=== PATIENT | male | born 1985 | race Caucasian/White ===

== ENCOUNTER 2024-12-31 07:56 | Inpatient (IN) ==
[2024-12-31] MEDS: HYDROmorphone INJ 0.5 MG/0.5 ML SYR IV STA ×4 (08:24→10:57)
[2024-12-31 08:51] LABS: Base Excess VBG -12.3 mEq/L; HCO3 VBG 17 mmol/L; Oxygen Saturation VBG < 60.0 %; PCO2 VBG 49 mmHg (38-50); PO2 VBG 42 mmHg; pH VBG 7.14 (7.36-7.41)
[2024-12-31 08:51] LABS: Alanine Aminotransferase 49.0 U/L (7-52); Albumin Globulin Ratio 1.0 (0.9-2); Albumin Level 4.6 gm/dl (3.4-5.0); Alkaline Phosphatase 41.0 U/L (34-104); Anion Gap 25.0 (3-11); Bilirubin,Total 1.2 mg/dl (0.2-1.0); Blood Urea Nitrogen 55.0 mg/dl (6-23); Calcium 9.3 mg/dl (8.6-10.3); Carbon Dioxide 18.0 mmol/L (21-32); Chloride 91.0 mmol/L (98-107); Creatinine Clr Calc Pharmacy 24.7 ml/min; Globulin 4.5 gm/dl (2.5-4.0); Glucose 167.0 mg/dl (70-99(Fasting)); Lipase 6.0 U/L (11-82); Potassium 3.6 mmol/L (3.5-5.1); Sodium 134.0 mmol/L (136-145); Total Protein 9.1 gm/dl (6.0-8.3)
--- NOTE | 2024-12-31 08:51 | Emergency Department Note ---
Impression & Plan Acute renal failure, Pneumoperitoneum, Abdominal pain, Acute appendicitis ED Provider Note NAME: RAF MARTINEZ AGE: 39 SEX: M : 1985 ARRIVES VIA: Walk-In INFORMANT: Patient, ED PROVIDER(S): Elsy Barone MD CHIEF COMPLAINT: Abdominal pain HPI: This is a 39-year-old male present for abdominal pain. Patient is Chinese- speaking only, mortgage originator iPad was used today. Patient reports having severe abdominal pain starting Sunday. That worsened on Sunday. He has not had a proper episode of urination since Sunday. He denies any nausea, vomiting. He states the pain is the worst pains ever had. He also complains of chest pain at this time. No fevers, no cough, shortness of breath. ROS: See above HPI for pertinent positives & negatives. A total of 10 systems reviewed and were otherwise negative. PAST MEDICAL HISTORY: See Below PAST SURGICAL HISTORY: See Below FAMILY HISTORY: See Below SOCIAL HISTORY: See Below HOME MEDICATIONS: See Below ALLERGIES: See Below VITALS: See Below PHYSICAL EXAMINATION: General: Tachypneic, in distress due to pain Head: Normocephalic and atraumatic Eyes: Normal inspection, extraocular muscles intact Ear, nose, throat: Normal external exam Neck: Normal range of motion Respiratory: Tachypneic, lungs clear to auscultation bilaterally Cardiovascular: Tachycardic, regular rate/rhythm, no murmur GI: Rigid, peritonitic, diffusely tender Extremities: nontender, moves all extremities Neuro: The patient awake and alert, appropriately conversive, no focal deficits, symmetric faces Skin: Warm, dry, and intact MEDICAL DECISION MAKING: This is a 39 elapsing for abdominal pain. Hydrology Technician iPad was used for Chinese- speaking patient. Patient is hypotensive and tachycardic on arrival thready pulses. 2 points of access obtained and bilateral upper extremities. Fluids started, Dilaudid given. Bedside ultrasound reveals possible free fluid in the right upper quadrant. Despite not having urination for the past 2 days, patient does not have any visible large bladder on ultrasound. -[id number] BMP reveals significant CORINA/renal failure with creatinine over 4 -Called CT imaging emergently for Noncon CT of the chest and abdomen -Patient has significant proved in pain after Dilaudid. Heart rate coming down after fluid resuscitation from 140s down to 110s - CT imaging reveals concerns for peritonitis as well as pneumoperitoneum. Concern for possible appendicitis as the source. -Care discussed with SHRAVAN for surgery, Becca. Patient was seen at bedside for possible OR - Patient will be taken to OR emergently. Patient admitted to Dr. Bullard general surgery service Differential diagnosis: Appendicitis, cholecystitis, abdominal compartment syndrome, mesenteric ischemia, volvulus Diagnostics interpreted by me: ECG: ECG independently interpreted by me with sinus tachycardia at a rate of 144, normal axis, normal [place], normal QRS, normal QTc, no ST segment elevations consistent with STEMI criteria Cardiac Monitoring: An order was placed for continuous cardiac monitoring. The monitor shows a rate of 130 with sinus tachycardia rhythm. Critical Care Note: I have personally spent 65 minutes of critical care time in the direct management of this patient. This includes bedside care, interpretation of diagnostic studies, and testing, discussion with consultants, patient, and family members, and other required patient management activities. This 65 minutes is in excess of all separately billable procedures. Past Med/Surg History Problem List (Updated 12/31/24 @ 16:50 by Elsy Barone MD) Acute appendicitis (Acute) Acute renal failure (Acute) Abdominal pain (Acute) Pneumoperitoneum (Acute) Social History (Updated 12/31/24 @ 09:48 by Jalen Shankar PA-C) Smoking Status: Never smoker Hx Alcohol Use: Yes (occasional, socially) Alcohol type: beer Hx Substance Use: No Communication Tools: IPad Feels Safe at Home: Yes Allergies Allergies Allergy/AdvReac Type Severity Reaction Status Date / Time No Known Allergies Allergy Verified 12/31/24 10:03 Results & Data (ED) Vital Signs Vital Signs - 24 hr 12/31/24 07:57 12/31/24 08:05 12/31/24 08:43 Temperature 36.5 C Temperature Source Temporal Artery Scan Pulse Rate 76 Pulse Rate [Apical] 141 H 130 H Pulse Rate [Left Finger] Pulse Rhythm [Apical] Pulse Rhythm [Left Finger] Pulse Strength [Apical] Pulse Strength [Left Finger] Respiratory Rate 30 H 18 28 H Respiratory Effort / Characteristics Non-Labored Spontaneous Respiratory Depth Shallow Normal Respiratory Pattern Tachypnea Blood Pressure [Left Arm] Blood Pressure [Right Arm] 106/87 97/78 L Blood Pressure Mean [Left Arm] Blood Pressure Mean [Right Arm] 93 84 Blood Pressure Position [Left Arm] Blood Pressure Position [Right Arm] Sitting Pulse Oximetry 98 96 96 Oxygen Delivery Method Room Air Room Air Room Air Oxygen Flow Rate Sepsis Recent Fever Within 48 Hours No Sepsis New/Unexplained Change in Mental Status No Sepsis Action Taken by Nursing No Action Required 12/31/24 08:45 12/31/24 09:00 12/31/24 09:30 Temperature Temperature Source Pulse Rate 137 H Pulse Rate [Apical] 116 H 127 H Pulse Rate [Left Finger] Pulse Rhythm [Apical] Pulse Rhythm [Left Finger] Pulse Strength [Apical] Pulse Strength [Left Finger] Respiratory Rate 28 H 26 H Respiratory Effort / Characteristics Respiratory Depth Respiratory Pattern Blood Pressure [Left Arm] Blood Pressure [Right Arm] 115/91 117/90 Blood Pressure Mean [Left Arm] Blood Pressure Mean [Right Arm] 99 99 Blood Pressure Position [Left Arm] Blood Pressure Position [Right Arm] Lying Lying Pulse Oximetry 95 94 Oxygen Delivery Method Room Air Room Air Oxygen Flow Rate Sepsis Recent Fever Within 48 Hours Sepsis New/Unexplained Change in Mental Status Sepsis Action Taken by Nursing 12/31/24 10:00 12/31/24 10:33 12/31/24 13:54 Temperature 36 C L Temperature Source Oral Temporal Artery Scan Pulse Rate Pulse Rate [Apical] 133 H 118 H Pulse Rate [Left Finger] 137 H Pulse Rhythm [Apical] Regular Pulse Rhythm [Left Finger] Regular Pulse Strength [Apical] Normal Pulse Strength [Left Finger] Normal Respiratory Rate 28 H 20 15 Respiratory Effort / Characteristics Non-Labored Spontaneous Non-Labored Spontaneous Respiratory Depth Normal Normal Respiratory Pattern Regular Regular Blood Pressure [Left Arm] 131/86 Blood Pressure [Right Arm] 111/92 126/98 Blood Pressure Mean [Left Arm] 101 Blood Pressure Mean [Right Arm] 98 107 Blood Pressure Position [Left Arm] Semi-fowlers Blood Pressure Position [Right Arm] Sitting Semi-fowlers Pulse Oximetry 94 91 98 Oxygen Delivery Method Room Air Room Air Oxymask Oxygen Flow Rate 12 Sepsis Recent Fever Within 48 Hours Sepsis New/Unexplained Change in Mental Status Sepsis Action Taken by Nursing 12/31/24 14:00 12/31/24 14:10 12/31/24 14:20 Temperature Temperature Source Pulse Rate Pulse Rate [Apical] 115 H 113 H 120 H Pulse Rate [Left Finger] Pulse Rhythm [Apical] Regular Regular Regular Pulse Rhythm [Left Finger] Pulse Strength [Apical] Normal Normal Normal Pulse Strength [Left Finger] Respiratory Rate 16 20 18 Respiratory Effort / Characteristics Non-Labored Spontaneous Non-Labored Spontaneous Non-Labored Spontaneous Respiratory Depth Normal Normal Normal Respiratory Pattern Regular Regular Regular Blood Pressure [Left Arm] 122/89 118/77 127/93 Blood Pressure [Right Arm] Blood Pressure Mean [Left Arm] 100 90 104 Blood Pressure Mean [Right Arm] Blood Pressure Position [Left Arm] Semi-fowlers Semi-fowlers Semi-fowlers Blood Pressure Position [Right Arm] Pulse Oximetry 97 97 97 Oxygen Delivery Method Oxymask Oxymask Oxymask Oxygen Flow Rate 12 10 6 Sepsis Recent Fever Within 48 Hours Sepsis New/Unexplained Change in Mental Status Sepsis Action Taken by Nursing 12/31/24 14:30 12/31/24 14:40 12/31/24 14:50 Temperature 37.1 C Temperature Source Oral Pulse Rate Pulse Rate [Apical] 126 H 120 H 125 H Pulse Rate [Left Finger] Pulse Rhythm [Apical] Regular Regular Regular Pulse Rhythm [Left Finger] Pulse Strength [Apical] Normal Normal Normal Pulse Strength [Left Finger] Respiratory Rate 18 14 16 Respiratory Effort / Characteristics Non-Labored Spontaneous Non-Labored Spontaneous Non-Labored Spontaneous Respiratory Depth Normal Normal Normal Respiratory Pattern Regular Regular Regular Blood Pressure [Left Arm] 121/91 121/81 109/76 Blood Pressure [Right Arm] Blood Pressure Mean [Left Arm] 101 94 87 Blood Pressure Mean [Right Arm] Blood Pressure Position [Left Arm] Semi-fowlers Semi-fowlers Semi-fowlers Blood Pressure Position [Right Arm] Pulse Oximetry 97 94 98 Oxygen Delivery Method Oxymask Oxymask Oxymask Oxygen Flow Rate 6 3 3 Sepsis Recent Fever Within 48 Hours Sepsis New/Unexplained Change in Mental Status Sepsis Action Taken by Nursing 12/31/24 15:00 12/31/24 15:10 12/31/24 15:20 Temperature Temperature Source Pulse Rate Pulse Rate [Apical] 125 H 126 H 129 H Pulse Rate [Left Finger] Pulse Rhythm [Apical] Regular Regular Regular Pulse Rhythm [Left Finger] Pulse Strength [Apical] Normal Normal Normal Pulse Strength [Left Finger] Respiratory Rate 18 20 16 Respiratory Effort / Characteristics Non-Labored Spontaneous Non-Labored Spontaneous Non-Labored Spontaneous Respiratory Depth Normal Normal Normal Respiratory Pattern Regular Regular Regular Blood Pressure [Left Arm] 112/91 122/90 112/87 Blood Pressure [Right Arm] Blood Pressure Mean [Left Arm] 98 100 95 Blood Pressure Mean [Right Arm] Blood Pressure Position [Left Arm] Semi-fowlers Semi-fowlers Semi-fowlers Blood Pressure Position [Right Arm] Pulse Oximetry 98 98 97 Oxygen Delivery Method Oxymask Oxymask Oxymask Oxygen Flow Rate 2 2 2 Sepsis Recent Fever Within 48 Hours Sepsis New/Unexplained Change in Mental Status Sepsis Action Taken by Nursing 12/31/24 15:35 12/31/24 15:50 12/31/24 16:05 Temperature Temperature Source Pulse Rate Pulse Rate [Apical] 129 H 130 H 127 H Pulse Rate [Left Finger] Pulse Rhythm [Apical] Regular Regular Regular Pulse Rhythm [Left Finger] Pulse Strength [Apical] Normal Normal Normal Pulse Strength [Left Finger] Respiratory Rate 16 16 20 Respiratory Effort / Characteristics Non-Labored Spontaneous Non-Labored Spontaneous Non-Labored Spontaneous Respiratory Depth Normal Normal Normal Respiratory Pattern Regular Regular Regular Blood Pressure [Left Arm] 116/77 116/87 106/86 Blood Pressure [Right Arm] Blood Pressure Mean [Left Arm] 90 96 92 Blood Pressure Mean [Right Arm] Blood Pressure Position [Left Arm] Semi-fowlers Semi-fowlers Semi-fowlers Blood Pressure Position [Right Arm] Pulse Oximetry 95 94 94 Oxygen Delivery Method Oxymask Room Air Room Air Oxygen Flow Rate 2 Sepsis Recent Fever Within 48 Hours Sepsis New/Unexplained Change in Mental Status Sepsis Action Taken by Nursing 12/31/24 16:15 12/31/24 16:30 Temperature Temperature Source Pulse Rate Pulse Rate [Apical] 127 H 130 H Pulse Rate [Left Finger] Pulse Rhythm [Apical] Regular Regular Pulse Rhythm [Left Finger] Pulse Strength [Apical] Normal Normal Pulse Strength [Left Finger] Respiratory Rate 18 14 Respiratory Effort / Characteristics Non-Labored Spontaneous Non-Labored Spontaneous Respiratory Depth Normal Normal Respiratory Pattern Regular Regular Blood Pressure [Left Arm] 116/76 107/76 Blood Pressure [Right Arm] Blood Pressure Mean [Left Arm] 89 86 Blood Pressure Mean [Right Arm] Blood Pressure Position [Left Arm] Semi-fowlers Semi-fowlers Blood Pressure Position [Right Arm] Pulse Oximetry 94 94 Oxygen Delivery Method Room Air Room Air Oxygen Flow Rate Sepsis Recent Fever Within 48 Hours Sepsis New/Unexplained Change in Mental Status Sepsis Action Taken by Nursing Laboratory Data 12/31/24 08:18 12/31/24 08:18 Lab Results 12/31/24 12/31/24 12/31/24 Range/Units 08:14 08:18 08:20 WBC 7.36 (4.8-10.8) K/ul RBC 6.33 H (4.70-6.10) M/uL Hgb 17.6 (14.0-18.0) g/dl POC Hgb 18.7 H (14.0-18.0) g/dl Hct 52.3 H (42.0-52.0) % POC Hct 55 H (42-52) % MCV 82.6 (80.0-100.0) fL MCH 27.8 (25.0-34.0) pg MCHC 33.7 (32.0-36.0) g/dL RDW Std Deviation 40.8 (36.4-46.3) fL RDW Coeff of Annika 14.2 (11.5-14.5) % Plt Count 367 (130-400) K/uL MPV 9.7 (9.4-12.4) fL Immature Gran % (Auto) 1.5 % Neut % (Auto) 77.2 % Lymph % (Auto) 12.6 % Addison % (Auto) 8.4 % Eos % (Auto) 0.0 % Baso % (Auto) 0.3 % Neut # (Auto) 5.68 (1.40-6.50) K/uL Lymph # (Auto) 0.93 L (1.20-3.40) K/uL Addison # (Auto) 0.62 H (0.11-0.59) K/uL Eos # (Auto) 0.00 (0.00-0.50) K/uL Baso # (Auto) 0.02 (0.00-0.20) K/uL Immature Gran # (Auto) 0.11 (0.01-0.20) K/uL VBG pH (7.36-7.41) VBG pCO2 (38-50) mmHg VBG pO2 mmHg VBG HCO3 mmol/L VBG O2 Saturation % VBG Base Excess mEq/L POC Sodium 132 L (135-144) mmol/L Sodium 134 L (136-145) mmol/L POC Potassium 3.5 (3.3-5.0) mmol/L Potassium 3.6 (3.5-5.1) mmol/L POC Chloride 97 L (101-112) mmol/L Chloride 91 L (98-107) mmol/L Carbon Dioxide 18 L (21-32) mmol/L POC Total CO2 19 L (24-31) mmol/L Anion Gap 25 H (3-11) POC Anion Gap 21.0 (16-25) mmol/L POC BUN 55 H (7-18) mg/dl BUN 55 H (6-23) mg/dl Creatinine 3.84 H (0.6-1.4) mg/dl POC Creatinine 4.3 H (0.6-1.3) mg/dl Est Cr Clr Drug Dosing 24.7 ml/min eGFR 19.78 BUN/Creatinine Ratio 14.3 (10-20) Glucose 167 H (70-99(Fasting)) mg/dl POC Glucose (other) 162 H (70-99) mg/dl Lactate (0.4-2.0) mmol/L Calcium 9.3 (8.6-10.3) mg/dl POC Ioniz Calcium Sola 0.92 L (1.12-1.32) mmol/l Total Bilirubin 1.2 H (0.2-1.0) mg/dl AST 36 (13-39) U/L ALT 49 (7-52) U/L Alkaline Phosphatase 41 (34-104) U/L Troponin I High Sens 59.0 H* (0-20) pg/ml B-Natriuretic Peptide 108 H (0-100) pg/ml Total Protein 9.1 H (6.0-8.3) gm/dl Albumin 4.6 (3.4-5.0) gm/dl Globulin 4.5 H (2.5-4.0) gm/dl Albumin/Globulin Ratio 1.0 (0.9-2) Lipase 6 L (11-82) U/L Procalcitonin > 100.00 H (0-0.5) ng/ml Urine Color Urine Appearance (Clear) Urine pH (4.5-7.5) Ur Specific [place] (1.000-1.030) Urine Protein (Negative) Urine Glucose (UA) (Negative) Urine Ketones (Negative) Urine Blood (Negative) Urine Nitrite (Negative) Urine Bilirubin (Negative) Urine Urobilinogen (Negative) Ur Leukocyte Esterase (Negative) Urine WBC (Auto) (0-5) /hpf Urine RBC (Auto) (0-2) /hpf U Hyaline Cast (Auto) (0-2) /lpf U Epithel Cells (Auto) (0-2) /hpf Urine Bacteria (Auto) (None Seen) Hyaline Casts (None Presnt) /lpf Urine Mucus (None Prsent) Urine Comment 12/31/24 12/31/24 12/31/24 Range/Units 08:42 10:06 15:51 WBC (4.8-10.8) K/ul RBC (4.70-6.10) M/uL Hgb (14.0-18.0) g/dl POC Hgb (14.0-18.0) g/dl Hct (42.0-52.0) % POC Hct (42-52) % MCV (80.0-100.0) fL MCH (25.0-34.0) pg MCHC (32.0-36.0) g/dL RDW Std Deviation (36.4-46.3) fL RDW Coeff of Annika (11.5-14.5) % Plt Count (130-400) K/uL MPV (9.4-12.4) fL Immature Gran % (Auto) % Neut % (Auto) % Lymph % (Auto) % Addison % (Auto) % Eos % (Auto) % Baso % (Auto) % Neut # (Auto) (1.40-6.50) K/uL Lymph # (Auto) (1.20-3.40) K/uL Addison # (Auto) (0.11-0.59) K/uL Eos # (Auto) (0.00-0.50) K/uL Baso # (Auto) (0.00-0.20) K/uL Immature Gran # (Auto) (0.01-0.20) K/uL VBG pH 7.14 L (7.36-7.41) VBG pCO2 49 (38-50) mmHg VBG pO2 42 mmHg VBG HCO3 17 mmol/L VBG O2 Saturation < 60.0 % VBG Base Excess -12.3 mEq/L POC Sodium (135-144) mmol/L Sodium (136-145) mmol/L POC Potassium (3.3-5.0) mmol/L Potassium (3.5-5.1) mmol/L POC Chloride (101-112) mmol/L Chloride (98-107) mmol/L Carbon Dioxide (21-32) mmol/L POC Total CO2 (24-31) mmol/L Anion Gap (3-11) POC Anion Gap (16-25) mmol/L POC BUN (7-18) mg/dl BUN (6-23) mg/dl Creatinine (0.6-1.4) mg/dl POC Creatinine (0.6-1.3) mg/dl Est Cr Clr Drug Dosing ml/min eGFR BUN/Creatinine Ratio (10-20) Glucose (70-99(Fasting)) mg/dl POC Glucose (other) (70-99) mg/dl Lactate 8.0 H* (0.4-2.0) mmol/L Calcium (8.6-10.3) mg/dl POC Ioniz Calcium Sola (1.12-1.32) mmol/l Total Bilirubin (0.2-1.0) mg/dl AST (13-39) U/L ALT (7-52) U/L Alkaline Phosphatase (34-104) U/L Troponin I High Sens 59.9 H* (0-20) pg/ml B-Natriuretic Peptide (0-100) pg/ml Total Protein (6.0-8.3) gm/dl Albumin (3.4-5.0) gm/dl Globulin (2.5-4.0) gm/dl Albumin/Globulin Ratio (0.9-2) Lipase (11-82) U/L Procalcitonin (0-0.5) ng/ml Urine Color Dark Yellow Urine Appearance Cloudy A (Clear) Urine pH 5.0 (4.5-7.5) Ur Specific [place] 1.034 H (1.000-1.030) Urine Protein 2+ H (Negative) Urine Glucose (UA) Negative (Negative) Urine Ketones Negative (Negative) Urine Blood 2+ H (Negative) Urine Nitrite Negative (Negative) Urine Bilirubin 1+ H (Negative) Urine Urobilinogen Negative (Negative) Ur Leukocyte Esterase Negative (Negative) Urine WBC (Auto) 0-5 (0-5) /hpf Urine RBC (Auto) 6-10 H (0-2) /hpf U Hyaline Cast (Auto) >20 H (0-2) /lpf U Epithel Cells (Auto) 3-5 H (0-2) /hpf Urine Bacteria (Auto) None Seen (None Seen) Hyaline Casts Present A (None Presnt) /lpf Urine Mucus Present A (None Prsent) Urine Comment Administered Medications Lactated Ringer's (Lr) 1,000 mls @ 125 mls/hr IV .Q8H [facility] Stop: 01/03/25 11:14 Last Infusion: 12/31/24 11:52 Dose: Infused Documented By: Admin: 12/31/24 11:03 Dose: 15 mls/hr Documented By: NAN Ondansetron HCl (Ondansetron Inj 2 Mg/Ml 2 Ml Vial) 4 mg IV ONCE PRN PRN Reason: PACU Use Only-Nausea/Vomiting Stop: 12/31/24 18:53 Last Admin: 12/31/24 15:52 Dose: 4 mg Documented By: Admin: 12/31/24 11:16 Dose: 4 mg Documented By: NAN Discontinued Medications Bupivacaine HCl (Bupivacaine 0.5 % 5 Mg/1 Ml Mpf 30ml Vial) Confirm Administered Dose 30 ml .ROUTE .STK-MED ONE Stop: 12/31/24 11:22 Last Admin: 12/31/24 13:34 Dose: 30 ml Documented By: MARIAN Bupivacaine Liposome (Bupivacaine Liposome 1.3% 266 Mg/20 Ml Vial) Confirm Administered Dose 266 mg .ROUTE .STK-MED ONE Stop: 12/31/24 11:22 Last Admin: 12/31/24 13:36 Dose: Not Given Documented By: ASHISH Chlorhexidine Gluconate (Chlorhexidine Gluconate 0.12% 480 Ml) Confirm Administered Dose 480 ml [facility] ONE Stop: 12/31/24 13:33 Last Admin: 12/31/24 13:36 Dose: 480 ml Documented By: JEMAL Hydromorphone HCl (Hydromorphone Inj 0.5 Mg/0.5 Ml Syr) Confirm Administered Dose 0.5 mg .ROUTE .STK-MED ONE Stop: 12/31/24 08:25 Last Admin: 12/31/24 09:04 Dose: Not Given Documented By: CelsaGV Hydromorphone HCl (Hydromorphone Inj 0.5 Mg/0.5 Ml Syr) 0.5 mg IV NOW STA Stop: 12/31/24 09:01 Last Admin: 12/31/24 08:24 Dose: 0.5 mg Documented By: QGV Hydromorphone HCl (Hydromorphone Inj 0.5 Mg/0.5 Ml Syr) 0.5 mg IV NOW STA Stop: 12/31/24 09:01 Last Admin: 12/31/24 09:04 Dose: 0.5 mg Documented By: QGV Hydromorphone HCl (Hydromorphone Inj 0.5 Mg/0.5 Ml Syr) 0.5 mg IV NOW STA Stop: 12/31/24 10:28 Last Admin: 12/31/24 10:30 Dose: 0.5 mg Documented By: QGV Hydromorphone HCl (Hydromorphone Inj 0.5 Mg/0.5 Ml Syr) 0.5 mg IV NOW STA Stop: 12/31/24 10:53 Last Admin: 12/31/24 10:57 Dose: 0.5 mg Documented By: NAN Sodium Chloride (Nss) 1,000 mls @ 999 mls/hr IV .Q1H1M [facility] Stop: 12/31/24 10:45 Last Infusion: 12/31/24 09:40 Dose: Infused Documented By: Admin: 12/31/24 09:22 Dose: 999 mls/hr Documented By: Infusion: 12/31/24 09:22 Dose: Infused Documented By: Admin: 12/31/24 09:04 Dose: 999 mls/hr Documented By: QGV Piperacillin Sod/Tazobactam Sod (Zosyn) 4.5 gm in 100 mls @ 200 mls/hr IV NOW ONE; Protocol Stop: 12/31/24 09:30 Last Infusion: 12/31/24 09:55 Dose: Infused Documented By: Admin: 12/31/24 09:20 Dose: 200 mls/hr Documented By: QGV Vancomycin HCl 2,000 mg/ (Sodium Chloride) 540 mls @ 200 mls/hr IV NOW ONE Stop: 12/31/24 11:42 Last Admin: 12/31/24 11:00 Dose: 200 mls/hr Documented By: JVU Piperacillin Sod/Tazobactam Sod (Zosyn) 4.5 gm in 100 mls @ 200 mls/hr IV NOW ONE; Protocol Stop: 12/31/24 16:04 Last Admin: 12/31/24 16:32 Dose: 200 mls/hr Documented By: MASOUD Pantoprazole Sodium (Protonix) 40 mg in 10 mls @ 5 mls/min IV NOW ONE Stop: 12/31/24 16:14 Last Admin: 12/31/24 16:32 Dose: 5 mls/min Documented By: MASOUD Ondansetron HCl (Ondansetron Inj 2 Mg/Ml 2 Ml Vial) 4 mg IV NOW STA Stop: 12/31/24 11:16 Last Admin: 12/31/24 11:17 Dose: Not Given Documented By: NAN Imaging Data Radiologist's Impression: Abdomen/Pelvis CT 12/31/24 08:26 CT OF THE ABDOMEN AND PELVIS WITHOUT CONTRAST CLINICAL HISTORY: peritonitic, FF RUQ on US, new renal failure COMPARISON STUDY: No previous studies for comparison. TECHNIQUE: Axial images of the abdomen and pelvis were obtained without IV contrast. Images were reviewed in the axial, sagittal, and coronal planes. Automated exposure control was utilized for the study. A dose lowering technique was utilized adhering to the principles of ALARA. FINDINGS: Please note that the chest CT will be reported separately. Evaluation of the abdomen and pelvis is suboptimal on this unenhanced examination. There is hepatic steatosis. The gallbladder is moderately distended but there is no pericholecystic infiltration. There is no biliary or pancreatic ductal dilatation. Spleen, adrenal glands and kidneys are unremarkable. There is no hydronephrosis. There are no urinary calculi. Of note, there are multiple foci of pneumoperitoneum consistent with a perforated hollow viscus. This includes a 4.2 x 1.7 cm focus within the mesentery on image 184 of 429. There are multiple additional gas and fluid containing collections, the largest of which is within the left mid abdomen on image 222, measuring 5.8 x 2.1 cm. Multiple loops of mildly dilated small bowel are noted without well-defined transition point. There is moderate wall thickening of several small bowel loops with equivocal pneumatosis within several jejunal loops. There is no portal venous gas. Associated mesenteric edema is present. Distal small bowel is relatively decompressed. There is evidence for peritoneal thickening and a small amount of ascites within the abdomen and pelvis. Several appendicoliths within the appendix measure up to 8 mm. The appendix is dilated, measuring 1.4 cm in caliber. There is no lymphadenopathy. The stomach is mildly distended fluid- filled. IMPRESSION: 1. Multiple foci of pneumoperitoneum consistent with perforated hollow viscus. Findings consistent with acute appendicitis. Therefore, perforated appendix could represent the source for pneumoperitoneum. However, given the diffuse abnormal appearance of the abdomen, an alternative source such as the small bowel cannot be excluded. Surgical consultation is recommended. Findings discussed with Dr. Barone at time of dictation. 2. Multiple mildly dilated fluid-filled small bowel loops with moderate small bowel wall thickening and equivocal pneumatosis. The findings could represent an ileus or partial small bowel obstruction. 3. Small amount of ascites and associated mesenteric edema/stranding. Peritoneal thickening which could be correlated with clinical evidence for peritonitis. Multiple gas and fluid containing pockets of fluid suspicious for developing abscesses. 4. Severe hepatic steatosis. 5. Mildly distended, fluid-filled stomach. 6. Distended gallbladder without pericholecystic infiltration. No convincing evidence for acute cholecystitis.. ACT 112: Negative or not required by law. Electronically signed by: Jarret Stephenson M.D. 12/31/2024 9:[address] 12/31/24 08:26 CT SCAN OF THE CHEST WITHOUT IV CONTRAST CLINICAL HISTORY: Chest pain. Tachycardia. COMPARISON STUDY: No priors. TECHNIQUE: CT scan of the thorax was performed from the thoracic inlet to the upper abdomen. Images are reviewed in the axial, sagittal, and coronal planes. IV contrast was not administered for this examination as per the referring clinician. A dose lowering technique was utilized adhering to the principles of ALARA. The examination is degraded by motion artifact. FINDINGS: Thyroid: Imaged portions of the thyroid gland are normal in size and attenuation. Thoracic aorta: The thoracic aorta is normal in caliber and demonstrates standard 3-vessel arch anatomy. Heart: The heart is normal in size noting a small pericardial effusion. Lungs and pleural spaces: Evaluation of the lung parenchyma is degraded by motion artifact. Trace pleural fluid is seen on the left. Bibasilar airspace opacities likely represent atelectasis. The trachea and central airways are clear. Mediastinum: There is no mediastinal lymphadenopathy. Nannette: Not well assessed without IV contrast. Axillae: There is no axillary lymphadenopathy. Upper abdomen: A small hiatal hernia is noted. Stomach is distended and filled with fluid. The mid to distal esophagus is mildly distended and filled with fluid. There is severe hepatic steatosis. Fatty sparing is seen adjacent to the gallbladder fossa. Trace perisplenic ascites is observed. There is a small amount of intraperitoneal free air seen adjacent to the spleen on image #214. Inflammatory change and fluid is seen in the peritoneum anterior to the stomach. Skeletal structures: No lytic or blastic bony lesions are seen. IMPRESSION: 1. There is a small volume of perisplenic ascites, intraperitoneal free air, and peritoneal inflammation/fluid seen in the upper abdomen. These findings are consistent with visceral perforation/peritonitis. See report of today's abdominal CT scan for detailed intra-abdominal findings. 2. Bibasilar airspace opacities likely represent atelectasis. Correlate clinically for evidence of a superimposed pneumonia/aspiration pneumonitis. 3. Trace left pleural effusion. 4. Severe hepatic steatosis. 5. The mid to distal esophagus is mildly distended and filled with fluid. There is also significant distention of the stomach. This may place the patient at risk for aspiration. Again, see report of today's abdominal CT for intra- abdominal findings. 6. Additional findings above. ACT 112: Negative or not required by law. Electronically signed by: Aashish Bradshaw M.D. 12/31/2024 9:00 AM KUB X-Ray 12/31/24 14:29 KUB HISTORY: NG placement COMPARISON STUDY: 12/31/2024 FINDINGS: Nasogastric tube tip is folded in the esophagus. Mild small bowel distention is better seen on CT, grossly stable. Stable pelvic drain. IMPRESSION: Nasogastric tube is folded in the esophagus. ACT 112: Negative or not required by law. The above report was generated using voice recognition software. It may contain grammatical, syntax or spelling errors. Electronically signed by: Brandon Chadwick M.D. 12/31/2024 3:19 PM KUB X-Ray 12/31/24 15:23 KUB HISTORY: eval NGT placement COMPARISON STUDY: Earlier today FINDINGS: Nasogastric tube tip is in the proximal stomach. Stable small bowel distention at the visualized upper abdomen. IMPRESSION: Nasogastric tube tip is in the proximal stomach. ACT 112: Negative or not required by law. The above report was generated using voice recognition software. It may contain grammatical, syntax or spelling errors. Electronically signed by: Brandon Chadwick M.D. 12/31/2024 3:46 PM Discharge Plan Visit Data Chief Complaint: Abdominal Pain Stated Complaint: ABD PAIN ED Provider: Elsy Barone Discharge Problem: Acute renal failure, Pneumoperitoneum, Abdominal pain, Acute appendicitis Patient Disposition: Admitted As Inpatient Condition: Critical Discharge Instructions Interventions: ED Discharge Assessment Last Done: 12/31/24 10:19 Discharge Problem: Acute renal failure Qualifiers: Acute renal failure type: unspecified Qualified Code(s): N17.9 - Acute kidney failure, unspecified Abdominal pain Qualifiers: Abdominal location: generalized Qualified Code(s): R10.84 - Generalized abdominal pain Acute appendicitis Qualifiers: Acute appendicitis type: with generalized peritonitis Appendicitis gangrene presence: with gangrene Appendicitis perforation presence: with perforation A ppendicitis abscess presence: unspecified whether abscess present Qualified Code(s): K35.201 - Acute appendicitis with generalized peritonitis, with perforation, without abscess
[2024-12-31 08:53] LABS: Hematocrit (blood only) 52.3 % (42.0-52.0); Hemoglobin 17.6 g/dl (14.0-18.0); Mean Corpuscular Hemoglobin 27.8 pg (25.0-34.0); Mean Corpuscular Volume 82.6 fL (80.0-100.0); Platelet Count 367 K/uL (130-400); RDW Standard Deviation 40.8 fL (36.4-46.3); Red Blood Count 6.33 M/uL (4.70-6.10); White Blood Count 7.36 K/ul (4.8-10.8)
[2024-12-31 08:57] LABS: Immature Granulocytes # (auto) 0.11 K/uL (0.01-0.20); Immature Granulocytes % (auto) 1.5 %
[2024-12-31] MEDS ORDERED: VANCOMYCIN CONSULT ACTIVE PRN (09:01)
--- NOTE | 2024-12-31 09:02 | CT Scan Report ---
CT SCAN OF THE CHEST WITHOUT IV CONTRAST CLINICAL HISTORY: Chest pain. Tachycardia. COMPARISON STUDY: No priors. TECHNIQUE: CT scan of the thorax was performed from the thoracic inlet to the upper abdomen. Images are reviewed in the axial, sagittal, and coronal planes. IV contrast was not administered for this ex amination as per the referring clinician. A dose lowering technique was utilized adhering to the jalen nciples of TANA. The examination is degraded by motion artifact. FINDINGS: Thyroid: Imaged portions of the thyroid gland are normal in size and attenuation. Thoracic aorta: The thoracic aorta is normal in caliber and demonstrates standard 3-vessel arch anato my. Heart: The heart is normal in size noting a small pericardial effusion. Lungs and pleural spaces: Evaluation of the lung parenchyma is degraded by motion artifact. Trace ple ural fluid is seen on the left. Bibasilar airspace opacities likely represent atelectasis. The trache a and central airways are clear. Mediastinum: There is no mediastinal lymphadenopathy. Nannette: Not well assessed without IV contrast. Axillae: There is no axillary lymphadenopathy. Upper abdomen: A small hiatal hernia is noted. Stomach is distended and filled with fluid. The mid to distal esophagus is mildly distended and filled with fluid. There is severe hepatic steatosis. Fatty sparing is seen adjacent to the gallbladder fossa. Trace perisplenic ascites is observed. There is a small amount of intraperitoneal free air seen adjacent to the spleen on image #214. Inflammatory william nge and fluid is seen in the peritoneum anterior to the stomach. Skeletal structures: No lytic or blastic bony lesions are seen. IMPRESSION: 1. There is a small volume of perisplenic ascites, intraperitoneal free air, and peritoneal inflammat ion/fluid seen in the upper abdomen. These findings are consistent with visceral perforation/peritoni tis. See report of today's abdominal CT scan for detailed intra-abdominal findings. 2. Bibasilar airspace opacities likely represent atelectasis. Correlate clinically for evidence of a superimposed pneumonia/aspiration pneumonitis. 3. Trace left pleural effusion. 4. Severe hepatic steatosis. 5. The mid to distal esophagus is mildly distended and filled with fluid. There is also significant d istention of the stomach. This may place the patient at risk for aspiration. Again, see report of ita meza's abdominal CT for intra-abdominal findings. 6. Additional findings above. ACT 112: Negative or not required by law. Electronically signed by: Aashish Bradshaw M.D. 12/31/2024 9:00 AM
[2024-12-31] MEDS: SODIUM CHLORIDE 0.9% 1,000 ML IV SCH (09:04)
[2024-12-31] MEDS: HYDROmorphone INJ 0.5 MG/0.5 ML SYR ONE (09:04)
--- NOTE | 2024-12-31 09:09 | CT Scan Report ---
CT OF THE ABDOMEN AND PELVIS WITHOUT CONTRAST CLINICAL HISTORY: peritonitic, FF RUQ on US, new renal failure COMPARISON STUDY: No previous studies for comparison. TECHNIQUE: Axial images of the abdomen and pelvis were obtained without IV contrast. Images were revi ewed in the axial, sagittal, and coronal planes. Automated exposure control was utilized for the durga dy. A dose lowering technique was utilized adhering to the principles of ALARA. FINDINGS: Please note that the chest CT will be reported separately. Evaluation of the abdomen and pe lvis is suboptimal on this unenhanced examination. There is hepatic steatosis. The gallbladder is mod erately distended but there is no pericholecystic infiltration. There is no biliary or pancreatic kinsey fredrick dilatation. Spleen, adrenal glands and kidneys are unremarkable. There is no hydronephrosis. Ther e are no urinary calculi. Of note, there are multiple foci of pneumoperitoneum consistent with a perf orated hollow viscus. This includes a 4.2 x 1.7 cm focus within the mesentery on image 184 of 429. Th ere are multiple additional gas and fluid containing collections, the largest of which is within the left mid abdomen on image 222, measuring 5.8 x 2.1 cm. Multiple loops of mildly dilated small bowel a re noted without well-defined transition point. There is moderate wall thickening of several small shravan wel loops with equivocal pneumatosis within several jejunal loops. There is no portal venous gas. Ass ociated mesenteric edema is present. Distal small bowel is relatively decompressed. There is evidence for peritoneal thickening and a small amount of ascites within the abdomen and pelvis. Several appen dicoliths within the appendix measure up to 8 mm. The appendix is dilated, measuring 1.4 cm in calibe r. There is no lymphadenopathy. The stomach is mildly distended fluid-filled. IMPRESSION: 1. Multiple foci of pneumoperitoneum consistent with perforated hollow viscus. Findings consistent wi th acute appendicitis. Therefore, perforated appendix could represent the source for pneumoperitoneum . However, given the diffuse abnormal appearance of the abdomen, an alternative source such as the sm all bowel cannot be excluded. Surgical consultation is recommended. Findings discussed with Dr. Barone at time of dictation. 2. Multiple mildly dilated fluid-filled small bowel loops with moderate small bowel wall thickening a nd equivocal pneumatosis. The findings could represent an ileus or partial small bowel obstruction. 3. Small amount of ascites and associated mesenteric edema/stranding. Peritoneal thickening which cou ld be correlated with clinical evidence for peritonitis. Multiple gas and fluid containing pockets of fluid suspicious for developing abscesses. 4. Severe hepatic steatosis. 5. Mildly distended, fluid-filled stomach. 6. Distended gallbladder without pericholecystic infiltration. No convincing evidence for acute yin cystitis.. ACT 112: Negative or not required by law. Electronically signed by: Jarret Stephenson M.D. 12/31/2024 9:08 AM
[2024-12-31] MEDS: PIPERACILLIN/TAZOBACTAM 4.5 GM/100 ML BAG IV ONE ×2 (09:20→16:32)
--- NOTE | 2024-12-31 09:58 | History & Physical Report ---
Date of Service December 31, 2024 Assessment & Plan (1) Pneumoperitoneum: Plan: Patient is a 39-year-old Tunisian-speaking only, but otherwise healthy male with acute abdominal pain x 2 days with poor urine output over the last [address] findings concerning for perforated viscus, possible perforated appendicitis as well as acute kidney injury. Will plan to admit to the general surgery service, under Dr. Bullard, to the medical/surgical floor with plans to proceed emergently to the operating room for laparoscopy, possible laparotomy, possible appendectomy versus bowel resection. For now, keep n.p.o., IV fluids, IV pain medication, Zosyn for broad-spectrum antibiotic coverage of intra-abdominal infection, Zofran for nausea. Will consult hospitalist for assistance in management of his acute kidney injury (2) Abdominal pain: (3) Acute renal failure: History of Present Illness Chief Complaint: abd pain x 2 days Primary Care Provider: NO PCP Patient is a 39-year-old male who is Tunisian-speaking only and has no reported past medical history who presents to the emergency department complaining of severe abdominal pain x 2 days. Patient was seen and examined with the assistance of the telemetry six pack loader operator. Patient states his abdominal pain began 2 days ago and was described as diffuse but mild at that time. His abdominal pain progressed over the last 2 days and became very severe with associated nausea and vomiting as well as chest pain. He also complained of difficulty urinating and has not voided for 2 days, but denies any constipation or diarrhea, denies fevers or chills. Patient was evaluated in the emergency department and was tachycardic with heart rate in the 120s, sinus tachycardia, but blood pressure was stable. His exam was significant for a distended abdomen that was diffusely tender to palpation and firm with peritoneal signs. His labs were significant for a normal white blood cell count of 7.3, but elevated BUN and creatinine of 55 and 3.84 consistent with acute kidney injury. No previous labs are available. He had a CAT scan of the abdomen pelvis that showed findings of pneumoperitoneum and inflammatory changes around the appendix concerning for perforated appendicitis, so general surgery was consulted. Allergies Allergy/AdvReac Type Severity Reaction Status Date / Time No Known Allergies Allergy Verified 12/31/24 10:03 Past Med/Surg History Problem List Acute renal failure Abdominal pain Pneumoperitoneum Social History (Updated 12/31/24 @ 09:48 by Jalen Shankar PA-C) Smoking Status: Never smoker Hx Alcohol Use: Yes (occasional, socially) Alcohol type: beer Hx Substance Use: No Communication Tools: IPad Feels Safe at Home: Yes Review of Systems Review of Systems: All systems reviewed & are unremarkable except as noted in HPI & below Physical Exam Physical Exam: Gen: Awake and alert, appears uncomfortable, resting in bed in NAD CV: RRR PULM: non-labored breathing Abd: Abdomen moderately distended with subtle diffuse erythema, firm to the touch, diffusely tender to palpation with guarding. ext: no edema to bilateral lower ext, non-tender, feet warm and well perfused Results & Data Results & Data Vital Signs (Past 12 Hours) Vital Signs Temp Pulse Pulse Resp BP Pulse Ox O2 Del Method 12/31/24 09:30 127 H 26 H 117/90 94 Room Air 12/31/24 09:00 116 H 28 H 115/91 95 Room Air 12/31/24 08:45 137 H 12/31/24 08:43 130 H 28 H 97/78 L 96 Room Air 12/31/24 08:05 36.5 C 76 18 96 Room Air 12/31/24 07:57 141 H 30 H 106/87 98 Room Air Diagnostic Findings CT chest: IMPRESSION: 1. There is a small volume of perisplenic ascites, intraperitoneal free air, and peritoneal inflammation/fluid seen in the upper abdomen. These findings are consistent with visceral perforation/peritonitis. See report of today's abdominal CT scan for detailed intra-abdominal findings. 2. Bibasilar airspace opacities likely represent atelectasis. Correlate clinically for evidence of a superimposed pneumonia/aspiration pneumonitis. 3. Trace left pleural effusion. 4. Severe hepatic steatosis. 5. The mid to distal esophagus is mildly distended and filled with fluid. There is also significant distention of the stomach. This may place the patient at risk for aspiration. Again, see report of today's abdominal CT for intra-abdomi nal findings. 6. Additional findings above CT Abd/Pelvis: IMPRESSION: 1. Multiple foci of pneumoperitoneum consistent with perforated hollow viscus. Findings consistent with acute appendicitis. Therefore, perforated appendix could represent the source for pneumoperitoneum. However, given the diffuse abnormal appearance of the abdomen, an alternative source such as the small bowel cannot be excluded. Surgical consultation is recommended. Findings discussed with Dr. Barone at time of dictation. 2. Multiple mildly dilated fluid-filled small bowel loops with moderate small bowel wall thickening and equivocal pneumatosis. The findings could represent an ileus or partial small bowel obstruction. 3. Small amount of ascites and associated mesenteric edema/stranding. Peritoneal thickening which could be correlated with clinical evidence for peritonitis. Multiple gas and fluid containing pockets of fluid suspicious for developing abscesses. 4. Severe hepatic steatosis. 5. Mildly distended, fluid-filled stomach. 6. Distended gallbladder without pericholecystic infiltration. No convincing evidence for acute cholecystitis... Supervising Physician Co-Signing Physician Notes Patient seen and examined, labs and imaging reviewed, human resources generalist used, agree with above. Tunisian-speaking only male presented with abdominal pain starting yesterday. Became severe. No prior abdominal surgeries, otherwise healthy. On exam he is afebrile but tachycardic, normotensive, slightly tachypneic. Abdomen is distended and diffusely tender to palpation, worse in the right lower quadrant, guarding. WBC normal, lactate elevated, creatinine elevated. CT scan personally reviewed and agree with assessment of pneu moperitoneum with dilated and distended bowel, possible pneumatosis, also with appendicolith with suspected appendicitis which may be the source of perforation. Pneumoperitoneum, sepsis Plan for diagnostic laparoscopy, possible laparoscopic appendectomy, possible bowel resection, possible open Risk of the procedure were discussed to include but not limited to bleeding, infection, abscess, damage to surrounding structures, need for future more extensive surgery, abscess, risk of anesthesia Postoperative course will be determined by surgical findings, likely needs a few days in the hospital and antibiotics at least Medicine consult, possible ICU admission postop PG Care Time/CCT Total # of Minutes Spent Total Time Spent with Patient: Total time spent is greater than 50% in coordination of care (as documented) at patient's floor/unit and/or counseling patient: [place] [address] INT INP/OBS CARE 1/40MIN Patient Type New Medical Decision Making Moderate Complexity Diagnoses Pneumoperitoneum K66.8 Abdominal pain R10.9 Acute renal failure N17.9
--- NOTE | 2024-12-31 10:04 | Anesthesiology Consultation ---
Date of Service December 31, 2024 Assessment & Plan Chart Review Chart Review: Acceptable Risk for Surgery and Patient NOT seen in Pre Admission Testing History Surgery Operation Date: 12/31/24 09:05 Proposed Procedures p Diagnostic Laparoscopy, Possible Appendectomy, Possible Bowel Resection, Possible Open - Brandon Bullard, DO, FACS Height/Weight Height: 5 ft 2.99 in Weight: 80.7 kg Allergies Allergy/AdvReac Type Severity Reaction Status Date / Time No Known Allergies Allergy Verified 12/31/24 10:03 Medications Active Medications Generic Name Dose Route Start Last Admin Trade Name Freq PRN Reason Stop Dose Admin Sodium Chloride 1,000 mls @ 999 mls/hr 12/31/24 08:45 12/31/24 09:40 Nss IV 12/31/24 10:45 Infused .Q1H1M BRIDGETT Infusion Social History Smoking Status: Never smoker Hx Alcohol Use: Yes (occasional, socially) Alcohol type: beer Hx Substance Use: No Physical Exam Vital Signs Last Vital Signs Temp 36.5 C 12/31/24 08:05 Pulse 127 H 12/31/24 09:30 Resp 26 H 12/31/24 09:30 BP 117/90 12/31/24 09:30 Pulse Ox 94 12/31/24 09:30 O2 Del Method Room Air 12/31/24 09:30 Testing Laboratory Results 12/31/24 08:18 12/31/24 08:18 12/31/24 08:20 POC Glucose (other) 162 H
[2024-12-31] MEDS ORDERED: ATROPINE SULFATE 0.1 MG/ML 10ML SYR IV PRN (10:52)
[2024-12-31] MEDS ORDERED: PROMETHAZINE HCL 6.25 MG in SODIUM CHLORIDE 0.9% 50 ML IV PRN (10:52)
[2024-12-31] MEDS ORDERED: HYDROmorphone INJ 2 MG/ML SYR/VIAL IV PRN (10:52)
[2024-12-31] MEDS ORDERED: PROPOFOL IV EMULSION 10 MG/ML 20 ML VIAL IV ONE (10:55)
[2024-12-31] MEDS ORDERED: LIDOCAINE 2% 2 ML VIAL/AMP(20MG/ML) INFIL ONE (10:55)
[2024-12-31] MEDS ORDERED: ROCURONIUM BROMIDE 10 MG/ML 5 ML VIAL IV ONE (10:56)
[2024-12-31] MEDS ORDERED: MIDAZOLAM HCL 1 MG/ML 2ML VIAL ONE (10:56)
[2024-12-31] MEDS ORDERED: PHENYLEPHRINE HCL 10 MG/ML VIAL ONE (10:56)
[2024-12-31] MEDS ORDERED: DEXAMETHASONE SOD INJ 4 MG/ML VIAL ONE (10:56)
[2024-12-31] MEDS ORDERED: ONDANSETRON INJ 2 MG/ML 2 ML VIAL ONE (10:56)
[2024-12-31] MEDS: VANCOMYCIN HCL 2,000 MG in SODIUM CHLORIDE 0.9% 500 ML IV ONE (11:00)
[2024-12-31] MEDS: LACTATED RINGER'S 1,000 ML IV SCH ×2 (11:03→19:42)
[2024-12-31] MEDS: ONDANSETRON INJ 2 MG/ML 2 ML VIAL IV PRN (11:16)
[2024-12-31] MEDS: ONDANSETRON INJ 2 MG/ML 2 ML VIAL IV STA (11:17)
[2024-12-31] MEDS ORDERED: SUGAMMADEX SODIUM 200 MG/2 ML VIAL IV ONE (12:51)
[2024-12-31] MEDS: BUPIVACAINE 0.5 % 5 MG/1 ML MPF 30ML VIAL ONE (13:34)
[2024-12-31] MEDS: CHLORHEXIDINE GLUCONATE 0.12% 480 ML MT ONE (13:36)
[2024-12-31] MEDS: BUPIVACAINE LIPOSOME 1.3% 266 MG/20 ML VIAL ONE (13:36)
--- NOTE | 2024-12-31 13:40 | Operative Report ---
PG Post Operative Report Pre & Post Diagnosis Operation Date: 12/31/24 09:05 Pre-Op Diagnosis: Pneumoperitoneum Post-Op Diagnosis: Pneumoperitoneum, perforated appendicitis, peritonitis I identified the patient and participated in the time-out.: Yes Procedure Operation Date: 12/31/24 09:05 Actual Procedures p Diagnostic Laparoscopy, abdominal washout, laparoscopic appendectomy(Not Applicable) - Brandon Bullard DO, RISHI Surgeon Brandon Bullard DO, RISHI B2B Sales Representative Albert Shankar Estimated Blood Loss 15 Findings Consistent with Post-Op Diagnosis Diffuse peritonitis and purulent fluid within the abdomen. Dilated small bowel, but no evidence of small bowel pneumatosis or ischemia. Gangrenous perforated appendicitis, laparoscopic appendectomy performed. Washed out with 2 L saline. Remainder of bowel examined and normal. Good hemostasis. 10 mm flat AISHWARYA drains were left in the pelvis. Specimens Perforated appendix Drains NG tube Wayne catheter 10 mm flat AISHWARYA in pelvis and right lower quadrant Anesthesia Type General Complications none Disposition Accompanied Patient To Recovery: No Disposition: Recovery Room Indications 39-year-old Irish-speaking male presented with 24 to 48 hours of abdominal pain. He was tachycardic and tachypneic, with peritoneal signs on exam. CT scan showed pneumoperitoneum with appendicitis as suspected source, however also had pneumatosis and dilated small bowel. Plan for diagnostic laparoscopy, possible laparoscopic appendectomy, possible bowel resection, possible open. Th e risks of the procedure were discussed, all questions were answered, and the patient agreed to proceed with surgery as planned. Description of Procedure The patient was properly identified, consented, and taken to the operating room where he was placed in the supine position. General endotracheal anesthesia was induced. SCDs and a safety belt were placed. Preoperative antibiotics were administered. A Wayne catheter and NG tube were placed. The patient's abdomen was prepped and draped in the standard sterile fashion. Surgical timeout was p erformed and all parties were in agreement that this was the correct patient and procedure to be performed and we continued as planned. An incision was made to the left and superior to the umbilicus. The abdomen was then entered utilizing the Optiview technique with a 5 mm 30 degree scope and a 5 mm port. The introducer was removed and the abdomen insufflated which the patient tolerated without incident. The laparoscope was inserted and no damage from initial trocar placement was noted. There was diffuse peritonitis and purulent/feculent fluid throughout the abdomen. The small bowel was dilated but there was no evidence of ischemia. The small bowel and omentum were stuck to the anterior abdominal wall with thin filmy adhesions. There was a window in the left upper quadrant. A 5 mm port was then placed in the left upper quadrant and direct visualization. The purulent fluid was suctioned and irrigated. The filmy adhesions were gently dissected down to expose the entire to the abdomen. A 12 mm port was placed in the left lower quadrant with care not to damage the epigastric vessels. A 5 mm port was placed in the suprapubic midline with care not to damage the bladder. The patient was placed in Trendelenburg position and rotated towards the left. The small bowel was swept away from the right lower quadrant, and held out of place by the promotional advertising assistant. The appendix was identified and had a healthy base but appeared necrotic about 1 cm distal to its origin. There was purulent/feculent fluid coming from the appendix. The cecum was grasped with an atraumatic grasper exposing the base appendix. A window was created between the base of the appendix and the mesoappendix. A freeman loaded endoscopic stapler was then used to divide the appendix at its base. The Sonicision was then used to divide the mesoappendix and to mobilize a small portion of the appendix and right colon off the lateral abdominal wall. Hemostasis was good. The right lower quadrant and pelvis were irrigated and the purulent and feculent fluid had ceased building up. The appendix was sent to the side and the abdomen was copiously irrigated with 2 L of saline, being sure to include all 4 quadrants. There was significant fibrinous exudate in the pelvis and left lower quadrant. The bowel and colon were gently inspected and all appeared healthy other than the reaction to the inflammatory process in the abdomen. The appendix was placed in an Endo Catch bag and removed through the left lower quadrant port site. A 10 mm flat AISHWARYA drain was then placed in the right lower quadrant and pelvis and exited through the left upper quadrant port site. This was secured into place with a 2-0 nylon suture. The fascia of the 12 mm left lower quadrant port site was closed with a [id number] 0 Vicryl suture utilizing a Jero-Judith vice. The skin of all ports was closed with 4-0 Monocryl subcuticular sutures. Dermabond was placed over the wounds and a drain dressing was applied at the AISHWARYA site. The patient was extubated in the operating room and taken to the PACU where he recovered without apparent incident. The NG tube and Wayne catheter were left in place. All sponge, instrument and needle counts were correct at the conclusion of the procedure. The patient tolerated the procedure well. The physicians promotional advertising assistant was present and scrubbed for the entirety of the case. He was critical in positioning the patient, prepping and draping, retraction and exposure, driving the laparoscope, removal of the appendix, placement of drain, closure of the incisions, and placement of the dressings. I attest to the content of the Intraoperative Record and any orders documented therein. Any exceptions are noted below.
[2024-12-31] MEDS ORDERED: HYDROmorphone INJ 2 MG/ML SYR/VIAL ONE (13:41)
--- NOTE | 2024-12-31 14:37 | Anesthesiology Progress Note ---
Date of Service December 31, 2024 Anesthesia Post Procedure Vital Signs Vital Signs: Temp Pulse Pulse Pulse Resp BP BP 12/31/24 14:30 126 H 18 121/91 12/31/24 14:20 120 H 18 127/93 12/31/24 14:10 113 H 20 118/77 12/31/24 14:00 115 H 16 122/89 12/31/24 13:54 36 C L 118 H 15 131/86 12/31/24 10:33 137 H 20 126/98 12/31/24 10:00 133 H 28 H 111/92 12/31/24 09:30 127 H 26 H 117/90 12/31/24 09:00 116 H 28 H 115/91 12/31/24 08:45 137 H 12/31/24 08:43 130 H 28 H 97/78 L 12/31/24 08:05 36.5 C 76 18 12/31/24 07:57 141 H 30 H 106/87 Pulse Ox O2 Del Method O2 Flow Rate 12/31/24 14:30 97 Oxymask 6 12/31/24 14:20 97 Oxymask 6 12/31/24 14:10 97 Oxymask 10 12/31/24 14:00 97 Oxymask 12 12/31/24 13:54 98 Oxymask 12 12/31/24 10:33 91 Room Air 12/31/24 10:00 94 Room Air 12/31/24 09:30 94 Room Air 12/31/24 09:00 95 Room Air 12/31/24 08:45 12/31/24 08:43 96 Room Air 12/31/24 08:05 96 Room Air 12/31/24 07:57 98 Room Air Pain Intensity Abdomen: Pain Intensity: 10 Transfer of Care Handoff Completed per policy Notes Mental Status: alert / awake / arousable Patient Amnestic to Procedure: Yes Nausea / Vomiting: adequately controlled Pain: adequately controlled Airway Patency, RR, SpO2: stable & adequate BP & HR: stable & adequate Hydration State: stable & adequate Anesthetic Complications: no major complications apparent and Pt Satisfied with anesthetic care
--- NOTE | 2024-12-31 15:20 | XRay Report ---
KUB HISTORY: NG placement COMPARISON STUDY: 12/31/2024 FINDINGS: Nasogastric tube tip is folded in the esophagus. Mild small bowel distention is better seen on CT, grossly stable. Stable pelvic drain. IMPRESSION: Nasogastric tube is folded in the esophagus. ACT 112: Negative or not required by law. The above report was generated using voice recognition software. It may contain grammatical, syntax o r spelling errors. Electronically signed by: Brandon Chadwick M.D. 12/31/2024 3:19 PM
--- NOTE | 2024-12-31 15:47 | XRay Report ---
KUB HISTORY: eval NGT placement COMPARISON STUDY: Earlier today FINDINGS: Nasogastric tube tip is in the proximal stomach. Stable small bowel distention at the visua lized upper abdomen. IMPRESSION: Nasogastric tube tip is in the proximal stomach. ACT 112: Negative or not required by law. The above report was generated using voice recognition software. It may contain grammatical, syntax o r spelling errors. Electronically signed by: Brandon Chadwick M.D. 12/31/2024 3:46 PM
--- NOTE | 2024-12-31 16:10 | Hospitalist Consultation ---
Date of Consultation December 31, 2024 Assessment & Plan (1) Acute appendicitis: (2) Acute renal failure: (3) Sepsis: Plan 39 y/o Kazakh speaking male with no past medical history that presented here due to low urinary output, low appetite and abdominal pain for 2 days found with possible perforated appendicitis. Patient was taken to the OR today for a laparoscopy appendectomy. On arrival patient found tachypneic and tachycardic. Lab remarkable creatinine of 3.38, anion gap of 25, BUN 55, Bicarb 18. VBG with PH of 7.14, normal PCO2, normal HCO3. Additionally lactate elevated at 8, as well as a procalcitonin of >100. Chest CT: bibasilar airspace opacities likely atelectasis vs pneumonia/pneumonitis, trace pleural effusions. Abdomen CT: Severe hepatic steatosis, perforated appendicitis. Small amount of ascites, peritoneal thickening concern with peritonitis. Multiple ass and fluid containing pockets suspicious of developing abscess. Patient evaluated in the PACU post surgical intervention. Found alert and oriented x3, states feeling well. Complaining of minimal pain and some nausea. Patient states generalized abdominal pain started last night, with low urinary output. states having dysuria and frequency as well. Denied any fever buts states having chills. Patient denied any past medical conditions. Denied any daily medications, only medication in the last two days was Pepcid for abdominal discomfort. Denied any daily alcohol use, only twice a day. Denied any history of smoking or any substance abuse. Patient had not had any medical care since he was seen as a kid #Sepsis 2/2 perforated appendicitis/ SBO - S/p Lap appendectomy and abdominal washout - Vital signs on evaluation remarkable for sinus tachycardia, normotensive. Elevated lactate: 1 and procalcitonin > 100.00, CORINA and Lactic acidosis - Blood culture ordered - patient received Vanco and Zosyn this morning in the ED before surgery - Repeat lactate, BMP, CBC, VBG now - Urinalysis pending - MRSA nares ordered, Biofire ordered - Patient received 4L of NSS. Continue LR 125 ml /hr - VBG now, consider Biocarb if pH worsen - Lactate CBC, and BMP in AM #CORINA/ Increased AG metabolic acidosis - Elevated lactic acid, poor po intake, septic shock - VBG: PH 7.14, normal bicarb normal CO2 - Repeat lactate acid now, trend if elevated - Urine toxicology pending. CK ordered - Received 4L of NSS, continue LR 125 ml /hr #Elevated troponin - EKG: - 59.9 on arrival - Will repeat now - Denied any chest pain, SOB or palpitation - Suspected secondary to demand ischemia - Continue to monitor #Perforated appendicis / SBO - S/p Lap appendectomy and abdominal washout 12/31 - Managed by primary team - Continue NGT, NPO - LR 125 ml/hr #Severe hepatic steatosis/ Elevated liver enzymes: - A1C and lipid panel ordered for am - hepatitis panel ordered - hepatic enzymes in am Dispo: PCU DVT prophylaxis: SCDs Supervising Physician Co-Signing Physician Notes I personally examined the patient and verified all pang points of history and exam, discussed case, and agree with decision making with Dr. Sukhdev Ellis with the following additions/exceptions: S-Pt here with abd pain x 1-2 days, decreased UOP, found to have ruptured gangrenous appendicitis, sepsis, lactic acidosis and CORINA. Taken urgently to OR and had appendectomy and washout. Pt seen after return to floor. Having some abd pain, requesting ice chips. History nd ROS otherwise reviewed as above O- Vitals Reviewed Gen: [AAOx3, NAD] HEENT: [anicteric sclerae, EOMI] CV: [RRR no mgr nl S1S2] Pulm: [CTAB no wcr] Abd: [+BS soft +TTP diffusely without guarding, ND no masses or hernias, incisions with dermabond, AISHWARYA drain in place, Wayne in place] CBC, BMP, LFTs, lactate, VBG, troponin, BNP reviewed A/P: 39 yo male here with ruptured appendicitis, CORINA, elevated troponin, sepsis -continue IVFs, IV Zosyn, NGT to LIS, surgical post-op management as per Surgery -follow CBC, CMP,lactate, VBG in AM-AG met acidosis improving -check blood cxs -follow BMP for CORINA, follow urine output -certified alcohol drug counselor on EtOH cessation for sever fatty liver-likely cause of elevated LFTs -check ECHO for elevated trop, BNP History of Present Illness History of Present Illness 39 y/o Kazakh speaking male with no past medical history that presented here due to low urinary output, low appetite and abdominal pain for 2 days found with possible perforated appendicitis. Patient was taken to the OR today for a laparoscopy appendectomy. On arrival patient found tachypneic and tachycardic. Lab remarkable creatinine of 3.38, anion gap of 25, BUN 55, Bicarb 18. VBG with PH of 7.14, normal PCO2, normal HCO3. Additionally lactate elevated at 8, as well as a procalcitonin of >100. Chest CT: bibasilar airspace opacities likely atelectasis vs pneumonia/pneumonitis, trace pleural effusions. Abdomen CT: Severe hepatic steatosis, perforated appendicitis. Small amount of ascites, peritoneal thickening concern with peritonitis. Multiple ass and fluid containing pockets suspicious of developing abscess. Patient evaluated in the PACU post surgical intervention. Found alert and oriented x3, states feeling well. Complaining of minimal pain and some nausea. Patient states generalized abdominal pain started last night, with low urinary output. states having dysuria and frequency as well. Denied any fever buts states having chills. Patient denied any past medical conditions. Denied any daily medications, only medication in the last two days was Pepcid for abdominal discomfort. Denied any daily alcohol use, only twice a day. Denied any history of smoking or any substance abuse. Patient had not had any medical care since he was seen as a kid Allergies Allergy/AdvReac Type Severity Reaction Status Date / Time No Known Allergies Allergy Verified 12/31/24 10:03 Patient History Medical History (Updated 12/31/24 @ 22:46 by Maya Boone MD) No pertinent past medical history Family History (Updated 12/31/24 @ 22:46 by Maya Boone MD) Other Family history non-contributory Social History (Updated 12/31/24 @ 09:48 by Jalen Shankar PA-C) Smoking Status: Never smoker Second Hand Exposure: No; Do You Dip or Chew Tobacco: No; Hx Alcohol Use: Yes Alcohol type: beer Hx Substance Use: No Preferred Language: Kazakh Communication Tools: IPad Repairer Sash And Door Required: Yes Beliefs That Will Affect Care: None Current Living Situation: Alone Feels Safe at Home: Yes Safety Concerns: Feels Safe At This Time Assistive Devices: None Review of Systems Review of Systems: as per hpi Physical Exam Constitutional: well developed, well nourished and + ill appearing; no acute distress Respiratory: normal respiratory effort, lungs clear to auscultation Cardiovascular: RRR, no murmur, no edema Gastrointestinal (Abdomen): Inspection/Auscultation: abdomen normal to inspection and normal bowel sounds; abdomen not distended Percussion/Palpation: + abdomen tender (Lower abdominal) and abdomen soft; no guarding and abdomen not rigid Musculoskeletal: no cyanosis or clubbing, extremities motor strength 5/5 Psychiatric: A+Ox3, euthymic affect Results & Data Results & Data Vital Signs (Past 12 Hours) Vital Signs Temp Pulse Pulse Pulse Resp BP BP 12/31/24 15:20 129 H 16 112/87 12/31/24 15:10 126 H 20 122/90 12/31/24 15:00 125 H 18 112/91 12/31/24 14:50 125 H 16 109/76 12/31/24 14:40 37.1 C 120 H 14 121/81 12/31/24 14:30 126 H 18 121/91 12/31/24 14:20 120 H 18 127/93 12/31/24 14:10 113 H 20 118/77 12/31/24 14:00 115 H 16 122/89 12/31/24 13:54 36 C L 118 H 15 131/86 12/31/24 10:33 137 H 20 126/98 12/31/24 10:00 133 H 28 H 111/92 12/31/24 09:30 127 H 26 H 117/90 12/31/24 09:00 116 H 28 H 115/91 12/31/24 08:45 137 H 12/31/24 08:43 130 H 28 H 97/78 L 12/31/24 08:05 36.5 C 76 18 12/31/24 07:57 141 H 30 H 106/87 Pulse Ox O2 Del Method O2 Flow Rate 12/31/24 15:20 97 Oxymask 2 12/31/24 15:10 98 Oxymask 2 12/31/24 15:00 98 Oxymask 2 12/31/24 14:50 98 Oxymask 3 12/31/24 14:40 94 Oxymask 3 12/31/24 14:30 97 Oxymask 6 12/31/24 14:20 97 Oxymask 6 12/31/24 14:10 97 Oxymask 10 12/31/24 14:00 97 Oxymask 12 12/31/24 13:54 98 Oxymask 12 12/31/24 10:33 91 Room Air 12/31/24 10:00 94 Room Air 12/31/24 09:30 94 Room Air 12/31/24 09:00 95 Room Air 12/31/24 08:45 12/31/24 08:43 96 Room Air 12/31/24 08:05 96 Room Air 12/31/24 07:57 98 Room Air Resident Activity Tracking Resident Involvement: Resident Care Provided Care Provided: Adult Hospital Medicine (1) Acute appendicitis Acute appendicitis type: with generalized peritonitis Appendicitis abscess presence: unspecified whether abscess present Appendicitis gangrene presence: with gangrene Appendicitis perforation presence: with perforation Qualified Code(s): K35.201 - Acute appendicitis with generalized peritonitis, with perforation, without abscess (2) Acute renal failure Acute renal failure type: unspecified Qualified Code(s): N17.9 - Acute kidney failure, unspecified
[2024-12-31] MEDS: PANTOprazole 40 MG/10 ML SYR IV ONE (16:32)
[2024-12-31 16:33] LABS: Appearance Urine Cloudy (Clear); Bacteria Urine Automated None Seen (None Seen); Cast Urine Automated >20 /lpf (0-2); Glucose Urine UA Negative (Negative); WBC Urine Automated 0-5 /hpf (0-5)
[2024-12-31 16:51] LABS: Hematocrit (blood only) 46.2 % (42.0-52.0); Hemoglobin 15.7 g/dl (14.0-18.0)
[2024-12-31 16:59] LABS: Alanine Aminotransferase 40.0 U/L (7-52); Albumin Globulin Ratio 0.9 (0.9-2); Albumin Level 3.2 gm/dl (3.4-5.0); Alkaline Phosphatase 33.0 U/L (34-104); Anion Gap 13.0 (3-11); Bilirubin,Total 1.4 mg/dl (0.2-1.0); Blood Urea Nitrogen 50.0 mg/dl (6-23); Calcium 7.5 mg/dl (8.6-10.3); Carbon Dioxide 17.0 mmol/L (21-32); Chloride 103.0 mmol/L (98-107); Creatine Kinase 462.0 U/L (30-223); Creatinine Clr Calc Pharmacy 53.4 ml/min; Globulin 3.4 gm/dl (2.5-4.0); Glucose 110.0 mg/dl (70-99(Fasting)); Magnesium 1.7 mg/dl (1.7-2.4); Potassium 4.2 mmol/L (3.5-5.1); Sodium 133.0 mmol/L (136-145); Total Protein 6.6 gm/dl (6.0-8.3)
[2024-12-31 17:05] LABS: Amphetamines+Metham, Urine Neg (Neg); MDMA (Ecstacy), Urine Neg (Neg); Marijuana, Urine Neg (Neg)
[2024-12-31 17:06] LABS: Mean Corpuscular Hemoglobin 27.3 pg (25.0-34.0); Mean Corpuscular Volume 80.3 fL (80.0-100.0); Platelet Count 258 K/uL (130-400); RDW Standard Deviation 39.3 fL (36.4-46.3); Red Blood Count 5.75 M/uL (4.70-6.10); White Blood Count 3.73 K/ul (4.8-10.8)
[2024-12-31 17:13] LABS: Dohle Bodies 1+; Immature Granulocytes # (auto) 0.02 K/uL (0.01-0.20); Immature Granulocytes % (auto) 0.5 %; Toxic Granulation 2+; Toxic Vacuolation 2+
[2024-12-31 17:56] LABS: INR 1.3 (0.9-1.1); Prothrombin Time 13.8 Seconds (9.0-12.0)
[2024-12-31 18:26] LABS: Chlamydia pneumoniae PCR Not Detected (NotDetected); Coronavirus 229E PCR Not Detected (NotDetected); Coronavirus CoV-2 (COVID19)PCR Not Detected (NotDetected); Coronavirus HKU1 PCR Not Detected (NotDetected); Coronavirus NL63 PCR Not Detected (NotDetected); Coronavirus OC43PCR Not Detected (NotDetected); Human Metapneumovirus PCR Not Detected (NotDetected); Parainfluenza Virus 1 PCR Not Detected (NotDetected); Parainfluenza Virus 2 PCR Not Detected (NotDetected); Parainfluenza Virus 3 PCR Not Detected (NotDetected); Parainfluenza Virus 4 PCR Not Detected (NotDetected); Respiratory Syncytial VirusPCR Not Detected (NotDetected); Rhinovirus/Enterovirus PCR Not Detected (NotDetected)
[2024-12-31 19:38] LABS: Base Excess VBG -6.8 mEq/L; HCO3 VBG 18 mmol/L; Oxygen Saturation VBG 85.1 %; PCO2 VBG 32 mmHg (38-50); PO2 VBG 53 mmHg; pH VBG 7.35 (7.36-7.41)
[2024-12-31] MEDS: ACETAMINOPHEN 1,000 MG/100 ML VIAL IV SCH (19:41)
[2024-12-31] MEDS: PIPERACILLIN/TAZOBACTAM 4.5 GM/100 ML BAG IV SCH (21:45)
[2024-12-31] MEDS: LACTATED RINGER'S 1,000 ML IV ONE (22:44)
--- NOTE | 2024-12-31 22:54 | Billing Data ---
Date of Service December 31, 2024 Coding Level of Care Code 43696 IN/OBS CONSULT LVL 4,60M
[2024-12-31] MEDS: MAGNESIUM SULFATE / D5W 1 GM/100 ML BAG IV SCH (23:52)
[2025-01-01 06:31] LABS: Base Excess VBG -2.5 mEq/L; HCO3 VBG 22 mmol/L; Oxygen Saturation VBG 83.9 %; PCO2 VBG 35 mmHg (38-50); PO2 VBG 51 mmHg; pH VBG 7.40 (7.36-7.41)
[2025-01-01 07:08] LABS: Alanine Aminotransferase 35.0 U/L (7-52); Albumin Level 2.9 gm/dl (3.4-5.0); Alkaline Phosphatase 26.0 U/L (34-104); Anion Gap 9.0 (3-11); Bilirubin,Total 1.5 mg/dl (0.2-1.0); Blood Urea Nitrogen 35.0 mg/dl (6-23); Calcium 8.1 mg/dl (8.6-10.3); Carbon Dioxide 22.0 mmol/L (21-32); Chloride 103.0 mmol/L (98-107); Cholesterol 75.0 mg/dl (0-200); Creatine Kinase 320.0 U/L (30-223); Creatinine Clr Calc Pharmacy 78.5 ml/min; Glucose 126.0 mg/dl (70-99(Fasting)); HDL Cholesterol 9.0 mg/dl; Potassium 4.0 mmol/L (3.5-5.1); Sodium 134.0 mmol/L (136-145); Total Protein 6.1 gm/dl (6.0-8.3); Triglycerides 185.0 mg/dl (0-150)
[2025-01-01 07:19] LABS: Hematocrit (blood only) 38.6 % (42.0-52.0); Hemoglobin 13.6 g/dl (14.0-18.0); Mean Corpuscular Hemoglobin 27.9 pg (25.0-34.0); Mean Corpuscular Volume 79.3 fL (80.0-100.0); Platelet Count 236 K/uL (130-400); RDW Standard Deviation 37.4 fL (36.4-46.3); Red Blood Count 4.87 M/uL (4.70-6.10); White Blood Count 5.35 K/ul (4.8-10.8)
[2025-01-01 07:21] LABS: Acanthocytes 1+; Dohle Bodies 1+; Immature Granulocytes # (auto) 0.03 K/uL (0.01-0.20); Immature Granulocytes % (auto) 0.6 %; Toxic Vacuolation 1+
[2025-01-01] MEDS: PERFLUTREN LIPID MICROSPHERE (DEFINITY) IV ONE (07:26)
--- NOTE | 2025-01-01 08:19 | Surgery Progress Note ---
Date of Service January 01, 2025 Assessment & Plan (1) Pneumoperitoneum: (2) Abdominal pain: (3) Acute renal failure: Plan Patient is postop day #1 from a diagnostic laparoscopy, abdominal washout, and appendectomy due to CT findings of pneumoperitoneum concerning for perforated viscus. Patient continues to experience a moderate amount of pain, but has not requested Dilaudid. Education was provided to the patient and he expressed understanding. Continue with Tylenol [id number] and Dilaudid IV for moderate to severe pain. Avoid NSAIDs due to his acute kidney injury on presentation, but this has markedly improved with hydration. Keep n.p.o., NG tube to low intermittent suction, awaiting return of bowel function. We will DC the Wayne today and try a trial of voiding Admission and Anticipated Discharge Date Admission Date: December 31, 2024 Supervising Physician Co-Signing Physician Notes Patient seen and examined, labs reviewed, interpreting service used. Agree with above. POD #1 laparoscopic appendectomy and washout for perforated appendicitis. He feels much better than prior to surgery. Increased urine output overnight. On exam he is afebrile with mild sinus tachycardia, heart rate in 90s to 100s, down from 130s to 150s preop. Abdomen is soft, appropriately tender to palpation, incisions without infection. AISHWARYA serosanguineous. NG tube with not much output. Wayne catheter with good amount of urine, slightly dark. WBC normal, H&H slightly down though likely hemoconcentrated preoperatively, creatinine normalized. Continue NG tube, await return of bowel function, high risk for ileus given perforation and sepsis. Continue IV antibiotics. Can DC Wayne if okay with medicine. Continue AISHWARYA drain. Subjective Patient was seen and examined with the aid of the tele alignment specialist, currently admits to moderate generalized and diffuse abdominal pain, similar to upon presentation, no significant difference after surgery yesterday. He states that he has not received any as needed pain medications and has only been getting Tylenol [id number]. Patient denies any flatus or bowel movement yet, denies any nausea or vomiting, NG tube in place with moderate amount of bilious output. AISHWARYA drain with approximately 160 mL of output since surgery, serosanguineous, no wicho pus. Patient has been maintaining adequate urine output via Wayne, renal function has markedly improved with aggressive fluid resuscitation and has near normalized. White blood cell count still normal, afebrile, but still moderately tachycardic, could be related to pain, continues on Zosyn. Discussed intraoperative findings and the patient expressed understa nding. Physical Exam Physical Exam: Gen: Awake and alert, resting comfortably in bed in NAD CV: RRR PULM: non-labored breathing Abd: Abdomen moderately distended, firm but not rigid, moderate diffuse tenderness to palpation, but no overt peritoneal signs. AISHWARYA drain with serosanguineous drainage noted. Laparoscopic incisions are well-approximated with skin glue in place, no surrounding erythema, warmth, swelling, or increased tenderness to palpation. ext: no edema to bilateral lower ext, SCDs in place, non-tender, feet warm and well perfusted Results & Data Vital Signs (Past 12 Hours) Vital Signs Temp Pulse Pulse Resp BP Pulse Ox O2 Del Method 01/01/25 07:48 36.8 C 94 H 18 107/70 92 Room Air 01/01/25 03:49 36.5 C 110 H 18 105/73 96 Room Air 12/31/24 23:49 118 H 12/31/24 22:26 36.5 C 130 H 18 104/69 93 Room Air 12/31/24 21:54 130 H Results BMP Results: Sodium 134 mmol/L (136-145) L 01/01/25 Potassium 4.0 mmol/L (3.5-5.1) 01/01/25 Chloride 103 mmol/L (98-107) 01/01/25 Carbon Dioxide 22 mmol/L (21-32) 01/01/25 Anion Gap 9 (3-11) 01/01/25 BUN 35 mg/dl (6-23) H 01/01/25 Creatinine 1.28 mg/dl (0.6-1.4) 01/01/25 Glucose 126 mg/dl (70-99(Fasting)) H 01/01/25 Results Complete Blood Count Results: RBC 4.87 M/uL (4.70-6.10) 01/01/25 WBC 5.35 K/ul (4.8-10.8) 01/01/25 Hgb 13.6 g/dl (14.0-18.0) L 01/01/25 Hct 38.6 % (42.0-52.0) L 11/06/25 Plt Count 236 K/uL (130-400) 01/01/25 PG Care Time/CCT Total # of Minutes Spent Total Time Spent with Patient: Total time spent is greater than 50% in coordination of care (as documented) at patient's floor/unit and/or counseling patient: C[place] [address] Post Operative Follow-Up Patient Type Established Medical Decision Making Low Complexity Diagnoses Pneumoperitoneum K66.8 Abdominal pain R10.84 Abdominal location: generalized Acute renal failure N17.9 Acute renal failure type: unspecified (2) Abdominal pain Abdominal location: generalized Qualified Code(s): R10.84 - Generalized abdominal pain (3) Acute renal failure Acute renal failure type: unspecified Qualified Code(s): N17.9 - Acute kidney failure, unspecified
[2025-01-01] MEDS: HYDROmorphone INJ 0.5 MG/0.5 ML SYR IV PRN (08:45)
[2025-01-01] MEDS: PANTOprazole 40 MG/10 ML SYR IV SCH (08:51)
--- NOTE | 2025-01-01 09:28 | XCELERA ---
[id number] \\[email or web address]\[id number]
--- NOTE | 2025-01-01 09:43 | Hospitalist Progress Note ---
Date of Service January 01, 2025 Assessment & Plan (1) Acute appendicitis: (2) Acute renal failure: (3) Sepsis: Plan This patient is a 39 y/o Bulgarian speaking male with no past medical history that presented here due to low urinary output, low appetite and abdominal pain for 2 days found with possible perforated appendicitis. Patient was taken to the OR 12/31 for a laparoscopy appendectomy. On arrival patient found tachypneic and tachycardic. Lab remarkable creatinine of 3.38, anion gap of 25, BUN 55, Bicarb 18. VBG with PH of 7.14, normal PCO2, normal HCO3. Additionally lactate elevated at 8, as well as a procalcitonin of >100. Chest CT: bibasilar airspace opacities likely atelectasis vs pneumonia/pneumonitis, trace pleural effusions. Abdomen CT: Severe hepatic steatosis, perforated appendicitis. Small amount of ascites, peritoneal thickening concern with peritonitis. Multiple gas and fluid containing pockets suspicious of developing abscess. #Sepsis 2/2 perforated appendicitis/ SBO - S/p Lap appendectomy and abdominal washout 12/31 - Vital signs on evaluation remarkable for sinus tachycardia, normotensive. Elevated lactate: 1 and procalcitonin > 100.00, CORINA and Lactic acidosis - Repeat lactate 2.4 downtrending. May take time to normalized due to current liver disease - Mrsa nares negative, Biofire negative - Blood culture pending - Continue Zosyn - Tylenol IV as needed for fever - Continue Hydration LR 125 ml/hr - Labs in morning #Perforated appendicis / SBO - S/p Lap appendectomy and abdominal washout 12/31 - Managed by primary team. Continue bowel rest - Continue NGT, NPO - LR 125 ml/hr - Will Dc Wayne today and do a void trial #CORINA/ Increased AG metabolic acidosis - resolved - Elevated lactic acid, poor po intake, septic shock on day 1 - VBG: PH 7.40 today - continue LR 125 ml /hr due to npo status - BMP in AM #Severe hepatic steatosis/ Elevated liver enzymes: - A1C and lipid panel ordered for am - hepatitis panel ordered - hepatic enzymes in am - Alcohol cessation Anemia: - Microcytic - Iron panel ordered: TIBC, iron, transferrin, vitamin b12 - replaced iron if need it #Elevated troponin - 59.9 on arrival trend down to 24 today - Denied any chest pain, SOB or palpitation - Echocardiogram: Left ventricular systolic function normal, no regional wall motion abnormalities, EF 55-60% . Mild tricuspid regurgitation - Suspected secondary to demand ischemia - Monitor for symptoms Dispo: PCU DVT prophylaxis: SCDs Admission and Anticipated Discharge Date Admission Date: December 31, 2024 Supervising Physician Co-Signing Physician Notes I personally examined the patient and verified all pang points of history and exam, discussed case, and agree with decision making with Dr. Sukhdev Ellis with the following additions/exceptions: S-used assembler show motor on iPad. Patient reports his pain in the abdomen is better. The Wayne catheter is bothering him. He denies any nausea. He has not passed any flatus or moved his bowels since admission. He denies any problems with vomiting or stomach issues prior to his appendicitis. O- Vitals Reviewed Gen: AAOx3, NAD HEENT: Anicteric sclerae, EOMI CV: RRR no mgr nl S1S2 Pulm: CTAB no wcr Abd: Hypoactive bowel sounds, incisions clean dry and intact, AISHWARYA drain with serosanguineous fluid, positive diffuse tenderness to palpation with mild guarding, no rebound Ext: No edema Skin: No rashes, warm/dry Neuro: Full strength throughout CBC, BMP, lactate, troponin, echo reviewed A/P: 39-year-old male with history of fatty liver, here with acute ruptured appendicitis with peritonitis, ileus, acute kidney injury, and sepsis. Overall much improved now status post appendectomy, AISHWARYA drain remains in place, NG tube in place. Wayne catheter in place but being removed. UA negative for infection. Acute kidney injury is now almost completely resolved and he is making urine. Lactate much improved With myocardial demand ischemia causing elevated troponin due to sepsis - Continue IV Zosyn, fluids - Continue NG tube, n.p.o. status - Pain meds as needed - Follow BMP, LFTs, CBC, procalcitonin in the a.m. -Iron deficiency anemia-start iron replacement once he is able to tolerate p.o. - Needs close follow-up with PCP as an outpatient for anemia and severely fatty liver-will spiritual counselor on alcohol cessation Subjective Seen this AM. Nisa was resting comfortable. States pain is controlled now after receiving medications. He had poor sleep during the night due to the pain. Advise to ask for pain medications as they are prn. Denied any nausea. Review of Systems Review of Systems: as per hpi Physical Exam Constitutional: well developed, well nourished and + ill appearing; no acute distress Respiratory: normal respiratory effort, lungs clear to auscultation Cardiovascular: RRR, no murmur, no edema Gastrointestinal (Abdomen): Inspection/Auscultation: + abdomen distended (mildly) and normal bowel sounds Percussion/Palpation: + abdomen tender (Lower abdominal) and abdomen soft; no guarding and abdomen not rigid Musculoskeletal: no cyanosis or clubbing, extremities motor strength 5/5 Psychiatric: A+Ox3, euthymic affect Results & Data Results & Data Vital Signs (Past 12 Hours) Vital Signs Temp Pulse Pulse Resp BP Pulse Ox O2 Del Method 01/01/25 07:48 36.8 C 94 H 18 107/70 92 Room Air 01/01/25 03:49 36.5 C 110 H 18 105/73 96 Room Air 12/31/24 23:49 118 H 12/31/24 22:26 36.5 C 130 H 18 104/69 93 Room Air 12/31/24 21:54 130 H Laboratory Results CBC, BMP, iron studies, B12, UA, blood cultures reviewed Resident Activity Tracking Resident Involvement: Resident Care Provided Care Provided: Adult Hospital Medicine (1) Acute appendicitis Acute appendicitis type: with generalized peritonitis Appendicitis abscess presence: unspecified whether abscess present Appendicitis gangrene presence: with gangrene Appendicitis perforation presence: with perforation Qualified Code(s): K35.201 - Acute appendicitis with generalized peritonitis, with perforation, without abscess (2) Acute renal failure Acute renal failure type: unspecified Qualified Code(s): N17.9 - Acute kidney failure, unspecified
[2025-01-01 09:55] LABS: Hep B Surface Ag with confirm Negative (Negative)
[2025-01-01 10:00] LABS: Hep C Ab Rflx HepCQuant RNA Negative (Negative)
[2025-01-01 12:06] LABS: Iron < 10 mcg/dl (35-175); Transferrin 137 mg/dl (200-360)
[2025-01-01 12:24] LABS: Ferritin 245.7 ng/ml (8-388)
[2025-01-01 12:26] LABS: Hemoglobin A1C 6.0 % (4.5-5.6)
[2025-01-01 12:36] LABS: Appearance Urine Cloudy (Clear); Cast Urine Automated 0-2 /lpf (0-2); Epithelial Cell Urine Auto 0-2 /hpf (0-2); Glucose Urine UA Negative (Negative); WBC Urine Automated 0-5 /hpf (0-5)
[2025-01-01 12:45] LABS: Bacteria Urine Automated 1+ (None Seen)
--- NOTE | 2025-01-01 17:51 | Billing Data ---
Date of Service January 01, 2025 Coding Level of Care Code 56691 SUB INP/OBS CARE
[2025-01-02 07:07] LABS: Hematocrit (blood only) 34.8 % (42.0-52.0); Hemoglobin 12.1 g/dl (14.0-18.0); Mean Corpuscular Hemoglobin 27.6 pg (25.0-34.0); Mean Corpuscular Volume 79.3 fL (80.0-100.0); Platelet Count 200 K/uL (130-400); RDW Standard Deviation 38.1 fL (36.4-46.3); Red Blood Count 4.39 M/uL (4.70-6.10)
[2025-01-02 07:14] LABS: Alanine Aminotransferase 32.0 U/L (7-52); Albumin Globulin Ratio 0.8 (0.9-2); Albumin Level 2.9 gm/dl (3.4-5.0); Alkaline Phosphatase 34.0 U/L (34-104); Anion Gap 9.0 (3-11); Bilirubin,Total 1.2 mg/dl (0.2-1.0); Blood Urea Nitrogen 30.0 mg/dl (6-23); Calcium 8.4 mg/dl (8.6-10.3); Carbon Dioxide 24.0 mmol/L (21-32); Chloride 102.0 mmol/L (98-107); Creatinine Clr Calc Pharmacy 113.0 ml/min; Globulin 3.5 gm/dl (2.5-4.0); Glucose 100.0 mg/dl (70-99(Fasting)); Potassium 4.0 mmol/L (3.5-5.1); Sodium 135.0 mmol/L (136-145); Total Protein 6.4 gm/dl (6.0-8.3)
[2025-01-02 07:21] LABS: Toxic Vacuolation 2+
[2025-01-02 07:44] LABS: White Blood Count 5.80 K/ul (4.8-10.8)
[2025-01-02 07:45] LABS: Dohle Bodies 1+; Immature Granulocytes # (auto) 0.08 K/uL (0.01-0.20); Immature Granulocytes % (auto) 1.4 %; Toxic Vacuolation 1+
[2025-01-02 09:14] LABS: Magnesium 2.9 mg/dl (1.7-2.4)
--- NOTE | 2025-01-02 09:40 | Surgery Progress Note ---
Date of Service January 02, 2025 Assessment & Plan (1) Pneumoperitoneum: (2) Abdominal pain: (3) Acute renal failure: Plan Patient is postop day #2 from a diagnostic laparoscopy, abdominal washout, and appendectomy due to CT findings of pneumoperitoneum concerning for perforated viscus. Seems to be doing well, pain better controlled on tylenol around the clock and IV dilaudid PRN. Will try an NG tube clamping trial today and potentially remove the NG tube if residuals are less than 150. Continue to monitor for return of bowel function. Continue zosyn and will plan to transition to oral abx once able to tolerate a diet. Admission and Anticipated Discharge Date Admission Date: December 31, 2024 Supervising Physician Co-Signing Physician Notes Patient seen and examined, labs reviewed, agree with above. POD #2 laparoscopic appendectomy and washout for perforated appendicitis with sepsis. He is doing remarkably well. Very little pain in the right lower quadrant, just had a bowel movement this passed flatus. He has been ambulating and urinating. On exam he is afebrile with stable vitals, slight sinus tachycardia but significantly improved from admission. Abdomen soft, appropriately tender to palpation, incisions without infection. AISHWARYA serosanguineous. WBC normal, creatinine normalized. DC NG tube, start clear liquids, may advance diet as tolerated. Will need to discharge on 10 days total course of antibiotics. Follow-up with me in 2 weeks if discharged over the weekend. He can have the AISHWARYA drain removed prior to discharge. Dr. Bowman covering over the weekend. Subjective Patient seen and examined with the aid of rehabilitation aide/scheduler, patient states that he is feeling better today, does admit to moderate abdominal pain, localized to the right lower quadrant, worse with movement, better at rest, well-tolerated with current pain medication regimen. Patient has remained n.p.o., has had a moderate amount of NG tube output totaling 1450 mL in the last 24 hours, but patient admits to passing flatus, no bowel movement yet. Wayne was removed yesterday and he states he has been able to void, renal function continues to improve. He denies any nausea or vomiting. Patient denies any fevers or chills, white blood cell count has remained normal, on Zosyn for broad spectrum coverage of his perforated appendicitis s/p lap appendectomy on 12/31 Physical Exam Physical Exam: Gen: Awake and alert, resting comfortably in bed in NAD CV: RRR PULM: non-labored breathing Abd: Abdomen moderately distended, soft with some voluntary guarding, moderate diffuse tenderness to palpation, but somewhat improved compared to yesterday, no overt peritoneal signs. AISHWARYA drain with serous drainage noted. Laparoscopic incisions are well-approximated with skin glue in place, no surrounding erythema, warmth, swelling, or increased tenderness to palpation. ext: no edema to bilateral lower ext, SCDs in place, non-tender, feet warm and well perfused Results & Data Vital Signs (Past 12 Hours) Vital Signs Temp Pulse Pulse Resp BP Pulse Ox O2 Del Method 01/02/25 08:08 36.6 C 97 H 17 107/72 90 Room Air 01/02/25 03:14 36.5 C 84 18 117/76 94 Room Air 01/01/25 22:47 36.8 C 95 H 19 107/68 93 Room Air 01/01/25 22:03 98 H PG Care Time/CCT Total # of Minutes Spent Total Time Spent with Patient: Total time spent is greater than 50% in coordination of care (as documented) at patient's floor/unit and/or counseling patient: Coding Level of Care Code 78489 Post Operative Follow-Up Diagnoses Pneumoperitoneum K66.8 Abdominal pain R10.84 Abdominal location: generalized Acute renal failure N17.9 Acute renal failure type: unspecified (2) Abdominal pain Abdominal location: generalized Qualified Code(s): R10.84 - Generalized abdominal pain (3) Acute renal failure Acute renal failure type: unspecified Qualified Code(s): N17.9 - Acute kidney failure, unspecified
--- NOTE | 2025-01-02 12:23 | Electrocardiogram Report ---
Test Reason : Blood Pressure : */* mmHG Vent. Rate : 144 BPM Atrial Rate : 144 BPM P-R Int : 140 ms QRS Dur : 78 ms QT Int : 262 ms P-R-T Axes : 58 76 62 degrees QTcB Int : 405 ms Sinus tachycardia Otherwise normal ECG No previous ECGs available Confirmed by Kishan Pugh ([id number]) on 01/02/2025 12:23:30 PM Referred By: REFERRED SELF Confirmed By: Kishan Pugh
[2025-01-02 16:03] LABS: Hepatitis A Antibody IgM NON-REACTIVE (NON-REACTIVE); Hepatitis B Core Antibody IgM NON-REACTIVE (NON-REACTIVE)
--- NOTE | 2025-01-02 17:40 | Hospitalist Progress Note ---
Date of Service January 02, 2025 Assessment & Plan (1) Acute appendicitis: (2) Acute renal failure: (3) Sepsis: Plan This patient is a 39 y/o Kiswahili speaking male with no past medical history that presented here due to low urinary output, low appetite and abdominal pain for 2 days found to have perforated appendicitis, sepsis present on admission, possible partial small bowel obstruction, and peritonitis. Patient was taken to the OR 12/31 for a laparoscopic appendectomy. #Sepsis POA 2/2 perforated gangrenous appendicitis/peritonitis/partial SBO-with tachypnea, tachycardia, procalcitonin greater than 100, lactate elevated at 8, acute kidney injury, and metabolic acidosis on admission. Now significantly improved after IV fluids, IV Zosyn, surgical washout and appendectomy. Tachycardia is now mostly resolved, CORINA resolved, lactic acidosis resolved, procalcitonin trending downward, moving bowels, NG tube removed, Wayne catheter removed, AISHWARYA drain remains in place. Pathology with gangrenous appendicitis. -Postoperative management as per surgery-plan to remove AISHWARYA drain prior to discharge - Continue Zosyn and will need 10 days of antibiotics total with oral antibiotics after discharge -Continue IV Dilaudid or oxycodone or Tylenol as needed for pain-change IV Tylenol to p.o. now that he is tolerating p.o. - Advance diet as tolerated-defer to surgery-on clear liquids for now - Continue LR at 80 mL/h - Continue IV Protonix for GI prophylaxis - Needs follow-up with surgery 2 weeks postop - Follow CBC, CMP, magnesium in the a.m. -Follow blood cultures-remain no growth to date #CORINA/high AG metabolic acidosis/lactic acidosis- resolved. Creatinine 3.4 on arrival and now normal. CORINA secondary to ATN from sepsis. With lactic acidosis with lactate 8 and now normalized. pH 7.1 on arrival with metabolic acidosis now resolved. Received IV fluids, treatment of sepsis. - Follow BMP #Severe hepatic steatosis/ Elevated liver enzymes/prediabetes-seen on CT. Total bilirubin remains mildly elevated 1.2. Patient reports he only drinks alcohol 2-3 times per month-unclear if this is accurate. Lipids are normal, HgbA1c in prediabetes range at 6.0% -Should be counseled on alcohol cessation - Recommend follow-up with PCP and/or GI as an outpatient for fatty liver and prediabetes -Recommend low carbohydrate diet after discharge - Follow CMP #Anemia-microcytic, iron panel consistent with chronic disease and iron deficiency mixed. B12 is normal - Should start iron replacement orally once he is improved significantly from a GI/ileus standpoint - Check TSH and folate in the a.m. to complete the anemia workup - Follow-up with GI as an outpatient for EGD and colonoscopy however he does not have insurance which may prohibit this #Elevated troponin- 59.9 on arrival and then trended down to 24. ECG on arrival with sinus tachycardia with rates in the 140s, no ischemic changes. Echo with preserved EF, no wall motion abnormalities. Suspect myocardial demand ischemia from sepsis DVT prophylaxis: SCDs, consider adding on Lovenox if okay with surgery Dispo: Continued stay PCU, improving, hospital service will continue to follow along Admission and Anticipated Discharge Date Admission Date: December 31, 2024 Subjective Pt feeling better, much less pain in the abdomen. He is voiding and moved his bowels, passing flatus. NG tube removed and he is tolerating liquids diet Telemetry with sinus tachycardia with rates in the 90s to 110s Physical Exam Constitutional: WD/WN, vitals as above Respiratory: normal respiratory effort, lungs clear to auscultation Cardiovascular: Rate/Rhythm: regular rhythm and + tachycardic Heart Sounds: no murmur Extremities: no edema Gastrointestinal (Abdomen): Inspection/Auscultation: normal bowel sounds; + abdomen abnormal to inspection (AISHWARYA drain with serous drainage, laparoscopic incisions clean dry and intact) and abdomen not distended Percussion/Palpation: + abdomen tender (Mostly in RLQ without guarding or rebound) and abdomen soft Psychiatric: A+Ox3, euthymic affect Results & Data Results & Data Vital Signs (Past 12 Hours) Vital Signs Temp Pulse Pulse Resp BP Pulse Ox O2 Del Method 01/02/25 15:58 36.9 C 93 H 18 114/78 91 Room Air 01/02/25 13:03 120 H 01/02/25 12:00 36.7 C 112 H 18 117/81 90 Room Air 01/02/25 08:45 Room Air 01/02/25 08:08 36.6 C 97 H 17 107/72 90 Room Air 01/02/25 05:44 102 H Laboratory Results CBC, BMP, magnesium, lactate, procalcitonin reviewed PG Care Time/CCT Total # of Minutes Spent Total Time Spent with Patient: Total time spent is greater than 50% in coordination of care (as documented) at patient's floor/unit and/or counseling patient: Coding Level of Care Code 49740 SUB INP/OBS CARE 50MIN Diagnoses Acute appendicitis K35.201 Acute appendicitis type: with generalized peritonitis Appendicitis abscess presence: unspecified whether abscess present Appendicitis gangrene presence: with gangrene Appendicitis perforation presence: with perforation Acute renal failure N17.9 Acute renal failure type: unspecified Sepsis A41.9 (1) Acute appendicitis Acute appendicitis type: with generalized peritonitis Appendicitis abscess presence: unspecified whether abscess present Appendicitis gangrene presence: with gangrene Appendicitis perforation presence: with perforation Qualified Code(s): K35.201 - Acute appendicitis with generalized peritonitis, with perforation, without abscess (2) Acute renal failure Acute renal failure type: unspecified Qualified Code(s): N17.9 - Acute kidney failure, unspecified
[2025-01-03] MEDS: ACETAMINOPHEN 325 MG TAB PO PRN (02:42)
[2025-01-03 06:34] LABS: Hematocrit (blood only) 34.6 % (42.0-52.0); Hemoglobin 11.6 g/dl (14.0-18.0); Mean Corpuscular Hemoglobin 26.9 pg (25.0-34.0); Mean Corpuscular Volume 80.3 fL (80.0-100.0); Platelet Count 183 K/uL (130-400); RDW Standard Deviation 40.7 fL (36.4-46.3); Red Blood Count 4.31 M/uL (4.70-6.10); White Blood Count 8.32 K/ul (4.8-10.8)
[2025-01-03 06:55] LABS: Immature Granulocytes # (auto) 0.43 K/uL (0.01-0.20); Immature Granulocytes % (auto) 5.2 %
[2025-01-03 07:06] LABS: Anion Gap 8.0 (3-11); Calcium 8.1 mg/dl (8.6-10.3); Carbon Dioxide 25.0 mmol/L (21-32); Chloride 101.0 mmol/L (98-107); Potassium 3.6 mmol/L (3.5-5.1); Sodium 134.0 mmol/L (136-145)
[2025-01-03 07:12] LABS: Blood Urea Nitrogen 24.0 mg/dl (6-23); Creatinine Clr Calc Pharmacy 121.1 ml/min; Glucose 89.0 mg/dl (70-99(Fasting))
[2025-01-03 07:21] LABS: Thyroid Stimulating Hormone 2.813 uIu/ml (0.300-4.500)
--- NOTE | 2025-01-03 09:54 | XRay Report ---
KUB CLINICAL HISTORY: s/p Lap Appy, ? ileus COMPARISON STUDY: CT of the abdomen and pelvis and KUB December 31, 2024. FINDINGS: Right lower quadrant surgical drain is in place. Several loops of moderately dilated small bowel measure up to 5 cm in caliber. Possibility of colonic gas is noted. Probable small right and tr claude left pleural effusions with subpleural opacities, partially imaged on this exam. IMPRESSION: Several loops of mildly dilated small bowel within the central abdomen. The findings cou ld represent an ileus or partial small bowel obstruction. ACT 112: Negative or not required by law. Electronically signed by: Jarret Stephenson M.D. 01/03/2025 9:53 AM
--- NOTE | 2025-01-03 11:32 | Surgery Progress Note ---
<Statement entered by Jose Alberto Bowman MD - 01/03/25 13:56> I saw and examined the patient and I agree with the assessment and plan of care Date of Service January 03, 2025 Assessment & Plan (1) S/P laparoscopic appendectomy: Plan: Patient is now POD #[address] Bullard. H and H stable. WBC 8.32. Temp 37.6 around 2 AM. He is doing a little better each day. NG tube was removed yesterday and he was started on clear liquids. He is passing flatus and does report that he had a bowel movement. Abdomen still feels sore, especially if he coughs. Incisions are healing well with no concern for infection. KUB ordered and it shows SBO vs ileus- most likely post-op ileus. Will keep patient on clear liquids for today. Continue AISHWARYA drain. Encourage incentive spirometry and ambulation in hallway. Patient seen and examined with Dr. Bowman. Admission and Anticipated Discharge Date Admission Date: December 31, 2024 Subjective Estefanía is doing a bit better this morning. Reports that he is passing gas and did have a bowel movement. Does not feel very hungry yet. NG tube was removed yesterday, he is tolerating clear liquids. Physical Exam Constitutional: WD/WN, vitals as above Respiratory: normal respiratory effort, lungs clear to auscultation Cardiovascular: Rate/Rhythm: regular rhythm and + tachycardic Heart Sounds: no murmur Extremities: no edema Gastrointestinal (Abdomen): Inspection/Auscultation: normal bowel sounds; + abdomen abnormal to inspection (AISHWARYA drain with serous drainage, laparoscopic incisions clean dry and intact) and abdomen not distended Percussion/Palpation: + abdomen tender (Mostly in RLQ without guarding or rebound) and abdomen soft Psychiatric: A+Ox3, euthymic affect Results & Data Vital Signs (Past 12 Hours) Vital Signs Temp Pulse Resp BP Pulse Ox O2 Del Method O2 Flow Rate 01/03/25 08:01 36.3 C L 97 H 18 123/83 97 Room Air 01/03/25 02:37 37.6 C H 100 H 19 133/81 92 Nasal Cannula 2 PG Care Time/CCT Total # of Minutes Spent Total Time Spent with Patient: Total time spent is greater than 50% in coordination of care (as documented) at patient's floor/unit and/or counseling patient: Coding Level of Care Code 54417 Post Operative Follow-Up Diagnoses S/P laparoscopic appendectomy Z90.49
[2025-01-03] MEDS: HYDROmorphone INJ 0.5 MG/0.5 ML SYR IV PRN (14:05)
--- NOTE | 2025-01-03 14:54 | Hospitalist Progress Note ---
Date of Service January 03, 2025 Assessment & Plan (1) Acute appendicitis: (2) Sepsis: (3) Ileus: (4) Acute renal failure: Plan This patient is a 39 y/o Upper Sorbian speaking male with no past medical history that presented with low urinary output, low appetite and abdominal pain for 2 days, found to have perforated appendicitis, peritonitis, sepsis POA, possible partial SBO. Patient was taken to the OR urgently 12/31 for a laparoscopic appendectomy and abdominal washout. #Sepsis POA 2/2 perforated gangrenous appendicitis/peritonitis/partial SBO-with tachypnea, tachycardia, procalcitonin greater than 100, lactate elevated at 8, acute kidney injury, and metabolic acidosis on admission. Was significantly improved after IV fluids, IV Zosyn, surgical washout and appendectomy. Tachycardia improved, CORINA resolved, lactic acidosis resolved, procalcitonin trending downward.on 01/02, he was moving bowels, NG tube removed, started on clear liquids, Wayne catheter removed. Pathology with gangrenous appendicitis. On 01/03 in the afternoon, he developed worsening severe pain and abdominal distention, nausea/vomiting-repeat CT A/P with peritonitis, fluid collections, mesenteric edema, and possible bowel obstruction versus ileus. NG tube replaced on 01/03 - Postoperative management as per surgery-continue AISWHARYA drain - Replace NG tube to low intermittent suction, keep n.p.o. - Continue Zosyn - Continue IV Dilaudid and IV Tylenol as needed - Continue LR at 80 mL/h - Continue IV Protonix for GI prophylaxis - Needs follow-up with surgery 2 weeks postop - Follow CBC, CMP, magnesium, phosphorus, CRP, procalcitonin in the a.m. - Follow blood cultures-remain no growth to date - Start PPN as per surgery-ordered for 01/04-ordered triglycerides, phosphorus, LFTs. Give thiamine 200 mg IV x 1 now, then 100 mg IV daily #Pleural effusions/atelectasis/respiratory distress-CT angiogram the chest performed on 01/03 due to shortness of breath shows pleural effusions and atelectasis of the lower lobes. This is likely secondary to peritonitis and acute illness, being mostly bedbound - Okay to continue maintenance fluids for now - Encouraged incentive spirometry with patient and with nursing - Give supplemental O2 as needed to keep pulse ox greater than 90% #CORINA/high AG metabolic acidosis/lactic acidosis- resolved. Creatinine 3.4 on arrival and now normal. CORINA secondary to ATN from sepsis. With lactic acidosis with lactate 8 and now normalized. pH 7.1 on arrival with metabolic acidosis now resolved. Received IV fluids, treatment of sepsis. - Follow BMP #Severe hepatic steatosis/ Elevated liver enzymes/prediabetes-seen on CT. Total bilirubin remains mildly elevated 1.2. Patient reports he only drinks alcohol 2-3 times per month-unclear if this is accurate. Lipids are normal, HgbA1c in prediabetes range at 6.0% -Should be counseled on alcohol cessation - Recommend follow-up with PCP and/or GI as an outpatient for fatty liver and prediabetes -Recommend low carbohydrate diet after discharge - Follow CMP - Give thiamine 200 mg IV x 1 now and 100 mg IV daily in case of occult alcohol use disorder #Anemia-microcytic, iron panel consistent with chronic disease and iron deficiency mixed. B12, folate, and TSH are normal - Should start iron replacement orally once he is improved significantly from a GI/ileus standpoint - Follow-up with GI as an outpatient for EGD and colonoscopy however, he does not have insurance which may prohibit this #Elevated troponin- 59.9 on arrival and then trended down to 24. ECG on arrival with sinus tachycardia with rates in the 140s, no ischemic changes. Echo with preserved EF, no wall motion abnormalities. Suspect myocardial demand ischemia from sepsis DVT prophylaxis: SCDs, add Lovenox on 01/03-discussed with surgery Dispo: Continued stay PCU, hospital service will continue to follow along Admission and Anticipated Discharge Date Admission Date: December 31, 2024 Subjective Patient had worsening abdominal distention throughout the day and was having severe pain more in the left lower quadrant and had nausea with vomiting in the afternoon. He remained afebrile but was diaphoretic. He had passed a a bowel movement in the morning of 01/03. He also reported difficulty breathing. He is making urine. I discussed his care with the surgery team and with nursing care with as well as the patient with billet checker. An NG tube was placed and he was sent for stat CT of the abdomen/pelvis as well as chest. I came back to see the patient a second time to discuss the results of his CTs of the abdomen and pelvis and chest. Telemetry with normal sinus rhythm and sinus tachycardia with rates in the 90s to 100s Physical Exam Constitutional: WD/WN, vitals as above + diaphoretic Eyes: + anicteric sclerae Respiratory: + labored breathing (Mild tachypnea) Auscultation: + diminished lung sounds (At bases bilaterally) Cardiovascular: Rate/Rhythm: regular rhythm and + tachycardic Heart Sounds: no murmur Extremities: no edema Gastrointestinal (Abdomen): Inspection/Auscultation: + abdomen distended (Severely) and + hypoactive bowel sounds; + abdomen abnormal to inspection (AISHWARYA drain with serous drainage, laparoscopic incisions clean dry and intact) Percussion/Palpation: + abdomen tender (Diffusely tender, worse in LLQ); no guarding Psychiatric: Orientation: alert, oriented x 3 and cooperative Results & Data Results & Data Vital Signs (Past 12 Hours) Vital Signs Temp Pulse Resp BP Pulse Ox O2 Del Method 01/03/25 11:49 37.1 C 96 H 18 122/76 93 Room Air 01/03/25 08:01 36.3 C L 97 H 18 123/83 97 Room Air 01/03/25 08:00 Room Air Laboratory Results CBC, BMP, folate, TSH reviewed Diagnostic Findings CT abdomen/pelvis, chest CTA reviewed PG Care Time/CCT Total # of Minutes Spent Total Time Spent with Patient: Total time spent is greater than 50% in coordination of care (as documented) at patient's floor/unit and/or counseling patient: Coding Level of Care Code 08122 SUB INP/OBS CARE 3/50MIN Diagnoses Acute appendicitis K35.201 Acute appendicitis type: with generalized peritonitis Appendicitis abscess presence: unspecified whether abscess present Appendicitis gangrene presence: with gangrene Appendicitis perforation presence: with perforation Sepsis A41.9 Ileus K56.7 Acute renal failure N17.9 Acute renal failure type: unspecified (1) Acute appendicitis Acute appendicitis type: with generalized peritonitis Appendicitis abscess presence: unspecified whether abscess present Appendicitis gangrene presence: with gangrene Appendicitis perforation presence: with perforation Qualified Code(s): K35.201 - Acute appendicitis with generalized peritonitis, with perforation, without abscess (4) Acute renal failure Acute renal failure type: unspecified Qualified Code(s): N17.9 - Acute kidney failure, unspecified
[2025-01-03] MEDS ORDERED: HYDROmorphone INJ 0.5 MG/0.5 ML SYR IV STA (14:55)
[2025-01-03] MEDS: OPTIRAY 320 125ml IV ONE (15:18)
--- NOTE | 2025-01-03 16:11 | Communication Note ---
Date of Service: January 03, 2025 Received a message from patient's nurse stating that patient's developed new abdominal pain in his left lower quadrant (7/10 pain). Patient also became very nauseous. STAT CT scan of the abdomen and pelvis was ordered. NG tube was ordered as well. Received message from Hospitalist, Dr. Boone, reporting that patient had vomited approximately 150 cc of brownish/yellowish fluid prior to NG tube placement. I did go up to see and examine patient. NG tube is in place, abdominal distention is slightly improved. CT scan results are still pending. Dr. Bowman is aware and will continue to watch for patient's CT scan results.
--- NOTE | 2025-01-03 16:14 | CT Scan Report ---
EXAM: CT Angiography Chest With Intravenous Contrast INDICATION: Shortness of breath TECHNIQUE: Axial computed tomographic angiography images of the chest with intravenous contrast. Sagittal and coronal reformatted images were created and reviewed. This CT exam was performed using one or more of the following dose reduction techniques: automated exposure control, adjustment of the mA and/or kV according to patient size, and/or use of iterative reconstruction technique. MIP reconstructed images were created and reviewed. CONTRAST: 115 ml of Optiray 320 was administered intravenously. COMPARISON: 12/31/2024 FINDINGS: Pulmonary arteries: No abnormality noted. No pulmonary embolism. Aorta: No acute change noted. No thoracic aortic aneurysm or dissection. Lungs and pleural spaces: Increased small bilateral pleural effusions with left greater than right. No pneumothorax. New moderate subsegmental collapse of the lower lobes with air bronchograms. No mass. Heart: No abnormality noted. No cardiomegaly. No significant pericardial effusion. No evidence of RV dysfunction. Bones/joints: No acute or atypical chronic changes. Soft tissues: No abnormality noted. Lymph nodes: No abnormality noted. No enlarged lymph nodes. Liver: Visualized portions of the liver are markedly fatty. Tubes, lines and devices: Nasogastric tube tip followed to the GE junction. Distal extent not visible. IMPRESSION: 1. Increase small pleural effusions and development of significant subsegmental bilateral lower lobe collapse. 2. No pulmonary embolus noted. 3. Lines and tubes as above. ACT 112: N/A Electronically signed by Cailin Howe 01-03-2025 4:14 PM
--- NOTE | 2025-01-03 16:20 | CT Scan Report ---
EXAM: CT Abdomen and Pelvis With Intravenous Contrast INDICATION: Recent ruptured appendix. TECHNIQUE: Axial computed tomography images of the abdomen and pelvis with intravenous contrast. Sagittal and coronal reformatted images were created and reviewed. This CT exam was performed using one or more of the following dose reduction techniques: automated exposure control, adjustment of the mA and/or kV according to patient size, and/or use of iterative reconstruction technique. CONTRAST: 115 ml of Optiray 320 was administered intravenously. COMPARISON: 12/31/2024 FINDINGS: Limitations: None. Lung bases: No abnormality noted. Pleural space: Increased small pleural effusions and new basilar airspace disease. Heart: No abnormality noted. Mediastinum: No abnormality noted. ABDOMEN: Liver: Normal size and contour. Hypodense typical of steatosis. No mass or ductal dilation. Gallbladder and bile ducts: No calcified stones or surrounding fluid. No ductal dilation. Pancreas: Homogeneous enhancement. No mass, inflammation or ductal dilation. Spleen: No acute abnormality noted. Adrenals: No acute abnormality noted. Kidneys and ureters: Normal enhancement. No mass, hydronephrosis or visualized stone. Stomach and bowel: No distension or mucosal thickening. No inflammation noted. PELVIS: Appendix: Removed. Small amount of adjacent fluid. Inflammatory changes are most severe distant from the appendectomy bed. Bladder: No filling defects to suggest mass or large stone. No inflammation. Reproductive: No abnormalities noted. ABDOMEN and PELVIS: Intraperitoneal space: Interval advancement of diffuse small bowel thickening. Multiple distended loops slightly more prominent. Extensive edema in the mesentery is increased. Scattered small fluid collections noted throughout the mesentery. The largest collection which could be organized tissues in the right sided mesentery with overlying bowel loops and measures 3.0 x 2.0 cm. There is air and stool in the colon which is relatively collapsed. No defined transition point identified. There is free fluid in the left paracolic gutter. Generalized peritoneal thickening is increased. No free air. At the end Bones/joints: No acute changes. Soft tissues: No acute abnormality noted. Vasculature: No abdominal aortic aneurysm. Lymph nodes: No pathologically enlarged lymph nodes. Tubes, lines and devices: Nasogastric tube terminates in the gastric body. There is a drain in the right paracolic gutter extending into the right pelvis terminating in the midline just cranial to the left seminal vesicle. IMPRESSION: Worsening generalized peritonitis with increased small bowel thickening likely reflecting exudative enteritis and obstruction. ACT 112: N/A Electronically signed by Cailin Howe 01-03-2025 4:20 PM
[2025-01-03 19:20] LABS: Hematocrit (blood only) 37.3 % (42.0-52.0); Hemoglobin 12.6 g/dl (14.0-18.0); Mean Corpuscular Hemoglobin 27.0 pg (25.0-34.0); Mean Corpuscular Volume 80.0 fL (80.0-100.0); Platelet Count 198 K/uL (130-400); RDW Standard Deviation 40.8 fL (36.4-46.3); Red Blood Count 4.66 M/uL (4.70-6.10); White Blood Count 10.87 K/ul (4.8-10.8)
[2025-01-03 19:35] LABS: Alanine Aminotransferase 33.0 U/L (7-52); Alkaline Phosphatase 58.0 U/L (34-104); Bilirubin,Total 1.1 mg/dl (0.2-1.0); Magnesium 2.0 mg/dl (1.7-2.4); Triglycerides 445.0 mg/dl (0-150)
[2025-01-03] MEDS: THIAMINE HCL 200 MG in SODIUM CHLORIDE 0.9% 50 ML IV STA (20:19)
[2025-01-03] MEDS: ENOXAPARIN INJ 40 MG/0.4 ML SYR SQ SCH (20:19)
[2025-01-03] MEDS: ACETAMINOPHEN 1,000 MG/100 ML VIAL IV PRN (23:44)
[2025-01-04 07:01] LABS: Hematocrit (blood only) 37.3 % (42.0-52.0); Hemoglobin 12.6 g/dl (14.0-18.0); Mean Corpuscular Hemoglobin 27.2 pg (25.0-34.0); Mean Corpuscular Volume 80.6 fL (80.0-100.0); Platelet Count 232 K/uL (130-400); RDW Standard Deviation 40.0 fL (36.4-46.3); Red Blood Count 4.63 M/uL (4.70-6.10); White Blood Count 12.76 K/ul (4.8-10.8)
[2025-01-04 07:27] LABS: Alanine Aminotransferase 34.0 U/L (7-52); Albumin Globulin Ratio 0.8 (0.9-2); Albumin Level 2.8 gm/dl (3.4-5.0); Alkaline Phosphatase 76.0 U/L (34-104); Anion Gap 8.0 (3-11); Bilirubin,Total 1.2 mg/dl (0.2-1.0); Blood Urea Nitrogen 20.0 mg/dl (6-23); Calcium 8.5 mg/dl (8.6-10.3); Carbon Dioxide 27.0 mmol/L (21-32); Chloride 100.0 mmol/L (98-107); Creatinine Clr Calc Pharmacy 160.6 ml/min; Globulin 3.6 gm/dl (2.5-4.0); Glucose 88.0 mg/dl (70-99(Fasting)); Magnesium 2.0 mg/dl (1.7-2.4); Potassium 3.3 mmol/L (3.5-5.1); Sodium 135.0 mmol/L (136-145); Total Protein 6.4 gm/dl (6.0-8.3)
[2025-01-04 07:43] LABS: Dohle Bodies 1+; Polychromasia 1+; Toxic Granulation 1+
[2025-01-04] MEDS ORDERED: TPN/PPN CONSULT PHARMACY PRN (08:07)
[2025-01-04] MEDS: THIAMINE HCL 100 MG in SYRINGE 9 ML IV SCH (09:42)
--- NOTE | 2025-01-04 10:25 | Hospitalist Progress Note ---
Date of Service January 04, 2025 Assessment & Plan (1) Acute appendicitis: (2) Sepsis: (3) Ileus: (4) Acute renal failure: Plan This patient is a 39 y/o Hungarian speaking male with no past medical history that presented with low urinary output, low appetite and abdominal pain for 2 days, found to have perforated appendicitis, peritonitis, sepsis POA, possible partial SBO. Patient was taken to the OR urgently 12/31 for a laparoscopic appendectomy and abdominal washout. #Sepsis POA 2/2 perforated gangrenous appendicitis/peritonitis/partial SBO-with tachypnea, tachycardia, procalcitonin greater than 100, lactate elevated at 8, acute kidney injury, and metabolic acidosis on admission. Was significantly improved after IV fluids, IV Zosyn, surgical washout and appendectomy. Tachycardia improved, CORINA resolved, lactic acidosis resolved, procalcitonin trending downward. On 01/02, he was moving bowels, NG tube removed, started on clear liquids, Wayne catheter removed. Pathology with gangrenous appendicitis. On 01/03 in the afternoon, he developed worsening severe pain and abdominal distention, nausea/vomiting-repeat CT A/P with peritonitis, fluid collections, mesenteric edema, and possible bowel obstruction versus ileus. NG tube replaced on 01/03. - Postoperative management as per surgery-continue AISHWARYA drain - Replaced NG tube to low intermittent suction, keep n.p.o. - With bilious output on morning of 01/04 - Continue Zosyn - Continue IV Dilaudid and IV Tylenol as needed - Continue LR at 80 mL/h - Continue IV Protonix for GI prophylaxis - Needs follow-up with surgery 2 weeks postop - Follow CBC, CMP, magnesium, phosphorus, CRP, procalcitonin in the a.m. - Follow blood cultures from 12/31 - remain no growth to date on 01/04 - Start PPN as per surgery-ordered for 01/04 - Continue thiamine 100 mg IV daily - Discussed with surgery on 01/04 -> Defer NG tube management to them. #Pleural effusions/atelectasis/respiratory distress - CTA chest performed on 01/03 due to shortness of breath shows pleural effusions and atelectasis of the lower lobes. This is likely secondary to peritonitis and acute illness, being mostly bedbound. - Okay to continue maintenance fluids for now - Encouraged incentive spirometry with patient and with nursing - Give supplemental O2 as needed to keep pulse ox greater than 90% #CORINA/high AG metabolic acidosis/lactic acidosis- resolved. Creatinine 3.4 on arrival and now normal. CORINA secondary to ATN from sepsis. With lactic acidosis with lactate 8 and now normalized. pH 7.1 on arrival with metabolic acidosis now resolved. Received IV fluids, treatment of sepsis. - Follow BMP #Severe hepatic steatosis/ Elevated liver enzymes/prediabetes - Seen on CT. Total bilirubin remains mildly elevated 1.2. Patient reports he only drinks alcohol 2-3 times per month-unclear if this is accurate. Lipids are normal, HgbA1c in prediabetes range at 6.0%. - Should be counseled on alcohol cessation - Recommend follow-up with PCP and/or GI as an outpatient for fatty liver and prediabetes - Recommend low carbohydrate diet after discharge - Follow CMP - Continue thiamine 100 mg IV daily in case of occult alcohol use disorder #Anemia - Microcytic, iron panel consistent with chronic disease and iron deficiency mixed. B12, folate, and TSH are normal. - Should start iron replacement orally once he is improved significantly from a GI/ileus standpoint - Follow-up with GI as an outpatient for EGD and colonoscopy; however, he does not have insurance which may prohibit this. #Elevated troponin - 59.9 on arrival and then trended down to 24. ECG on arrival with sinus tachycardia with rates in the 140s, no ischemic changes. Echo with preserved EF, no wall motion abnormalities. Suspect myocardial demand ischemia from sepsis. DVT prophylaxis: SCDs, added Lovenox on 01/03 w/ surgery approval. Dispo: Continued stay PCU, hospital service will continue to follow along Admission and Anticipated Discharge Date Admission Date: December 31, 2024 Subjective Patient seen and examined with order runner online. Seems to be doing well overall. Reports his mouth is dry, but otherwise fairly benign ROS. Reports minimal abdominal pain, reports had a BM overnight (though diarrhea). Some sore throat from his NG tube. No fevers/chills overnight. Review of Systems Review of Systems: All systems reviewed & are unremarkable except as noted in Subjective Physical Exam Constitutional: WD/WN, vitals as above not diaphoretic Eyes: + anicteric sclerae Respiratory: normal respiratory effort, lungs clear to auscultation Cardiovascular: Rate/Rhythm: regular rate and regular rhythm Heart Sounds: no murmur Extremities: no edema Gastrointestinal (Abdomen): Inspection/Auscultation: + abdomen distended (Severely), + abdominal surgical incision (Laparoscopic incisions clean dry and intact) and + hypoactive bowel sounds; + abdomen abnormal to inspection Percussion/Palpation: + abdomen tender (Diffusely tender, worse in LLQ. No rebound tenderness.) and abdomen soft; no guarding and abdomen not rigid Musculoskeletal: Extremities: extremities normal to inspection Skin: no rashes Neurologic: awake Psychiatric: A+Ox3, euthymic affect Results & Data Results & Data Vital Signs (Past 12 Hours) Vital Signs Temp Pulse Pulse Resp BP Pulse Ox O2 Del Method 01/04/25 08:25 36.7 C 87 18 114/78 96 Room Air 01/04/25 07:20 88 01/04/25 03:49 36.5 C 81 17 111/72 94 Room Air 01/03/25 23:34 36.4 C L 101 H 19 115/74 94 Room Air PG Care Time/CCT Total # of Minutes Spent Total Time Spent with Patient: Total time spent is greater than 50% in coordination of care (as documented) at patient's floor/unit and/or counseling patient: Coding Level of Care Code 20388 SUB INP/OBS CARE 2/35MIN Diagnoses Acute appendicitis K35.201 Acute appendicitis type: with generalized peritonitis Appendicitis abscess presence: unspecified whether abscess present Appendicitis gangrene presence: with gangrene Appendicitis perforation presence: with perforation Sepsis with acute renal failure and tubular necrosis without septic shock, due to unspecified organism A41.9; R65.20; N17.0 Sepsis type: sepsis due to unspecified organism Sepsis acute organ dysfunction status: with acute organ dysfunction Severe sepsis acute organ dysfunction type: acute renal failure Acute renal failure type: with acute tubular necrosis Severe sepsis shock status: without septic shock Ileus K56.7 Acute renal failure with tubular necrosis N17.0 Acute renal failure type: with acute tubular necrosis (1) Acute appendicitis Acute appendicitis type: with generalized peritonitis Appendicitis abscess presence: unspecified whether abscess present Appendicitis gangrene presence: with gangrene Appendicitis perforation presence: with perforation Qualified Code(s): K35.201 - Acute appendicitis with generalized peritonitis, with perforation, without abscess (2) Sepsis Sepsis type: sepsis due to unspecified organism Sepsis acute organ dysfunction status: with acute organ dysfunction Severe sepsis acute organ dysfunction type: acute renal failure Acute renal failure type: with acute t ubular necrosis Severe sepsis shock status: without septic shock Qualified Code(s): A41.9 - Sepsis, unspecified organism; R65.20 - Severe sepsis without septic shock; N17.0 - Acute kidney failure with tubular necrosis (4) Acute renal failure Acute renal failure type: with acute tubular necrosis Qualified Code(s): N17.0 - Acute kidney failure with tubular necrosis
[2025-01-04 10:27] LABS: ALC (manual) 0.51 K/uL (1.2-3.4); ANC (manual) 10.72 K/uL (1.4-6.5)
--- NOTE | 2025-01-04 11:24 | Surgery Progress Note ---
<Statement entered by Jose Alberto Bowman MD - 01/04/25 15:46> I independently saw the patient, and I agree with the assessment and plan of care. Date of Service January 04, 2025 Assessment & Plan (1) S/P laparoscopic appendectomy: Plan: POD#[address] Bullard -Events of yesterday evening reviewed. Repeat CT scan showed generalized peritonitis with increased small bowel thickening likely reflecting exudative enteritis and obstruction -NGT was subsequently placed, 600cc out since. Had BM, however would keep NGT in for at least today yet given CT scan findings -Pt has some erythema of lower abdomen, probed low midline lap site with a q- tip, some foul smelling dark brown/dao fluid expressed, will pack with gauze or 1/4" nu-gauze dressing daily. will keep an eye on area, cont IV abx -AISHWARYA drain is serosang., keep in place -PPN has been started while patient remains NPO -Encourage OOB/pulmonary toilet. DVT prophylaxis is ordered (2) Ileus: Admission and Anticipated Discharge Date Admission Date: December 31, 2024 Subjective Patient doing okay. Offers no major complaints. Feels a bit better. Had recent BM. Physical Exam Physical Exam: awake/alert, no distress Gastrointestinal (Abdomen): Inspection/Auscultation: + abdomen distended, + abdominal surgical incision (c/d/i with dermabond) and + abdominal surgical drain present (serosang) Percussion/Palpation: + abdomen tender and abdomen soft some erythema of lower abdomen NGT 600cc noted Results & Data Vital Signs (Past 12 Hours) Vital Signs Temp Pulse Pulse Resp BP Pulse Ox O2 Del Method 01/04/25 08:25 98.1 F 87 18 114/78 96 Room Air 01/04/25 07:20 88 01/04/25 03:49 97.7 F 81 17 111/72 94 Room Air 01/03/25 23:34 97.5 F L 101 H 19 115/74 94 Room Air PG Care Time/CCT Total # of Minutes Spent Total Time Spent with Patient: Total time spent is greater than 50% in coordination of care (as documented) at patient's floor/unit and/or counseling patient: Coding Level of Care Code 90253 Post Operative Follow-Up Diagnoses S/P laparoscopic appendectomy Z90.49 Ileus K56.7
[2025-01-04] MEDS: POTASSIUM CHLORIDE / WTR 10 MEQ/100 ML PLCT IV SCH (12:35)
--- NOTE | 2025-01-04 14:57 | Pharmacy Report ---
Pharmacy Initial PN Consult Nt - Date of Service January 04, 2025 - Scope Pharmacy has been consulted on 01-04 to manage parenteral nutrition orders and order appropriate labs. As part of the Nutrition Support Team Guidelines, pharmacy will work in conjunction with dietary when determining the patients caloric needs. - Subjective * The patient is a 39 year old Male admitted on 12/31/24 for ABDOMINAL PAIN. * Patient is to receive parenteral nutrition for prolonged NPO status, perforated gangrenous appendicitis/partial SBO - Objective Vascular Access: * Patient currently has a peripheral line. * Peripheral line was confirmed by IV Team to be acceptable for PPN use on 01/04 Height & Weight (Last Documented) Height 5 ft 2.99 in Weight 91.5 kg Diet Order(s) 01/03/25 14:52 NPO Intake & Ouput (24hrs) 01/03/25 01/04/25 01/05/25 06:59 06:59 06:59 Intake Total 4221.25 / 4221.25 2272 / 2272 1100 / 1100 Output Total 1592 / 1592 2137 / 2137 100 / 100 Balance 2629.25 / 2629.25 135 / 135 1000 / 1000 Selected Laboratory Results 01/03/25 01/04/25 19:03 06:06 Sodium 135 L Potassium 3.3 L Chloride 100 Carbon Dioxide 27 Anion Gap 8 BUN 20 Creatinine 0.63 BUN/Creatinine Ratio 31.7 H Glucose 88 Calcium 8.5 L Phosphorus 3.3 3.3 Magnesium 2.0 2.0 Total Bilirubin 1.1 H 1.2 H AST 42 H 42 H ALT 33 34 Alkaline Phosphatase [address] - Initial Nutrition Assessment Start: 01/03/25 18:56 Freq: Status: Active Protocol: Document 01/03/25 18:56 CRISTI (Rec: 01/03/25 19:18 CRISTI [id number]) - Assessment & Plan Assessment: * Appreciate dietitians recommendations for macronutrients. Discussed with provider, okay to d/c IVF prior to PPN start. K low - will replete with IV KCL replacement prior to PPN starting. TG elevated - will hold lipids. Dietary recommends rechecking TG level on 01/06 to determine if lipids can be added into PPN. Plan: * For Day #1 of PPN administration, the following will be ordered: * Macronutrients: * Amino Acids: 85 grams/day * Dextrose: 100 grams/day * Lipids: -- grams/day * Micronutrients: * Sodium phosphate: 21 mMol/day * Sodium chloride: 80 mEq/day * Sodium acetate: 80 mEq/day * Potassium chloride: 40 mEq/day * Magnesium sulfate: 4.06 mEq/day * Multivitamins: 10 mL/day * Trace elements: 1 mL/day * Folic Acid: 1 mg/day * Total volume of 2111 mL will be infused over 24 hours and will provide 680 kcal/day * Patient is on PPN which has a maximum mOsm/L of 900. Final osmolarity of current solution is 854.05 mOsm/L. * Labs will be ordered per PN protocol. * Pharmacy will follow and adjust PN orders on a daily basis. Thank you!
[2025-01-04] MEDS: [UNRECOGNIZED DRUG - OTHER] IV SCH (15:17)
[2025-01-04] MEDS: PERIPHERAL TPN IV SCH (15:17)
[2025-01-04] MEDS: TPN/PPN CONSULT PHARMACY STA (15:18)
[2025-01-04] MEDS ORDERED: DEXTROSE 10% 1,000 ML IV PRN (16:00)
[2025-01-05 06:23] LABS: Hematocrit (blood only) 34.2 % (42.0-52.0); Hemoglobin 11.8 g/dl (14.0-18.0); Mean Corpuscular Hemoglobin 27.5 pg (25.0-34.0); Mean Corpuscular Volume 79.7 fL (80.0-100.0); Platelet Count 325 K/uL (130-400); RDW Standard Deviation 38.8 fL (36.4-46.3); Red Blood Count 4.29 M/uL (4.70-6.10); White Blood Count 16.74 K/ul (4.8-10.8)
[2025-01-05 06:43] LABS: Alanine Aminotransferase 30.0 U/L (7-52); Albumin Globulin Ratio 0.8 (0.9-2); Albumin Level 2.6 gm/dl (3.4-5.0); Alkaline Phosphatase 71.0 U/L (34-104); Anion Gap 8.0 (3-11); Bilirubin,Total 1.3 mg/dl (0.2-1.0); Blood Urea Nitrogen 19.0 mg/dl (6-23); Calcium 8.0 mg/dl (8.6-10.3); Carbon Dioxide 25.0 mmol/L (21-32); Chloride 103.0 mmol/L (98-107); Creatinine Clr Calc Pharmacy 205.0 ml/min; Globulin 3.1 gm/dl (2.5-4.0); Glucose 118.0 mg/dl (70-99(Fasting)); Magnesium 1.8 mg/dl (1.7-2.4); Potassium 3.2 mmol/L (3.5-5.1); Sodium 136.0 mmol/L (136-145); Total Protein 5.7 gm/dl (6.0-8.3)
[2025-01-05 06:47] LABS: ALC (manual) 0.33 K/uL (1.2-3.4); ANC (manual) 13.06 K/uL (1.4-6.5)
[2025-01-05] MEDS: POTASSIUM CHLORIDE / WTR 10 MEQ/100 ML PLCT IV SCH (08:31)
--- NOTE | 2025-01-05 10:38 | Surgery Progress Note ---
Date of Service January 05, 2025 Assessment & Plan (1) Ileus: (2) S/P laparoscopic appendectomy: (3) Sepsis: (4) Acute appendicitis: Plan POD#[address] Bullard, Hospital course complicated by postop ileus requiring NG tube placement and bowel rest. Today, feels much better, passing flatus and has had multiple bowel movements, no nausea or vomiting. We feel it would be worthwhile to try an NG tube clamp trial and if minimal output, less than 150 in 4 hours, we will plan to remove his NG tube today, but to continue n.p.o. for today, continue PPN. Will likely try clears tomorrow and advance as tolerated. Keep AISHWARYA drain for now and continue to monitor output. Continue to trend white blood cell count which is climbing, if it continues to climb tomorrow, we will consider repeating a CAT scan of the abdomen pelvis. Continue Zosyn for broad-spectrum antibiotics. Lovenox for DVT prophylaxis, activity as tolerated. Admission and Anticipated Discharge Date Admission Date: December 31, 2024 Supervising Physician Co-Signing Physician Notes Patient seen and examined, labs reviewed, agree with above. Status post laparoscopic appendectomy for perforated appendicitis with sepsis. Over the weekend developed sudden abdominal pain and nausea, CT scan showed increased inflammation of the bowel and likely ileus. NG tube was placed. He has been having bowel movements. NG tube is currently clamped which she is tolerating well. Currently afebrile with stable vitals, abdomen is soft, AISHWARYA drain serosanguineous. Lower incision with some superficial separation and drainage, no obvious cellulitis. Remainder of incisions without infection. WBC 16, trending upwards. If tolerates NG tube clamp trial can remove. Will continue to monitor, continue antibiotic. If further increase in leukocytosis may require further imaging, would want oral and IV contrast. sand technician device used. Subjective Patient was seen, interviewed, and examined with the aid of a sand technician. Patient states that he feels much better today, does admit to some left-sided abdominal pain, worse with movement, better at rest, well-tolerated with current pain medication regimen, but mentions that his abdominal pain is much improved today compared to yesterday. He denies any nausea or vomiting, NG tube with approximately 1250 mL of bilious output noted, he admits to passing flatus and has had multiple loose bowel movements. Afebrile. White blood cell count today is elevated to 16.7, up from yesterday at 12.9, on Zosyn for broad- spectrum coverage of his perforated appendicitis. Physical Exam Physical Exam: Gen: Awake and alert, resting comfortably in bed in NAD CV: RRR PULM: non-labored breathing Abd: Abdomen moderately distended, soft with some voluntary guarding, moderate diffuse tenderness to palpation, but somewhat improved compared to yesterday, no overt peritoneal signs. AISHWARYA drain with serous drainage noted. The lower l aparoscopic incision is erythematous, but no appreciable warmth, there is some dark purulent drainage noted on dressing, but unable to express any drainage from the wound. Otherwise other laparoscopic incisions are well-approximated with skin glue in place, no surrounding erythema, warmth, swelling, or increased tenderness to palpation. ext: no edema to bilateral lower ext, SCDs in place, non-tender, feet warm and well perfused Results & Data Vital Signs (Past 12 Hours) Vital Signs Temp Pulse Pulse Resp BP Pulse Ox O2 Del Method 01/05/25 08:00 86 01/05/25 07:30 36.9 C 90 19 114/76 96 Room Air 01/05/25 02:55 36.3 C L 85 24 109/74 94 Room Air 01/04/25 23:31 36.5 C 87 19 109/75 96 Room Air PG Care Time/CCT Total # of Minutes Spent Total Time Spent with Patient: Total time spent is greater than 50% in coordination of care (as documented) at patient's floor/unit and/or counseling patient: Coding [place] [address] Post Operative Follow-Up Patient Type Established Diagnoses Ileus K56.7 S/P laparoscopic appendectomy Z90.49 Sepsis with acute renal failure and tubular necrosis without septic shock, due to unspecified organism A41.9; R65.20; N17.0 Acute renal failure type: with acute tubular necrosis Sepsis acute organ dysfunction status: with acute organ dysfunction Sepsis type: sepsis due to unspecified organism Severe sepsis acute organ dysfunction type: acute renal failure Severe sepsis shock status: without septic shock Acute appendicitis K35.201 Acute appendicitis type: with generalized peritonitis Appendicitis abscess presence: unspecified whether abscess present Appendicitis gangrene presence: with gangrene Appendicitis perforation presence: with perforation (3) Sepsis Acute renal failure type: with acute tubular necrosis Sepsis acute organ dysfunction status: with acute organ dysfunction Sepsis type: sepsis due to unspecified organism Severe sepsis acute organ dysfunction type: acute renal failure Severe sepsis shock status: without septic shock Qualified Code(s): A41.9 - Sepsis, unspecified organism; R65.20 - Severe sepsis without septic shock; N17.0 - Acute kidney failure with tubular necrosis (4) Acute appendicitis Acute appendicitis type: with generalized peritonitis Appendicitis abscess presence: unspecified whether abscess present Appendicitis gangrene presence: with gangrene Appendicitis perforation presence: with perforation Qualified Code(s): K35.201 - Acute appendicitis with generalized peritonitis, with perforation, without abscess
--- NOTE | 2025-01-05 18:30 | Hospitalist Progress Note ---
Date of Service January 05, 2025 Assessment & Plan (1) Acute appendicitis: (2) Sepsis: (3) Ileus: (4) Acute renal failure: Plan This patient is a 39 y/o Guamanian speaking male with no past medical history that presented with low urinary output, low appetite and abdominal pain for 2 days, found to have perforated appendicitis, peritonitis, sepsis POA, possible partial SBO. Patient was taken to the OR urgently 12/31 for a laparoscopic appendectomy and abdominal washout. #Sepsis POA 2/2 perforated gangrenous appendicitis/peritonitis/partial SBO-with tachypnea, tachycardia, procalcitonin greater than 100, lactate elevated at 8, acute kidney injury, and metabolic acidosis on admission. Was significantly improved after IV fluids, IV Zosyn, surgical washout and appendectomy. Tachycardia improved, CORINA resolved, lactic acidosis resolved, procalcitonin trending downward. On 01/02, he was moving bowels, NG tube removed, started on clear liquids, Wayne catheter removed. Pathology with gangrenous appendicitis. On 01/03 in the afternoon, he developed worsening severe pain and abdominal distention, nausea/vomiting-repeat CT A/P with peritonitis, fluid collections, mesenteric edema, and possible bowel obstruction versus ileus. NG tube replaced on 01/03. - Postoperative management as per surgery-continue AISHWARYA drain - Continue Zosyn - Continue IV Dilaudid and IV Tylenol as needed - Continue LR at 80 mL/h - Continue IV Protonix for GI prophylaxis - Needs follow-up with surgery 2 weeks postop - Follow CBC, CMP, magnesium, phosphorus, CRP, procalcitonin in the a.m. - Follow blood cultures from 12/31 - remain no growth to date on 01/05 - continue PPN, AM labs - Continue thiamine 100 mg IV daily - NG clamped, likely DC today #Hypokalemia/Hypocalcemia -continue PPN -recheck in AM -supplement #Pleural effusions/atelectasis/respiratory distress - CTA chest performed on 01/03 due to shortness of breath shows pleural effusions and atelectasis of the lower lobes. This is likely secondary to peritonitis and acute illness, being mostly bedbound. - Okay to continue maintenance fluids for now - Encouraged incentive spirometry with patient and with nursing - Give supplemental O2 as needed to keep pulse ox greater than 90% -improving, monitor with increase in activity #CORINA/high AG metabolic acidosis/lactic acidosis- resolved. Creatinine 3.4 on arrival and now normal. CORINA secondary to ATN from sepsis. With lactic acidosis with lactate 8 and now normalized. pH 7.1 on arrival with metabolic acidosis now resolved. Received IV fluids, treatment of sepsis. - Follow BMP, clincilaly improving #Severe hepatic steatosis/ Elevated liver enzymes/prediabetes - Seen on CT. Total bilirubin remains mildly elevated 1.2. Patient reports he only drinks alcohol 2-3 times per month-unclear if this is accurate. Lipids are normal, HgbA1c in prediabetes range at 6.0%. - Should be counseled on alcohol cessation - Recommend follow-up with PCP and/or GI as an outpatient for fatty liver and prediabetes - Recommend low carbohydrate diet after discharge - Follow CMP - Continue thiamine 100 mg IV daily in case of occult alcohol use disorder #Anemia - Microcytic, iron panel consistent with chronic disease and iron deficiency mixed. B12, folate, and TSH are normal. - Should start iron replacement orally once he is improved significantly from a GI/ileus standpoint - Follow-up with GI as an outpatient for EGD and colonoscopy; however, he does not have insurance which may prohibit this. - Stable h/h, AM labs #Elevated troponin - - peak at 61 on 11.6, no recheck, demand in the setting of GI sepsis DVT prophylaxis: SCDs, added Lovenox on 01/03 w/ surgery approval. Dispo: Continued stay PCU, hospital service will continue to follow along Admission and Anticipated Discharge Date Admission Date: December 31, 2024 Subjective Doing okay this morning. Minimal abdominal pain but much improved compared to yesterday. Starting to have a bit of an appetite. Still has the NG as of this morning. Plan is to probably clamp through the day today. Discontinue as soon as possible. No fevers chills or other generalized signs of illness. He is using incentive spirometer. No shortness of breath or other new or different concerns per patient or nursing staff. Note the programmer business is used through the online video feed throughout the visit. Physical Exam Physical Exam: General: A&Ox3. NAD. Cooperative. HEENT: Atraumatic, normocephalic. Vision and hearing grossly intact. Pupils equal and reactive to light, sclera clear and anicteric Pulm: CTAB A&P. -wheezes, -rales, -rhonchi. No increased work of breathing. No respiratory distress. Cardiac: tachycardic. -mrg. Radial pulses intact and symmetrical. Abdominal: normal bowel sounds, nondistended, diffuse mild tenderness, no signs of peritonitis, no rigidity Ext: No Edema, Moves all extremities equally NEURO: A&O as above, no focal deficits Skin: warm, moist. Results & Data Results & Data Vital Signs (Past 12 Hours) Vital Signs Temp Pulse Pulse Resp BP Pulse Ox O2 Del Method 01/05/25 17:42 94 H 01/05/25 16:00 36.7 C 104 H 19 115/80 94 Room Air 01/05/25 11:50 37.3 C 97 H 18 115/76 96 Room Air 01/05/25 08:00 86 01/05/25 07:30 36.9 C 90 19 114/76 96 Room Air Laboratory Results 01/05/25 01/05/25 01/05/25 11:53 05:53 05:49 WBC 16.74 H RBC 4.29 L Hgb 11.8 L Hct 34.2 L MCV 79.7 L MCH 27.5 MCHC 34.5 RDW Std Deviation 38.8 RDW Coeff of Annika 13.5 Plt Count 325 MPV 10.4 Absolute Nucleated RBC 0.02 Nucleated RBC % (auto) 0.1 Neutrophils % (Manual) 78 Lymphocytes % (Manual) 2 Monocytes % (Manual) 7 Eosinophils % (Manual) 1 Metamyelocytes % (Man) 3 Myelocytes % (Man) 9 Neutrophils # (Manual) 13.06 H Total Absolute Neuts 13.06 H Lymphocytes # (Manual) 0.33 L Total Abs Lymphocytes 0.33 L Monocytes # (Manual) 1.17 H Eosinophils # (Manual) 0.17 Metamyelocytes # (Man) 0.50 H Myelocytes # (Manual) 1.51 H Sodium 136 Potassium 3.2 L Chloride 103 Carbon Dioxide 25 Anion Gap 8 BUN 19 Creatinine 0.49 L Est Cr Clr Drug Dosing 205.0 eGFR 135.55 BUN/Creatinine Ratio 38.8 H Glucose 118 H POC Glucose 113 H 117 H Calcium 8.0 L Phosphorus 3.4 Magnesium 1.8 Total Bilirubin 1.3 H AST 35 ALT 30 Alkaline Phosphatase 71 Total Protein 5.7 L Albumin 2.6 L Globulin 3.1 Albumin/Globulin Ratio 0.8 L 01/04/25 23:34 WBC RBC Hgb Hct MCV MCH MCHC RDW Std Deviation RDW Coeff of Annika Plt Count MPV Absolute Nucleated RBC Nucleated RBC % (auto) Neutrophils % (Manual) Lymphocytes % (Manual) Monocytes % (Manual) Eosinophils % (Manual) Metamyelocytes % (Man) Myelocytes % (Man) Neutrophils # (Manual) Total Absolute Neuts Lymphocytes # (Manual) Total Abs Lymphocytes Monocytes # (Manual) Eosinophils # (Manual) Metamyelocytes # (Man) Myelocytes # (Manual) Sodium Potassium Chloride Carbon Dioxide Anion Gap BUN Creatinine Est Cr Clr Drug Dosing eGFR BUN/Creatinine Ratio Glucose POC Glucose 107 H Calcium Phosphorus Magnesium Total Bilirubin AST ALT Alkaline Phosphatase Total Protein Albumin Globulin Albumin/Globulin Ratio PG Care Time/CCT Total # of Minutes Spent Total Time Spent with Patient: Total time spent is greater than 50% in coordination of care (as documented) at patient's floor/unit and/or counseling patient: Coding Level of Care Code 13467 SUB INP/OBS CARE 2/35MIN Diagnoses Acute appendicitis K35.201 Acute appendicitis type: with generalized peritonitis Appendicitis abscess presence: unspecified whether abscess present Appendicitis gangrene presence: with gangrene Appendicitis perforation presence: with perforation Sepsis with acute renal failure and tubular necrosis without septic shock, due to unspecified organism A41.9; R65.20; N17.0 Sepsis type: sepsis due to unspecified organism Sepsis acute organ dysfunction status: with acute organ dysfunction Severe sepsis acute organ dysfunction type: acute renal failure Acute renal failure type: with acute tubular necrosis Severe sepsis shock status: without septic shock Ileus K56.7 Acute renal failure with tubular necrosis N17.0 Acute renal failure type: with acute tubular necrosis (1) Acute appendicitis Acute appendicitis type: with generalized peritonitis Appendicitis abscess presence: unspecified whether abscess present Appendicitis gangrene presence: with gangrene Appendicitis perforation presence: with perforation Qualified Code(s): K35.201 - Acute appendicitis with generalized peritonitis, with perforation, without abscess (2) Sepsis Sepsis type: sepsis due to unspecified organism Sepsis acute organ dysfunction status: with acute organ dysfunction Severe sepsis acute organ dysfunction type: acute renal failure Acute renal failure type: with acute tubular necrosis Severe sepsis shock status: without septic shock Qualified Code(s): A41.9 - Sepsis, unspecified organism; R65.20 - Severe sepsis without septic shock; N17.0 - Acute kidney failure with tubular necrosis (4) Acute renal failure Acute renal failure type: with acute tubular necrosis Qualified Code(s): N17.0 - Acute kidney failure with tubular necrosis
[2025-01-06 07:56] LABS: Hematocrit (blood only) 33.4 % (42.0-52.0); Hemoglobin 11.5 g/dl (14.0-18.0); Mean Corpuscular Hemoglobin 27.8 pg (25.0-34.0); Mean Corpuscular Volume 80.7 fL (80.0-100.0); Platelet Count 496 K/uL (130-400); RDW Standard Deviation 40.1 fL (36.4-46.3); Red Blood Count 4.14 M/uL (4.70-6.10); White Blood Count 19.20 K/ul (4.8-10.8)
[2025-01-06 08:12] LABS: Alanine Aminotransferase 48.0 U/L (7-52); Albumin Globulin Ratio 0.8 (0.9-2); Albumin Level 2.7 gm/dl (3.4-5.0); Alkaline Phosphatase 97.0 U/L (34-104); Anion Gap 8.0 (3-11); Bilirubin,Total 1.2 mg/dl (0.2-1.0); Blood Urea Nitrogen 18.0 mg/dl (6-23); Calcium 8.1 mg/dl (8.6-10.3); Carbon Dioxide 23.0 mmol/L (21-32); Chloride 103.0 mmol/L (98-107); Creatinine Clr Calc Pharmacy 213.2 ml/min; Globulin 3.3 gm/dl (2.5-4.0); Glucose 108.0 mg/dl (70-99(Fasting)); Magnesium 1.8 mg/dl (1.7-2.4); Potassium 3.4 mmol/L (3.5-5.1); Sodium 134.0 mmol/L (136-145); Total Protein 6.0 gm/dl (6.0-8.3)
[2025-01-06 08:21] LABS: ALC (manual) 0.58 K/uL (1.2-3.4); ANC (manual) 16.51 K/uL (1.4-6.5); Polychromasia 1+
--- NOTE | 2025-01-06 09:31 | Surgery Progress Note ---
Date of Service January 06, 2025 Assessment & Plan (1) History of laparoscopic appendectomy: Plan: Status post laparoscopic appendectomy for perforated appendicitis, has return of bowel function but some tenderness and increasing leukocytosis CT scan with oral and IV contrast Continue clear liquids for now Continue IV antibiotics Admission and Anticipated Discharge Date Admission Date: December 31, 2024 Subjective Chinese interpreting service used. NG tube removed yesterday, no nausea or vomiting, tolerating clears. Small amount of pain, more in the left lower side. Still having bowel movements and passing gas. Physical Exam Constitutional: WD/WN, vitals as above Respiratory: normal respiratory effort, lungs clear to auscultation Cardiovascular: RRR, no murmur, no edema Gastrointestinal (Abdomen): Inspection/Auscultation: + abdomen distended (Moderate distention) and + abdominal surgical incision (Lower incision superfi cial separation, packed.) Percussion/Palpation: + abdomen tender (Mild tenderness palpation of the left lower quadrant) and abdomen soft; no guarding and abdomen not rigid AISHWARYA serosanguineous Results & Data Vital Signs (Past 12 Hours) Vital Signs Temp Pulse Pulse Resp BP BP Pulse Ox 01/06/25 08:55 95 H 01/06/25 07:28 36.8 C 89 14 126/94 96 01/06/25 03:13 36.6 C 86 18 118/79 96 01/05/25 23:43 01/05/25 23:14 36.8 C 92 H 18 126/80 96 01/05/25 21:45 89 O2 Del Method 01/06/25 08:55 01/06/25 07:28 Room Air 01/06/25 03:13 Room Air 01/05/25 23:43 Room Air 01/05/25 23:14 Room Air 01/05/25 21:45 Laboratory Results Laboratory Results - last 24 hr 01/05/25 01/06/25 01/06/25 11:53 06:27 07:19 WBC 19.20 H RBC 4.14 L Hgb 11.5 L Hct 33.4 L MCV 80.7 MCH 27.8 MCHC 34.4 RDW Std Deviation 40.1 RDW Coeff of Annika 13.7 Plt Count 496 H D MPV 9.7 Absolute Nucleated RBC 0.05 Nucleated RBC % (auto) 0.3 Neutrophils % (Manual) 86 Lymphocytes % (Manual) 3 Monocytes % (Manual) 1 Basophils % (Manual) 1 Metamyelocytes % (Man) 5 Myelocytes % (Man) 4 Neutrophils # (Manual) 16.51 H Total Absolute Neuts 16.51 H Lymphocytes # (Manual) 0.58 L Total Abs Lymphocytes 0.58 L Monocytes # (Manual) 0.19 Basophils # (Manual) 0.19 Metamyelocytes # (Man) 0.96 H Myelocytes # (Manual) 0.77 H Polychromasia 1+ Sodium 134 L Potassium 3.4 L Chloride 103 Carbon Dioxide 23 Anion Gap 8 BUN 18 Creatinine 0.45 L Est Cr Clr Drug Dosing 213.2 eGFR 139.08 BUN/Creatinine Ratio 40.0 H Glucose 108 H POC Glucose 113 H 108 H Calcium 8.1 L Phosphorus 3.4 Magnesium 1.8 Total Bilirubin 1.2 H AST 55 H ALT 48 Alkaline Phosphatase 97 Total Protein 6.0 Albumin 2.7 L Globulin 3.3 Albumin/Globulin Ratio 0.8 L PG Care Time/CCT Total # of Minutes Spent Total Time Spent with Patient: Total time spent is greater than 50% in coordination of care (as documented) at patient's floor/unit and/or counseling patient: Coding Level of Care Code 81803 Post Operative Follow-Up Diagnoses History of laparoscopic appendectomy Z90.49
[2025-01-06] MEDS: OPTIRAY 320 100ml IV ONE (12:09)
--- NOTE | 2025-01-06 12:44 | CT Scan Report ---
CT SCAN OF THE ABDOMEN AND PELVIS WITH IV CONTRAST CLINICAL HISTORY: Increasing leukocytosis. Status post appendectomy for perforated appendicitis. COMPARISON STUDY: CT of the abdomen and pelvis January 03, 2025. TECHNIQUE: Following the IV administration of 93 cc of Optiray 320, CT scan of the abdomen and pelvi s is performed from the lung bases to the proximal femora. Images are reviewed in the axial, sagittal , and coronal planes. IV contrast was administered without complication. A dose lowering technique wa s utilized adhering to the principles of ALARA. Oral contrast was administered. CT DOSE: 1278.81 mGy.cm FINDINGS: A small left pleural effusion is similar to CT of January 03, 2025. Extensive left lower lo be airspace opacity with volume loss is also similar to prior exam and favors atelectasis. There is a lso segmental right lower lobe atelectasis. No pneumatosis or portal venous gas is present. There is no free air. Liver, spleen, adrenal glands, kidneys and pancreas are unremarkable. There is no biliar y or pancreatic ductal dilatation. Moderate gallbladder distention is unchanged. There is no perichol ecystic stranding. Postoperative findings consistent with appendectomy are noted. A surgical drain re becca in place. Diffuse mesenteric stranding and peritoneal thickening is again noted. Wall thickenin g of numerous small bowel loops and portions of the colon is similar to prior CT. Multiple loops of m ildly dilated small bowel are again noted. Small bowel dilatation has decreased since CT of January 03, 2025. Numerous rim-enhancing fluid collections within the abdomen and pelvis have increased in size and are more well-defined than on prior exam. These include a left subdiaphragmatic/perisplenic collection t hat measures 14.5 x 8.1 cm. An adjacent perigastric fluid collection on image 145 measures 9.1 x 5.4 cm. A smaller perigastric fluid collection on image 165 measures 2.8 x 2.7 cm. A collection within th e left paracolic gutter measures 6.4 x 3.4 cm and approximately 17 cm craniocaudally. A smaller right paracolic gutter rim-enhancing fluid collection measures 6 x 1.8 x 5 cm. Numerous mesenteric fluid c ollections are present, including a fluid and gas containing collection on image 243 measures 2.4 x 2 .4 cm. A right mesenteric collection on image 272 measures 3.5 x 2.5 cm and a left mesenteric collect ion on image 232 measures 5.8 x 3 cm. Major vasculature is patent. IMPRESSION: 1. Status post appendectomy with surgical drain in place. Numerous rim-enhancing abdominal fluid candice ections which have increased in size and are more well-defined than on CT of January 03, 2025 consist ent with multifocal abscesses, as detailed above. 2. Persistent diffuse mesenteric stranding and peritoneal thickening suggestive of peritonitis. Small amount of associated ascites. 3. Persistent small and large bowel wall thickening, similar to prior CT. This may be secondary to pe ritonitis. Increase in small bowel dilatation which favors an ileus. A partial small bowel obstructio n is considered less likely. Oral contrast reaches the colon. 4. No change in a small left pleural effusion. Extensive left lower lobe airspace opacity with slight loss suggestive of atelectasis. Segmental right lower lobe atelectasis. 5. No change in gallbladder distention. No pericholecystic infiltration to suggest acute cholecystiti s. ACT 112: Negative or not required by law. Electronically signed by: Jarret Stephenson M.D. 01/06/2025 12:43 PM
--- NOTE | 2025-01-06 13:59 | Communication Note ---
Date of Service: January 06, [address] scans resulted showing numerous rim-enhancing abdominal fluid collections which have increased in size and are more well-defined than on CT of January 03, 2025 consistent with multifocal abscesses. It has suggestions of peritonitis and small + large bowel thickening with possible ileus, although contrast does reach the colon. Discussed case with IR who is willing to place drain in at least the largest collection tomorrow 01/07/25. Continue NPO/sips, IV abx, and lovenox placed on hold for upcoming procedure. Discussed with patient via metalworker and he expressed understanding.
[2025-01-06] MEDS: PERIPHERAL TPN IV SCH (16:04)
[2025-01-06] MEDS: [UNRECOGNIZED DRUG - OTHER] IV SCH (16:04)
--- NOTE | 2025-01-06 17:59 | Hospitalist Progress Note ---
Date of Service January 06, 2025 Assessment & Plan (1) Acute appendicitis: (2) Sepsis: (3) Ileus: (4) Acute renal failure: Plan This patient is a 39 y/o [place]i speaking male with no past medical history that presented with low urinary output, low appetite and abdominal pain for 2 days, found to have perforated appendicitis, peritonitis, sepsis POA, possible partial SBO. Patient was taken to the OR urgently 12/31 for a laparoscopic appendectomy and abdominal washout. #Sepsis POA 2/2 perforated gangrenous appendicitis/peritonitis/partial SBO-with tachypnea, tachycardia, procalcitonin greater than 100, lactate elevated at 8, acute kidney injury, and metabolic acidosis on admission. Was significantly improved after IV fluids, IV Zosyn, surgical washout and appendectomy. Tachycardia improved, CORINA resolved, lactic acidosis resolved, procalcitonin trending downward. On 01/02, he was moving bowels, NG tube removed, started on clear liquids, Wayne catheter removed. Pathology with gangrenous appendicitis. On 01/03 in the afternoon, he developed worsening severe pain and abdominal distention, nausea/vomiting-repeat CT A/P with peritonitis, fluid collections, mesenteric edema, and possible bowel obstruction versus ileus. NG tube replaced on 01/03. - Postoperative management as per surgery-continue AISHWARYA drain - Continue Zosyn - Continue IV Dilaudid and IV Tylenol as needed - Continue LR at 80 mL/h - Continue IV Protonix for GI prophylaxis - Needs follow-up with surgery 2 weeks postop - Follow CBC, CMP, magnesium, phosphorus, CRP, procalcitonin in the a.m. - Follow blood cultures from 12/31 - remain no growth to date on 01/06 - continue PPN, AM labs - Continue thiamine 100 mg IV daily - NG discontinued on 01/05, tolerating oral intake okay, continue morning labs, monitor intake DC PPN as oral intake improves #Hypokalemia/Hypocalcemia -continue PPN -recheck in AM - As needed supplement #Pleural effusions/atelectasis/respiratory distress - CTA chest performed on 01/03 due to shortness of breath shows pleural effusions and atelectasis of the lower lobes. This is likely secondary to peritonitis and acute illness, being mostly bedbound. - Okay to continue maintenance fluids for now - Encouraged incentive spirometry with patient and with nursing - Give supplemental O2 as needed to keep pulse ox greater than 90% -improving, monitor with increase in activity #CORINA/high AG metabolic acidosis/lactic acidosis- resolved. Creatinine 3.4 on arrival and now normal. CORINA secondary to ATN from sepsis. With lactic acidosis with lactate 8 and now normalized. pH 7.1 on arrival with metabolic acidosis now resolved. Received IV fluids, treatment of sepsis. - Follow BMP, clinically improving #Severe hepatic steatosis/ Elevated liver enzymes/prediabetes - Seen on CT. Total bilirubin remains mildly elevated 1.2. Patient reports he only drinks alcohol 2-3 times per month-unclear if this is accurate. Lipids are normal, HgbA1c in prediabetes range at 6.0%. - Should be counseled on alcohol cessation - Recommend follow-up with PCP and/or GI as an outpatient for fatty liver and prediabetes - Recommend low carbohydrate diet after discharge - Follow CMP - Continue thiamine 100 mg IV daily in case of occult alcohol use disorder #Anemia - Microcytic, iron panel consistent with chronic disease and iron deficiency mixed. B12, folate, and TSH are normal. - Should start iron replacement orally once he is improved significantly from a GI/ileus standpoint - Follow-up with GI as an outpatient for EGD and colonoscopy; however, he does not have insurance which may prohibit this. - Stable h/h, AM labs #Elevated troponin - - peak at 61 on 11.6, no recheck required, demand in the setting of GI sepsis DVT prophylaxis: SCDs, added Lovenox on 01/03 w/ surgery approval. 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 States he is doing okay today. He was monitored immediately after CT scan imaging. Starting to have more of an appetite. He was able to swallow the oral contrast without difficulty. No fevers or chills. Limited gas and bowel output thus far. No other new events or concerns per patient. He was very interested in what timeframe he might be discharged from hospital. All questions answered. Reviewed the rationale for imaging and likely timeframe involving several days depending on the AISHWARYA drain and clinical response to antibiotics. No other new events or concerns per nursing staff or patient Physical Exam Physical Exam: General: A&Ox3. NAD. Cooperative. HEENT: Atraumatic, normocephalic. Vision and hearing grossly intact. Pupils equal and reactive to light, sclera clear and anicteric Pulm: CTAB A&P. -wheezes, -rales, -rhonchi. No increased work of breathing. No respiratory distress. Cardiac: tachycardic. -mrg. Radial pulses intact and symmetrical. Abdominal: Interval decrease in bowel sounds, nondistended, no tenderness, no signs of peritonitis, no rigidity Ext: No Edema, Moves all extremities equally NEURO: A&O as above, no focal deficits Skin: warm, moist. Results & Data Results & Data Vital Signs (Past 12 Hours) Vital Signs Temp Pulse Pulse Resp BP BP Pulse Ox 01/06/25 16:00 93 H 01/06/25 15:08 37 C 96 H 17 123/76 94 01/06/25 12:00 36.8 C 102 H 18 117/77 96 01/06/25 08:55 95 H 01/06/25 07:28 36.8 C 89 14 126/94 96 O2 Del Method 01/06/25 16:00 01/06/25 15:08 Room Air 01/06/25 12:00 Room Air 01/06/25 08:55 01/06/25 07:28 Room Air Laboratory Results 12/31/24 Unknown Aerobic Blood Culture - Final Blood No growth in Aerobic bottle after 5 days. Anaerobic Blood Culture - Final No growth in Anaerobic bottle after 5 days. 12/31/24 Unknown Aerobic Blood Culture - Final Blood No growth in Aerobic bottle after 5 days. Anaerobic Blood Culture - Final No growth in Anaerobic bottle after 5 days. 01/06/25 01/06/25 01/06/25 11:45 07:19 06:27 WBC 19.20 H RBC 4.14 L Hgb 11.5 L Hct 33.4 L MCV 80.7 MCH 27.8 MCHC 34.4 RDW Std Deviation 40.1 RDW Coeff of Annika 13.7 Plt Count 496 H D MPV 9.7 Absolute Nucleated RBC 0.05 Nucleated RBC % (auto) 0.3 Neutrophils % (Manual) 86 Lymphocytes % (Manual) 3 Monocytes % (Manual) 1 Basophils % (Manual) 1 Metamyelocytes % (Man) 5 Myelocytes % (Man) 4 Neutrophils # (Manual) 16.51 H Total Absolute Neuts 16.51 H Lymphocytes # (Manual) 0.58 L Total Abs Lymphocytes 0.58 L Monocytes # (Manual) 0.19 Basophils # (Manual) 0.19 Metamyelocytes # (Man) 0.96 H Myelocytes # (Manual) 0.77 H Polychromasia 1+ Sodium 134 L Potassium 3.4 L Chloride 103 Carbon Dioxide 23 Anion Gap 8 BUN 18 Creatinine 0.45 L Est Cr Clr Drug Dosing 213.2 eGFR 139.08 BUN/Creatinine Ratio 40.0 H Glucose 108 H POC Glucose 107 H 108 H Calcium 8.1 L Phosphorus 3.4 Magnesium 1.8 Total Bilirubin 1.2 H AST 55 H ALT 48 Alkaline Phosphatase 97 Total Protein 6.0 Albumin 2.7 L Globulin 3.3 Albumin/Globulin Ratio 0.8 L Diagnostic Findings Abdomen/Pelvis CT 01/06/25 07:57 CT SCAN OF THE ABDOMEN AND PELVIS WITH IV CONTRAST CLINICAL HISTORY: Increasing leukocytosis. Status post appendectomy for perforated appendicitis. COMPARISON STUDY: CT of the abdomen and pelvis January 03, 2025. TECHNIQUE: Following the IV administration of 93 cc of Optiray 320, CT scan of the abdomen and pelvis is performed from the lung bases to the proximal femora. Images are reviewed in the axial, sagittal, and coronal planes. IV contrast was administered without complication. A dose lowering technique was utilized adhering to the principles of ALARA. Oral contrast was administered. CT DOSE: 1278.81 mGy.cm FINDINGS: A small left pleural effusion is similar to CT of January 03, 2025. Extensive left lower lobe airspace opacity with volume loss is also similar to prior exam and favors atelectasis. There is also segmental right lower lobe atelectasis. No pneumatosis or portal venous gas is present. There is no free air. Liver, spleen, adrenal glands, kidneys and pancreas are unremarkable. There is no biliary or pancreatic ductal dilatation. Moderate gallbladder distention is unchanged. There is no pericholecystic stranding. Postoperative findings consistent with appendectomy are noted. A surgical drain remains in place. Diffuse mesenteric stranding and peritoneal thickening is again noted. Wall thickening of numerous small bowel loops and portions of the colon is similar to prior CT. Multiple loops of mildly dilated small bowel are again noted. Small bowel dilatation has decreased since CT of January 03, 2025. Numerous rim-enhancing fluid collections within the abdomen and pelvis have increased in size and are more well-defined than on prior exam. These include a left subdiaphragmatic/perisplenic collection that measures 14.5 x 8.1 cm. An adjacent perigastric fluid collection on image 145 measures 9.1 x 5.4 cm. A smaller perigastric fluid collection on image 165 measures 2.8 x 2.7 cm. A collection within the left paracolic gutter measures 6.4 x 3.4 cm and approximately 17 cm craniocaudally. A smaller right paracolic gutter rim- enhancing fluid collection measures 6 x 1.8 x 5 cm. Numerous mesenteric fluid collections are present, including a fluid and gas containing collection on image 243 measures 2.4 x 2.4 cm. A right mesenteric collection on image 272 measures 3.5 x 2.5 cm and a left mesenteric collection on image 232 measures 5.8 x 3 cm. Major vasculature is patent. IMPRESSION: 1. Status post appendectomy with surgical drain in place. Numerous rim-enhancing abdominal fluid collections which have increased in size and are more well- defined than on CT of January 03, 2025 consistent with multifocal abscesses, as detailed above. 2. Persistent diffuse mesenteric stranding and peritoneal thickening suggestive of peritonitis. Small amount of associated ascites. 3. Persistent small and large bowel wall thickening, similar to prior CT. This may be secondary to peritonitis. Increase in small bowel dilatation which favors an ileus. A partial small bowel obstruction is considered less likely. Oral contrast reaches the colon. 4. No change in a small left pleural effusion. Extensive left lower lobe airspace opacity with slight loss suggestive of atelectasis. Segmental right lower lobe atelectasis. 5. No change in gallbladder distention. No pericholecystic infiltration to suggest acute cholecystitis. ACT 112: Negative or not required by law. Electronically signed by: Jarret Stephenson M.D. 01/06/2025 12:43 PM PG Care Time/CCT Total # of Minutes Spent Total Time Spent with Patient: Total time spent is greater than 50% in coordination of care (as documented) at patient's floor/unit and/or counseling patient: Coding Level of Care Code 76320 SUB INP/OBS CARE 2/35MIN Diagnoses Acute appendicitis K35.201 Acute appendicitis type: with generalized peritonitis Appendicitis abscess presence: unspecified whether abscess present Appendicitis gangrene presence: with gangrene Appendicitis perforation presence: with perforation Sepsis with acute renal failure and tubular necrosis without septic shock, due to unspecified organism A41.9; R65.20; N17.0 Sepsis type: sepsis due to unspecified organism Sepsis acute organ dysfunction status: with acute organ dysfunction Severe sepsis acute organ dysfunction type: acute renal failure Acute renal failure type: with acute tubular necrosis Severe sepsis shock status: without septic shock Ileus K56.7 Acute renal failure with tubular necrosis N17.0 Acute renal failure type: with acute tubular necrosis (1) Acute appendicitis Acute appendicitis type: with generalized peritonitis Appendicitis abscess presence: unspecified whether abscess present Appendicitis gangrene presence: with gangrene Appendicitis perforation presence: with perforation Qualified Code(s): K35.201 - Acute appendicitis with generalized peritonitis, with perforation, without abscess (2) Sepsis Sepsis type: sepsis due to unspecified organism Sepsis acute organ dysfunction status: with acute organ dysfunction Severe sepsis acute organ dysfunction type: acute renal failure Acute renal failure type: with acute tubular necrosis Severe sepsis shock status: without septic shock Qualified Code(s): A41.9 - Sepsis, unspecified organism; R65.20 - Severe sepsis without septic shock; N17.0 - Acute kidney failure with tubular necrosis (4) Acute renal failure Acute renal failure type: with acute tubular necrosis Qualified Code(s): N17.0 - Acute kidney failure with tubular necrosis
[2025-01-07 06:57] LABS: Anion Gap 7.0 (3-11); Blood Urea Nitrogen 18.0 mg/dl (6-23); Calcium 8.2 mg/dl (8.6-10.3); Carbon Dioxide 22.0 mmol/L (21-32); Chloride 103.0 mmol/L (98-107); Creatinine Clr Calc Pharmacy 201.0 ml/min; Glucose 112.0 mg/dl (70-99(Fasting)); Magnesium 1.8 mg/dl (1.7-2.4); Potassium 3.7 mmol/L (3.5-5.1); Sodium 132.0 mmol/L (136-145); Triglycerides 217.0 mg/dl (0-150)
--- NOTE | 2025-01-07 10:42 | Surgery Progress Note ---
Date of Service January 07, 2025 Assessment & Plan (1) History of laparoscopic appendectomy: Plan: Status post laparoscopic appendectomy and washout for perforated appendicitis with sepsis, now with postoperative abscesses. IR will attempt to drain the left paracolic gutter and left subdiaphragmatic collections today. Remainder we will treat with antibiotics. 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 Status post laparoscopic appendectomy and washout for perforated appendicitis with sepsis. Complaining of continued intermittent left lower quadrant pain. CT scan yesterday showed multiple fluid collections including larger collections in the left paracolic gutter and left subdiaphragmatic areas. No fevers. Still passing gas and having bowel movements. Physical Exam Constitutional: WD/WN, vitals as above Respiratory: normal respiratory effort, lungs clear to auscultation Cardiovascular: RRR, no murmur, no edema Gastrointestinal (Abdomen): Percussion/Palpation: + abdomen tender (Tender palpation left lower quad) and abdomen soft; no guarding and abdomen not rigid Results & Data Vital Signs (Past 12 Hours) Vital Signs Temp Pulse Pulse Resp BP Pulse Ox O2 Del Method 01/07/25 07:44 91 H 01/07/25 07:16 36.8 C 94 H 18 119/77 95 Room Air 01/07/25 02:36 37.0 C 95 H 18 119/77 95 Room Air 01/06/25 22:51 36.9 C 93 H 18 112/76 95 Room Air Laboratory Results Laboratory Results - last 24 hr 01/06/25 01/06/25 01/06/25 11:45 18:35 20:35 Sodium Potassium Chloride Carbon Dioxide Anion Gap BUN Creatinine Est Cr Clr Drug Dosing eGFR BUN/Creatinine Ratio Glucose POC Glucose 107 H 89 122 H Calcium Phosphorus Magnesium Triglycerides 01/07/25 01/07/25 01:35 05:52 Sodium 132 L Potassium 3.7 Chloride 103 Carbon Dioxide 22 Anion Gap 7 BUN 18 Creatinine 0.48 L Est Cr Clr Drug Dosing 201.0 eGFR 136.39 BUN/Creatinine Ratio 37.5 H Glucose 112 H POC Glucose 134 H Calcium 8.2 L Phosphorus 3.5 Magnesium 1.8 Triglycerides [address] scan from yesterday personally viewed and interpreted and agree with the assessment of multiple fluid collections concerning for abscess, largest in the left paracolic gutter and under the left diaphragm. Abdomen/Pelvis CT 01/06/25 07:57 CT SCAN OF THE ABDOMEN AND PELVIS WITH IV CONTRAST CLINICAL HISTORY: Increasing leukocytosis. Status post appendectomy for perforated appendicitis. COMPARISON STUDY: CT of the abdomen and pelvis January 03, 2025. TECHNIQUE: Following the IV administration of 93 cc of Optiray 320, CT scan of the abdomen and pelvis is performed from the lung bases to the proximal femora. Images are reviewed in the axial, sagittal, and coronal planes. IV contrast was administered without complication. A dose lowering technique was utilized adhering to the principles of ALARA. Oral contrast was administered. CT DOSE: 1278.81 mGy.cm FINDINGS: A small left pleural effusion is similar to CT of January 03, 2025. Extensive left lower lobe airspace opacity with volume loss is also similar to prior exam and favors atelectasis. There is also segmental right lower lobe atelectasis. No pneumatosis or portal venous gas is present. There is no free air. Liver, spleen, adrenal glands, kidneys and pancreas are unremarkable. There is no biliary or pancreatic ductal dilatation. Moderate gallbladder distention is unchanged. There is no pericholecystic stranding. Postoperative findings consistent with appendectomy are noted. A surgical drain remains in place. Diffuse mesenteric stranding and peritoneal thickening is again noted. Wall thickening of numerous small bowel loops and portions of the colon is similar to prior CT. Multiple loops of mildly dilated small bowel are again noted. Small bowel dilatation has decreased since CT of January 03, 2025. Numerous rim-enhancing fluid collections within the abdomen and pelvis have increased in size and are more well-defined than on prior exam. These include a left subdiaphragmatic/perisplenic collection that measures 14.5 x 8.1 cm. An adjacent perigastric fluid collection on image 145 measures 9.1 x 5.4 cm. A smaller perigastric fluid collection on image 165 measures 2.8 x 2.7 cm. A collection within the left paracolic gutter measures 6.4 x 3.4 cm and appro ximately 17 cm craniocaudally. A smaller right paracolic gutter rim-enhancing fluid collection measures 6 x 1.8 x 5 cm. Numerous mesenteric fluid collections are present, including a fluid and gas containing collection on image 243 measures 2.4 x 2.4 cm. A right mesenteric collection on image 272 measures 3.5 x 2.5 cm and a left mesenteric collection on image 232 measures 5.8 x 3 cm. Major vasculature is patent. IMPRESSION: 1. Status post appendectomy with surgical drain in place. Numerous rim-enhancing abdominal fluid collections which have increased in size and are more well- defined than on CT of January 03, 2025 consistent with multifocal abscesses, as detailed above. 2. Persistent diffuse mesenteric stranding and peritoneal thickening suggestive of peritonitis. Small amount of associated ascites. 3. Persistent small and large bowel wall thickening, similar to prior CT. This may be secondary to peritonitis. Increase in small bowel dilatation which favors an ileus. A partial small bowel obstruction is considered less likely. Oral contrast reaches the colon. 4. No change in a small left pleural effusion. Extensive left lower lobe airspace opacity with slight loss suggestive of atelectasis. Segmental right lower lobe atelectasis. 5. No change in gallbladder distention. No pericholecystic infiltration to suggest acute cholecystitis. ACT 112: Negative or not required by law. Electronically signed by: Jarret Stephenson M.D. 01/06/2025 12:43 PM PG Care Time/CCT Total # of Minutes Spent Total Time Spent with Patient: Total time spent is greater than 50% in coordination of care (as documented) at patient's floor/unit and/or counseling patient: Coding Level of Care Code 79303 Post Operative Follow-Up Diagnoses History of laparoscopic appendectomy Z90.49 Postoperative intra-abdominal abscess T81.43XA; K65.1 Sepsis with acute renal failure and tubular necrosis without septic shock, due to unspecified organism A41.9; R65.20; N17.0 Sepsis type: sepsis due to unspecified organism Sepsis acute organ dysfunction status: with acute organ dysfunction Severe sepsis acute organ dysfunction type: acute renal failure Acute renal failure type: with acute tubular necrosis Severe sepsis shock status: without septic shock Acute renal failure with tubular necrosis N17.0 Acute renal failure type: with acute tubular necrosis (3) Sepsis Sepsis type: sepsis due to unspecified organism Sepsis acute organ dysfunction status: with acute organ dysfunction Severe sepsis acute organ dysfunction type: acute renal failure Acute renal failure type: with acute tubular necrosis Severe sepsis shock status: without septic shock Qualified Code(s): A41.9 - Sepsis, unspecified organism; R65.20 - Severe sepsis without septic shock; N17.0 - Acute kidney failure with tubular necrosis (4) Acute renal failure Acute renal failure type: with acute tubular necrosis Qualified Code(s): N17.0 - Acute kidney failure with tubular necrosis
[2025-01-07] MEDS: CLINOLIPID 20% IV FAT EMULSION 250 ML IV SCH (16:17)
[2025-01-07] MEDS: PERIPHERAL TPN IV SCH (16:17)
[2025-01-07] MEDS: [UNRECOGNIZED DRUG - OTHER] IV SCH (16:17)
--- NOTE | 2025-01-07 16:23 | CT Scan Report ---
IR AD CT periton/retro w/gdnce CLINICAL HISTORY: IR drainage of intra-abdominal fluid collections MEDICATIONS: 50 mcg fentanyl IV was administered IV by a sedation trained nurse with continuous monit oring for the 30 minute duration of the procedure. Technique: After the procedure was discussed and questions answered with the aid of an instructor of education, consent was obtained. Patient was positioned supine on the CT gantry and timeout was performed. Prepr ocedure ultrasound again demonstrated large left-sided abdominal fluid collection extending from the subdiaphragmatic region to the left paracolic gutter. The subdiaphragmatic fluid and the left paracol ic gutter fluid appear to communicate. There was not a safe percutaneous catheter to the subdiaphragm atic collection, so the left paracolic gutter was selected for drainage. Left abdomen was prepped and draped in standard sterile fashion. 1% lidocaine was used for local anes thesia. Under intermittent CT guidance, a 5 Italian needle and catheter set was advanced from a left l ateral abdominal approach into the left paracolic gutter fluid collection. Needle was removed. Wire w as advanced through the initial catheter into the fluid collection. Initial catheter was removed. 8 F rench all purpose drain was advanced over the wire into the fluid collection. Wire was removed. [place] was formed. Catheter was secured with suture and sterile dressing was applied. Catheter was placed to bag drainage and was draining at procedure completion. Total DLP was 2347 mgy cm. IMPRESSION: Left abdominal drain placement as described. ACT 112: Negative or not required by law. Electronically signed by: Brandon Chadwick M.D. 01/07/2025 4:22 PM
--- NOTE | 2025-01-07 18:17 | Hospitalist Progress Note ---
Date of Service January 07, 2025 Assessment & Plan (1) Acute appendicitis: (2) Sepsis: (3) Ileus: (4) Acute renal failure: Plan This patient is a 39 y/o [place] speaking male with no past medical history that presented with low urinary output, low appetite and abdominal pain for 2 days, found to have perforated appendicitis, peritonitis, sepsis POA, possible partial SBO. Patient was taken to the OR urgently 12/31 for a laparoscopic appendectomy and abdominal washout. #Sepsis POA 2/2 perforated gangrenous appendicitis/peritonitis/partial SBO-with tachypnea, tachycardia, procalcitonin greater than 100, lactate elevated at 8, acute kidney injury, and metabolic acidosis on admission. Was significantly improved after IV fluids, IV Zosyn, surgical washout and appendectomy. Tachycardia improved, CORINA resolved, lactic acidosis resolved, procalcitonin trending downward. On 01/02, he was moving bowels, NG tube removed, started on clear liquids, Wayne catheter removed. Pathology with gangrenous appendicitis. On 01/03 in the afternoon, he developed worsening severe pain and abdominal distention, nausea/vomiting-repeat CT A/P with peritonitis, fluid collections, mesenteric edema, and possible bowel obstruction versus ileus. NG tube replaced on 01/03. - Postoperative management as per surgery-continue AISHWARYA drain - Continue Zosyn - Continue IV Dilaudid and IV Tylenol as needed - Continue LR at 80 mL/h - Continue IV Protonix for GI prophylaxis - Needs follow-up with surgery 2 weeks postop - Follow CBC, CMP, magnesium, phosphorus, CRP, procalcitonin in the a.m. - Follow blood cultures from 12/31 - remain no growth to date on 01/06 - continue PPN, AM labs - Continue thiamine 100 mg IV daily - NG discontinued on 01/05, tolerating oral intake okay, continue morning labs, monitor intake DC PPN as oral intake improves - See surgery notes, supportive cares #Hypokalemia/Hypocalcemia -continue PPN -recheck in AM - As needed supplement - Daily Labs #Pleural effusions/atelectasis/respiratory distress - CTA chest performed on 01/03 due to shortness of breath shows pleural effusions and atelectasis of the lower lobes. This is likely secondary to peritonitis and acute illness, being mostly bedbound. - Okay to continue maintenance fluids for now - Encouraged incentive spirometry with patient and with nursing - Give supplemental O2 as needed to keep pulse ox greater than 90% -Stable/improving, monitor with increase in activity #CORINA/high AG metabolic acidosis/lactic acidosis- resolved. Creatinine 3.4 on arrival and now normal. CORINA secondary to ATN from sepsis. With lactic acidosis with lactate 8 and now normalized. pH 7.1 on arrival with metabolic acidosis now resolved. Received IV fluids, treatment of sepsis. - Follow BMP, clinically improving #Severe hepatic steatosis/ Elevated liver enzymes/prediabetes - Seen on CT. Total bilirubin remains mildly elevated 1.2. Patient reports he only drinks alcohol 2-3 times per month-unclear if this is accurate. Lipids are normal, HgbA1c in prediabetes range at 6.0%. - Should be counseled on alcohol cessation - Recommend follow-up with PCP and/or GI as an outpatient for fatty liver and prediabetes - Recommend low carbohydrate diet after discharge - Follow CMP - Continue thiamine 100 mg IV daily in case of occult alcohol use disorder #Anemia - Microcytic, iron panel consistent with chronic disease and iron deficiency mixed. B12, folate, and TSH are normal. - Should start iron replacement orally once he is improved significantly from a GI/ileus standpoint - Follow-up with GI as an outpatient for EGD and colonoscopy; however, he does not have insurance which may prohibit this. - Stable h/h, AM labs #Elevated troponin - - peak at 61 on 11.6, no recheck required, demand in the setting of GI sepsis DVT prophylaxis: SCDs, added Lovenox on 01/03 w/ surgery approval. Dispo: Continued stay, transfer to [facility] next 24 to 48 hours Admission and Anticipated Discharge Date Admission Date: December 31, 2024 Subjective Resting comfortably this AM, pain improving, no changes in character or distribution. Minimal bowel output/flatus, no new or different symptoms. Physical Exam Physical Exam: General: A&Ox3. NAD. Cooperative. HEENT: Atraumatic, normocephalic. Vision and hearing grossly intact. Pupils equal and reactive to light, sclera clear and anicteric Pulm: CTAB A&P. -wheezes, -rales, -rhonchi. No increased work of breathing. No respiratory distress. Cardiac: tachycardic. -mrg. Radial pulses intact and symmetrical. Abdominal: Interval decrease in bowel sounds, nondistended, no tenderness, no signs of peritonitis, no rigidity Ext: No Edema, Moves all extremities equally NEURO: A&O as above, no focal deficits Skin: warm, moist. Results & Data Results & Data Vital Signs (Past 12 Hours) Vital Signs Temp Pulse Pulse Resp BP Pulse Ox O2 Del Method 01/07/25 15:31 92 H 01/07/25 15:28 36.8 C 87 19 117/74 95 Room Air 01/07/25 11:30 37.1 C 90 18 123/81 95 Room Air 01/07/25 07:44 91 H 01/07/25 07:16 36.8 C 94 H 18 119/77 95 Room Air Laboratory Results 01/07/25 Unknown Gram Stain - Pending Abdomen Aerobic and Anaerobic Culture - Pending 01/07/25 01/07/25 01/07/25 16:34 11:56 05:52 Sodium 132 L Potassium 3.7 Chloride 103 Carbon Dioxide 22 Anion Gap 7 BUN 18 Creatinine 0.48 L Est Cr Clr Drug Dosing 201.0 eGFR 136.39 BUN/Creatinine Ratio 37.5 H Glucose 112 H POC Glucose 94 108 H Calcium 8.2 L Phosphorus 3.5 Magnesium 1.8 Triglycerides 217 H 01/07/25 01/06/25 01/06/25 01:35 20:35 18:35 Sodium Potassium Chloride Carbon Dioxide Anion Gap BUN Creatinine Est Cr Clr Drug Dosing eGFR BUN/Creatinine Ratio Glucose POC Glucose 134 H 122 H 89 Calcium Phosphorus Magnesium Triglycerides PG Care Time/CCT Total # of Minutes Spent Total Time Spent with Patient: Total time spent is greater than 50% in coordination of care (as documented) at patient's floor/unit and/or counseling patient: Coding Level of Care Code 12140 SUB INP/OBS CARE 2/35MIN Diagnoses Acute appendicitis K35.201 Acute appendicitis type: with generalized peritonitis Appendicitis abscess presence: unspecified whether abscess present Appendicitis gangrene presence: with gangrene Appendicitis perforation presence: with perforation Sepsis with acute renal failure and tubular necrosis without septic shock, due to unspecified organism A41.9; R65.20; N17.0 Sepsis type: sepsis due to unspecified organism Sepsis acute organ dysfunction status: with acute organ dysfunction Severe sepsis acute organ dysfunction type: acute renal failure Acute renal failure type: with acute tubular necrosis Severe sepsis shock status: without septic shock Ileus K56.7 Acute renal failure with tubular necrosis N17.0 Acute renal failure type: with acute tubular necrosis (1) Acute appendicitis Acute appendicitis type: with generalized peritonitis Appendicitis abscess presence: unspecified whether abscess present Appendicitis gangrene presence: with gangrene Appendicitis perforation presence: with perforation Qualified Code(s): K35.201 - Acute appendicitis with generalized peritonitis, with perforation, without abscess (2) Sepsis Sepsis type: sepsis due to unspecified organism Sepsis acute organ dysfunction status: with acute organ dysfunction Severe sepsis acute organ dysfunction type: acute renal failure Acute renal failure type: with acute tubular necrosis Severe sepsis shock status: without septic shock Qualified Code(s): A41.9 - Sepsis, unspecified organism; R65.20 - Severe sepsis without septic shock; N17.0 - Acute kidney failure with tubular necrosis (4) Acute renal failure Acute renal failure type: with acute tubular necrosis Qualified Code(s): N17.0 - Acute kidney failure with tubular necrosis
[2025-01-08] MEDS: ACETAMINOPHEN 1,000 MG/100 ML VIAL IV PRN (04:31)
[2025-01-08 08:10] LABS: Hematocrit (blood only) 30.9 % (42.0-52.0); Hemoglobin 10.6 g/dL (14.0-18.0); Mean Corpuscular Hemoglobin 27.7 pg (25.0-34.0); Mean Corpuscular Volume 80.7 fL (80.0-100.0); Platelet Count 732 K/uL (130-400); RDW Standard Deviation 39.6 fL (36.4-46.3); Red Blood Count 3.83 M/uL (4.70-6.10); White Blood Count 19.46 K/ul (4.8-10.8)
[2025-01-08 08:23] LABS: Albumin Level 2.8 gm/dl (3.4-5.0); Anion Gap 6.0 (3-11); Bilirubin,Total 1.1 mg/dl (0.2-1.0); Calcium 8.3 mg/dl (8.6-10.3); Carbon Dioxide 23.0 mmol/L (21-32); Chloride 103.0 mmol/L (98-107); Magnesium 1.8 mg/dl (1.7-2.4); Potassium 4.0 mmol/L (3.5-5.1); Sodium 132.0 mmol/L (136-145)
[2025-01-08 08:29] LABS: Alanine Aminotransferase 70.0 U/L (7-52); Albumin Globulin Ratio 0.8 (0.9-2); Alkaline Phosphatase 114.0 U/L (34-104); Blood Urea Nitrogen 15.0 mg/dl (6-23); Creatinine Clr Calc Pharmacy 179.2 ml/min; Globulin 3.7 gm/dl (2.5-4.0); Glucose 99.0 mg/dl (70-99(Fasting)); Total Protein 6.5 gm/dl (6.0-8.3)
--- NOTE | 2025-01-08 08:32 | Surgery Progress Note ---
Date of Service January 08, 2025 Assessment & Plan (1) Postoperative intra-abdominal abscess: (2) Ileus: (3) S/P laparoscopic appendectomy: (4) Acute appendicitis: Plan Status post laparoscopic appendectomy and washout for perforated appendicitis with sepsis on 12/31/2024, hospital course complicated by post-op ileus and now with postoperative abscesses, s/p CT guided drainage on 01/07/2025. Patient had low-grade temps, mildly tachycardic, and white blood cell count still markedly elevated after CT-guided drainage yesterday, will continue with IV antibiotics, and continue to trend white blood cell count and temps. Will advance to clear liquid diet today and make n.p.o. after midnight in order to reassess tomorrow for possible return to the OR for exploratory laparotomy with abdominal washout. Will obtain a chest x-ray today due to his subjective complaints of shortness of breath, however he is maintaining adequate O2 sats on room air and has no labored breathing. Continue with multimodal pain management, activity as tolerated, will order PT/OT eval since he does not appear to be getting out of bed often. Continue to monitor IR drain and we will consider possible removal of AISHWARYA drain since there is minimal output and it is serous. Admission and Anticipated Discharge Date Admission Date: December 31, 2024 Supervising Physician Co-Signing Physician Notes Patient discussed with MARIANN, labs reviewed, agree with above. Status post laparoscopic appendectomy and washout for perforated appendicitis with sepsis. Postprocedure day #1 IR drainage of left paracolic abscess. Fever overnight, otherwise afebrile with stable vitals. Continues to plaint of pain. WBC remains elevated at 19. Will allow clear liquids today, suspect subjective shortness of breath is related to the subdiaphragmatic abscess, hopefully this resolved with drainage. We will see how he does over the next day or 2, if f ailure to improve or worsening symptoms may need exploration and washout in the operating room. Subjective Patient was seen and examined with the aid of a wire basket maker and currently states that he has moderate left-sided abdominal pain, at the site of the IR drain, much worse last night, somewhat better this morning, fairly well- tolerated with current pain medication regimen although he is not asking for narcotics often. Patient denies any nausea or vomiting, does state that he is passing gas, last bowel movement was yesterday. Patient states that he feels mildly short of breath related to his abdominal pain, difficult to take a deep breath in. Has been maintaining adequate O2 sats on room air, low-grade temp with a Tmax of 37.9, mildly tachycardic, blood pressure stable. White blood cell count still markedly elevated, similar to yesterday's at 19, still on Zosyn for his perforated appendicitis. We had a detailed discussion with the patient and the aid of the linux system administrator discussed the patient's medical condition and prolonged hospital stay. In spite of detailed description of the patient's hospital course, patient does not clearly understand why he is here, but understands that we are trying to help him and help with his pain. Physical Exam Physical Exam: Gen: Awake and alert, resting comfortably in bed in NAD CV: RRR PULM: non-labored breathing Abd: Abdomen mildly distended, soft with some voluntary guarding, moderate generalized tenderness to palpation, worse on the left side around IR drain, but no overt peritoneal signs. AISHWARYA drain with serous drainage noted. IR drain with copious tanish purulent drainage noted. The lower laparoscopic incision is open with packing and scant purulent material, but no appreciable tracking and no erythema, swelling, warmth or increased tenderness to palation, unable to ex press any drainage from the wound. Otherwise other laparoscopic incisions are well-approximated with skin glue in place, no surrounding erythema, warmth, swelling, or increased tenderness to palpation. ext: no edema to bilateral lower ext, SCDs in place, non-tender, feet warm and well perfused Results & Data Vital Signs (Past 12 Hours) Vital Signs Temp Pulse Pulse Resp BP BP Pulse Ox 01/08/25 07:13 36.7 C 89 18 121/82 91 01/08/25 03:28 37.0 C 90 20 113/76 92 01/07/25 22:48 37.6 C H 103 H 18 130/76 93 01/07/25 21:48 99 H O2 Del Method 01/08/25 07:13 Room Air 01/08/25 03:28 Room Air 01/07/25 22:48 Room Air 01/07/25 21:48 Results Complete Blood Count Results: RBC 3.83 M/uL (4.70-6.10) L 01/08/25 WBC 19.46 K/ul (4.8-10.8) H 01/08/25 Hgb 10.6 g/dL (14.0-18.0) L 01/08/25 Hct 30.9 % (42.0-52.0) L 01/08/25 Plt Count 732 K/uL (130-400) H 01/08/25 Results BMP Results: Sodium 132 mmol/L (136-145) L 01/08/25 Potassium 4.0 mmol/L (3.5-5.1) 01/08/25 Chloride 103 mmol/L (98-107) 01/08/25 Carbon Dioxide 23 mmol/L (21-32) 01/08/25 Anion Gap 6 (3-11) 01/08/25 BUN 15 mg/dl (6-23) 01/08/25 Creatinine 0.53 mg/dl (0.6-1.4) L 01/08/25 Glucose 99 mg/dl (70-99(Fasting)) 01/08/25 PG Care Time/CCT Total # of Minutes Spent Total Time Spent with Patient: Total time spent is greater than 50% in coordination of care (as documented) at patient's floor/unit and/or counseling patient: Coding [place] [address] Post Operative Follow-Up Patient Type Established Diagnoses Postoperative intra-abdominal abscess T81.43XA; K65.1 Ileus K56.7 S/P laparoscopic appendectomy Z90.49 Acute appendicitis K35.201 Acute appendicitis type: with generalized peritonitis Appendicitis abscess presence: unspecified whether abscess present Appendicitis gangrene presence: with gangrene Appendicitis perforation presence: with perforation (4) Acute appendicitis Acute appendicitis type: with generalized peritonitis Appendicitis abscess presence: unspecified whether abscess present Appendicitis gangrene presence: with gangrene Appendicitis perforation presence: with perforation Qualified Code(s): K35.201 - Acute appendicitis with generalized peritonitis, with perforation, without abscess
[2025-01-08 08:48] LABS: Immature Granulocytes # (auto) 1.18 K/uL (0.01-0.20); Immature Granulocytes % (auto) 6.1 %; Polychromasia 1+; Target Cells 1+
--- NOTE | 2025-01-08 09:02 | XRay Report ---
XR chest 1V portable CLINICAL HISTORY: Shortness of breath. COMPARISON STUDY: Chest CT January 03, 2025. FINDINGS: There is no pneumothorax. Lung volumes are mildly diminished. Asymmetric left lung opacific ation is noted. There is also medial right basilar opacity. Cardiac size is at the upper limits of no rmal. There is no evidence for pulmonary edema. IMPRESSION: 1. Asymmetric left lung opacification which likely represents a [id number] layering pleural ef fusion and associated airspace opacity which could represent atelectasis or pneumonia. 2. Medial right basilar opacity which favors atelectasis. 3. Low lung volumes. ACT 112: Negative or not required by law. Electronically signed by: Jarret Stephenson M.D. 01/08/2025 9:01 AM
[2025-01-08] MEDS: PERIPHERAL TPN IV SCH (15:28)
[2025-01-08] MEDS: [UNRECOGNIZED DRUG - OTHER] IV SCH (15:28)
--- NOTE | 2025-01-08 16:00 | Hospitalist Progress Note ---
Date of Service January 08, 2025 Assessment & Plan (1) Acute appendicitis: (2) Sepsis: (3) Ileus: (4) Acute renal failure: Plan This patient is a 39 y/o [place] speaking male with no past medical history that presented with low urinary output, low appetite and abdominal pain for 2 days, found to have perforated appendicitis, peritonitis, sepsis POA, possible partial SBO. Patient was taken to the OR urgently 12/31 for a laparoscopic appendectomy and abdominal washout. #Sepsis POA 2/2 perforated gangrenous appendicitis/peritonitis/partial SBO-with tachypnea, tachycardia, procalcitonin greater than 100, lactate elevated at 8, acute kidney injury, and metabolic acidosis on admission. Was significantly improved after IV fluids, IV Zosyn, surgical washout and appendectomy. Tachycardia improved, CORINA resolved, lactic acidosis resolved, procalcitonin trending downward. On 01/02, he was moving bowels, NG tube removed, started on clear liquids, Wayne catheter removed. Pathology with gangrenous appendicitis. On 01/03 in the afternoon, he developed worsening severe pain and abdominal distention, nausea/vomiting-repeat CT A/P with peritonitis, fluid collections, mesenteric edema, and possible bowel obstruction versus ileus. NG tube replaced on 01/03. - Postoperative management as per surgery-continue AISHWARYA drain - Continue Zosyn - Continue IV Dilaudid and IV Tylenol as needed - Continue LR at 80 mL/h - Continue IV Protonix for GI prophylaxis - Needs follow-up with surgery 2 weeks postop - Follow CBC, CMP, magnesium, phosphorus, CRP, procalcitonin in the a.m. - Follow blood cultures from 12/31 - remain no growth to date on 01/06 - continue PPN, AM labs - Continue thiamine 100 mg IV daily - NG discontinued on 01/05, tolerating oral intake okay, continue morning labs, monitor intake DC PPN as oral intake improves - See surgery notes, supportive cares Interval increase in temperature and mild increase in heart rate, fairly benign abdominal exam as of this morning. Defer to surgery at this time. Secondary drain placement yesterday. Inflammatory markers CRP and procalcitonin as of this morning tend to be on the low and controlled side. #Hypokalemia/Hypocalcemia #Nutritional supportive cares -continue PPN he is approaching the maximum, timeframe of 7 days with peripheral PPN, see surgery notes we will discuss tomorrow possible advancing up oral intake -Otherwise will need to have a PICC placed so we can do TPN over the longer-term -recheck labs in AM - As needed supplement - Daily Labs #Pleural effusions/atelectasis/respiratory distress - CTA chest performed on 01/03 due to shortness of breath shows pleural effusions and atelectasis of the lower lobes. This is likely secondary to peritonitis and acute illness, being mostly bedbound. - Okay to continue maintenance fluids for now - Encouraged incentive spirometry with patient and with nursing - Give supplemental O2 as needed to keep pulse ox greater than 90% -Stable/improving, monitor with increase in activity, Brief episode of shortness of breath self-limited. No indication for repeat imaging or further evaluation at this time #CORINA/high AG metabolic acidosis/lactic acidosis- resolved. Creatinine 3.4 on arrival and now normal. CORINA secondary to ATN from sepsis. With lactic acidosis with lactate 8 and now normalized. pH 7.1 on arrival with metabolic acidosis now resolved. Received IV fluids, treatment of sepsis. - Follow BMP, clinically improving #Severe hepatic steatosis/ Elevated liver enzymes/prediabetes - Seen on CT. Total bilirubin remains mildly elevated 1.2. Patient reports he only drinks alcohol 2-3 times per month-unclear if this is accurate. Lipids are normal, HgbA1c in prediabetes range at 6.0%. - Should be counseled on alcohol cessation - Recommend follow-up with PCP and/or GI as an outpatient for fatty liver and prediabetes - Recommend low carbohydrate diet after discharge - Follow CMP - Continue thiamine 100 mg IV daily in case of occult alcohol use disorder #Anemia - Microcytic, iron panel consistent with chronic disease and iron deficiency mixed. B12, folate, and TSH are normal. - Should start iron replacement orally once he is improved significantly from a GI/ileus standpoint - Follow-up with GI as an outpatient for EGD and colonoscopy; however, he does not have insurance which may prohibit this. - Stable h/h, AM labs #Elevated troponin - - peak at 61 on 11.6, no recheck required, demand in the setting of GI sepsis DVT prophylaxis: SCDs, added Lovenox on 01/03 w/ surgery approval. Dispo: Continued stay, transfer to [facility] next 24 to 48 hours Admission and Anticipated Discharge Date Admission Date: December 31, 2024 Subjective Still having episodes of sharp abdominal pain that started in the upper part of his chest and radiate down towards the recent J-tube placement site. Denies fevers or chills. Breathing he states was challenged at times but is back to baseline. He denies any cough or other pulmonary type symptoms. We discussed the possibility that he may need another procedure based on the amount of residual inflammation in his abdomen. He would prefer to avoid that if possible but was understanding that may be necessary. His current biggest predominant concern with the cost of the procedures and how he would pay for them. Discussed having case management review this stuff with him and that that is something they will work to assist him with in any way possible. Nursing staff will review all increasing tachycardia low-grade temperature. Will review with surgery. Currently continuing with PPN Physical Exam Physical Exam: General: A&Ox3. NAD. Cooperative. HEENT: Atraumatic, normocephalic. Vision and hearing grossly intact. Pupils equal and reactive to light, sclera clear and anicteric Pulm: CTAB A&P. -wheezes, -rales, -rhonchi. No increased work of breathing. No respiratory distress. Cardiac: tachycardic. -mrg. Radial pulses intact and symmetrical. Abdominal: Very quiet bowel sounds persist, mild distention, no localized tenderness, no signs of peritonitis, no rigidity Ext: No Edema, Moves all extremities equally NEURO: A&O as above, no focal deficits Skin: warm, moist. Results & Data Results & Data Vital Signs (Past 12 Hours) Vital Signs Temp Pulse Pulse Resp BP BP Pulse Ox 01/08/25 15:39 37.7 C H 115 H 20 120/83 94 01/08/25 11:34 37.2 C 103 H 18 113/75 94 01/08/25 08:00 92 H 01/08/25 07:13 36.7 C 89 18 121/82 91 O2 Del Method 01/08/25 15:39 Room Air 01/08/25 11:34 Room Air 01/08/25 08:00 01/08/25 07:13 Room Air Laboratory Results 01/07/25 Unknown Gram Stain - Final Abdomen Aerobic and Anaerobic Culture - Preliminary Escherichia coli 01/08/25 01/08/25 01/08/25 11:38 06:48 06:34 WBC 19.46 H RBC 3.83 L Hgb 10.6 L Hct 30.9 L MCV 80.7 MCH 27.7 MCHC 34.3 RDW Std Deviation 39.6 RDW Coeff of Annika 13.6 Plt Count 732 H MPV 9.3 L Immature Gran % (Auto) 6.1 Neut % (Auto) 83.7 Lymph % (Auto) 5.4 [place] % (Auto) 3.6 Eos % (Auto) 0.8 Baso % (Auto) 0.4 Neut # (Auto) 16.30 H Lymph # (Auto) 1.05 L [place] # (Auto) 0.70 H Eos # (Auto) 0.16 Baso # (Auto) 0.07 Immature Gran # (Auto) 1.18 H Polychromasia 1+ Target Cells 1+ Sodium 132 L Potassium 4.0 Chloride 103 Carbon Dioxide 23 Anion Gap 6 BUN 15 Creatinine 0.53 L Est Cr Clr Drug Dosing 179.2 eGFR 132.37 BUN/Creatinine Ratio 28.3 H Glucose 99 POC Glucose 123 H 103 H Calcium 8.3 L Phosphorus 3.5 Magnesium 1.8 Total Bilirubin 1.1 H AST 72 H ALT 70 H Alkaline Phosphatase 114 H C-Reactive Protein 20.27 H Total Protein 6.5 Albumin 2.8 L Globulin 3.7 Albumin/Globulin Ratio 0.8 L Procalcitonin 2.23 H 01/08/25 01/07/25 00:22 16:34 WBC RBC Hgb Hct MCV MCH MCHC RDW Std Deviation RDW Coeff of Annika Plt Count MPV Immature Gran % (Auto) Neut % (Auto) Lymph % (Auto) [place] % (Auto) Eos % (Auto) Baso % (Auto) Neut # (Auto) Lymph # (Auto) [place] # (Auto) Eos # (Auto) Baso # (Auto) Immature Gran # (Auto) Polychromasia Target Cells Sodium Potassium Chloride Carbon Dioxide Anion Gap BUN Creatinine Est Cr Clr Drug Dosing eGFR BUN/Creatinine Ratio Glucose POC Glucose 94 94 Calcium Phosphorus Magnesium Total Bilirubin AST ALT Alkaline Phosphatase C-Reactive Protein Total Protein Albumin Globulin Albumin/Globulin Ratio Procalcitonin Diagnostic Findings 01/07/25 Unknown Gram Stain - Final Abdomen Aerobic and Anaerobic Culture - Preliminary Escherichia coli 01/08/25 01/08/25 01/08/25 11:38 06:48 06:34 WBC 19.46 H RBC 3.83 L Hgb 10.6 L Hct 30.9 L MCV 80.7 MCH 27.7 MCHC 34.3 RDW Std Deviation 39.6 RDW Coeff of Annika 13.6 Plt Count 732 H MPV 9.3 L Immature Gran % (Auto) 6.1 Neut % (Auto) 83.7 Lymph % (Auto) 5.4 [place] % (Auto) 3.6 Eos % (Auto) 0.8 Baso % (Auto) 0.4 Neut # (Auto) 16.30 H Lymph # (Auto) 1.05 L [place] # (Auto) 0.70 H Eos # (Auto) 0.16 Baso # (Auto) 0.07 Immature Gran # (Auto) 1.18 H Polychromasia 1+ Target Cells 1+ Sodium 132 L Potassium 4.0 Chloride 103 Carbon Dioxide 23 Anion Gap 6 BUN 15 Creatinine 0.53 L Est Cr Clr Drug Dosing 179.2 eGFR 132.37 BUN/Creatinine Ratio 28.3 H Glucose 99 POC Glucose 123 H 103 H Calcium 8.3 L Phosphorus 3.5 Magnesium 1.8 Total Bilirubin 1.1 H AST 72 H ALT 70 H Alkaline Phosphatase 114 H C-Reactive Protein 20.27 H Total Protein 6.5 Albumin 2.8 L Globulin 3.7 Albumin/Globulin Ratio 0.8 L Procalcitonin 2.23 H 01/08/25 01/07/25 00:22 16:34 WBC RBC Hgb Hct MCV MCH MCHC RDW Std Deviation RDW Coeff of Annika Plt Count MPV Immature Gran % (Auto) Neut % (Auto) Lymph % (Auto) [place] % (Auto) Eos % (Auto) Baso % (Auto) Neut # (Auto) Lymph # (Auto) [place] # (Auto) Eos # (Auto) Baso # (Auto) Immature Gran # (Auto) Polychromasia Target Cells Sodium Potassium Chloride Carbon Dioxide Anion Gap BUN Creatinine Est Cr Clr Drug Dosing eGFR BUN/Creatinine Ratio Glucose POC Glucose 94 94 Calcium Phosphorus Magnesium Total Bilirubin AST ALT Alkaline Phosphatase C-Reactive Protein Total Protein Albumin Globulin Albumin/Globulin Ratio Procalcitonin PG Care Time/CCT Total # of Minutes Spent Total Time Spent with Patient: Total time spent is greater than 50% in coordination of care (as documented) at patient's floor/unit and/or counseling patient: Coding Level of Care Code 05191 SUB INP/OBS CARE 2/35MIN Diagnoses Acute appendicitis K35.201 Acute appendicitis type: with generalized peritonitis Appendicitis abscess presence: unspecified whether abscess present Appendicitis gangrene presence: with gangrene Appendicitis perforation presence: with perforation Sepsis with acute renal failure and tubular necrosis without septic shock, due to unspecified organism A41.9; R65.20; N17.0 Sepsis type: sepsis due to unspecified organism Sepsis acute organ dysfunction status: with acute organ dysfunction Severe sepsis acute organ dysfunction type: acute renal failure Acute renal failure type: with acute tubular necrosis Severe sepsis shock status: without septic shock Ileus K56.7 Acute renal failure with tubular necrosis N17.0 Acute renal failure type: with acute tubular necrosis (1) Acute appendicitis Acute appendicitis type: with generalized peritonitis Appendicitis abscess presence: unspecified whether abscess present Appendicitis gangrene presence: with gangrene Appendicitis perforation presence: with perforation Qualified Code(s): K35.201 - Acute appendicitis with generalized peritonitis, with perforation, without abscess (2) Sepsis Sepsis type: sepsis due to unspecified organism Sepsis acute organ dysfunction status: with acute organ dysfunction Severe sepsis acute organ dysfunction type: acute renal failure Acute renal failure type: with acute tubular necrosis Severe sepsis shock status: without septic shock Qualified Code(s): A41.9 - Sepsis, unspecified organism; R65.20 - Severe sepsis without septic shock; N17.0 - Acute kidney failure with tubular necrosis (4) Acute renal failure Acute renal failure type: with acute tubular necrosis Qualified Code(s): N17.0 - Acute kidney failure with tubular necrosis
[2025-01-08] MEDS: SODIUM CHLORIDE 0.9% 500 ML IV SCH (16:30)
--- NOTE | 2025-01-09 08:40 | Surgery Progress Note ---
Date of Service January 09, 2025 Assessment & Plan (1) S/P laparoscopic appendectomy: Plan: S/p laparoscopic appendectomy and washout for perforated appendicitis with sepsis on 12/31/2024, hospital course complicated by post-op ileus and now with postoperative abscesses, s/p CT guided drainage on 01/07/2025 - Blood work is pending this AM. Vitals show low grade temp to 100F overnight, no fever this AM and otherwise vitals are stable - Pt subjectively feels better than yesterday regarding abdominal discomfort. Does complain of headache. abdomen remains a bit distended but less tender to palpation - AISHWARYA drain is serosanguineous. IR drain with moderate amount of orange/purulent tinged fluid, cultures so far growing e.coli (narvaez sensitive, on zosyn) - Will await blood work and check on patient again this AM to make decision on if can resume a diet or make a call on return to the OR for abdominal washout - I have obtained a PICC line consent with assistance with the aerial photograph interpreter in the event we decide on TPN today as he is coming up on his 7 days max of PPN - Patient social situation adds a little complication to things as does not have insurance and will make discharge planning more difficult if requires picc/penitentiary abx, drain care. etc. PT saw him yesterday and suggesting rehab. we appreciate social organization professor support in this case - Encourage OOB/PT, pulmonary toilet, dvt prophylaxis (2) Postoperative intra-abdominal abscess: Admission and Anticipated Discharge Date Admission Date: December 31, 2024 Supervising Physician Co-Signing Physician Notes Patient seen and examined, labs reviewed, agree with above. Admitted with perforated appendicitis with sepsis status post laparoscopic appendectomy. Had IR drain placed 2 days ago. Feeling better. Complaining of a headache as well as some occasional difficulty taking deep breaths and some shoulder pain. He feels like he has a slight fever. His abdominal pain is improved. He continues to pass gas and have bowel movements. On exam he is afebrile with stable vitals. His abdomen is soft, mildly tender to palpation, improved from 2 days ago. AISHWARYA drain serosanguineous. The IR drain was recently changed but drained 550. Lower incision with superficial separation. WBC 17, down from 19. Will allow for clear liquids today, we can DC the AISHWARYA drain. Leave IR drain in place. Will see how he does over the weekend, if no improvement or worsens then may need repeat imaging versus exploration and washout. Subjective Patient reports feeling better than yesterday overall. + headache this AM. Denies shortness of breath. Denies nausea/vomiting. Is having + bowel function Physical Exam Physical Exam: awake/alert, no distress Respiratory: normal respiratory effort Gastrointestinal (Abdomen): Inspection/Auscultation: + abdomen distended and + abdominal surgical incision Percussion/Palpation: abdomen nontender (denies much abdominal ttp ) c/d/i with dermabond. low midline incision open at lap site draining some fluid currently packed with nu gauze/gauze/tape dressing. AISHWARYA drain serosang. IR drain with orange/purulent mixed drainage Results & Data Vital Signs (Past 12 Hours) Vital Signs Temp Pulse Resp BP Pulse Ox O2 Del Method 01/09/25 07:09 98.1 F 99 H 19 116/76 94 Room Air 01/09/25 02:53 98.4 F 89 18 117/75 94 Room Air 01/08/25 22:34 100.0 F H 100 H 18 118/76 92 Room Air PG Care Time/CCT Total # of Minutes Spent Total Time Spent with Patient: Total time spent is greater than 50% in coordination of care (as documented) at patient's floor/unit and/or counseling patient: Coding Level of Care Code 86796 Post Operative Follow-Up Diagnoses S/P laparoscopic appendectomy Z90.49 Postoperative intra-abdominal abscess T81.43XA; K65.1
[2025-01-09 08:51] LABS: Hematocrit (blood only) 31.5 % (42.0-52.0); Hemoglobin 10.6 g/dL (14.0-18.0); Immature Granulocytes # (auto) 0.79 K/uL (0.01-0.20); Immature Granulocytes % (auto) 4.5 %; Mean Corpuscular Hemoglobin 27.0 pg (25.0-34.0); Mean Corpuscular Volume 80.4 fL (80.0-100.0); Platelet Count 831 K/uL (130-400); RDW Standard Deviation 39.7 fL (36.4-46.3); Red Blood Count 3.92 M/uL (4.70-6.10); White Blood Count 17.63 K/ul (4.8-10.8)
[2025-01-09 09:09] LABS: Anion Gap 7.0 (3-11); Blood Urea Nitrogen 13.0 mg/dl (6-23); Calcium 8.3 mg/dl (8.6-10.3); Carbon Dioxide 23.0 mmol/L (21-32); Chloride 101.0 mmol/L (98-107); Creatinine Clr Calc Pharmacy 221.3 ml/min; Glucose 106.0 mg/dl (70-99(Fasting)); Magnesium 1.8 mg/dl (1.7-2.4); Potassium 3.9 mmol/L (3.5-5.1); Sodium 131.0 mmol/L (136-145)
--- NOTE | 2025-01-09 15:03 | Pharmacy Report ---
Pharmacy PN Follow-up Note - Date of Service January 09, 2025 - Subjective Patient is currently on day #6 of PPN for prolonged NPO secondary to postoperative ileus s/p lap appendectomy w/ perforated appendicitis. - Objective Height & Weight (Last Documented) Height 5 ft 2.99 in Weight 81 kg Diet Order(s) 01/09/25 Lunch Diet Intake & Ouput (24hrs) 01/08/25 01/09/25 01/10/25 06:59 06:59 06:59 Intake Total 2798 / 2798 3739 / 3739 200 / 200 Output Total 2090 / 2090 3120 / 3120 195 / 1954 Balance 708 / 708 619 / 619 -1755 / -1755 Selected Laboratory Results 01/09/25 08:00 Sodium 131 L Potassium 3.9 Chloride 101 Carbon Dioxide 23 Anion Gap 7 BUN 13 Creatinine 0.43 L BUN/Creatinine Ratio 30.2 H Glucose 106 H Calcium 8.3 L Phosphorus 3.1 Magnesium 1.8 - Assessment & Plan Assessment: * Patient was ordered for PICC line placement today, will continue w/ PPN today as line has not yet been placed. Can advance to central formulation tomorrow if continued. * Nutrition provided macronutrient recs, which are appreciated * Labs stable - no change to macronutrients today * Serosanguineous drainage from AISHWARYA. IR drawin w/ moderate amount of orange/purulent fluid. Plan: * For Day #6 of PPN administration, the following will be ordered: * Macronutrients: * Amino Acids: 85 grams/day * Dextrose: 100 grams/day * Lipids 50 g on Sunday and Sunday * Micronutrients: * Sodium chloride: 100 mEq/day * Sodium acetate: 100 mEq/day * Potassium phosphate: 15 mMol/day * Potassium chloride: 60 mEq/day * Magnesium sulfate: 12.18 mEq/day * Calcium gluconate: 4.65 mEq/day * Multivitamins: 10 mL/day * hold trace elements * Folic Acid: 1 mg/day * Total volume of 2148 mL will be infused over 24 hours and will provide 680 kcal/day * Patient is on PPN which has a maximum mOsm/L of 900. Final osmolarity of current solution is 896 mOsm/L. * Labs will be ordered per PN protocol. * Pharmacy will follow and adjust PN orders on a daily basis. Thank you!
[2025-01-09] MEDS: [UNRECOGNIZED DRUG - OTHER] IV SCH (16:05)
[2025-01-09] MEDS: PERIPHERAL TPN IV SCH (16:05)
--- NOTE | 2025-01-09 18:33 | Hospitalist Progress Note ---
Date of Service January 09, 2025 Assessment & Plan (1) Acute appendicitis: (2) Sepsis: (3) Ileus: (4) Acute renal failure: Plan This patient is a 39 y/o [place]ralt[place] speaking male with no past medical history that presented with low urinary output, low appetite and abdominal pain for 2 days, found to have perforated appendicitis, peritonitis, sepsis POA, possible partial SBO. Patient was taken to the OR urgently 12/31 for a laparoscopic appendectomy and abdominal washout. #Sepsis POA 2/2 perforated gangrenous appendicitis/peritonitis/partial SBO-with tachypnea, tachycardia, procalcitonin greater than 100, lactate elevated at 8, acute kidney injury, and metabolic acidosis on admission. Was significantly improved after IV fluids, IV Zosyn, surgical washout and appendectomy. Tachycardia improved, CORINA resolved, lactic acidosis resolved, procalcitonin trending downward. On 01/02, he was moving bowels, NG tube removed, started on clear liquids, Wayne catheter removed. Pathology with gangrenous appendicitis. On 01/03 in the afternoon, he developed worsening severe pain and abdominal distention, nausea/vomiting-repeat CT A/P with peritonitis, fluid collections, mesenteric edema, and possible bowel obstruction versus ileus. NG tube replaced on 01/03. - Postoperative management as per surgery-continue AISHWARYA drain - Continue Zosyn - Continue IV Dilaudid and IV Tylenol as needed - Continue LR at 80 mL/h - Continue IV Protonix for GI prophylaxis - Needs follow-up with surgery 2 weeks postop - Follow CBC, CMP, magnesium, phosphorus, CRP, procalcitonin in the a.m. - Follow blood cultures from 12/31 - remain no growth to date on 01/06 - continue PPN, AM labs - Continue thiamine 100 mg IV daily - NG discontinued on 01/05, tolerating oral intake okay, continue morning labs, monitor intake DC PPN as oral intake improves - See surgery notes, supportive cares -Interval increase in temperature and mild increase in heart rate, fairly benign abdominal exam as of this morning. Defer to surgery at this time. Secondary drain placement yesterday. Inflammatory markers CRP and procalcitonin as of this morning tend to be on the low and controlled side. #Hypokalemia/Hypocalcemia #Nutritional supportive cares -continue PPN he is approaching the maximum, timeframe of 7 days with peripheral PPN, see surgery notes we will discuss tomorrow possible advancing up oral intake -Otherwise will need to have a PICC placed so we can do TPN over the longer-term -recheck labs in AM - Possible PO trial tomorrow, otherwise PICC for ongoing TPN #Pleural effusions/atelectasis/respiratory distress - CTA chest performed on 01/03 due to shortness of breath shows pleural effusions and atelectasis of the lower lobes. This is likely secondary to peritonitis and acute illness, being mostly bedbound. - Okay to continue maintenance fluids for now - Encouraged incentive spirometry with patient and with nursing - Give supplemental O2 as needed to keep pulse ox greater than 90% -Stable/improving, monitor with increase in activity, -Brief episode of shortness of breath self-limited. No indication for repeat imaging or further evaluation at this time #HERMAN - Fluid bolus, oxycodone with dilaudid for breakthrough, consider benadryl IV if this persists #CORINA/high AG metabolic acidosis/lactic acidosis- resolved. Creatinine 3.4 on arrival and now normal. CORINA secondary to ATN from sepsis. With lactic acidosis with lactate 8 and now normalized. pH 7.1 on arrival with metabolic acidos acidosis. Is now resolved. Received IV fluids, treatment of sepsis. - Follow BMP, clinically improving back to baseline #Severe hepatic steatosis/ Elevated liver enzymes/prediabetes - Seen on CT. Total bilirubin remains mildly elevated 1.2. Patient reports he only drinks alcohol 2-3 times per month-unclear if this is accurate. Lipids are normal, HgbA1c in prediabetes range at 6.0%. - Should be counseled on alcohol cessation - Recommend follow-up with PCP and/or GI as an outpatient for fatty liver and prediabetes - Recommend low carbohydrate diet after discharge - Follow CMP - Continue thiamine 100 mg IV daily in case of occult alcohol use disorder #Anemia - Microcytic, iron panel consistent with chronic disease and iron defici ency mixed. B12, folate, and TSH are normal. - Should start iron replacement orally once he is improved significantly from a GI/ileus standpoint - Follow-up with GI as an outpatient for EGD and colonoscopy; however, he does not have insurance which may prohibit this. - Stable h/h, AM labs #Elevated troponin - - peak at 61 on 11.6, no recheck required, demand in the setting of GI sepsis DVT prophylaxis: SCDs, added Lovenox on 01/03 w/ surgery approval. Dispo: Continued stay, transfer to [facility] next 24 to 48 hours Admission and Anticipated Discharge Date Admission Date: December 31, 2024 Subjective Doing okay this morning. States he feels a bit better than he did yesterday. Still has episodes of the pain to start in the left side but does seem to be improved and less severe. He does have a headache and would like some better medication to treat that. Otherwise has had no significant flatus. Patient reports he is feeling much better, hungry side. Has had a few episodes of shor tness of breath but they have been more self-limited and less frequent than yesterday. Physical Exam Physical Exam: General: A&Ox3. NAD. Cooperative. HEENT: Atraumatic, normocephalic. Vision and hearing grossly intact. Pupils equal and reactive to light, sclera clear and anicteric Pulm: CTAB A&P. -wheezes, -rales, -rhonchi. No increased work of breathing. No respiratory distress. Cardiac: tachycardic. -mrg. Radial pulses intact and symmetrical. Abdominal: Very quiet bowel sounds persist, mild distention, no localized tenderness, no signs of peritonitis, no rigidity Ext: No Edema, Moves all extremities equally NEURO: A&O as above, no focal deficits Skin: warm, moist. Results & Data Results & Data Vital Signs (Past 12 Hours) Vital Signs Temp Pulse Pulse Resp BP Pulse Ox O2 Del Method 01/09/25 14:54 115 H 01/09/25 10:54 37.8 C H 100 H 19 122/73 93 Room Air 01/09/25 10:07 82 01/09/25 07:09 36.7 C 99 H 19 116/76 94 Room Air Laboratory Results 01/07/25 Unknown Gram Stain - Final Abdomen Aerobic and Anaerobic Culture - Preliminary Escherichia coli 01/09/25 01/09/25 01/09/25 16:03 11:28 08:00 WBC 17.63 H RBC 3.92 L Hgb 10.6 L Hct 31.5 L MCV 80.4 MCH 27.0 MCHC 33.7 RDW Std Deviation 39.7 RDW Coeff of Annika 13.7 Plt Count 831 H MPV 9.0 L Immature Gran % (Auto) 4.5 Neut % (Auto) 84.8 Lymph % (Auto) 4.7 Garza % (Auto) 4.9 Eos % (Auto) 0.8 Baso % (Auto) 0.3 Neut # (Auto) 14.96 H Lymph # (Auto) 0.82 L [place] # (Auto) 0.86 H Eos # (Auto) 0.14 Baso # (Auto) 0.06 Immature Gran # (Auto) 0.79 H Sodium 131 L Potassium 3.9 Chloride 101 Carbon Dioxide 23 Anion Gap 7 BUN 13 Creatinine 0.43 L Est Cr Clr Drug Dosing 221.3 eGFR 141.00 BUN/Creatinine Ratio 30.2 H Glucose 106 H POC Glucose 101 H 94 Calcium 8.3 L Phosphorus 3.1 Magnesium 1.8 C-Reactive Protein 26.35 H Procalcitonin 1.40 H 01/09/25 01/09/25 06:03 04:18 WBC RBC Hgb Hct MCV MCH MCHC RDW Std Deviation RDW Coeff of Annika Plt Count MPV Immature Gran % (Auto) Neut % (Auto) Lymph % (Auto) [place] % (Auto) Eos % (Auto) Baso % (Auto) Neut # (Auto) Lymph # (Auto) [place] # (Auto) Eos # (Auto) Baso # (Auto) Immature Gran # (Auto) Sodium Potassium Chloride Carbon Dioxide Anion Gap BUN Creatinine Est Cr Clr Drug Dosing eGFR BUN/Creatinine Ratio Glucose POC Glucose 94 109 H Calcium Phosphorus Magnesium C-Reactive Protein Procalcitonin PG Care Time/CCT Total # of Minutes Spent Total Time Spent with Patient: Total time spent is greater than 50% in coordination of care (as documented) at patient's floor/unit and/or counseling patient: Coding Level of Care Code 73360 SUB INP/OBS CARE 2MIN Diagnoses Acute appendicitis K35.201 Acute appendicitis type: with generalized peritonitis Appendicitis abscess presence: unspecified whether abscess present Appendicitis gangrene presence: with gangrene Appendicitis perforation presence: with perforation Sepsis with acute renal failure and tubular necrosis without septic shock, due to unspecified organism A41.9; R65.20; N17.0 Sepsis type: sepsis due to unspecified organism Sepsis acute organ dysfunction status: with acute organ dysfunction Severe sepsis acute organ dysfunction type: acute renal failure Acute renal failure type: with acute tubular necrosis Severe sepsis shock status: without septic shock Ileus K56.7 Acute renal failure with tubular necrosis N17.0 Acute renal failure type: with acute tubular necrosis (1) Acute appendicitis Acute appendicitis type: with generalized peritonitis Appendicitis abscess presence: unspecified whether abscess present Appendicitis gangrene presence: with gangrene Appendicitis perforation presence: with perforation Qualified Code(s): K35.201 - Acute appendicitis with generalized peritonitis, with perfor ation, without abscess (2) Sepsis Sepsis type: sepsis due to unspecified organism Sepsis acute organ dysfunction status: with acute organ dysfunction Severe sepsis acute organ dysfunction type: acute renal failure Acute renal failure type: with acute tubular necrosis Severe sepsis shock status: without septic shock Qualified Code(s): A41.9 - Sepsis, unspecified organism; R65.20 - Severe sepsis without septic shock; N17.0 - Acute kidney failure with tubular necrosis (4) Acute renal failure Acute renal failure type: with acute tubular necrosis Qualified Code(s): N17.0 - Acute kidney failure with tubular necrosis
[2025-01-10 06:36] LABS: Hematocrit (blood only) 30.8 % (42.0-52.0); Hemoglobin 10.4 g/dL (14.0-18.0); Immature Granulocytes # (auto) 0.61 K/uL (0.01-0.20); Immature Granulocytes % (auto) 4.2 %; Mean Corpuscular Hemoglobin 27.0 pg (25.0-34.0); Mean Corpuscular Volume 80.0 fL (80.0-100.0); Platelet Count 885 K/uL (130-400); RDW Standard Deviation 38.2 fL (36.4-46.3); Red Blood Count 3.85 M/uL (4.70-6.10); White Blood Count 14.38 K/ul (4.8-10.8)
[2025-01-10 07:19] LABS: Anion Gap 8.0 (3-11); Blood Urea Nitrogen 15.0 mg/dl (6-23); Calcium 8.6 mg/dl (8.6-10.3); Carbon Dioxide 23.0 mmol/L (21-32); Chloride 99.0 mmol/L (98-107); Creatinine Clr Calc Pharmacy 211.5 ml/min; Glucose 99.0 mg/dl (70-99(Fasting)); Magnesium 1.9 mg/dl (1.7-2.4); Potassium 4.0 mmol/L (3.5-5.1); Sodium 130.0 mmol/L (136-145)
--- NOTE | 2025-01-10 11:57 | Surgery Progress Note ---
Date of Service January 10, 2025 Assessment & Plan (1) S/P laparoscopic appendectomy: Plan: [employer] health information managers services used for exam: S/P laparoscopic appendectomy and washout for perforated appendicitis with sepsis on 12/31/2024, hospital course complicated by post-op ileus and now with postoperative abscesses, s/p CT guided drainage on 01/07/2025 Temp 37.8 earlier this morning, most recent VSS. Reports that he is feeling well this morning, abdominal pain has resolved. + passing flatus, +BM Is tolerating clear liquid diet +TPN, will advance to full liquids and see how he tolerates, will continue TPN. WBC trending down today at 14.38 AISHWARYA drain is serosanguineous. IR drain with moderate amount of orange/purulent tinged fluid, cultures so far growing e.coli (narvaez sensitive, on zosyn- continue) Encouraged ambulation, incentive spirometry, PT/OT Continued support with case management regarding discharge to possible rehab facility. Patient seen and examined with Dr. Bullard. (2) Postoperative intra-abdominal abscess: Admission and Anticipated Discharge Date Admission Date: December 31, 2024 Supervising Physician Co-Signing Physician Notes Patient seen and examined, labs reviewed, agree with above. Admitted with perforated appendicitis with sepsis status post laparoscopic appendectomy. Status post IR drain in left pericolic fluid collection. Feeling better. Had an episode of worsened headache and left lower quadrant abdominal pain along with some fevers overnight. Feels much better this morning. His abdominal pain is improved. He continues to pass gas and have bowel movements. On exam he is afebrile with stable vitals. His abdomen is soft, mildly tender to palpation. The IR drain with slightly turbid fluid, decreasing output and improved character. Lower incision with superficial separation. WBC 14, down from 17. Liquids, leave IR drain in place. Will see how he does over the weekend, if no improvement or worsens then may need repeat imaging versus exploration and washout. Subjective Patient resting in bed this morning, per nursing he is denying abdominal pain. [employer] health information managers services used for exam: Estefanía reports that he is feeling much better this morning, comments that last night he developed some left sided pain that started in his head and moved down the left side of his body. He reports that this pain has resolved. He denies any nausea this morning. He is passing gas, moving his bowels. Review of Systems Review of Systems: All systems reviewed & are unremarkable except as noted in Subjective Constitutional: as per Subjective / HPI; no fever and no chills Gastrointestinal: + abdominal pain (tender at incision sit es); no nausea and no vomiting Physical Exam Physical Exam: awake/alert, no distress Respiratory: normal respiratory effort Gastrointestinal (Abdomen): Inspection/Auscultation: + abdomen distended and + abdominal surgical incision Percussion/Palpation: abdomen nontender (denies much abdominal ttp ) c/d/i with dermabond. low midline incision open at lap site draining some fluid currently packed with nu gauze/gauze/tape dressing. AISHWARYA drain serosang. IR drain with orange/purulent mixed drainage Results & Data Vital Signs (Past 12 Hours) Vital Signs Temp Pulse Pulse Resp BP Pulse Ox O2 Del Method 01/10/25 07:47 83 01/10/25 07:43 36.8 C 95 H 18 118/79 96 Room Air 01/10/25 03:45 37.8 C H 99 H 24 134/80 94 Room Air PG Care Time/CCT Total # of Minutes Spent Total Time Spent with Patient: Total time spent is greater than 50% in coordination of care (as documented) at patient's floor/unit and/or counseling patient: Coding Level of Care Code 36113 Post Operative Follow-Up Diagnoses S/P laparoscopic appendectomy Z90.49 Postoperative intra-abdominal abscess T81.43XA; K65.1
--- NOTE | 2025-01-10 14:53 | Hospitalist Progress Note ---
Date of Service January 10, 2025 Assessment & Plan (1) Acute appendicitis: (2) Sepsis: (3) Ileus: (4) Acute renal failure: Plan This patient is a 39 y/o [place]ian speaking male with no past medical history that presented with low urinary output, low appetite and abdominal pain for 2 days, found to have perforated appendicitis, peritonitis, sepsis POA, possible partial SBO. Patient was taken to the OR urgently 12/31 for a laparoscopic appendectomy and abdominal washout. #Sepsis POA 2/2 perforated gangrenous appendicitis/peritonitis/partial SBO-with tachypnea, tachycardia, procalcitonin greater than 100, lactate elevated at 8, acute kidney injury, and metabolic acidosis on admission. Was significantly improved after IV fluids, IV Zosyn, surgical washout and appendectomy. Tachycardia improved, CORINA resolved, lactic acidosis resolved, procalcitonin trending downward. On 01/02, he was moving bowels, NG tube removed, started on clear liquids, Wayne catheter removed. Pathology with gangrenous appendicitis. On 01/03 in the afternoon, he developed worsening severe pain and abdominal distention, nausea/vomiting-repeat CT A/P with peritonitis, fluid collections, mesenteric edema, and possible bowel obstruction versus ileus. NG tube replaced on 01/03. - Postoperative management as per surgery-continue AISHWARYA drain - Continue Zosyn - Continue IV Dilaudid and IV Tylenol as needed - Continue LR at 80 mL/h - Continue IV Protonix for GI prophylaxis - Needs follow-up with surgery 2 weeks postop - Follow CBC, CMP, magnesium, phosphorus, CRP, procalcitonin in the a.m. - Follow blood cultures from 12/31 - remain no growth to date on 01/06 - continue PPN, AM labs - Continue thiamine 100 mg IV daily - NG discontinued on 01/05, tolerating oral intake okay, continue morning labs, monitor intake DC PPN as oral intake improves - See surgery notes, supportive cares - Clinically stable to improved. See surgery notes overall. Transfer IV thiamine pushed to TPN. #Hypokalemia/Hypocalcemia #Nutritional supportive cares -continue PPN he is approaching the maximum, timeframe of 7 days with peripheral PPN, see surgery notes we will discuss tomorrow possible advancing up oral intake -Otherwise will need to have a PICC placed so we can do TPN over the longer-term -recheck labs in AM - Sodium 130, stable, diet advancing per surgery #Pleural effusions/atelectasis/respiratory distress - CTA chest performed on 01/03 due to shortness of breath shows pleural effusions and atelectasis of the lower lobes. This is likely secondary to peritonitis and acute illness, being mostly bedbound. - Okay to continue maintenance fluids for now - Encouraged incentive spirometry with patient and with nursing - Give supplemental O2 as needed to keep pulse ox greater than 90% -Stable/improving, monitor with increase in activity, -Brief episode of shortness of breath self-limited. No indication for repeat imaging or further evaluation at this time #HERMAN - Fluid bolus, oxycodone with dilaudid for breakthrough effective thus far, consider benadryl IV if this persists #CORINA/high AG metabolic acidosis/lactic acidosis- resolved. Creatinine 3.4 on arrival and now normal. CORINA secondary to ATN from sepsis. With lactic acidosis with lactate 8 and now normalized. pH 7.1 on arrival with metabolic acidos acidosis. Is now resolved. Received IV fluids, treatment of sepsis. - Follow BMP, clinically improving back to baseline #Severe hepatic steatosis/ Elevated liver enzymes/prediabetes - Seen on CT. Total bilirubin remains mildly elevated 1.2. Patient reports he only drinks alcohol 2-3 times per month-unclear if this is accurate. Lipids are normal, HgbA1c in prediabetes range at 6.0%. - Should be counseled on alcohol cessation - Recommend follow-up with PCP and/or GI as an outpatient for fatty liver and prediabetes - Recommend low carbohydrate diet after discharge - Follow CMP - Continue thiamine 100 mg IV daily in case of occult alcohol use disorder #Anemia - Microcytic, iron panel consistent with chronic disease and iron deficiency mixed. B12, folate, and TSH are normal. - Should start iron replacement orally once he is improved significantly from a GI/ileus standpoint - Follow-up with GI as an outpatient for EGD and colonoscopy; however, he does not have insurance which may prohibit this. - Stable h/h, AM labs #Elevated troponin - - peak at 61 on 11.6, no recheck required, demand in the setting of GI sepsis DVT prophylaxis: SCDs, added Lovenox on 01/03 w/ surgery approval. Dispo: Continued stay, transfer to [facility] next 24 to 48 hours Admission and Anticipated Discharge Date Admission Date: December 31, 2024 Subjective Senior Network Security Engineer services used during visit through telemetry hyperion administrator. Doing a bit better this morning. Abdominal pain is significantly improved still having mild episodes. Mild persistent headache but that is improved as well. Small bowel movement. Passing flatus. Appetite so far persists. No other new complaints or concerns per patient. Slept well. Physical Exam Physical Exam: General: A&Ox3. NAD. Cooperative. HEENT: Atraumatic, normocephalic. Vision and hearing grossly intact. Pupils equal and reactive to light, sclera clear and anicteric Pulm: CTAB A&P. -wheezes, -rales, -rhonchi. No increased work of breathing. No respiratory distress. Cardiac: tachycardic. -mrg. Radial pulses intact and symmetrical. Abdominal: Slightly reduced bowel sounds, no distention, no localized tenderness, no signs of peritonitis, no rigidity Ext: No Edema, Moves all extremities equally NEURO: A&O as above, no focal deficits Skin: warm, moist. Results & Data Results & Data Vital Signs (Past 12 Hours) Vital Signs Temp Pulse Pulse Resp BP Pulse Ox O2 Del Method 01/10/25 14:17 117 H 01/10/25 12:29 37.7 C H 113 H 32 H 120/81 93 Room Air 01/10/25 07:47 83 01/10/25 07:43 36.8 C 95 H 18 118/79 96 Room Air 01/10/25 03:45 37.8 C H 99 H 24 134/80 94 Room Air Laboratory Results 01/07/25 Unknown Gram Stain - Final Abdomen Aerobic and Anaerobic Culture - Preliminary Escherichia coli 01/10/25 01/10/25 01/10/25 11:10 06:33 06:06 WBC 14.38 H RBC 3.85 L Hgb 10.4 L Hct 30.8 L MCV 80.0 MCH 27.0 MCHC 33.8 RDW Std Deviation 38.2 RDW Coeff of Annika 13.3 Plt Count 885 H MPV 9.0 L Immature Gran % (Auto) 4.2 Neut % (Auto) 80.0 Lymph % (Auto) 7.3 [place] % (Auto) 6.9 Eos % (Auto) 1.3 Baso % (Auto) 0.3 Neut # (Auto) 11.49 H Lymph # (Auto) 1.05 L [place] # (Auto) 0.99 H Eos # (Auto) 0.19 Baso # (Auto) 0.05 Immature Gran # (Auto) 0.61 H Sodium 130 L Potassium 4.0 Chloride 99 Carbon Dioxide 23 Anion Gap 8 BUN 15 Creatinine 0.45 L Est Cr Clr Drug Dosing 211.5 eGFR 139.08 BUN/Creatinine Ratio 33.3 H Glucose 99 POC Glucose 109 H 103 H Calcium 8.6 Phosphorus 3.6 Magnesium 1.9 C-Reactive Protein 24.50 H 01/10/25 01/09/25 00:06 16:03 WBC RBC Hgb Hct MCV MCH MCHC RDW Std Deviation RDW Coeff of Annika Plt Count MPV Immature Gran % (Auto) Neut % (Auto) Lymph % (Auto) [place] % (Auto) Eos % (Auto) Baso % (Auto) Neut # (Auto) Lymph # (Auto) [place] # (Auto) Eos # (Auto) Baso # (Auto) Immature Gran # (Auto) Sodium Potassium Chloride Carbon Dioxide Anion Gap BUN Creatinine Est Cr Clr Drug Dosing eGFR BUN/Creatinine Ratio Glucose POC Glucose 105 H 101 H Calcium Phosphorus Magnesium C-Reactive Protein PG Care Time/CCT Total # of Minutes Spent Total Time Spent with Patient: Total time spent is greater than 50% in coordination of care (as documented) at patient's floor/unit and/or counseling patient: Coding Level of Care Code 67810 SUB INP/OBS CARE 235MIN Diagnoses Acute appendicitis K35.201 Acute appendicitis type: with generalized peritonitis Appendicitis abscess presence: unspecified whether abscess present Appendicitis gangrene presence: with gangrene Appendicitis perforation presence: with perforation Sepsis with acute renal failure and tubular necrosis without septic shock, due to unspecified organism A41.9; R65.20; N17.0 Sepsis type: sepsis due to unspecified organism Sepsis acute organ dysfunction status: with acute organ dysfunction Severe sepsis acute organ dysfunction type: acute renal failure Acute renal failure type: with acute tubular necrosis Severe sepsis shock status: without septic shock Ileus K56.7 Acute renal failure with tubular necrosis N17.0 Acute renal failure type: with acute tubular necrosis (1) Acute appendicitis Acute appendicitis type: with generalized peritonitis Appendicitis abscess presence: unspecified whether abscess present Appendicitis gangrene presence: with gangrene Appendicitis perforation presence: with perforation Qualified Code(s): K35.201 - Acute appendicitis with generalized peritonitis, with perforation, without abscess (2) Sepsis Sepsis type: sepsis due to unspecified organism Sepsis acute organ dysfunction status: with acute organ dysfunction Severe sepsis acute organ dysfunction type: acute renal failure Acute renal failure type: with acute tubular necrosis Severe sepsis shock status: without septic shock Qualified Code(s): A41.9 - Sepsis, unspecified organism; R65.20 - Severe sepsis without septic shock; N17.0 - Acute kidney failure with tubular necrosis (4) Acute renal failure Acute renal failure type: with acute tubular necrosis Qualified Code(s): N17.0 - Acute kidney failure with tubular necrosis
[2025-01-10] MEDS: CLINOLIPID 20% IV FAT EMULSION 250 ML IV SCH (16:29)
[2025-01-10] MEDS: ACETAMINOPHEN 1,000 MG/100 ML VIAL IV PRN (18:08)
[2025-01-11 07:24] LABS: Hematocrit (blood only) 31.0 % (42.0-52.0); Hemoglobin 10.4 g/dL (14.0-18.0); Immature Granulocytes # (auto) 0.36 K/uL (0.01-0.20); Immature Granulocytes % (auto) 2.9 %; Mean Corpuscular Hemoglobin 26.9 pg (25.0-34.0); Mean Corpuscular Volume 80.1 fL (80.0-100.0); Platelet Count 981 K/uL (130-400); RDW Standard Deviation 38.5 fL (36.4-46.3); Red Blood Count 3.87 M/uL (4.70-6.10); White Blood Count 12.58 K/ul (4.8-10.8)
[2025-01-11 07:41] LABS: Anion Gap 9.0 (3-11); Blood Urea Nitrogen 17.0 mg/dl (6-23); Calcium 8.6 mg/dl (8.6-10.3); Carbon Dioxide 24.0 mmol/L (21-32); Chloride 98.0 mmol/L (98-107); Creatinine Clr Calc Pharmacy 199.9 ml/min; Glucose 102.0 mg/dl (70-99(Fasting)); Magnesium 1.9 mg/dl (1.7-2.4); Potassium 3.9 mmol/L (3.5-5.1); Sodium 131.0 mmol/L (136-145)
[2025-01-11 09:07] LABS: 7-Aminoclonaz, Confirm NEGATIVE ng/mL (<25); Hydro-Alp Ur, GC/MS NEGATIVE ng/mL (<25); Hydrocodone Urine NEGATIVE ng/mL (<50); Hydromor Urine 1650 ng/mL (<50); Hydroxyethylflurazepam, Conf NEGATIVE ng/mL (<50); Hydroxymidazolam Ur, GC/MS 1342 ng/mL (<50); Lorazepam, Ur GC/MS NEGATIVE ng/mL (<50); Nordiazepam, Confirm NEGATIVE ng/mL (<50); Norfentanyl, Urine 15.3 ng/mL (<0.5); Noroxycodone Urine NEGATIVE ng/mL (<50); Oxazepam Ur, GC/MS NEGATIVE ng/mL (<50); Oxymorph Urine NEGATIVE ng/mL (<50); Temazepam, Confirm NEGATIVE ng/mL (<50); medMATCH Fentanyl, Urine DNR; medMATCH Norfentanyl, Urine DNR
--- NOTE | 2025-01-11 11:52 | Surgery Progress Note ---
Date of Service January 11, 2025 Assessment & Plan (1) S/P laparoscopic appendectomy: Plan: Status post laparoscopic appendectomy for perforated appendicitis with sepsis, postop abscess status post IR drainage, other small abscesses being treated with antibiotics. 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 Continues to feel better each and every day. Tolerated liquids. Still having bowel function. Did not feel febrile overnight. Pain is improved. No headaches. Physical Exam Constitutional: WD/WN, vitals as above Respiratory: normal respiratory effort, lungs clear to auscultation Cardiovascular: RRR, no murmur, no edema Gastrointestinal (Abdomen): Inspection/Auscultation: + abdominal surgical incision (Lower incision with wick, others without infection) Percussion/Palpation: + abdomen tender (Mildly tender to palpation, improved) and abdomen soft; no guarding and abdomen not rigid IR drain with turbid brown fluid Results & Data Vital Signs (Past 12 Hours) Vital Signs Temp Pulse Pulse Resp BP Pulse Ox O2 Del Method 01/11/25 07:44 37.2 C 111 H 22 126/70 94 Room Air 01/11/25 07:42 100 H 01/11/25 02:54 36.8 C 104 H 16 113/75 93 Room Air Laboratory Results Laboratory Results - last 24 hr 12/31/24 01/10/25 01/10/25 15:51 18:37 23:34 WBC RBC Hgb Hct MCV MCH MCHC RDW Std Deviation RDW Coeff of Annika Plt Count MPV Immature Gran % (Auto) Neut % (Auto) Lymph % (Auto) Hartley % (Auto) Eos % (Auto) Baso % (Auto) Neut # (Auto) Lymph # (Auto) Hartley # (Auto) Eos # (Auto) Baso # (Auto) Immature Gran # (Auto) Sodium Potassium Chloride Carbon Dioxide Anion Gap BUN Creatinine Est Cr Clr Drug Dosing eGFR BUN/Creatinine Ratio Glucose POC Glucose 124 H 121 H Calcium Phosphorus Magnesium U Codeine Confrm GC/MS NEGATIVE Ur Morphine (GC/MS) NEGATIVE Ur Hydrocodone (GC/MS) NEGATIVE Ur Norhydrocodone NEGATIVE Ur Noroxycodone NEGATIVE Urine Oxycodone (GC/MS) NEGATIVE U Oxymorphone GC/MS NEGATIVE Ur Hydromorphone (GC/MS) 1650 H Fentanyl Comments SEE NOTE Drug Monitor Fentanyl DNR Fentanyl Confirmation 37.6 H Drug Monitor Norfentanyl DNR Ur Norfentanyl Confirm 15.3 H U OH-Alprazolam Confrm NEGATIVE 7-Amino Clonazepam NEGATIVE Ur Nordiazepam Confirm NEGATIVE U OH-ethylflurazepam NEGATIVE U Lorazepam Cnf GC/MS NEGATIVE U Oxazepam Confm GC/MS NEGATIVE Ur Temazepam Confirm NEGATIVE U OH-Triazolam Confirm NEGATIVE U OH-Midazolam Confirm 1342 H Drug Screen Comment SEE NOTE Toxicology Comment SEE NOTE Drug Monitor Historic Res DNR 01/11/25 01/11/25 01/11/25 05:45 06:23 11:49 WBC 12.58 H RBC 3.87 L Hgb 10.4 L Hct 31.0 L MCV 80.1 MCH 26.9 MCHC 33.5 RDW Std Deviation 38.5 RDW Coeff of Annika 13.4 Plt Count 981 H MPV 8.8 L Immature Gran % (Auto) 2.9 Neut % (Auto) 77.1 Lymph % (Auto) 8.6 Hartley % (Auto) 9.3 Eos % (Auto) 1.5 Baso % (Auto) 0.6 Neut # (Auto) 9.71 H Lymph # (Auto) 1.08 L Hartley # (Auto) 1.17 H Eos # (Auto) 0.19 Baso # (Auto) 0.07 Immature Gran # (Auto) 0.36 H Sodium 131 L Potassium 3.9 Chloride 98 Carbon Dioxide 24 Anion Gap 9 BUN 17 Creatinine 0.47 L Est Cr Clr Drug Dosing 199.9 eGFR 137.26 BUN/Creatinine Ratio 36.2 H Glucose 102 H POC Glucose 121 H 109 H Calcium 8.6 Phosphorus 3.1 Magnesium 1.9 U Codeine Confrm GC/MS Ur Morphine (GC/MS) Ur Hydrocodone (GC/MS) Ur Norhydrocodone Ur Noroxycodone Urine Oxycodone (GC/MS) U Oxymorphone GC/MS Ur Hydromorphone (GC/MS) Fentanyl Comments Drug Monitor Fentanyl Fentanyl Confirmation Drug Monitor Norfentanyl Ur Norfentanyl Confirm U OH-Alprazolam Confrm 7-Amino Clonazepam Ur Nordiazepam Confirm U OH-ethylflurazepam U Lorazepam Cnf GC/MS U Oxazepam Confm GC/MS Ur Temazepam Confirm U OH-Triazolam Confirm U OH-Midazolam Confirm Drug Screen Comment Toxicology Comment Drug Monitor Historic Res PG Care Time/CCT Total # of Minutes Spent Total Time Spent with Patient: Total time spent is greater than 50% in coordination of care (as documented) at patient's floor/unit and/or counseling patient: Coding Level of Care Code 33616 Post Operative Follow-Up Diagnoses S/P laparoscopic appendectomy Z90.49 Postoperative intra-abdominal abscess T81.43XA; K65.1
--- NOTE | 2025-01-11 13:00 | Hospitalist Progress Note ---
Date of Service January 11, 2025 Assessment & Plan (1) Acute appendicitis: (2) Sepsis: (3) Ileus: (4) Acute renal failure: Plan This patient is a 39 y/o Cook Islander speaking male with no past medical history that presented with low urinary output, low appetite and abdominal pain for 2 days, found to have perforated appendicitis, peritonitis, sepsis POA, possible partial SBO. Patient was taken to the OR urgently 12/31 for a laparoscopic appendectomy and abdominal washout. #Sepsis POA 2/2 perforated gangrenous appendicitis/peritonitis/partial SBO-with tachypnea, tachycardia, procalcitonin greater than 100, lactate elevated at 8, acute kidney injury, and metabolic acidosis on admission. Was significantly improved after IV fluids, IV Zosyn, surgical washout and appendectomy. Tachycardia improved, CORINA resolved, lactic acidosis resolved, procalcitonin trending downward. On 01/02, he was moving bowels, NG tube removed, started on clear liquids, Wayne catheter removed. Pathology with gangrenous appendicitis. On 01/03 in the afternoon, he developed worsening severe pain and abdominal distention, nausea/vomiting-repeat CT A/P with peritonitis, fluid collections, mesenteric edema, and possible bowel obstruction versus ileus. NG tube replaced on 01/03. - Postoperative management as per surgery-continue AISHWARYA drain - Continue Zosyn - Continue IV Dilaudid and IV Tylenol as needed - Continue LR at 80 mL/h - Continue IV Protonix for GI prophylaxis - Needs follow-up with surgery 2 weeks postop - Follow CBC, CMP, magnesium, phosphorus, CRP, procalcitonin in the a.m. - Follow blood cultures from 12/31 - remain no growth to date on 01/06 - continue PPN, AM labs - Continue thiamine 100 mg IV daily - NG discontinued on 01/05, tolerating oral intake okay, continue morning labs, monitor intake DC PPN as oral intake improves - See surgery notes, supportive cares - Clinically stable to improved. See surgery notes overall. Transfer IV thiamine pushed to TPN. #Hypokalemia/Hypocalcemia #Nutritional supportive cares -continue PPN he is approaching the maximum, timeframe of 7 days with peripheral PPN, see surgery notes we will discuss tomorrow possible advancing up oral intake -Otherwise will need to have a PICC placed so we can do TPN over the longer-term -recheck labs in AM - Sodium 130, stable, diet advancing per surgery - TPN per PICC #Pleural effusions/atelectasis/respiratory distress - CTA chest performed on 01/03 due to shortness of breath shows pleural effusions and atelectasis of the lower lobes. This is likely secondary to peritonitis and acute illness, being mostly bedbound. - Okay to continue maintenance fluids for now - Encouraged incentive spirometry with patient and with nursing - Give supplemental O2 as needed to keep pulse ox greater than 90% -Stable/improving, monitor with increase in activity, -Brief episode of shortness of breath self-limited. No indication for repeat imaging or further evaluation at this time - stable at this time, meeting fluid goals as above. Will continue to follow along once he is more ambulatory will have a better assessment. He may well benefit from thoracentesis, no urgent indication at this time #HERMAN - Fluid bolus, oxycodone with dilaudid for breakthrough effective thus far, consider benadryl IV if this persists #CORINA/high AG metabolic acidosis/lactic acidosis- resolved. Creatinine 3.4 on arrival and now normal. CORINA secondary to ATN from sepsis. With lactic acidosis with lactate 8 and now normalized. pH 7.1 on arrival with metabolic acidos acidosis. Is now resolved. Received IV fluids, treatment of sepsis. - Follow BMP, clinically improving back to baseline #Severe hepatic steatosis/ Elevated liver enzymes/prediabetes - Seen on CT. Total bilirubin remains mildly elevated 1.2. Patient reports he only drinks alcohol 2-3 times per month-unclear if this is accurate. Lipids are normal, HgbA1c in prediabetes range at 6.0%. - Should be counseled on alcohol cessation - Recommend follow-up with PCP and/or GI as an outpatient for fatty liver and prediabetes - Recommend low carbohydrate diet after discharge - Follow CMP - Continue thiamine 100 mg IV daily in case of occult alcohol use disorder #Anemia - Microcytic, iron panel consistent with chronic disease and iron deficiency mixed. B12, folate, and TSH are normal. - Should start iron replacement orally once he is improved significantly from a GI/ileus standpoint - Follow-up with GI as an outpatient for EGD and colonoscopy; however, he does not have insurance which may prohibit this. - Stable h/h, AM labs #Elevated troponin - - peak at 61 on 11.6, no recheck required, demand in the setting of GI sepsis DVT prophylaxis: SCDs, added Lovenox on 01/03 w/ surgery approval. 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 Patient is doing well this morning. Tolerating a diet. Having small bowel movements. Pain in the abdomen is much improved. Occasional very self-limited and brief headaches although not requiring medication anymore at this point. Has not been up walking much and about. States his breathing is still somewhat worse than baseline but not complicated and certainly not worse than it has been. Denies any generalized signs of illness so they did have a subjective fever through the night at 1 point. Physical Exam Physical Exam: General: A&Ox3. NAD. Cooperative. HEENT: Atraumatic, normocephalic. Vision and hearing grossly intact. Pupils equal and reactive to light, sclera clear and anicteric Pulm: diminished at the left base otherwise clear bilaterally A&P. -wheezes, - rales, -rhonchi. No increased work of breathing. No respiratory distress. Cardiac: RRR. -mrg. Radial pulses intact and symmetrical. Abdominal: Slightly reduced bowel sounds, no distention, no localized tenderness, no signs of peritonitis, no rigidity Ext: No Edema, Moves all extremities equally NEURO: A&O as above, no focal deficits Skin: warm, moist. Results & Data Results & Data Vital Signs (Past 12 Hours) Vital Signs Temp Pulse Pulse Resp BP Pulse Ox O2 Del Method 01/11/25 11:50 36.9 C 112 H 24 116/79 94 Room Air 01/11/25 07:44 37.2 C 111 H 22 126/70 94 Room Air 01/11/25 07:42 100 H 01/11/25 02:54 36.8 C 104 H 16 113/75 93 Room Air Laboratory Results 01/07/25 Unknown Gram Stain - Final Abdomen Aerobic and Anaerobic Culture - Preliminary Escherichia coli 01/11/25 01/11/25 01/11/25 11:49 06:23 05:45 WBC 12.58 H RBC 3.87 L Hgb 10.4 L Hct 31.0 L MCV 80.1 MCH 26.9 MCHC 33.5 RDW Std Deviation 38.5 RDW Coeff of Annika 13.4 Plt Count 981 H MPV 8.8 L Immature Gran % (Auto) 2.9 Neut % (Auto) 77.1 Lymph % (Auto) 8.6 [place] % (Auto) 9.3 Eos % (Auto) 1.5 Baso % (Auto) 0.6 Neut # (Auto) 9.71 H Lymph # (Auto) 1.08 L [place] # (Auto) 1.17 H Eos # (Auto) 0.19 Baso # (Auto) 0.07 Immature Gran # (Auto) 0.36 H Sodium 131 L Potassium 3.9 Chloride 98 Carbon Dioxide 24 Anion Gap 9 BUN 17 Creatinine 0.47 L Est Cr Clr Drug Dosing 199.9 eGFR 137.26 BUN/Creatinine Ratio 36.2 H Glucose 102 H POC Glucose 109 H 121 H Calcium 8.6 Phosphorus 3.1 Magnesium 1.9 U Codeine Confrm GC/MS Ur Morphine (GC/MS) Ur Hydrocodone (GC/MS) Ur Norhydrocodone Ur Noroxycodone Urine Oxycodone (GC/MS) U Oxymorphone GC/MS Ur Hydromorphone (GC/MS) Fentanyl Comments Drug Monitor Fentanyl Fentanyl Confirmation Drug Monitor Norfentanyl Ur Norfentanyl Confirm U OH-Alprazolam Confrm 7-Amino Clonazepam Ur Nordiazepam Confirm U OH-ethylflurazepam U Lorazepam Cnf GC/MS U Oxazepam Confm GC/MS Ur Temazepam Confirm U OH-Triazolam Confirm U OH-Midazolam Confirm Drug Screen Comment Toxicology Comment Drug Monitor Historic Res 01/10/25 01/10/25 12/31/24 23:34 18:37 15:51 WBC RBC Hgb Hct MCV MCH MCHC RDW Std Deviation RDW Coeff of Annika Plt Count MPV Immature Gran % (Auto) Neut % (Auto) Lymph % (Auto) [place] % (Auto) Eos % (Auto) Baso % (Auto) Neut # (Auto) Lymph # (Auto) [place] # (Auto) Eos # (Auto) Baso # (Auto) Immature Gran # (Auto) Sodium Potassium Chloride Carbon Dioxide Anion Gap BUN Creatinine Est Cr Clr Drug Dosing eGFR BUN/Creatinine Ratio Glucose POC Glucose 121 H 124 H Calcium Phosphorus Magnesium U Codeine Confrm GC/MS NEGATIVE Ur Morphine (GC/MS) NEGATIVE Ur Hydrocodone (GC/MS) NEGATIVE Ur Norhydrocodone NEGATIVE Ur Noroxycodone NEGATIVE Urine Oxycodone (GC/MS) NEGATIVE U Oxymorphone GC/MS NEGATIVE Ur Hydromorphone (GC/MS) 1650 H Fentanyl Comments SEE NOTE Drug Monitor Fentanyl DNR Fentanyl Confirmation 37.6 H Drug Monitor Norfentanyl DNR Ur Norfentanyl Confirm 15.3 H U OH-Alprazolam Confrm NEGATIVE 7-Amino Clonazepam NEGATIVE Ur Nordiazepam Confirm NEGATIVE U OH-ethylflurazepam NEGATIVE U Lorazepam Cnf GC/MS NEGATIVE U Oxazepam Confm GC/MS NEGATIVE Ur Temazepam Confirm NEGATIVE U OH-Triazolam Confirm NEGATIVE U OH-Midazolam Confirm 1342 H Drug Screen Comment SEE NOTE Toxicology Comment SEE NOTE Drug Monitor Historic Res DNR PG Care Time/CCT Total # of Minutes Spent Total Time Spent with Patient: Total time spent is greater than 50% in coordination of care (as documented) at patient's floor/unit and/or counseling patient: Coding Level of Care Code 12176 SUB INP/OBS CARE 2/35MIN Diagnoses Acute appendicitis K35.201 Acute appendicitis type: with generalized peritonitis Appendicitis abscess presence: unspecified whether abscess present Appendicitis gangrene presence: with gangrene Appendicitis perforation presence: with perforation Sepsis with acute renal failure and tubular necrosis without septic shock, due to unspecified organism A41.9; R65.20; N17.0 Sepsis type: sepsis due to unspecified organism Sepsis acute organ dysfunction status: with acute organ dysfunction Severe sepsis acute organ dysfunction type: acute renal failure Acute renal failure type: with acute tubular necrosis Severe sepsis shock status: without septic shock Ileus K56.7 Acute renal failure with tubular necrosis N17.0 Acute renal failure type: with acute tubular necrosis (1) Acute appendicitis Acute appendicitis type: with generalized peritonitis Appendicitis abscess presence: unspecified whether abscess present Appendicitis gangrene presence: with gangrene Appendicitis perforation presence: with perforation Qualified Code(s): K35.201 - Acute appendicitis with generalized peritonitis, with perforation, without abscess (2) Sepsis Sepsis type: sepsis due to unspecified organism Sepsis acute organ dysfunction status: with acute organ dysfunction Severe sepsis acute organ dysfunction type: acute renal failure Acute renal failure type: with acute tubular necrosis Severe sepsis shock status: without septic shock Qualified Code(s): A41.9 - Sepsis, unspecified organism; R65.20 - Severe sepsis without septic shock; N17.0 - Acute kidney failure with tubular necrosis (4) Acute renal failure Acute renal failure type: with acute tubular necrosis Qualified Code(s): N17.0 - Acute kidney failure with tubular necrosis
[2025-01-12 09:05] LABS: Hematocrit (blood only) 30.4 % (42.0-52.0); Hemoglobin 10.4 g/dL (14.0-18.0); Mean Corpuscular Hemoglobin 27.2 pg (25.0-34.0); Mean Corpuscular Volume 79.6 fL (80.0-100.0); Platelet Count 995 K/uL (130-400); RDW Standard Deviation 38.7 fL (36.4-46.3); Red Blood Count 3.82 M/uL (4.70-6.10); White Blood Count 10.40 K/ul (4.8-10.8)
[2025-01-12 09:25] LABS: Alanine Aminotransferase 68 U/L (7-52); Alkaline Phosphatase 121 U/L (34-104); Anion Gap 9 (3-11); Bilirubin,Total 0.7 mg/dl (0.2-1.0); Blood Urea Nitrogen 21 mg/dl (6-23); Calcium 8.8 mg/dl (8.6-10.3); Carbon Dioxide 23 mmol/L (21-32); Chloride 99 mmol/L (98-107); Creatinine Clr Calc Pharmacy 183.0 ml/min; Glucose 132 mg/dl (70-99(Fasting)); Magnesium 2.0 mg/dl (1.7-2.4); Potassium 3.8 mmol/L (3.5-5.1); Sodium 131 mmol/L (136-145); Triglycerides 164 mg/dl (0-150)
--- NOTE | 2025-01-12 11:16 | Surgery Progress Note ---
Date of Service January 12, 2025 Assessment & Plan (1) S/P laparoscopic appendectomy: Plan: Status post laparoscopic appendectomy and washout for perforated appendicitis, now status post IR drainage. His leukocytosis is resolved, he has not had any fevers in 36 hours, his bowels are working, and his drain output has decreased. He may have low fiber diet today Continue IV antibiotics Cultures growing E. 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 Notes he has a headache this morning and some left-sided abdominal pain. Dwale some fevers overnight, however no fevers documented over past 36 hours. Passing gas and having bowel movements. Tolerating diet Physical Exam Constitutional: WD/WN, vitals as above Respiratory: normal respiratory effort, lungs clear to auscultation Cardiovascular: RRR, no murmur, no edema Gastrointestinal (Abdomen): Inspection/Auscultation: + abdominal surgical incision (Wick at inferior incision, others without infection); abdomen not distended Percussion/Palpation: + abdomen tender (Mild tenderness to palpation left side); no guarding and abdomen not rigid IR drain with no current output, bag changed early this morning Results & Data Vital Signs (Past 12 Hours) Vital Signs Temp Pulse Resp BP Pulse Ox O2 Del Method 01/12/25 10:39 37.1 C 104 H 18 117/76 94 Room Air 01/12/25 07:06 36.7 C 91 H 18 122/78 95 Room Air 01/12/25 03:27 37.1 C 104 H 18 107/73 93 Room Air 01/11/25 23:23 37.2 C 99 H 20 118/82 92 Room Air Laboratory Results Laboratory Results - last 24 hr 01/11/25 01/11/25 01/12/25 11:49 18:30 00:10 WBC RBC Hgb Hct MCV MCH MCHC RDW Std Deviation RDW Coeff of Annika Plt Count MPV Sodium Potassium Chloride Carbon Dioxide Anion Gap BUN Creatinine Est Cr Clr Drug Dosing eGFR BUN/Creatinine Ratio Glucose POC Glucose 109 H 109 H 115 H Calcium Phosphorus Magnesium Total Bilirubin AST ALT Alkaline Phosphatase Triglycerides 01/12/25 01/12/25 05:55 08:11 WBC 10.40 RBC 3.82 L Hgb 10.4 L Hct 30.4 L MCV 79.6 L MCH 27.2 MCHC 34.2 RDW Std Deviation 38.7 RDW Coeff of Annika 13.4 Plt Count 995 H MPV 8.6 L Sodium 131 L Potassium 3.8 Chloride 99 Carbon Dioxide 23 Anion Gap 9 BUN 21 Creatinine 0.51 L Est Cr Clr Drug Dosing 183.0 eGFR 133.92 BUN/Creatinine Ratio 41.2 H Glucose 132 H POC Glucose 111 H Calcium 8.8 Phosphorus 3.8 Magnesium 2.0 Total Bilirubin 0.7 AST 66 H ALT 68 H Alkaline Phosphatase 121 H Triglycerides 164 H PG Care Time/CCT Total # of Minutes Spent Total Time Spent with Patient: Total time spent is greater than 50% in coordination of care (as documented) at patient's floor/unit and/or counseling patient: Coding Level of Care Code 89291 Post Operative Follow-Up Diagnoses S/P laparoscopic appendectomy Z90.49 Acute appendicitis K35.201 Acute appendicitis type: with generalized peritonitis Appendicitis abscess presence: unspecified whether abscess present Appendicitis gangrene presence: with gangrene Appendicitis perforation presence: with perforation Sepsis with acute renal failure and tubular necrosis without septic shock, due to unspecified organism A41.9; R65.20; N17.0 Sepsis type: sepsis due to unspecified organism Sepsis acute organ dysfunction status: with acute organ dysfunction Severe sepsis acute organ dysfunction type: acute renal failure Acute renal failure type: with acute tubular necrosis Severe sepsis shock status: without septic shock Postoperative intra-abdominal abscess T81.43XA; K65.1 (2) Acute appendicitis Acute appendicitis type: with generalized peritonitis Appendicitis abscess presence: unspecified whether abscess present Appendicitis gangrene presence: with gangrene Appendicitis perforation presence: with perforation Qualified Code(s): K35.201 - Acute appendicitis with generalized peritonitis, with perforation, without abscess (3) Sepsis Sepsis type: sepsis due to unspecified organism Sepsis acute organ dysfunction status: with acute organ dysfunction Severe sepsis acute organ dysfunction type: acute renal failure Acute renal failure type: with acute tubular necrosis Severe sepsis shock status: without septic shock Qualified Code(s): A41.9 - Sepsis, unspecified organism; R65.20 - Severe sepsis without septic shock; N17.0 - Acute kidney failure with tubular necrosis
[2025-01-12] MEDS: ACETAMINOPHEN 500 MG TAB PO SCH (11:55)
--- NOTE | 2025-01-12 12:47 | Hospitalist Progress Note ---
Date of Service January 12, 2025 Assessment & Plan (1) Acute appendicitis: (2) Sepsis: (3) Pleural effusion: (4) Ileus: Plan This patient is a 39 y/o Armenian speaking male with no past medical history that presented with low urinary output, low appetite and abdominal pain for 2 days, found to have perforated appendicitis, peritonitis, sepsis POA, possible partial SBO. Patient was taken to the OR urgently 12/31 for a laparoscopic appendectomy and abdominal washout. He also was with an CORINA, lactic acidosis. #Sepsis POA 2/2 perforated gangrenous appendicitis/peritonitis/partial SBO-with tachypnea, tachycardia, procalcitonin greater than 100, lactate elevated at 8, acute kidney injury, and metabolic acidosis on admission. Was significantly improved after IV fluids, IV Zosyn, surgical washout and appendectomy. Tachycardia improved, CORINA resolved, lactic acidosis resolved, procalcitonin trending downward. On 01/02, he was moving bowels, NG tube removed, started on clear liquids, Wayne catheter removed. Pathology with gangrenous appendicitis. On 01/03 in the afternoon, he developed worsening severe pain and abdominal distention, nausea/vomiting-repeat CT A/P with peritonitis, fluid collections, mesenteric edema, and possible bowel obstruction versus ileus. NG tube replaced on 01/03 and then subsequently removed a few days later. Had IR drain placed in left paracolic abscess on 01/07. Intra-abd cx with E. coli, pansensitive. Blood cultures negative. Now overall much improved, now Surgery has advanced to low fiber diet - Postoperative management as per surgery-plan for CT A/P with IV and p.o. contrast on 01/13 to reassess abscesses - Continue IV Zosyn - Continue IV Dilaudid as needed for severe pain, and change IV Tylenol to po, continue po oxycodone as needed - dc TPN - can dc IV Protonix for GI prophylaxis as no further NGT and advanced to low fiber diet - Needs follow-up with surgery 2 weeks postop - Follow CBC, CMP in the a.m. #Anemia/Thrombocytosis -Hgb mildly low but stable at 10.4, microcytic, iron panel consistent with chronic disease and iron deficiency mixed early in course of admission. B12, folate, and TSH are normal. Now with worsening thrombocytosis with platelets up to 995-likely reactive to infection and possibly secondary to iron deficiency - Repeat iron studies-if lower, will give IV iron - Discussed with hematology-if reactive thrombocytosis, no need to start aspirin as there is no clear benefit-appreciate any further input from consultation - Follow-up with GI as an outpatient for EGD and colonoscopy; however, he does not have insurance which may prohibit this. - Follow CBC #Hyponatremia-likely worsening again due to hypervolemia given large pleural effusion. Sodium now 131. - DC TPN - Giving IV Lasix - Follow BMP #Pleural effusions/atelectasis/respiratory distress - CTA chest performed on 01/03 due to shortness of breath shows pleural effusions and atelectasis of the lower lobes. He also had a subdiaphragmatic intra-abdominal abscess contributing to splinting. Significantly decreased breath sounds noted on exam in 01/12-CXR shows significantly enlarged left-sided pleural effusion greater than right. Pulse ox normal at 95% on room air - DC all IV fluids and TPN - Give Lasix 20 mg IV twice daily - Encouraged incentive spirometry with patient and with nursing - Give supplemental O2 as needed to keep pulse ox greater than 90% -Follow chest CT on 01/[address] of A/P #HERMAN-unclear cause but could be due to ongoing infection or side effect of antibiotics? Perhaps from hyponatremia? Seems to resolve with Tylenol - Continue acetaminophen as needed #CORINA/high AG metabolic acidosis/lactic acidosis- resolved. Creatinine 3.4 on arrival and now normal. CORINA secondary to ATN from sepsis. With lactic acidosis with lactate 8 and now normalized. pH 7.1 on arrival with metabolic acidosis. Is now resolved. Received IV fluids, treatment of sepsis. - Follow BMP #Severe hepatic steatosis/ Elevated liver enzymes/prediabetes - Seen on CT. Total bilirubin now normalized. AST and ALT mildly elevated but continue to improve. Patient reports he only drinks alcohol 2-3 times per month-unclear if this is accurate. Lipids are normal, HgbA1c in prediabetes range at 6.0%. - Should be counseled on alcohol cessation - Recommend follow-up with PCP and/or GI as an outpatient for fatty liver and prediabetes - Recommend low carbohydrate diet after discharge - Follow CMP - change IV thiamine in TPN to po thiamine and p.o. folic acid daily in case of occult alcohol use disorder #Elevated troponin - peaked at 61 on 01.01, myocardial demand in the setting of GI sepsis DVT prophylaxis: SCDs, Lovenox Dispo: Continued stay on PCU. Hospitalist service will continue to follow along Admission and Anticipated Discharge Date Admission Date: December 31, 2024 Subjective Patient reports pain in his abdomen is improving. He is moving his bowels and urinating. He had low fiber diet for lunch for the first time and denies nausea afterwards. He is still having some headaches but they go away with Tylenol. No fevers. He does feel short of breath at times. I discussed his care with the surgery MARIANN. I also discussed his care with hematology. Telemetry with normal sinus rhythm and sinus tachycardia with rates in the 90s to 1 teens. Physical Exam Constitutional: WD/WN, vitals as above Eyes: + anicteric sclerae Respiratory: + tachypneic (Mild at rest and with mini mal exertion) Auscultation: + diminished lung sounds (Left lower and middle lung leslie); no crackles, no rhonchi and no wheezes Cardiovascular: Rate/Rhythm: regular rhythm and + tachycardic Heart Sounds: no murmur Extremities: no edema Gastrointestinal (Abdomen): Inspection/Auscultation: normal bowel sounds; + abdomen abnormal to inspection (LLQ drain in place) Percussion/Palpation: abdomen soft; abdomen nontender and no guarding Psychiatric: A+Ox3, euthymic affect Orientation: cooperative Results & Data Results & Data Vital Signs (Past 12 Hours) Vital Signs Temp Pulse Resp BP Pulse Ox O2 Del Method 01/12/25 10:39 37.1 C 104 H 18 117/76 94 Room Air 01/12/25 07:06 36.7 C 91 H 18 122/78 95 Room Air 01/12/25 03:27 37.1 C 104 H 18 107/73 93 Room Air Laboratory Results CBC, CMP, magnesium, phosphorus, abdominal fluid cultures, blood cultures reviewed Diagnostic Findings Chest x-ray image personally reviewed by me and agree with the following report: Chest X-Ray 01/12/25 13:12 XR chest 1V portable CLINICAL HISTORY: f/u pleural effusion COMPARISON STUDY: Chest CT January 03, 2025. Chest radiograph January 08, 2025. FINDINGS: Right PICC is in place. There is no pneumothorax. Asymmetric left hemithorax opacification has increased. This suggests a moderate left pleural effusion with associated atelectasis or consolidation. Right lung is clear. Pulmonary vascularity is normal. Cardiomediastinal silhouette is normal. IMPRESSION: Increasing opacification of left hemithorax. This suggests an enlarging moderate left pleural effusion with associated atelectasis or consolidation. ACT 112: Negative or not required by law. Electronically signed by: Jarret Stephenson M.D. 01/12/2025 1:42 PM PG Care Time/CCT Total # of Minutes Spent Total Time Spent with Patient: Total time spent is greater than 50% in coordination of care (as documented) at patient's floor/unit and/or counseling patient: Coding Level of Care Code 73942 SUB INP/OBS CARE 3/50MIN Diagnoses Acute appendicitis K35.201 Acute appendicitis type: with generalized peritonitis Appendicitis abscess presence: unspecified whether abscess present Appendicitis gangrene presence: with gangrene Appendicitis perforation presence: with perforation Sepsis with acute renal failure and tubular necrosis without septic shock, due to unspecified organism A41.9; R65.20; N17.0 Acute renal failure type: with acute tubular necrosis Sepsis acute organ dysfunction status: with acute organ dysfunction Sepsis type: sepsis due to unspecified organism Severe sepsis acute organ dysfunction type: acute renal failure Severe sepsis shock status: without septic shock Pleural effusion J90 Ileus K56.7 (1) Acute appendicitis Acute appendicitis type: with generalized peritonitis Appendicitis abscess presence: unspecified whether abscess present Appendicitis gangrene presence: with gangrene Appendicitis perforation presence: with perforation Qualified Code(s): K35.201 - Acute appendicitis with generalized peritonitis, with perforation, without abscess (2) Sepsis Acute renal failure type: with acute tubular necrosis Sepsis acute organ dysfunction status: with acute organ dysfunction Sepsis type: sepsis due to unspecified organism Severe sepsis acute organ dysfunction type: acute renal failure Severe sepsis shock status: without septic shock Qualified Code(s): A41.9 - Sepsis, unspecified organism; R65.20 - Severe sepsis without septic shock; N17.0 - Acute kidney failure with tubular necrosis
[2025-01-12 13:27] LABS: Iron < 10 mcg/dl (35-175); Total Iron Binding Cap Calc 281 mcg/dl (250-450); Transferrin 201 mg/dl (200-360)
--- NOTE | 2025-01-12 13:44 | XRay Report ---
XR chest 1V portable CLINICAL HISTORY: f/u pleural effusion COMPARISON STUDY: Chest CT January 03, 2025. Chest radiograph January 08, 2025. FINDINGS: Right PICC is in place. There is no pneumothorax. Asymmetric left hemithorax opacification has increased. This suggests a moderate left pleural effusion with associated atelectasis or consolid ation. Right lung is clear. Pulmonary vascularity is normal. Cardiomediastinal silhouette is normal. IMPRESSION: Increasing opacification of left hemithorax. This suggests an enlarging moderate left ple ural effusion with associated atelectasis or consolidation. ACT 112: Negative or not required by law. Electronically signed by: Jarret Stephenson M.D. 01/12/2025 1:42 PM
[2025-01-12] MEDS: FUROSEMIDE INJ 20 MG/2 ML VIAL IV ONE (13:45)
[2025-01-12] MEDS: KETOROLAC TROMETHAMINE 15 MG/ML VIAL IV SCH (16:41)
[2025-01-12] MEDS: FUROSEMIDE INJ 20 MG/2 ML VIAL IV SCH (18:39)
[2025-01-13 06:39] LABS: Hematocrit (blood only) 30.1 % (42.0-52.0); Hemoglobin 10.3 g/dL (14.0-18.0); Mean Corpuscular Hemoglobin 27.1 pg (25.0-34.0); Mean Corpuscular Volume 79.2 fL (80.0-100.0); Platelet Count 1066 K/uL (130-400); RDW Standard Deviation 38.5 fL (36.4-46.3); Red Blood Count 3.80 M/uL (4.70-6.10); White Blood Count 10.97 K/ul (4.8-10.8)
[2025-01-13 06:45] LABS: Alanine Aminotransferase 83.0 U/L (7-52); Albumin Level 3.1 gm/dl (3.4-5.0); Alkaline Phosphatase 135.0 U/L (34-104); Anion Gap 9.0 (3-11); Bilirubin,Total 0.6 mg/dl (0.2-1.0); Blood Urea Nitrogen 26.0 mg/dl (6-23); Calcium 9.0 mg/dl (8.6-10.3); Carbon Dioxide 25.0 mmol/L (21-32); Chloride 98.0 mmol/L (98-107); Creatinine Clr Calc Pharmacy 143.4 ml/min; Glucose 103.0 mg/dl (70-99(Fasting)); Potassium 3.5 mmol/L (3.5-5.1); Sodium 132.0 mmol/L (136-145); Total Protein 7.6 gm/dl (6.0-8.3)
[2025-01-13 07:42] LABS: Immature Granulocytes # (auto) 0.26 K/uL (0.01-0.20); Immature Granulocytes % (auto) 2.4 %; Polychromasia 1+
[2025-01-13] MEDS: FOLIC ACID 1 MG TAB PO SCH (08:09)
[2025-01-13] MEDS: MULTIVITAMIN TAB PO SCH (08:09)
[2025-01-13] MEDS: THIAMINE HCL 100 MG TAB PO SCH (08:09)
[2025-01-13] MEDS: FUROSEMIDE INJ 20 MG/2 ML VIAL IV ONE (08:15)
--- NOTE | 2025-01-13 10:02 | Surgery Progress Note ---
Date of Service January 13, 2025 Assessment & Plan (1) S/P laparoscopic appendectomy: Plan: Status post laparoscopic appendectomy and washout for perforated appendicitis, now status post IR drainage. WBC stable just above normal, afebrile, his bowels are working, and his drain output has decreased. Await results of repeat CT scan with oral and IV contrast tomorrow, further clinical management based on study Continue low fiber diet today, TPN DC'd yesterday Continue IV antibiotics Cultures growing E. 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 Feeling much better today, no headache, only mild left lower quadrant pain intermittently. Continues to tolerate a diet and bowels are working. Does not feel febrile. Drinking oral contrast for a CT later today. Physical Exam Constitutional: WD/WN, vitals as above Respiratory: normal respiratory effort, lungs clear to auscultation Cardiovascular: RRR, no murmur, no edema Gastrointestinal (Abdomen): Inspection/Auscultation: + abdominal surgical incision (Wick at inferior incision, others without infection); abdomen not distended Percussion/Palpation: + abdomen tender (Mild tenderness to palpation left side); no guarding and abdomen not rigid IR drain with minimal serosanguineous output Results & Data Vital Signs (Past 12 Hours) Vital Signs Temp Pulse Pulse Resp BP BP Pulse Ox 01/13/25 07:42 98 H 01/13/25 07:00 36.8 C 88 18 105/68 94 01/13/25 03:26 36.5 C 89 14 103/70 96 01/12/25 23:09 37.0 C 102 H 18 104/70 95 O2 Del Method 01/13/25 07:42 01/13/25 07:00 Room Air 01/13/25 03:26 Room Air 01/12/25 23:09 Room Air Laboratory Results Laboratory Results - last 24 hr 01/12/25 01/13/25 08:11 05:57 WBC 10.97 H RBC 3.80 L Hgb 10.3 L Hct 30.1 L MCV 79.2 L MCH 27.1 MCHC 34.2 RDW Std Deviation 38.5 RDW Coeff of Annika 13.3 Plt Count 1066 H* MPV 8.5 L Immature Gran % (Auto) 2.4 Neut % (Auto) 75.7 Lymph % (Auto) 8.7 [place] % (Auto) 10.6 Eos % (Auto) 1.7 Baso % (Auto) 0.9 Neut # (Auto) 8.31 H Lymph # (Auto) 0.95 L [place] # (Auto) 1.16 H Eos # (Auto) 0.19 Baso # (Auto) 0.10 Immature Gran # (Auto) 0.26 H Polychromasia 1+ Sodium 132 L Potassium 3.5 Chloride 98 Carbon Dioxide 25 Anion Gap 9 BUN 26 H Creatinine 0.65 Est Cr Clr Drug Dosing 143.4 eGFR 124.46 BUN/Creatinine Ratio 40.0 H Glucose 103 H Calcium 9.0 Iron < 10 L TIBC 281 Transferrin 201 Transferrin % Sat TNP Total Bilirubin 0.6 Direct Bilirubin 0.3 H AST 73 H ALT 83 H Alkaline Phosphatase 135 H C-Reactive Protein 21.83 H Total Protein 7.6 Albumin 3.1 L PG Care Time/CCT Total # of Minutes Spent Total Time Spent with Patient: Total time spent is greater than 50% in coordination of care (as documented) at patient's floor/unit and/or counseling patient: Coding Level of Care Code 03617 Post Operative Follow-Up Diagnoses S/P laparoscopic appendectomy Z90.49 Acute appendicitis K35.201 Acute appendicitis type: with generalized peritonitis Appendicitis abscess presence: unspecified whether abscess present Appendicitis gangrene presence: with gangrene Appendicitis perforation presence: with perforation Sepsis with acute renal failure and tubular necrosis without septic shock, due to unspecified organism A41.9; R65.20; N17.0 Sepsis type: sepsis due to unspecified organism Sepsis acute organ dysfunction status: with acute organ dysfunction Severe sepsis acute organ dysfunction type: acute renal failure Acute renal failure type: with acute tubular necrosis Severe sepsis shock status: without septic shock Postoperative intra-abdominal abscess T81.43XA; K65.1 (2) Acute appendicitis Acute appendicitis type: with generalized peritonitis Appendicitis abscess presence: unspecified whether abscess present Appendicitis gangrene presence: with gangrene Appendicitis perforation presence: with perforation Qualified Code(s): K35.201 - Acute appendicitis with generalized peritonitis, with per foration, without abscess (3) Sepsis Sepsis type: sepsis due to unspecified organism Sepsis acute organ dysfunction status: with acute organ dysfunction Severe sepsis acute organ dysfunction type: acute renal failure Acute renal failure type: with acute tubular necrosis Severe sepsis shock status: without septic shock Qualified Code(s): A41.9 - Sepsis, unspecified organism; R65.20 - Severe sepsis without septic shock; N17.0 - Acute kidney failure with tubular necrosis
[2025-01-13] MEDS: OPTIRAY 320 100ml IV ONE (11:35)
--- NOTE | 2025-01-13 11:56 | CT Scan Report ---
CT chest diagnostic wo con CT DOSE: 1317.78 mGy.cm CLINICAL HISTORY: 39 years-old Male with CXR with left hemithorax opacification. Acute shortness of breath with opacification of the left hemithorax TECHNIQUE: Multiaxial CT images of the chest were performed without contrast. A dose lowering techni que was utilized adhering to the principles of ALARA. COMPARISON: Chest radiograph of same day, CTA chest 01/03/2025, CT-guided catheter placement FINDINGS: No dominant thyroid nodule or lymphadenopathy identified. Subcentimeter subcarinal lymph no filemon are unchanged. Heart is normal in size. A right-sided PICC is noted with distal tip terminating w ithin the right atrium. No thoracic aortic aneurysm. Mild linear dependent atelectasis of the right l ower lobe with improved aeration compared to the prior study. No pneumothorax. There is a loculated l eft pleural effusion accounting for the opacity on comparison chest radiographs which is moderate in size and most pronounced posteriorly, increased from prior. There is consolidation/complete collapse of the left lower lobe without obstructing lesion identified. Left lower lobe air bronchograms are no angela. No overt pulmonary edema. Left upper quadrant/perisplenic ascites. Hepatomegaly with hepatic steatosis. Unremarkable soft tissu es. No acute fracture. IMPRESSION: 1. Moderate-sized loculated left pleural effusion has increased in size from the 01/03/2025 study and there is interval development of left lower lobe collapse. 2. Right-sided PICC in place. 3. Hepatomegaly with hepatic steatosis. 4. Upper abdominal ascites redemonstrated. ACT 112: Negative or not required by law. Electronically signed by: Brian Land M.D. 01/13/2025 11:55 AM
--- NOTE | 2025-01-13 12:24 | CT Scan Report ---
CT SCAN OF THE ABDOMEN AND PELVIS WITH IV CONTRAST CLINICAL HISTORY: Perforated appendicitis with abscess. COMPARISON STUDY: Prior abdominal CT scans, most recently dated 01/06/2025. TECHNIQUE: Following the IV administration of 94 cc of Optiray 320, CT scan of the abdomen and pelvi s is performed from the lung bases to the proximal femora. Images are reviewed in the axial, sagittal , and coronal planes. IV contrast was administered without complication. Oral contrast was utilized. A dose lowering technique was utilized adhering to the principles of ALARA. FINDINGS: Lung bases: The tip of a central venous catheter terminates in the right atrium. The heart is normal in size and without pericardial effusion. There is a moderate left pleural effusion with consolidatio n of the left lower lung. The right lung base is clear noting dependent atelectasis. Liver: The contrast-enhanced liver is normal in size, contour, and attenuation. There is no intrahepa tic biliary ductal dilatation. The hepatic veins and portal veins are patent. Gallbladder: Unremarkable. Spleen: Normal in size and attenuation. Pancreas: Unremarkable. Adrenal glands: Unremarkable. Kidneys: The contrast enhanced kidneys are normal in size and without hydronephrosis. The kidneys enh ance symmetrically. Abdominal vasculature: The abdominal aorta is normal in course and caliber. Bowel: There is no bowel obstruction. Enteric contrast reaches the rectosigmoid. The appendix is georges gically absent. Small bowel wall thickening has significantly improved from previously. No extralumin al contrast is seen. Peritoneum: A surgical drain has been removed. No intraperitoneal free air is identified. Numerous pe ripherally enhancing fluid collections are again seen throughout the abdomen and pelvis. Interval dec rease in size as compared to 01/06/2025. The largest is in the left upper quadrant around the spleen, measuring 7.5 x 11.5 x 7.5 cm seen on image #78 (previously measuring 14.5 x 8.1 cm in axial dimensi on). A collection along the greater curvature of the stomach on image #113 measures proximally 6 x 2. 5 cm (previously measured 9 x 5.4 cm). There are at least 8 additional smaller collections are seen i n the left upper quadrant image #150, the right lower quadrant on image #191, the left central abdome n on image #202, in the left lower quadrant on images #231 and #238. Lymphadenopathy: None. Pelvic viscera: The bladder is decompressed and not well evaluated. The prostate and seminal vesicles are normal as visualized. Skeletal structures: No lytic or blastic lesions are seen. IMPRESSION: 1. Status post appendectomy. 2. There are numerous peripherally enhancing intra-abdominal pelvic fluid collections as above that a re typical for abscesses. These have uniformly decreased in size as compared to the 01/06/2025 examin ation. The largest collection is located around the spleen and measures up to 11.5 cm 3. Small bowel wall thickening has improved from previous, likely representing improving peritonitis. 4. Moderate left pleural effusion with consolidation of left lower lung. This has increased in size f rom previous. 5. Additional findings as above. ACT 112: Negative or not required by law. Electronically signed by: Aashish Bradshaw M.D. 01/13/2025 12:22 PM
--- NOTE | 2025-01-13 15:57 | Oncology Consultation ---
Date of Consultation January 13, 2025 History of Present Illness Attending Physician: Maya Boone MD Allergies Allergy/AdvReac Type Severity Reaction Status Date / Time No Known Allergies Allergy Verified 12/31/24 10:03 Patient History Medical History (Updated 01/12/25 @ 16:15 by Maya Boone MD) No pertinent past medical history Surgical History (Updated 01/03/25 @ 11:38 by MOSHE KelleyC) History of laparoscopic appendectomy (12/31/24) Diagnostic Laparoscopy, abdominal washout, laparoscopic appendectomy(Not Applicable) - Brandon Bullard DO, FACS Family History (Updated 12/31/24 @ 22:46 by Maya Boone MD) Other Family history non-contributory Social History (Updated 12/31/24 @ 09:48 by Jalen Shankar PA-C) Smoking Status: Never smoker Second Hand Exposure: No; Do You Dip or Chew Tobacco: No; Hx Alcohol Use: Yes Alcohol type: beer Hx Substance Use: No Preferred Language: Kyrgyz Communication Ability: Effective Communication Tools: 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
--- NOTE | 2025-01-13 15:58 | Oncology Consultation ---
Date of Consultation January 13, 2025 Assessment & Plan (1) Thrombocythemia: the patient has severely elevated platelets, which increased during his stay in the hospital. At baseline his platelet count was 325,000/mcL. It is clear that the platelet count has increased as he has been dealing with sepsis. This is most likely a case of reactive thrombocytosis. At this point I do not recommend any other active interventions including bone marrow biopsy. I recommend supportive care, antibiotics which are broad-spectrum to deal with the intra- abdominal infections. His platelet count should improve as his sepsis improves. Plan Thank you for this interesting hematological consult. Hematology will continue to follow the patient make appropriate recommendations. History of Present Illness Reason for Consultation: thrombocytosis normocytic normochromic anemia leukocytosis Attending Physician: Maya Boone MD History of Present Illness the patient is a very pleasant 39-year-old male who initially presented to the emergency department complaining of abdominal pain. At that point he had a CT scan of the abdomen pelvis which showed pneumoperitoneum and inflammatory changes around the appendix concerning for perforated appendicitis. Subsequently he was evaluated by our surgery colleagues. During his time his platelet count has progressively increased from a baseline of 325,000/mcL to 1,000,75005/mcL. he is on broad-spectrum antibiotics. Most recent abdominal CT performed on 12/31/2024 reveals postsurgical changes of appendectomy, numerous peripherally enhancing intra-abdominal pelvic fluid collections which are typical for abscesses, the largest 1 is around the spleen measuring 11.5 cm. There is small bowel thickening. Hematology has been consulted to assist in management of this patient with intra-abdominal sepsis and thrombocytosis. Allergies Allergy/AdvReac Type Severity Reaction Status Date / Time No Known Allergies Allergy Verified 12/31/24 10:03 Patient History Medical History (Updated 01/13/25 @ 16:42 by Joni Cody MD) No pertinent past medical history Surgical History (Updated 01/03/25 @ 11:38 by Fallon Hardin PA-C) History of laparoscopic appendectomy (12/31/24) Diagnostic Laparoscopy, abdominal washout, laparoscopic appendectomy(Not A pplicable) - Brandon Bullard DO, FACS Family History (Updated 12/31/24 @ 22:46 by Maya Boone MD) Other Family history non-contributory Social History (Updated 12/31/24 @ 09:48 by Jalen Shankar PA-C) Smoking Status: Never smoker Second Hand Exposure: No; Do You Dip or Chew Tobacco: No; Hx Alcohol Use: Yes Alcohol type: beer Hx Substance Use: No Preferred Language: Sinhala Communication Ability: Effective Communication Tools: IPad Filament Welder Required: Yes Beliefs That Will Affect Care: None Current Living Situation: Alone Feels Safe at Home: Yes Assistive Devices: None Review of Systems Review of Systems: Abdominal pain, fatigue, decreased appetite Constitutional: as per Subjective / HPI Eyes: as per Subjective / HPI Ear, Nose, Mouth, Throat: as per Subjective / HPI Respiratory: as per Subjective / HPI Cardiovascular: as per Subjective / HPI Gastrointestinal: as per Subjective / HPI Genitourinary: + as per Subjective / HPI Musculoskeletal: as per Subjective / HPI Integumentary: as per Subjective / HPI Neurologic: as per Subjective / HPI Psychiatric: as per Subjective / HPI Endocrine: as per Subjective / HPI Hematologic / Lymphatic: as per Subjective / HPI Allergy / Immunological: as per Subjective / HPI Physical Exam Constitutional: WD/WN, vitals as above Eyes: PERRL, conjunctivae normal, anicteric sclerae ENMT: external ear and nose normal, oropharynx normal Neck: trachea midline, no thyromegaly Respiratory: normal respiratory effort, lungs clear to auscultation Cardiovascular: RRR, no murmur, no edema Gastrointestinal (Abdomen): normal bowel sounds, soft, nontender, no hepatosplenomegaly Musculoskeletal: no cyanosis or clubbing, extremities motor strength 5/5 Skin: no rashes, warm and dry Psychiatric: A+Ox3, euthymic affect Genitourinary: no testicular masses, no penis abnormality Results & Data Vital Signs (Past 12 Hours) Vital Signs Temp Pulse Pulse Resp BP Pulse Ox O2 Del Method 01/13/25 15:54 101 H 01/13/25 15:20 36.9 C 104 H 18 105/70 92 Room Air 01/13/25 10:46 36.7 C 110 H 18 113/79 96 Room Air 01/13/25 07:42 98 H 01/13/25 07:00 36.8 C 88 18 105/68 94 Room Air
[2025-01-13] MEDS: FUROSEMIDE INJ 20 MG/2 ML VIAL IV SCH (17:03)
--- NOTE | 2025-01-13 20:40 | Hospitalist Progress Note ---
Date of Service January 13, 2025 Assessment & Plan (1) Acute appendicitis: (2) Sepsis: (3) Pleural effusion: (4) Ileus: Plan This patient is a 39 y/o Frisian speaking male with no past medical history that presented with low urinary output, low appetite and abdominal pain for 2 days, found to have perforated appendicitis, peritonitis, sepsis POA, possible partial SBO. Patient was taken to the OR urgently 12/31 for a laparoscopic appendectomy and abdominal washout. He also was with an CORINA, lactic acidosis. #Sepsis POA 2/2 perforated gangrenous appendicitis/peritonitis/partial SBO-with tachypnea, tachycardia, procalcitonin greater than 100, lactate elevated at 8, acute kidney injury, and metabolic acidosis on admission. Was significantly improved after IV fluids, IV Zosyn, surgical washout and appendectomy. Tachycardia improved, CORINA resolved, lactic acidosis resolved, procalcitonin trending downward. On 01/02, he was moving bowels, NG tube removed, started on clear liquids, Wayne catheter removed. Pathology with gangrenous appendicitis. On 01/03 in the afternoon, he developed worsening severe pain and abdominal distention, nausea/vomiting-repeat CT A/P with peritonitis, fluid collections, mesenteric edema, and possible bowel obstruction versus ileus. NG tube replaced on 01/03 and then subsequently removed a few days later. Had IR drain placed in left paracolic abscess on 01/07. Intra-abd cx with E. coli, pansensitive. Blood cultures negative. Now overall much improved, now Surgery has advanced to low fiber diet. Repeat CT A/P 01/13 w/ multiple intra-abd abscesses although all seem to be improving in size - Postoperative management as per surgery - Continue IV Zosyn - Continue IV Dilaudid as needed for severe pain, and Tylenol po, continue po oxycodone as needed - dc TPN - can dc IV Protonix for GI prophylaxis as no further NGT and advanced to low fiber diet - Needs follow-up with surgery 2 weeks postop - Follow CBC, CMP in the a.m. #Anemia/Thrombocytosis -Hgb mildly low but stable at 10.4, microcytic, iron panel consistent with chronic disease and iron deficiency mixed early in course of admission. B12, folate, and TSH are normal. Now with worsening thrombocytosis with platelets up to 1066-likely reactive to infection and possibly secondary to iron deficiency. Appreciate Heme consult - consider giving IV iron - Discussed with hematology-as is reactive thrombocytosis, no need to start aspirin as there is no clear benefit-appreciate any further input from consultation - Follow-up with GI as an outpatient for EGD and colonoscopy; however, he does not have insurance which may prohibit this. - Follow CBC #Hyponatremia-likely worsening again due to hypervolemia given large pleural effusion. Sodium now up to 132 from 131 after diuresis. - DC TPN - Giving IV Lasix - Follow BMP #Pleural effusions/atelectasis/respiratory distress - CTA chest performed on 01/03 due to shortness of breath shows pleural effusions and atelectasis of the lower lobes. He also had a subdiaphragmatic intra-abdominal abscess contributing to splinting. Significantly decreased breath sounds noted on exam in 01/12-CXR shows significantly enlarged left-sided pleural effusion greater than right. Pulse ox normal at 95% on room air. Diuresing but I/Os not accurately recorded. CT CHest with large left pleural effusion and LLL collapse - DCd all IV fluids and TPN - continue to give Lasix 20 mg IV twice daily today - Encouraged incentive spirometry with patient and with nursing - Give supplemental O2 as needed to keep pulse ox greater than 90% -plan for thoracentesis 01/14-labs ordered #HERMAN-unclear cause but could be due to ongoing infection or side effect of antibi otics? Perhaps from hyponatremia? Seems to resolve with Tylenol - Continue acetaminophen as needed #CORINA/high AG metabolic acidosis/lactic acidosis- resolved. Creatinine 3.4 on arrival and now normal. CORINA secondary to ATN from sepsis. With lactic acidosis with lactate 8 and now normalized. pH 7.1 on arrival with metabolic acidosis. Is now resolved. Received IV fluids, treatment of sepsis. - Follow BMP #Severe hepatic steatosis/ Elevated liver enzymes/prediabetes - Seen on CT. Total bilirubin now normalized. AST and ALT mildly elevated. Patient reports he only drinks alcohol 2-3 times per month-unclear if this is accurate. Lipids are normal, HgbA1c in prediabetes range at 6.0%. - Should be counseled on alcohol cessation - Recommend follow-up with PCP and/or GI as an outpatient for fatty liver and prediabetes - Recommend low carbohydrate diet after discharge - Follow CMP - change IV thiamine in TPN to po thiamine and p.o. folic acid daily in case of occult alcohol use disorder #Elevated troponin - peaked at 61 on 11.6, myocardial demand in the setting of GI sepsis DVT prophylaxis: SCDs, Lovenox Dispo: Continued stay on PCU. Hospitalist service will continue to follow along Admission and Anticipated Discharge Date Admission Date: December 31, 2024 Subjective Pt has only mild pain in LLQ of abdomen. Headache resolved. I discussed his care with Surgery PA and with Hematology Tele with NSR, ST 90-130s Physical Exam Constitutional: WD/WN, vitals as above Eyes: + anicteric sclerae Respiratory: Auscultation: + diminished lung sounds (Left lower and middle lung leslie); no crackles, no rhonchi and no wheezes Cardiovascular: Rate/Rhythm: regular rhythm and + tachycardic Heart Sounds: no murmur Extremities: no edema Gastrointestinal (Abdomen): Inspection/Auscultation: normal bowel sounds; + abdomen abnormal to inspection (LLQ drain in place) Percussion/Palpation: abdomen soft; abdomen nontender and no guarding Psychiatric: Orientation: alert and cooperative Results & Data Results & Data Vital Signs (Past 12 Hours) Vital Signs Temp Pulse Pulse Resp BP Pulse Ox O2 Del Method 01/13/25 19:07 37.7 C H 116 H 16 99/66 L 92 Room Air 01/13/25 15:54 101 H 01/13/25 15:20 36.9 C 104 H 18 105/70 92 Room Air 01/13/25 10:46 36.7 C 110 H 18 113/79 96 Room Air Laboratory Results CBC, CMP, iron studies, CRP reviewed Diagnostic Findings CT CHest/Abd/Pel reviewed PG Care Time/CCT Total # of Minutes Spent Total Time Spent with Patient: Total time spent is greater than 50% in coordination of care (as documented) at patient's floor/unit and/or counseling patient: Coding Level of Care Code 21131 SUB INP/OBS CARE 2/35MIN Diagnoses Acute appendicitis K35.201 Acute appendicitis type: with generalized peritonitis Appendicitis abscess presence: unspecified whether abscess present Appendicitis gangrene presence: with gangrene Appendicitis perforation presence: with perforation Sepsis with acute renal failure and tubular necrosis without septic shock, due to unspecified organism A41.9; R65.20; N17.0 Acute renal failure type: with acute tubular necrosis Sepsis acute organ dysfunction status: with acute organ dysfunction Sepsis type: sepsis due to unspecified organism Severe sepsis acute organ dysfunction type: acute renal failure Severe sepsis shock status: without septic shock Pleural effusion J90 Ileus K56.7 (1) Acute appendicitis Acute appendicitis type: with generalized peritonitis Appendicitis abscess presence: unspecified whether abscess present Appendicitis gangrene presence: with gangrene Appendicitis perforation presence: with perforation Qualified Code(s): K35.201 - Acute appendicitis with generalized peritonitis, with perforation, without abscess (2) Sepsis Acute renal failure type: with acute tubular necrosis Sepsis acute organ dysfunction status: with acute organ dysfunction Sepsis type: sepsis due to u nspecified organism Severe sepsis acute organ dysfunction type: acute renal failure Severe sepsis shock status: without septic shock Qualified Code(s): A41.9 - Sepsis, unspecified organism; R65.20 - Severe sepsis without septic shock; N17.0 - Acute kidney failure with tubular necrosis
[2025-01-14 07:09] LABS: Hematocrit (blood only) 30.0 % (42.0-52.0); Hemoglobin 10.2 g/dL (14.0-18.0); Mean Corpuscular Hemoglobin 26.8 pg (25.0-34.0); Mean Corpuscular Volume 78.9 fL (80.0-100.0); Platelet Count 1140 K/uL (130-400); RDW Standard Deviation 38.2 fL (36.4-46.3); Red Blood Count 3.80 M/uL (4.70-6.10); White Blood Count 10.73 K/ul (4.8-10.8)
[2025-01-14 07:18] LABS: Albumin Level 3.1 gm/dl (3.4-5.0); Anion Gap 11.0 (3-11); Bilirubin,Total 0.5 mg/dl (0.2-1.0); Blood Urea Nitrogen 27.0 mg/dl (6-23); Calcium 9.2 mg/dl (8.6-10.3); Carbon Dioxide 27.0 mmol/L (21-32); Chloride 97.0 mmol/L (98-107); Creatinine Clr Calc Pharmacy 126.8 ml/min; Glucose 103.0 mg/dl (70-99(Fasting)); Potassium 3.2 mmol/L (3.5-5.1); Sodium 135.0 mmol/L (136-145); Total Protein 7.9 gm/dl (6.0-8.3)
[2025-01-14 07:28] LABS: Immature Granulocytes # (auto) 0.19 K/uL (0.01-0.20); Immature Granulocytes % (auto) 1.8 %
[2025-01-14 09:15] LABS: Alanine Aminotransferase 88.0 U/L (7-52); Alkaline Phosphatase 145.0 U/L (34-104); Magnesium 2.2 mg/dl (1.7-2.4)
[2025-01-14] MEDS: POTASSIUM CHLORIDE CRTAB 20 MEQ TABCR PO STA (09:22)
--- NOTE | 2025-01-14 10:11 | Surgery Progress Note ---
Date of Service January 14, 2025 Assessment & Plan (1) S/P laparoscopic appendectomy: Plan: Status post laparoscopic appendectomy and washout for perforated appendicitis, now status post IR drainage of left pericolic gutter abscess. WBC stable, normal, afebrile, his bowels are working, and his drain output has decreased. CT scan with decreasing size of the abscesses. We will talk to radiology about removing the IR drain as he has had minimal output and appears to be resolved on imaging. The subdiaphragmatic abscess is smaller in size but is not accessible through IR. For now we will continue to treat with nonoperative measures, if worsens then may need laparoscopic drainage. He does have a large left pleural effusion, scheduled for IR thoracentesis today. To IR for thoracentesis today Possible removal of the previously placed IR drain in his left lower quadrant Cultures growing E. coli, continue Zosyn. He will need to continue this for at least another week or 2 at which point we will repeat imaging. He likely will have to stay in house given his current living situation and need for IV antibiotics Low fiber diet Thrombocytosis likely secondary to inflammatory state, consider aspirin as platelet count over 1 million Ambulation, I-S, out of bed to chair (2) Acute appendicitis: (3) Sepsis: (4) Postoperative intra-abdominal abscess: (5) Pleural effusion: (6) Thrombocythemia: Admission and Anticipated Discharge Date Admission Date: December 31, 2024 Subjective masseur/masseuse utilized. Feeling better this morning, felt a little febrile with some difficulty breathing and pain overnight, but this is improved. Continues to tolerate a diet and bowels are working. Does not feel febrile. Physical Exam Constitutional: WD/WN, vitals as above Respiratory: normal respiratory effort, lungs clear to auscultation Cardiovascular: RRR, no murmur, no edema Gastrointestinal (Abdomen): Inspection/Auscultation: + abdominal surgical incision (Wick at inferior incision, others without infection); abdomen not distended Percussion/Palpation: + abdomen tender (Mild tenderness to p alpation left side) and abdomen soft; no guarding and abdomen not rigid IR drain with virtually no output over past 2 to 3 days. Results & Data Vital Signs (Past 12 Hours) Vital Signs Temp Pulse Pulse Resp BP Pulse Ox O2 Del Method 01/14/25 07:40 36.6 C 84 16 97/64 L 93 Room Air 01/14/25 07:39 95 H 01/14/25 02:32 36.6 C 102 H 20 101/70 92 Room Air 01/13/25 23:24 36.7 C 106 H 16 96/67 L 93 Room Air Laboratory Results Laboratory Results - last 24 hr 01/14/25 06:10 WBC 10.73 RBC 3.80 L Hgb 10.2 L Hct 30.0 L MCV 78.9 L MCH 26.8 MCHC 34.0 RDW Std Deviation 38.2 RDW Coeff of Annika 13.3 Plt Count 1140 H* MPV 8.7 L Immature Gran % (Auto) 1.8 Neut % (Auto) 77.1 Lymph % (Auto) 8.5 Ray % (Auto) 10.3 Eos % (Auto) 1.6 Baso % (Auto) 0.7 Neut # (Auto) 8.28 H Lymph # (Auto) 0.91 L Ray # (Auto) 1.10 H Eos # (Auto) 0.17 Baso # (Auto) 0.08 Immature Gran # (Auto) 0.19 Sodium 135 L Potassium 3.2 L Chloride 97 L Carbon Dioxide 27 Anion Gap 11 BUN 27 H Creatinine 0.73 Est Cr Clr Drug Dosing 126.8 eGFR 120.17 BUN/Creatinine Ratio 37.0 H Glucose 103 H Calcium 9.2 Magnesium 2.2 Total Bilirubin 0.5 Direct Bilirubin 0.1 AST 66 H ALT 88 H Alkaline Phosphatase 145 H Lactate Dehydrogenase 229 Total Protein 7.9 Albumin 3.[address] chest, abdomen and pelvis, personally viewed and interpreted and agree with the assessment. The previous left pericolic gutter collection that was drained by radiology is completely resolved. The subdiaphragmatic collection on the left is much smaller. The other smaller remaining abscesses are either completely resolved or decreasing in size. The peritonitis is improved. He does have a large left pleural effusion. Abdomen/Pelvis CT 01/13/25 07:00 CT SCAN OF THE ABDOMEN AND PELVIS WITH IV CONTRAST CLINICAL HISTORY: Perforated appendicitis with abscess. COMPARISON STUDY: Prior abdominal CT scans, most recently dated 01/06/2025. TECHNIQUE: Following the IV administration of 94 cc of Optiray 320, CT scan of the abdomen and pelvis is performed from the lung bases to the proximal femora. Images are reviewed in the axial, sagittal, and coronal planes. IV contrast was administered without complication. Oral contrast was utilized. A dose lowering technique was utilized adhering to the principles of ALARA. FINDINGS: Lung bases: The tip of a central venous catheter terminates in the right atrium. The heart is normal in size and without pericardial effusion. There is a moderate left pleural effusion with consolidation of the left lower lung. The right lung base is clear noting dependent atelectasis. Liver: The contrast-enhanced liver is normal in size, contour, and attenuation. There is no intrahepatic biliary ductal dilatation. The hepatic veins and portal veins are patent. Gallbladder: Unremarkable. Spleen: Normal in size and attenuation. Pancreas: Unremarkable. Adrenal glands: Unremarkable. Kidneys: The contrast enhanced kidneys are normal in size and without hy dronephrosis. The kidneys enhance symmetrically. Abdominal vasculature: The abdominal aorta is normal in course and caliber. Bowel: There is no bowel obstruction. Enteric contrast reaches the rectosigmoid. The appendix is surgically absent. Small bowel wall thickening has significantly improved from previously. No extraluminal contrast is seen. Peritoneum: A surgical drain has been removed. No intraperitoneal free air is identified. Numerous peripherally enhancing fluid collections are again seen throughout the abdomen and pelvis. Interval decrease in size as compared to 01/06/2025. The largest is in the left upper quadrant around the spleen, measuring 7.5 x 11.5 x 7.5 cm seen on image #78 (previously measuring 14.5 x 8.1 cm in axial dimension). A collection along the greater curvature of the stomach on image #113 measures proximally 6 x 2.5 cm (previously measured 9 x 5.4 cm). There are at least 8 additional smaller collections are seen in the left upper quadrant image #150, the right lower quadrant on image #191, the left central abdomen on image #202, in the left lower quadrant on images #231 and #238. Lymphadenopathy: None. Pelvic viscera: The bladder is decompressed and not well evaluated. The prostate and seminal vesicles are normal as visualized. Skeletal structures: No lytic or blastic lesions are seen. IMPRESSION: 1. Status post appendectomy. 2. There are numerous peripherally enhancing intra-abdominal pelvic fluid collections as above that are typical for abscesses. These have uniformly decreased in size as compared to the 01/06/2025 examination. The largest collection is located around the spleen and measures up to 11.5 cm 3. Small bowel wall thickening has improved from previous, likely representing improving peritonitis. 4. Moderate left pleural effusion with consolidation of left lower lung. This has increased in size from previous. 5. Additional findings as above. ACT 112: Negative or not required by law. Electronically signed by: Aashish Bradshaw M.D. 01/13/2025 12:[address] 01/13/25 07:00 CT chest diagnostic wo con CT DOSE: 1317.78 mGy.cm CLINICAL HISTORY: 39 years-old Male with CXR with left hemithorax opacification. Acute shortness of breath with opacification of the left hemithorax TECHNIQUE: Multiaxial CT images of the chest were performed without contrast. A dose lowering technique was utilized adhering to the principles of ALARA. COMPARISON: Chest radiograph of same day, CTA chest 01/03/2025, CT-guided catheter placement 01/07/2025 FINDINGS: No dominant thyroid nodule or lymphadenopathy identified. Subcentimeter subcarinal lymph nodes are unchanged. Heart is normal in size. A right-sided PICC is noted with distal tip terminating within the right atrium. No thoracic aortic aneurysm. Mild linear dependent atelectasis of the right lower lobe with improved aeration compared to the prior study. No pneumothorax. There is a loculated left pleural effusion accounting for the opacity on comparison chest radiographs which is moderate in size and most pronounced posteriorly, increased from prior. There is consolidation/complete collapse of the left lower lobe without obstructing lesion identified. Left lower lobe air bronchograms are noted. No overt pulmonary edema. Left upper quadrant/perisplenic ascites. Hepatomegaly with hepatic steatosis. Unremarkable soft tissues. No acute fracture. IMPRESSION: 1. Moderate-sized loculated left pleural effusion has increased in size from the 01/03/2025 study and there is interval development of left lower lobe collapse. 2. Right-sided PICC in place. 3. Hepatomegaly with hepatic steatosis. 4. Upper abdominal ascites redemonstrated. ACT 112: Negative or not required by law. Electronically signed by: Brian Land M.D. 01/13/2025 11:55 AM PG Care Time/CCT Total # of Minutes Spent Total Time Spent with Patient: Total time spent is greater than 50% in coordination of care (as documented) at patient's floor/unit and/or counseling patient: Coding Level of Care Code 88364 Post Operative Follow-Up Diagnoses S/P laparoscopic appendectomy Z90.49 Acute appendicitis K35.201 Acute appendicitis type: with generalized peritonitis Appendicitis abscess presence: unspecified whether abscess present Appendicitis gangrene presence: with gangrene Appendicitis perforation presence: with perforation Sepsis with acute renal failure and tubular necrosis without septic shock, due to unspecified organism A41.9; R65.20; N17.0 Sepsis type: sepsis due to unspecified organism Sepsis acute organ dysfunction status: with acute organ dysfunction Severe sepsis acute organ dysfunction type: acute renal failure Acute renal failure type: with acute tubular necrosis Severe sepsis shock status: without septic shock Postoperative intra-abdominal abscess T81.43XA; K65.1 Pleural effusion J90 Thrombocythemia D75.839 (2) Acute appendicitis Acute appendicitis type: with generalized peritonitis Appendicitis abscess presence: unspecified whether abscess present Appendicitis gangrene presence: with gangrene Appendicitis perforation presence: with perforation Qualified Code(s): K35.201 - Acute appendicitis with generalized peritonitis, with perforation, without abscess (3) Sepsis Sepsis type: sepsis due to unspecified organism Sepsis acute organ dysfunction status: with acute organ dysfunction Severe sepsis acute organ dysfunction type: acute renal failure Acute renal failure type: with acute tubular necrosis Severe sepsis shock status: without septic shock Qualified Code(s): A41.9 - Sepsis, unspecified organism; R65.20 - Severe sepsis without septic shock; N17.0 - Acute kidney failure with tubular necrosis
--- NOTE | 2025-01-14 15:17 | XRay Report ---
XR chest 1V not portable CLINICAL HISTORY: post thoracentesis COMPARISON STUDY: 01/12/2025 FINDINGS: Stable right PICC. Heart size and pulmonary vasculature are normal. There is hazy opacity a t the left lower lung, improved. No pneumothorax seen. Right lung remains well aerated. IMPRESSION: No pneumothorax seen. ACT 112: Negative or not required by law. Electronically signed by: Brandon Chadwick M.D. 01/14/2025 3:16 PM
--- NOTE | 2025-01-14 15:20 | Ultrasound Report ---
IR thoracentesis wo tube US CLINICAL HISTORY: LEFT PLEURAL EFFUSION COMPARISON STUDY: 01/13/2025 Technique: After the procedure was discussed and questions answered, consent was obtained. Patient wa s positioned sitting upright. Preprocedure ultrasound demonstrates left pleural effusion. The left po sterior chest was prepped and draped in standard sterile fashion. 1% lidocaine was used for local ane sthesia. Under ultrasound guidance, a thoracentesis catheter was advanced into the left pleural effus ion from a lower posterior intercostal approach. 650 cc straw-colored fluid was withdrawn. Catheter w as removed. Hemostasis was obtained with manual compression. Sterile dressing was applied. Post proce dure chest x-ray shows no pneumothorax. IMPRESSION: 1. Left thoracentesis as described. 2. Left abdominal drain was also removed and sterile dressing placed. ACT 112: Negative or not required by law. Electronically signed by: Brandon Chadwick M.D. 01/14/2025 3:18 PM
[2025-01-14] MEDS: ONDANSETRON INJ 2 MG/ML 2 ML VIAL IV PRN (15:22)
[2025-01-14 16:13] LABS: Appearance Pleural Fluid Hazy; Color Pleural Fluid Yellow; RBC Pleural Fluid Auto 8000 /uL; Source Pleural Fluid Left Lung; WBC Pleural Fluid Auto 418 /uL
--- NOTE | 2025-01-14 18:08 | XRay Report ---
Clinical History: Hypoxia Technique: A frontal view of the chest was obtained Comparison is made to the prior examination dated 01/12/2025 Findings: There is mild left lower lobe opacity that could be due to either atelectasis or pneumonia. The heart size is within normal limits. No right pleural effusion or pneumothorax is seen. There is a small left pleural effusion. No fracture is noted. There is a right arm PICC line with its tip in the SVC Impression: 1. Small left pleural effusion 2. Left lower lobe opacity that could be due to either atelectasis or pneumonia ACT 112: Positive. There are findings on this exam that require communication between the performing entity and the patient following Patient Test Result Information Act ([place] ACT 112) guidelines. Electronically signed by Song Torres 01-14-2025 6:08 PM
--- NOTE | 2025-01-14 18:21 | Hospitalist Progress Note ---
Date of Service January 14, 2025 Assessment & Plan (1) Acute appendicitis: (2) Pleural effusion: (3) Postoperative intra-abdominal abscess: (4) Thrombocythemia: Plan This patient is a 39 y/o Slovak speaking male with no past medical history that presented with low urinary output, low appetite and abdominal pain for 2 days, found to have perforated appendicitis, peritonitis, sepsis POA, possible partial SBO. Patient was taken to the OR urgently 12/31 for a laparoscopic appendectomy and abdominal washout. He also was with an CORINA, lactic acidosis. #Sepsis POA 2/2 perforated gangrenous appendicitis/peritonitis/partial SBO/intra-abdominal abscesses-with tachypnea, tachycardia, procalcitonin greater than 100, lactate elevated at 8, acute kidney injury, and metabolic acidosis on admission. Sepsis, CORINA and acidosis resolved after IV fluids, IV Zosyn, surgical washout and appendectomy. On 01/02, he was moving bowels, NG tube removed, started on clear liquids, Wyane catheter removed. Pathology with gangrenous appendicitis. On 01/03 in the afternoon, he developed worsening severe pain and abdominal distention with N/V-repeat CT A/P with peritonitis, fluid collections, mesenteric edema, and possible bowel obstruction versus ileus. NG tube replaced on 01/03 and then subsequently removed a few days later. Ileus resolved. Had IR drain placed in left paracolic abscess on 01/07 and removed on 01/14. Intra-abd cx with E. coli, pansensitive. Blood cultures negative. Now overall much improved, now Surgery has advanced to low fiber diet. Repeat CT A/P 01/13 w/ multiple intra-abd abscesses although all seem to be improving in size and not amenable to IR drainage. He was on TPN for over a week and that is now discontinued. - Postoperative management as per surgery - Continue IV Zosyn likely for at least another 1-2 weeks as per general surgery-Will likely remain inpatient for this as he has no health insurance - Continue IV Dilaudid, oxycodone, and Tylenol as needed for pain - Follow CBC, BMP, magnesium, phosphorus in the a.m. and keep electrolytes replete-give KCl 40 mEq p.o. x 1 #Anemia/Thrombocytosis -Hgb mildly low but stable at 10.2, microcytic, iron panel consistent with chronic disease and iron deficiency mixed early in course of admission. B12, folate, and TSH are normal. Continues to have worsening thrombocytosis with platelets up to 1140-likely reactive to infection and possibly secondary to iron deficiency. Appreciate Heme consult-recommends against aspirin use or any further workup as this is all reactive to sepsis - Otology does not recommend giving IV iron --No aspirin needed for thrombocythemia - Follow-up with GI as an outpatient for EGD and colonoscopy for microcytic iron deficiency anemia; however, he does not have insurance which may prohibit this. - Follow CBC daily #Hyponatremia-worsened due to hypervolemia from many days of IV fluids and TPN- with large pleural effusion. Sodium now up to 135 after diuresis x 2 days - Follow BMP - Hold off on further IV Lasix as pleural effusion is exudative #Pleural effusions/atelectasis/respiratory distress/acute respiratory failure with hypoxemia- CTA chest performed on 01/03 due to shortness of breath shows pleural effusions and atelectasis of the lower lobes. He also had a subdiaphragmatic intra-abdominal abscess contributing to splinting. Significantly decreased breath sounds noted on exam in 01/12-CXR shows significantly enlarged left-sided pleural effusion greater than right. Pulse ox normal at 95% on room air. CT CHest on 01/13 with large left pleural effusion and LLL collapse. Was diuresed with IV Lasix without much improvement. Had thoracentesis on 01/14. pH 7.55, chemistries consistent with exudative effusion by lights criteria, cultures pending. Pulse ox 88% on room air on 01/14 and was placed on supplemental O2. He is coughing and may have some mucous plugging Will left lower lobe is reexpanding - Encouraged incentive spirometry with patient and with nursing - Start supplemental O2 as needed to keep pulse ox greater than 90% -Follow pleural fluid cultures #HERMAN-now much improved, perhaps was from hyponatremia - Continue acetaminophen as needed #CORINA/high AG metabolic acidosis/lactic acidosis- resolved. Creatinine 3.4 on arrival and now normal. CORINA secondary to ATN from sepsis. With lactic acidosis with lactate 8 and now normalized. pH 7.1 on arrival with metabolic acidosis. Is now resolved. Received IV fluids, treatment of sepsis. - Follow BMP #Severe hepatic steatosis/ Elevated liver enzymes/prediabetes - Seen on CT. Total bilirubin now normalized. AST and ALT mildly elevated and now improving. Patient reports he only drinks alcohol 2-3 times per month-unclear if this is accurate. Lipids are normal, HgbA1c in prediabetes range at 6.0%. - Should be counseled on alcohol cessation - Recommend follow-up with PCP and/or GI as an outpatient for fatty liver and prediabetes - Recommend low carbohydrate diet after discharge - Follow CMP - Continue po thiamine and p.o. folic acid daily in case of occult alcohol use disorder #Elevated troponin - peaked at 61 on 11.6, myocardial demand in the setting of GI sepsis DVT prophylaxis: SCDs, Lovenox Dispo: Continued stay on PCU. Hospitalist service will continue to follow along Admission and Anticipated Discharge Date Admission Date: December 31, 2024 Subjective Patient reports he had a little bit of a headache and felt feverish last night, but now that is gone. The pain in his abdomen is much improved. He reports when he had the thoracentesis today, it really hurt and made him feel short of breath. He now feels better. Later in the day, nursing reported that he became hypoxic to 88% on room air and was placed on supplemental O2. Repeat CXR performed which shows ongoing left lower lobe atelectasis and pleural effusion but improved overall from previous. Telemetry with sinus rhythm and sinus tachycardia with rates in the 80s to 120s but mostly in the 90s. I discussed his care with the surgery MARIANN. Physical Exam Constitutional: WD/WN, vitals as above Eyes: + anicteric sclerae Respiratory: Auscultation: + diminished lung sounds (Left lower and middle lung leslie) and + rhonchi (Left middle lung field); no crackles and no wheezes Cardiovascular: Rate/Rhythm: regular rhythm Heart Sounds: no murmur Extremities: no edema Gastrointestinal (Abdomen): Inspection/Auscultation: normal bowel sounds; + abdomen abnormal to inspection (LLQ drain removed) and abdomen not distended Percussion/Palpation: abdomen soft; abdomen nontender and no guarding Psychiatric: A+Ox3, euthymic affect Orientation: cooperative Results & Data Results & Data Vital Signs (Past 12 Hours) Vital Signs Temp Pulse Pulse Resp BP Pulse Ox O2 Del Method 01/14/25 17:27 93 Nasal Cannula 01/14/25 17:19 36.9 C 117 H 16 105/69 91 Room Air 01/14/25 15:34 37.1 C 94 H 18 99/67 L 93 Room Air 01/14/25 14:00 103 H 01/14/25 11:26 36.7 C 83 18 105/69 95 Room Air 01/14/25 08:35 Room Air 01/14/25 07:40 36.6 C 84 16 97/64 L 93 Room Air 01/14/25 07:39 95 H O2 Flow Rate 01/14/25 17:27 2 01/14/25 17:19 01/14/25 15:34 01/14/25 14:00 01/14/25 11:26 01/14/25 08:35 01/14/25 07:40 01/14/25 07:39 Laboratory Results CBC, CMP, magnesium, pleural fluid studies reviewed Diagnostic Findings CXR images personally reviewed by me and agree with the following reports: Chest X-Ray 01/14/25 14:55 XR chest 1V not portable CLINICAL HISTORY: post thoracentesis COMPARISON STUDY: 01/12/2025 FINDINGS: Stable right PICC. Heart size and pulmonary vasculature are normal. There is hazy opacity at the left lower lung, improved. No pneumothorax seen. Right lung remains well aerated. IMPRESSION: No pneumothorax seen. ACT 112: Negative or not required by law. Electronically signed by: Brandon Chadwick M.D. 01/14/2025 3:16 PM Chest X-Ray 01/14/25 17:28 Clinical History: Hypoxia Technique: A frontal view of the chest was obtained Comparison is made to the prior examination dated 01/12/2025 Findings: There is mild left lower lobe opacity that could be due to either atelectasis or pneumonia. The heart size is within normal limits. No right pleural effusion or pneumothorax is seen. There is a small left pleural effusion. No fracture is noted. There is a right arm PICC line with its tip in the SVC Impression: 1. Small left pleural effusion 2. Left lower lobe opacity that could be due to either atelectasis or pneumonia ACT 112: Positive. There are findings on this exam that require communication between the performing entity and the patient following Patient Test Result Information Act ([place] ACT 112) guidelines. Electronically signed by Song Torres 01-14-2025 6:08 PM PG Care Time/CCT Total # of Minutes Spent Total Time Spent with Patient: Total time spent is greater than 50% in coordination of care (as documented) at patient's floor/unit and/or counseling patient: Coding Level of Care Code 14186 SUB INP/OBS CARE 350MIN Diagnoses Acute appendicitis K35.201 Acute appendicitis type: with generalized peritonitis Appendicitis abscess presence: unspecified whether abscess present Appendicitis gangrene presence: with gangrene Appendicitis perforation presence: with perforation Pleural effusion J90 Postoperative intra-abdominal abscess T81.43XA; K65.1 Thrombocythemia D75.839 (1) Acute appendicitis Acute appendicitis type: with generalized peritonitis Appendicitis abscess presence: unspecified whether abscess present Appendicitis gangrene presence: with gangrene Appendicitis perforation presence: with perforation Qualified Code(s): K35.201 - Acute appendicitis with generalized peritonitis, with perforation, without abscess
[2025-01-15 07:18] LABS: Hematocrit (blood only) 29.1 % (42.0-52.0); Hemoglobin 9.6 g/dL (14.0-18.0); Mean Corpuscular Hemoglobin 26.4 pg (25.0-34.0); Mean Corpuscular Volume 79.9 fL (80.0-100.0); Platelet Count 1107 K/uL (130-400); RDW Standard Deviation 39.1 fL (36.4-46.3); Red Blood Count 3.64 M/uL (4.70-6.10); White Blood Count 9.82 K/ul (4.8-10.8)
[2025-01-15 07:44] LABS: Anion Gap 9.0 (3-11); Blood Urea Nitrogen 27.0 mg/dl (6-23); Calcium 9.2 mg/dl (8.6-10.3); Carbon Dioxide 26.0 mmol/L (21-32); Chloride 100.0 mmol/L (98-107); Creatinine Clr Calc Pharmacy 118.2 ml/min; Glucose 101.0 mg/dl (70-99(Fasting)); Magnesium 2.1 mg/dl (1.7-2.4); Potassium 3.5 mmol/L (3.5-5.1); Sodium 135.0 mmol/L (136-145)
[2025-01-15 07:49] LABS: Hypochromasia Present; Immature Granulocytes # (auto) 0.12 K/uL (0.01-0.20); Immature Granulocytes % (auto) 1.2 %
[2025-01-15 08:02] LABS: Lymphocytes, Fluid 17 %; Mono,Macrophage,Mesothelial 75 %; Neutrophils, Fluid 8 %
--- NOTE | 2025-01-15 09:11 | Surgery Progress Note ---
Date of Service January 15, 2025 Assessment & Plan (1) S/P laparoscopic appendectomy: Plan: WBC 9.8, Hbg 9.6, plt 1107. vitals are stable, tachycardia improved, afebrile - he is s/p left thoracentesis yesterday, cultures are pending. IR drain was also removed yesterday as collection resolved and drain was no longer putting out much -Abdomen soft, much less distention, denies pain this am. on low fiber diet, + bowel function -Continue IV zosyn until pleural fluid cultures result, if cx's negative can consider narrowing IV abx - Will continue non-operative management for intrabdominal abscesses not amenable to IR drainage at this time. If patient deteriorates he would likely require a wash out. he is making decent progress at this time -Encourage OOB/ambulation, and pulmonary toilet -We appreciate social work and hospitalist assistance with his case, he will be here at least another wk requiring IV abx at which point we may re-image (2) Postoperative intra-abdominal abscess: Admission and Anticipated Discharge Date Admission Date: December 31, 2024 Subjective Patient feeling well. Pain controlled this AM. Denies SOB/chest pain. Tolerating diet and having + bowel function. Reports his pain when it comes lasts less time in frequency compared to the past. Physical Exam Physical Exam: awake/alert, no distress Respiratory: normal respiratory effort saturating well on room air Gastrointestinal (Abdomen): Inspection/Auscultation: + abdomen distended (much improved) Percussion/Palpation: abdomen soft; abdomen nontender IR drain and AISHWARYA drain were both removed this week. Dressings are c/d/i Results & Data Vital Signs (Past 12 Hours) Vital Signs Temp Pulse Pulse Resp BP Pulse Ox O2 Del Method 01/15/25 07:33 98.6 F 86 18 100/65 97 Nasal Cannula 01/15/25 07:00 86 01/15/25 06:03 92 Room Air 01/15/25 03:11 98.4 F 88 18 106/70 96 Nasal Cannula 01/14/25 22:55 98.2 F 85 18 102/68 96 Nasal Cannula 01/14/25 21:32 109 H O2 Flow Rate 01/15/25 07:33 2 01/15/25 07:00 01/15/25 06:03 01/15/25 03:11 2 01/14/25 22:55 2 01/14/25 21:32 PG Care Time/CCT Total # of Minutes Spent Total Time Spent with Patient: Total time spent is greater than 50% in coordination of care (as documented) at patient's floor/unit and/or counseling patient: Coding Level of Care Code 42850 Post Operative Follow-Up Diagnoses S/P laparoscopic appendectomy Z90.49 Postoperative intra-abdominal abscess T81.43XA; K65.1
--- NOTE | 2025-01-15 12:32 | Hospitalist Progress Note ---
Date of Service January 15, 2025 Assessment & Plan (1) Acute appendicitis: (2) Pleural effusion: (3) Postoperative intra-abdominal abscess: (4) Thrombocythemia: Plan This patient is a 39 y/o Armenian speaking male with no past medical history who was admitted with perforated appendicitis, peritonitis, sepsis POA, possible partial SBO, and postoperative intra-abdominal abscesses and pleural effusion with possible empyema. Patient was taken to the OR urgently 12/31 for a laparosc opic appendectomy and abdominal washout. He also was with an CORINA, lactic acidosis. #Sepsis POA 2/2 perforated gangrenous appendicitis/peritonitis/partial SBO/intra-abdominal abscesses-with tachypnea, tachycardia, procalcitonin greater than 100, lactate elevated at 8, acute kidney injury, and metabolic acidosis on admission. Sepsis, CORINA and acidosis resolved after IV fluids, IV Zosyn, surgical washout and appendectomy. On 01/02, he was moving bowels, NG tube removed, started on clear liquids, Wayne catheter removed. Pathology with gangrenous appendicitis. On 01/03 in the afternoon, he developed worsening severe pain and abdominal distention with N/V-repeat CT A/P with peritonitis, fluid collections, mesenteric edema, and possible bowel obstruction versus ileus . NG tube replaced on 01/03 and then subsequently removed a few days later. Ileus resolved. Had IR drain placed in left paracolic abscess on 01/07 and removed on 01/14. Intra-abd cx with E. coli, pansensitive. Blood cultures negative. Now overall much improved, now Surgery has advanced to low fiber diet. Repeat CT A/P 01/13 w/ multiple intra-abd abscesses although all seem to be improving in size and not amenable to IR drainage. He was on TPN for over a week and that is now discontinued. - Postoperative management as per surgery - Continue IV Zosyn likely for at least another 1-2 weeks as per general surgery-Will likely remain inpatient for this as he has no health insurance and no social support at home - Repeat CT abdomen/pelvis in 1 to 2 weeks - Continue IV Dilaudid, oxycodone, and Tylenol as needed for pain - Follow CBC, BMP, magnesium, phosphorus in the a.m. and keep electrolytes replete #Anemia/Thrombocytosis -Hgb mildly low but stable at 9-10, microcytic, iron panel consistent with chronic disease and iron deficiency mixed early in course of admission. B12, folate, and TSH are normal. Continues to have significant thrombocytosis with platelets up to 1140-stable today-likely reactive to infection and possibly secondary to iron deficiency. Appreciate Heme consult- recommends against aspirin use or any further workup as this is all reactive to sepsis - Hematology does not recommend giving IV iron --No aspirin needed for thrombocythemia and a reactive situation - Follow-up with GI as an outpatient for EGD and colonoscopy for microcytic iron deficiency anemia; however, he does not have insurance which may prohibit this. - Follow CBC daily #Hyponatremia-worsened due to hypervolemia from many days of IV fluids and TPN- with large pleural effusion. Sodium now up to 135 after diuresis x 2 days - Follow BMP - Hold off on further IV Lasix as pleural effusion is exudative #Pleural effusions/atelectasis/respiratory distress/acute respiratory failure with hypoxemia- CTA chest performed on 01/03 due to shortness of breath shows pleural effusions and atelectasis of the lower lobes. He also had a subdiaphragmatic intra-abdominal abscess contributing to splinting. Significantly decreased breath sounds noted on exam in 01/12-CXR shows significantly enlarged left-sided pleural effusion greater than right. Pulse ox normal at 95% on room air. CT CHest on 01/13 with large left loculated pleural effusion and LLL collapse. Was diuresed with IV Lasix without much improvement. Had thoracentesis on 01/14. pH 7.55, chemistries consistent with exudative effusion by lights criteria, cultures and cytology pending. Pulse ox 88% on room air on 01/14 and was placed on supplemental O2 which is now weaned off. Consulted pulmonology-concern for empyema given loculated effusion. Patient hesitant to have repeat thoracentesis or chest tube due to previous 1 causing severe pain - Encouraged incentive spirometry with patient and with nursing - Repeat chest CT with IV contrast at the time of next CT abdomen/pelvis -Follow pleural fluid cultures and cytology, AFB - Pulmonology following #HERMAN-now resolved, perhaps was from hyponatremia - Continue acetaminophen as needed #CORINA/high AG metabolic acidosis/lactic acidosis- resolved. Creatinine 3.4 on arrival and now normal. CORINA secondary to ATN from sepsis. With lactic acidosis with lactate 8 and now normalized. pH 7.1 on arrival with metabolic acidosis. Is now resolved. Received IV fluids, treatment of sepsis. - Follow BMP #Severe hepatic steatosis/ Elevated liver enzymes/prediabetes - Seen on CT. Total bilirubin now normalized. AST and ALT mildly elevated and now improving. Patient reports he only drinks alcohol 2-3 times per month-unclear if this is accurate. Lipids are normal, HgbA1c in prediabetes range at 6.0%. - counseled on alcohol cessation - Recommend follow-up with PCP and/or GI as an outpatient for fatty liver and prediabetes - Recommend low carbohydrate diet after discharge - Follow CMP - Continue po thiamine and p.o. folic acid daily in case of occult alcohol use disorder #Elevated troponin - peaked at 61 on 01.01, myocardial demand in the setting of GI sepsis DVT prophylaxis: SCDlionel, Lovenox Dispo: Continued stay on PCU, but can likely downgrade to medical/surgical unit on 01/16. Hospitalist service will continue to follow along Admission and Anticipated Discharge Date Admission Date: December 31, 2024 Subjective Patient walked the halls with physical therapy today and is sitting in the chair. He looks the best I have seen him in 2 weeks. He denies shortness of breath. I discussed his care with pulmonology. The patient is very hesitant to potentially have another thoracentesis as the first 1 was very painful. Telemetry with normal sinus rhythm and sinus tachycardia with rates in the 90s to 110s Physical Exam Constitutional: WD/WN, vitals as above Eyes: + anicteric sclerae Respiratory: Auscultation: + diminished lung sounds (Left lower lung field, improved air movement otherwise); no crackles and no wheezes Cardiovascular: Rate/Rhythm: regular rhythm Heart Sounds: no murmur Extremities: no edema Gastrointestinal (Abdomen): Inspection/Auscultation: normal bowel sounds; abdomen not distended Percussion/Palpation: abdomen soft; abdomen nontender and no guarding Psychiatric: A+Ox3, euthymic affect Orientation: cooperative Results & Data Results & Data Vital Signs (Past 12 Hours) Vital Signs Temp Pulse Pulse Resp BP Pulse Ox O2 Del Method 01/15/25 11:20 36.6 C 83 18 112/72 95 Room Air 01/15/25 09:34 Room Air 01/15/25 07:33 37.0 C 86 18 100/65 97 Nasal Cannula 01/15/25 07:00 86 01/15/25 06:03 92 Room Air 01/15/25 03:11 36.9 C 88 18 106/70 96 Nasal Cannula O2 Flow Rate 01/15/25 11:20 01/15/25 09:34 01/15/25 07:33 2 01/15/25 07:00 01/15/25 06:03 01/15/25 03:11 2 Laboratory Results CBC, BMP, magnesium, phosphorus, pleural fluid cultures reviewed PG Care Time/CCT Total # of Minutes Spent Total Time Spent with Patient: Total time spent is greater than 50% in coordination of care (as documented) at patient's floor/unit and/or counseling patient: Coding Level of Care Code 19280 SUB INP/OBS CARE 3/50MIN Diagnoses Acute appendicitis K35.201 Acute appendicitis type: with generalized peritonitis Appendicitis abscess presence: unspecified whether abscess present Appendicitis gangrene presence: with gangrene Appendicitis perforation presence: with perforation Pleural effusion J90 Postoperative intra-abdominal abscess T81.43XA; K65.1 Thrombocythemia D75.839 (1) Acute appendicitis Acute appendicitis type: with generalized peritonitis Appendicitis abscess presence: unspecified whether abscess present Appendicitis gangrene presence: with gangrene Appendicitis perforation presence: with perforation Qualified Code(s): K35.201 - Acute appendicitis with generalized peritonitis, with perforation, without abscess
--- NOTE | 2025-01-15 12:48 | Pulmonary Consultation ---
Date of Consultation January 15, 2025 Assessment & Plan (1) Loculated pleural effusion: (2) Postoperative intra-abdominal abscess: (3) Shortness of breath: Plan CT chest 01/13/2025 personally reviewed: Large loculated left-sided pleural effusion with compressive atelectasis of the left lower lobe Small right-sided pleural effusion No significant mediastinal lymphadenopathy --Loculated left-sided pleural effusion S/p IR guided thoracentesis 01/14/2025 with removal of 640 mL of fluid, exudative as per lights criteria, 17% lymphocytes Pleural: LDH 630, protein 5.4, pH 7.55 The effusion is likely sympathetic given the multiple abscesses as well as sub phrenic collection on the left side Given that the abdominal fluid culture was positive for E. coli, there is high probability that the pleural fluid might also steel turner to be positive Plan: The effusion is likely sympathetic given the multiple abscesses as well as self phrenic collection on the left side Given that the abdominal fluid culture was positive for E. coli, there is high probability that the pleural fluid might also steel turner to be positive On the bedside ultrasound today he does seem to have small pocket of fluid layering around the left lung, he also seems to have subphrenic fluid collection on the left side I wanted to get a CT of the chest with contrast to be done today but patient is scared of doing any procedures when it comes to the thorax He did agree to have another imaging of the chest done in future and then reassess if any other further treatment/procedures are needed with respect to his chest On reviewing the surgery notes, they are planning to do a CAT scan of the belly in the near future, would recommend to do a CT chest with contrast on the same day to look at the left-sided pleural effusion Continue with antibiotics to cover for E. coli Case was discussed with primary team at bedside I spent more than 75 minutes looking in the chart, images, discussing the plan of care with the patient, RN as well as primary team Please note the above document was generated using voice recognition software. It may contain grammatical, syntax or spelling errors.Any formal questions or concerns about the content, text or information contained within the body of this dictation should be directly addressed to the provider for clarification. 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 Boone was also in the room. Patient has been in the hospital since last 15 days with admission on 12/31/2024, he underwent emergent laparotomy for pneumoperitoneum and found to have ruptured appendix The stay has been complicated by numerous abscesses within the abdominal cavity He has been on antibiotics. He was found to have decreased breath sounds in the left side and had a CT chest done on 01/13/2025 which showed left-sided loculated pleural effusion He underwent thoracentesis on 01/14/2025 by IR and only 640 mL of fluid was removed, the procedure was painful for the patient and he is scared of doing any procedures when it comes to the thoracic cavity moving forward. At the time of examination he was not in any distress He stated that he is feeling much better, breathing has improved He was saturating well on room air Denies any abdominal pain. Appetite is still poor. Still complains of generalized weakness Denies any nausea or vomiting Has been diuresing well Social history: Lifetime non-smoker. 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 Originally from [place], came to [facility] 4 years ago Allergies Allergy/AdvReac Type Severity Reaction Status Date / Time No Known Allergies Allergy Verified 12/31/24 10:03 Patient History Medical History (Updated 01/15/25 @ 13:50 by Julio Faustin MD, [facility]) No pertinent past medical history Surgical History (Updated 01/03/25 @ 11:38 by Fallon Hardin PA-C) History of laparoscopic appendectomy (12/31/24) Diagnostic Laparoscopy, abdominal washout, laparoscopic appendectomy(Not Applicable) - Brandon Bullard DO, FACS Family History (Updated 12/31/24 @ 22:46 by Maya Boone MD) Other Family history non-contributory Social History (Updated 12/31/24 @ 09:48 by Jalen Shankar PA-C) Smoking Status: Never smoker Second Hand Exposure: No; Do You Dip or Chew Tobacco: No; Hx Alcohol Use: Yes Alcohol type: beer Hx Substance Use: No Preferred Language: Azeri Communication Ability: Effective Communication Tools: IPad Taste Tester Required: Yes Beliefs That Will Affect Care: None Current Living Situation: Alone Feels Safe at Home: Yes Assistive Devices: None Review of Systems 2 Review of Systems: All systems reviewed & are unremarkable except as noted in HPI & below Physical Exam 2 Physical Exam: Constitutional: No acute distress HEENT: EOMI, PERRLA Respiratory system: Decreased air entry on the left side, no wheeze, no rhonchi, mild crackles left lower lobe CVS: S1-S2 positive, no murmurs or gallops Abdomen: Soft, nontender, nondistended, positive bowel sounds x4 Extremities: +2 pulses bilaterally radialis/ dorsalis pedis, no cyanosis, no edema Neuro: Awake alert oriented to self and place Psych: Normal mood and affect G/U: No Wayne Skin: no rashes, warm and dry Lymphatic: no cervical or axillary lymphadenopathy Results & Data Results & Data Vital Signs (Past 12 Hours) Vital Signs Temp Pulse Pulse Resp BP Pulse Ox O2 Del Method 01/15/25 11:20 36.6 C 83 18 112/72 95 Room Air 01/15/25 09:34 Room Air 01/15/25 07:33 37.0 C 86 18 100/65 97 Nasal Cannula 01/15/25 07:00 86 01/15/25 06:03 92 Room Air 01/15/25 03:11 36.9 C 88 18 106/70 96 Nasal Cannula O2 Flow Rate 01/15/25 11:20 01/15/25 09:34 01/15/25 07:33 2 01/15/25 07:00 01/15/25 06:03 01/15/25 03:11 2 Laboratory Results 01/15/25 06:43 01/15/25 06:43 PG Care Time/CCT Total # of Minutes Spent Total Time Spent with Patient: Total time spent is greater than 50% in coordination of care (as documented) at patient's floor/unit and/or counseling patient: [place] [address] INT INP/OBS CARE 3/75MIN Patient Type New Diagnoses Loculated pleural effusion J90 Postoperative intra-abdominal abscess T81.43XA; K65.1 Shortness of breath R06.02
--- NOTE | 2025-01-15 14:01 | Procedure Note ---
Procedure Note Date of Service January 15, 2025 Bedside Ultrasound: Lung: Right:-No pleural effusion, curtain sign, B-lines posteriorly, A-line's anteriorly Left:-Small layering of hypoechoic simple pleural fluid around the lung, B-lines posteriorly and anteriorly Abdomen: Hypoechoic collection of fluid subphrenic on the left side Please note the above document was generated using voice recognition software. It may contain grammatical, syntax or spelling errors.Any formal questions or concerns about the content, text or information contained within the body of this dictation should be directly addressed to the provider for clarification. [facility] Procedure Codes (Charges) Pulmonary/Thoracic Procedure 1: Pulmonary and Thoracic: 72868 US, Chest, real time with imaging documentation Coding CPT Codes Pulmonary/Thoracic - Pulmonary and Thoracic: 72427 US, Chest, real time with imaging documentation ([id number]) Additional Codes Date of Service (PG.SURGERY)
[2025-01-16 09:31] LABS: Alanine Aminotransferase 51.0 U/L (7-52); Albumin Globulin Ratio 0.7 (0.9-2); Albumin Level 3.2 gm/dl (3.4-5.0); Alkaline Phosphatase 113.0 U/L (34-104); Anion Gap 10.0 (3-11); Bilirubin,Total 0.4 mg/dl (0.2-1.0); Blood Urea Nitrogen 23.0 mg/dl (6-23); Calcium 8.9 mg/dl (8.6-10.3); Carbon Dioxide 24.0 mmol/L (21-32); Chloride 100.0 mmol/L (98-107); Creatinine Clr Calc Pharmacy 123.0 ml/min; Globulin 4.8 gm/dl (2.5-4.0); Glucose 148.0 mg/dl (70-99(Fasting)); Magnesium 2.0 mg/dl (1.7-2.4); Potassium 3.3 mmol/L (3.5-5.1); Sodium 134.0 mmol/L (136-145); Total Protein 8.0 gm/dl (6.0-8.3)
[2025-01-16 09:32] LABS: Hematocrit (blood only) 29.5 % (42.0-52.0); Hemoglobin 10.0 g/dL (14.0-18.0); Mean Corpuscular Hemoglobin 27.0 pg (25.0-34.0); Mean Corpuscular Volume 79.5 fL (80.0-100.0); Platelet Count 1167 K/uL (130-400); RDW Standard Deviation 39.4 fL (36.4-46.3); Red Blood Count 3.71 M/uL (4.70-6.10); White Blood Count 10.72 K/ul (4.8-10.8)
[2025-01-16 09:53] LABS: Immature Granulocytes # (auto) 0.18 K/uL (0.01-0.20); Immature Granulocytes % (auto) 1.7 %; Polychromasia 1+; Spherocytes 1+
--- NOTE | 2025-01-16 11:10 | Surgery Progress Note ---
Date of Service January 16, 2025 Assessment & Plan (1) S/P laparoscopic appendectomy: Plan: -WBC 10.7, vitals are stable, and patient afebrile - Patient underwent left thoracentesis 01/14, cultures pending and pulmonology team following and did recommend repeat CT imaging of the chest however patient hesitant/scared to undergo any additional procedures of the thorax. -Abdomen soft and patient with no pain on exam, tolerating diet, having bowel function. -Continue IV Zosyn until pleural fluid cultures result, if cultures are negative can consider narrowing IV abx. Patient will tentatively be here at least another week requiring IV abx at which point we may re-image chest/abdomen/pelvis. - Will continue non-operative management for intraabdominal abscesses, currently not amenable to IR drainage, if patient deteriorates he will likely require a wash out however for now will continue to treat with conservatively and patient doing well. -Appreciate social work, hospitalist, and pulmonology with assistance in patient's care. 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 Status post laparoscopic appendectomy washout for perforated appendicitis with sepsis, status post IR drainage of intra-abdominal abscess and thoracentesis for reactive effusion. Overall he is doing much better. No fevers, chest does not hurt anymore, no headaches. No abdominal pain. The artery drains been removed. On exam he is afebrile with stable vitals. His incisions are without i nfection, inferior incision with wick in place. WBC normal. Pleural effusion cultures pending. Will continue with IV antibiotics, repeat CT scan in the next week or 2. Potential transition to oral antibiotics if his collections are improving. Pulmonology following for his possibly infected effusion. Dr. Hardin covering over the weekend. Subjective Patient see and evaluated this morning. States he is feeling well Tolerating diet without any issues, denies any nausea or vomiting Pulmonology team consulted due to large left loculated pleural effusion, patient is s/p IR guided thoracentesis 01/14/2025 (640 mL of fluid removed) and exudative as per lights criteria WBC 10.7 and patient afebrile, continues on IV abx Physical Exam Constitutional: WD/WN, vitals as above Respiratory: normal respiratory effort; no respiratory distress and no labored breathing Cardiovascular: Rate/Rhythm: regular rate Gastrointestinal (Abdomen): Abdomen soft, nondistended, nontender. Surgical sites with dressing in place, c/d/i without any signs of infection Previous IR and AISHWARYA drains removed Skin: no rashes, warm and dry Results & Data Vital Signs (Past 12 Hours) Vital Signs Temp Pulse Resp BP Pulse Ox O2 Del Method 01/16/25 07:50 36.8 C 96 H 18 107/71 94 Room Air 01/16/25 03:25 36.6 C 81 18 119/71 96 Room Air 01/16/25 00:37 Room Air PG Care Time/CCT Total # of Minutes Spent Total Time Spent with Patient: Total time spent is greater than 50% in coordination of care (as documented) at patient's floor/unit and/or counseling patient: [place] [address] Post Operative Follow-Up Patient Type Established Medical Decision Making Straight Forward Diagnoses S/P laparoscopic appendectomy Z90.49 Postoperative intra-abdominal abscess T81.43XA; K65.1
--- NOTE | 2025-01-16 14:11 | Pulmonology Progress Note ---
Date of Service January 16, 2025 Assessment & Plan (1) Loculated pleural effusion: (2) Postoperative intra-abdominal abscess: (3) Shortness of breath: Plan CT chest 01/13/2025 personally reviewed: Large loculated left-sided pleural effusion with compressive atelectasis of the left lower lobe Small right-sided pleural effusion No significant mediastinal lymphadenopathy --Loculated left-sided pleural effusion S/p IR guided thoracentesis 01/14/2025 with removal of 640 mL of fluid, exudative as per lights criteria, 17% lymphocytes Pleural: LDH 630, protein 5.4, pH 7.55 The effusion is likely sympathetic given the multiple abscesses as well as sub phrenic collection on the left side Given that the abdominal fluid culture was positive for E. coli, there is high probability that the pleural fluid might also machine turner to be positive On the bedside ultrasound 01/15/2025, he does seem to have small pocket of fluid layering around the left lung, he also seems to have subphrenic fluid collection on the left side Plan: The effusion is likely sympathetic given the multiple abscesses as well as self phrenic collection on the left side Given that the abdominal fluid culture was positive for E. coli, there is high probability that the pleural fluid might also machine turner to be positive Pleural fluid cultures are negative to date I wanted to get a CT of the chest with contrast to be done today but patient is scared of doing any procedures when it comes to the thorax Repeat CT of the chest when patient is supposed to have CT of the abdomen pelvis by surgery Continue with antibiotics to cover for E. coli Case was discussed with primary team Please note the above document was generated using voice recognition software. It may contain grammatical, syntax or spelling errors.Any formal questions or concerns about the content, text or information contained within the body of this dictation should be directly addressed to the provider for clarification. Admission and Anticipated Discharge Date Admission Date: December 31, 2024 Subjective Patient seen and examined at bedside. No acute distress, no adverse events overnight Was saturating well on room air Complain of some abdominal discomfort No chest pain, no shortness of breath Denied any headache, no nausea vomiting Fair appetite Review of Systems 2 Review of Systems: All systems reviewed & are unremarkable except as noted in Subjective Physical Exam 2 Physical Exam: Constitutional: No acute distress HEENT: EOMI, PERRLA Respiratory system: Decreased air entry on the left side, no wheeze, no rhonchi, mild crackles left lower lobe CVS: S1-S2 positive, no murmurs or gallops Abdomen: Soft, nontender, nondistended, positive bowel sounds x4 Extremities: +2 pulses bilaterally radialis/ dorsalis pedis, no cyanosis, no edema Neuro: Awake alert oriented to self and place Psych: Normal mood and affect G/U: No Wayne Skin: no rashes, warm and dry Lymphatic: no cervical or axillary lymphadenopathy Results & Data Results & Data Vital Signs (Past 12 Hours) Vital Signs Temp Pulse Pulse Resp BP Pulse Ox O2 Del Method 01/16/25 13:46 91 H 01/16/25 12:14 36.6 C 78 18 107/73 96 Room Air 01/16/25 07:50 36.8 C 96 H 18 107/71 94 Room Air 01/16/25 03:25 36.6 C 81 18 119/71 96 Room Air Laboratory Results 01/16/25 08:25 01/16/25 08:25 PG Care Time/CCT Total # of Minutes Spent Total Time Spent with Patient: Total time spent is greater than 50% in coordination of care (as documented) at patient's floor/unit and/or counseling patient: Coding Level of Care Code 44650 SUB INP/OBS CARE 2/35MIN Diagnoses Loculated pleural effusion J90 Postoperative intra-abdominal abscess T81.43XA; K65.1 Shortness of breath R06.02
--- NOTE | 2025-01-16 17:09 | Hospitalist Progress Note ---
Date of Service January 16, 2025 Assessment & Plan (1) Acute appendicitis: (2) Pleural effusion: (3) Postoperative intra-abdominal abscess: (4) Thrombocythemia: Plan This patient is a 39 y/o Japanese speaking male with no past medical history who was admitted with perforated appendicitis, peritonitis, sepsis POA, possible partial SBO, and postoperative intra-abdominal abscesses and pleural effusion with possible empyema. Patient was taken to the OR urgently 12/31 for a laparosc opic appendectomy and abdominal washout. He also was with an CORINA, lactic acidosis. #Sepsis POA 2/2 perforated gangrenous appendicitis/peritonitis/partial SBO/intra-abdominal abscesses-with tachypnea, tachycardia, procalcitonin greater than 100, lactate elevated at 8, CORINA, and metabolic acidosis on admission. Sepsis, CORINA and acidosis resolved after IV fluids, IV Zosyn, surgical washout and appendectomy. On 01/02, he was moving bowels, NG tube removed, started on clear liquids, Wayne catheter removed. Pathology with gangrenous appendicitis. On 01/03 in the afternoon, he developed worsening severe pain and abdominal distention with N/V-repeat CT A/P with peritonitis, fluid collections, mesenteric edema, and possible bowel obstruction versus ileus. NG tube replaced on 01/03 and then subsequently removed a few days later. Ileus resolved. Had IR drain placed in left paracolic abscess on 01/07 and removed on 01/14. Intra- abd cx with E. coli, pansensitive. Blood cultures negative. Now overall much improved, now Surgery has advanced to low fiber diet. Repeat CT A/P 01/13 w/ multiple intra-abd abscesses although all seem to be improving in size and not amenable to IR drainage. He was on TPN for over a week and that is now discontinued. - Postoperative management as per surgery - Continue IV Zosyn likely for at least another 1-2 weeks as per general surg rasheeda-Will likely remain inpatient for this as he has no health insurance and no social support at home - Repeat CT abdomen/pelvis in 1 to 2 weeks from the last - Continue Tylenol but changed from scheduled to as needed for pain. Continue Toradol as needed for pain-discontinue opioids as he is no longer needing them - Follow CBC, BMP, magnesium, phosphorus in the a.m. and keep electrolytes replete-give KCl 40 mEq p.o. x 1 for hypokalemia today #Anemia/Thrombocytosis -Hgb mildly low but stable at 9-10, microcytic, iron panel consistent with chronic disease and iron deficiency mixed early in course of admission. B12, folate, and TSH are normal. Continues to have significant thrombocytosis with platelets remaining elevated at 1167-likely reactive to infection and possibly secondary to iron deficiency. Appreciate Heme consult- recommends against aspirin use or any further workup as this is all reactive to sepsis - Hematology does not recommend giving IV iron --No aspirin needed for thrombocythemia and a reactive situation - Follow-up with GI as an outpatient for EGD and colonoscopy for microcytic iron deficiency anemia; however, he does not have insurance which may prohibit this. - Follow CBC daily #Hyponatremia-worsened due to hypervolemia from many days of IV fluids and TPN- with large pleural effusion. Sodium up to 134-135 after diuresis - Follow BMP - Hold off on further IV Lasix as pleural effusion is exudative #Pleural effusions/acute respiratory failure with hypoxemia- CTA chest performed on 01/03 due to shortness of breath shows pleural effusions and atelectasis of the lower lobes. He also had a subdiaphragmatic intra-abdominal abscess c ontributing to splinting. Significantly decreased breath sounds noted on exam in 01/12-CXR shows significantly enlarged left-sided pleural effusion greater than right. Pulse ox normal at 95% on room air. CT CHest on 01/13 with large left loculated pleural effusion and LLL collapse. Was diuresed with IV Lasix without much improvement. Had thoracentesis on 01/14. pH 7.55, chemistries consistent with exudative effusion by lights criteria, cultures pending, cytology negative. Now weaned off supplemental O2. Consulted pulmonology- concern for empyema given loculated effusion. Patient hesitant to have repeat thoracentesis or chest tube due to previous 1 causing severe pain, but now is amenable if necessary if given IV pain medicine prior to procedure - Encouraged incentive spirometry with patient and with nursing - Repeat chest CT with IV contrast at the time of next CT abdomen/pelvis 1 week from the last -Follow pleural fluid cultures, AFB - Pulmonology following #HERMAN-ongoing, almost daily - Continue acetaminophen and Toradol as needed #CORINA/high AG metabolic acidosis/lactic acidosis- resolved. Creatinine 3.4 on arrival and now normal. CORINA secondary to ATN from sepsis. With lactic acidosis with lactate 8 and now normalized. pH 7.1 on arrival with metabolic acidosis. Is now resolved. Received IV fluids, treatment of sepsis. - Follow BMP #Severe hepatic steatosis/ Elevated liver enzymes/prediabetes - Seen on CT. Total bilirubin now normalized. AST and ALT mildly elevated and now much improved. Patient reports he only drinks alcohol 2-3 times per month-unclear if this is accurate. Lipids are normal, HgbA1c in prediabetes range at 6.0%. - counseled on alcohol cessation - Recommend follow-up with PCP and/or GI as an outpatient for fatty liver and prediabetes - Recommend low carbohydrate diet after discharge - Follow CMP - Continue po thiamine and p.o. folic acid daily in case of occult alcohol use disorder #Elevated troponin - peaked at 61 on 11.6, myocardial demand in the setting of GI sepsis DVT prophylaxis: SCDs, Lovenox Dispo: Continued stay on PCU. Hospitalist service will continue to follow along Admission and Anticipated Discharge Date Admission Date: December 31, 2024 Subjective Patient denies abdominal pain. He is having a headache starting this evening. He denies shortness of breath. He did not walk the hallways today but walked around his room. He is willing to walk the hallways this evening after dinner. I did discuss his care with pulmonology. Telemetry with normal sinus rhythm and sinus tachycardia with rates mostly in the 80s to low 100s Physical Exam Constitutional: WD/WN, vitals as above Eyes: + anicteric sclerae Respiratory: Auscultation: + diminished lung sounds (Left lower lung field, improved air movement otherwise); no crackles and no wheezes Cardiovascular: Rate/Rhythm: regular rhythm Heart Sounds: no murmur Extremities: no edema Gastrointestinal (Abdomen): Inspection/Auscultation: normal bowel sounds; + abdomen abnormal to inspection (Multiple laparoscopic surgery sites with Dermabond in place well-healed) Percussion/Palpation: abdomen soft; abdomen nontender and no guarding Psychiatric: A+Ox3, euthymic affect Orientation: cooperative Results & Data Results & Data Vital Signs (Past 12 Hours) Vital Signs Temp Pulse Pulse Resp BP Pulse Ox O2 Del Method 01/16/25 15:48 37.3 C 83 16 105/67 96 Room Air 01/16/25 13:46 91 H 01/16/25 12:14 36.6 C 78 18 107/73 96 Room Air 01/16/25 07:50 36.8 C 96 H 18 107/71 94 Room Air Laboratory Results CBC, BMP, LFTs, magnesium, CRP, pleural fluid cultures and AFB smear, pleural fluid cytology reviewed PG Care Time/CCT Total # of Minutes Spent Total Time Spent with Patient: Total time spent is greater than 50% in coordination of care (as documented) at patient's floor/unit and/or counseling patient: Coding Level of Care Code 36077 SUB INP/OBS CARE 2MIN Diagnoses Acute appendicitis K35.201 Acute appendicitis type: with generalized peritonitis Appendicitis abscess presence: unspecified whether abscess present Appendicitis gangrene presence: with gangrene Appendicitis perforation presence: with perforation Pleural effusion J90 Postoperative intra-abdominal abscess T81.43XA; K65.1 Thrombocythemia D75.839 (1) Acute appendicitis Acute appendicitis type: with generalized peritonitis Appendicitis abscess presence: unspecified whether abscess present Appendicitis gangrene presence: w ith gangrene Appendicitis perforation presence: with perforation Qualified Code(s): K35.201 - Acute appendicitis with generalized peritonitis, with perforation, without abscess
[2025-01-16] MEDS: POTASSIUM CHLORIDE CRTAB 20 MEQ TABCR PO STA (18:48)
[2025-01-17 06:53] LABS: Hematocrit (blood only) 27.6 % (42.0-52.0); Hemoglobin 9.3 g/dL (14.0-18.0); Mean Corpuscular Hemoglobin 26.8 pg (25.0-34.0); Mean Corpuscular Volume 79.5 fL (80.0-100.0); Platelet Count 1134 K/uL (130-400); RDW Standard Deviation 39.4 fL (36.4-46.3); Red Blood Count 3.47 M/uL (4.70-6.10); White Blood Count 11.06 K/ul (4.8-10.8)
[2025-01-17 07:16] LABS: Alanine Aminotransferase 40.0 U/L (7-52); Albumin Globulin Ratio 0.7 (0.9-2); Albumin Level 3.1 gm/dl (3.4-5.0); Alkaline Phosphatase 98.0 U/L (34-104); Anion Gap 10.0 (3-11); Bilirubin,Total 0.4 mg/dl (0.2-1.0); Blood Urea Nitrogen 21.0 mg/dl (6-23); Calcium 8.9 mg/dl (8.6-10.3); Carbon Dioxide 24.0 mmol/L (21-32); Chloride 102.0 mmol/L (98-107); Creatinine Clr Calc Pharmacy 124.9 ml/min; Globulin 4.3 gm/dl (2.5-4.0); Glucose 100.0 mg/dl (70-99(Fasting)); Magnesium 1.9 mg/dl (1.7-2.4); Potassium 3.7 mmol/L (3.5-5.1); Sodium 136.0 mmol/L (136-145); Total Protein 7.4 gm/dl (6.0-8.3)
[2025-01-17 07:36] LABS: Hypochromasia Present; Immature Granulocytes # (auto) 0.15 K/uL (0.01-0.20); Immature Granulocytes % (auto) 1.4 %; Polychromasia 1+
--- NOTE | 2025-01-17 09:11 | Pulmonology Progress Note ---
Date of Service January 17, 2025 Assessment & Plan (1) Loculated pleural effusion: (2) Postoperative intra-abdominal abscess: (3) Shortness of breath: Plan CT chest 01/13/2025 personally reviewed: Large loculated left-sided pleural effusion with compressive atelectasis of the left lower lobe Small right-sided pleural effusion No significant mediastinal lymphadenopathy --Loculated left-sided pleural effusion S/p IR guided thoracentesis 01/14/2025 with removal of 640 mL of fluid, exudative as per lights criteria, 17% lymphocytes Pleural: LDH 630, protein 5.4, pH 7.55 The effusion is likely sympathetic given the multiple abscesses as well as sub phrenic collection on the left side Given that the abdominal fluid culture was positive for E. coli, there is high probability that the pleural fluid might also bottom turning lathe turner to be positive On the bedside ultrasound 01/15/2025, he does seem to have small pocket of fluid layering around the left lung, he also seems to have subphrenic fluid collection on the left side Plan: The effusion is likely sympathetic given the multiple abscesses as well as self phrenic collection on the left side Given that the abdominal fluid culture was positive for E. coli, there is high probability that the pleural fluid might also bottom turning lathe turner to be positive Pleural fluid cultures are negative to date I wanted to get a CT of the chest with contrast to be done today but patient is scared of doing any procedures when it comes to the thorax Will repeat chest x-ray tomorrow Repeat CT of the chest when patient is supposed to have CT of the abdomen pelvis by surgery Continue with antibiotics to cover for E. coli Case was discussed with primary team Please note the above document was generated using voice recognition software. It may contain grammatical, syntax or spelling errors.Any formal questions or concerns about the content, text or information contained within the body of this dictation should be directly addressed to the provider for clarification. Admission and Anticipated Discharge Date Admission Date: December 31, 2024 Subjective Patient seen and examined at bedside. No acute distress, no adverse events overnight He was saturating 97% on room air Complain of mild abdominal discomfort No nausea or vomiting Has been afebrile Tolerating diet Review of Systems 2 Review of Systems: All systems reviewed & are unremarkable except as noted in Subjective Physical Exam 2 Physical Exam: Constitutional: No acute distress HEENT: EOMI, PERRLA Respiratory system: Decreased air entry on the left side, no wheeze, no rhonchi, no crackles CVS: S1-S2 positive, no murmurs or gallops Abdomen: Soft, mild right upper quadrant tenderness, no rebound nondistended, positive bowel sounds x4 Extremities: +2 pulses bilaterally radialis/ dorsalis pedis, no cyanosis, no edema Neuro: Awake alert oriented to self and place Psych: Normal mood and affect G/U: No Wayne Skin: no rashes, warm and dry Lymphatic: no cervical or axillary lymphadenopathy Results & Data Results & Data Vital Signs (Past 12 Hours) Vital Signs Temp Pulse Pulse Resp BP Pulse Ox O2 Del Method 01/17/25 07:24 88 01/17/25 07:23 36.8 C 90 19 102/66 93 Room Air 01/17/25 02:53 36.9 C 86 19 95/63 L 93 Room Air 01/16/25 23:24 37.6 C H 79 19 109/65 93 Room Air 01/16/25 21:41 106 H Laboratory Results 01/17/25 06:29 01/17/25 06:29 PG Care Time/CCT Total # of Minutes Spent Total Time Spent with Patient: Total time spent is greater than 50% in coordination of care (as documented) at patient's floor/unit and/or counseling patient: Coding Level of Care Code 83867 SUB INP/OBS CARE 2/35MIN Diagnoses Loculated pleural effusion J90 Postoperative intra-abdominal abscess T81.43XA; K65.1 Shortness of breath R06.02
--- NOTE | 2025-01-17 09:57 | Surgery Progress Note ---
Date of Service January 17, 2025 Assessment & Plan (1) S/P laparoscopic appendectomy: Plan: - vitals are stable, and patient afebrile - Patient underwent left thoracentesis 01/14, cultures pending and pulmonology team following and did recommend repeat CT imaging of the chest however patient hesitant/scared to undergo any additional procedures of the thorax. -Abdomen soft and patient with no pain on exam, tolerating diet, having bowel function. -Continue IV Zosyn until pleural fluid cultures result, if cultures are negative can consider narrowing IV abx. Patient will tentatively be here at least another week requiring IV abx at which point we may re-image chest/abdomen/pelvis. - Will continue non-operative management for intraabdominal abscesses, currently not amenable to IR drainage, if patient deteriorates he will likely require a wash out however for now will continue to treat with conservatively and patient doing well. -Appreciate social work, hospitalist, and pulmonology with assistance in patient's care. (2) Postoperative intra-abdominal abscess: Admission and Anticipated Discharge Date Admission Date: December 31, 2024 Subjective doing well. No complaints. Denies any pain in abdomen or chest. Walking in the halls. Physical Exam Physical Exam: awake/alert, no distress Abdomen soft, nontender Incisions healing well without erythema or discharge Results & Data Vital Signs (Past 12 Hours) Vital Signs Temp Pulse Pulse Resp BP Pulse Ox O2 Del Method 01/17/25 07:24 88 01/17/25 07:23 36.8 C 90 19 102/66 93 Room Air 01/17/25 02:53 36.9 C 86 19 95/63 L 93 Room Air 01/16/25 23:24 37.6 C H 79 19 109/65 93 Room Air Laboratory Results 01/17/25 Range/Units 06:29 WBC 11.06 H (4.8-10.8) K/ul RBC 3.47 L (4.70-6.10) M/uL Hgb 9.3 L (14.0-18.0) g/dL Hct 27.6 L (42.0-52.0) % MCV 79.5 L (80.0-100.0) fL MCH 26.8 (25.0-34.0) pg MCHC 33.7 (32.0-36.0) g/dL RDW Std Deviation 39.4 (36.4-46.3) fL RDW Coeff of Annika 13.6 (11.5-14.5) % Plt Count 1134 H* (130-400) K/uL MPV 8.4 L (9.4-12.4) fL Immature Gran % (Auto) 1.4 % Neut % (Auto) 75.4 % Lymph % (Auto) 10.9 % [place] % (Auto) 9.9 % Eos % (Auto) 1.8 % Baso % (Auto) 0.6 % Neut # (Auto) 8.33 H (1.40-6.50) K/uL Lymph # (Auto) 1.21 (1.20-3.40) K/uL [place] # (Auto) 1.10 H (0.11-0.59) K/uL Eos # (Auto) 0.20 (0.00-0.50) K/uL Baso # (Auto) 0.07 (0.00-0.20) K/uL Immature Gran # (Auto) 0.15 (0.01-0.20) K/uL Polychromasia 1+ Hypochromasia Present Sodium 136 (136-145) mmol/L Potassium 3.7 (3.5-5.1) mmol/L Chloride 102 (98-107) mmol/L Carbon Dioxide 24 (21-32) mmol/L Anion Gap 10 (3-11) BUN 21 (6-23) mg/dl Creatinine 0.73 (0.6-1.4) mg/dl Est Cr Clr Drug Dosing 124.9 ml/min eGFR 120.17 BUN/Creatinine Ratio 28.8 H (10-20) Glucose 100 H (70-99(Fasting)) mg/dl Calcium 8.9 (8.6-10.3) mg/dl Magnesium 1.9 (1.7-2.4) mg/dl Total Bilirubin 0.4 (0.2-1.0) mg/dl AST 33 (13-39) U/L ALT 40 (7-52) U/L Alkaline Phosphatase 98 (34-104) U/L Total Protein 7.4 (6.0-8.3) gm/dl Albumin 3.1 L (3.4-5.0) gm/dl Globulin 4.3 H (2.5-4.0) gm/dl Albumin/Globulin Ratio 0.7 L (0.9-2)
--- NOTE | 2025-01-17 16:52 | Hospitalist Progress Note ---
Date of Service January 17, 2025 Assessment & Plan (1) Acute appendicitis: (2) Pleural effusion: (3) Postoperative intra-abdominal abscess: (4) Thrombocythemia: Plan This patient is a 39 y/o Telugu speaking male with no past medical history who was admitted with perforated appendicitis, peritonitis, sepsis POA, partial SBO, CORINA, severe lactic acidosis, and postoperative intra-abdominal abscesses and pleural effusion with possible empyema. Patient was taken to the OR urgently 12/31 for a laparoscopic appendectomy and abdominal washout. #Sepsis POA 2/2 perforated gangrenous appendicitis/peritonitis/partial SBO/intra-abdominal abscesses-with tachypnea, tachycardia, procalcitonin greater than 100, lactate elevated at 8, CORINA, and metabolic acidosis on admission. Sepsis, CORINA and acidosis resolved after IV fluids, IV Zosyn, surgical washout and appendectomy. On 01/02, he was moving bowels, NG tube removed, started on clear liquids, Wayne catheter removed. Pathology with gangrenous appendicitis. On 01/03 in the afternoon, he developed worsening severe pain and abdominal distention with N/V-repeat CT A/P with peritonitis, fluid collections, mesenteric edema, and possible bowel obstruction versus ileus. NG tube replaced on 01/03 and then subsequently removed a few days later. Ileus resolved. Had IR drain placed in left paracolic abscess on 01/07 and removed on 01/14. Intra- abd cx with E. coli, pansensitive. Blood cultures negative. Now overall much improved, now Surgery has advanced to low fiber diet. Repeat CT A/P 01/13 w/ multiple intra-abd abscesses although all seem to be improving in size and not amenable to IR drainage. He was on TPN for over a week and that is now discontinued. Leukocytosis worsening again, low-grade temps on the evening of 01/16, and platelets remain significantly elevated-all point towards signs of ongoing inflammation/infection - Postoperative management as per surgery - Continue IV Zosyn likely for at least another 1-2 weeks as per general surgery-Will likely remain inpatient for this as he has no health insurance and no social support at home - Repeat CT abdomen/pelvis in 1 to 2 weeks from the last - Continue Tylenol but changed from scheduled to as needed for pain. Continue Toradol as needed for pain-discontinue opioids as he is no longer needing them - Follow CBC, BMP, magnesium in the a.m. and keep electrolytes replete, check CRP - If leukocytosis continues to worsen or spikes fever, will repeat CT A/P sooner #Anemia/Thrombocytosis -Hgb mildly low but stable at 9-10, microcytic, iron panel consistent with chronic disease and iron deficiency mixed early in course of admission. B12, folate, and TSH are normal. Continues to have significant thrombocytosis with platelets remaining elevated at 1134-likely reactive to infection and possibly secondary to iron deficiency. Appreciate Heme consult- recommends against aspirin use or any further workup as this is all reactive to sepsis - Hematology does give a specific recommendation regarding giving IV iron, but may consider doing this anyway as this may improve his thrombocytosis --No aspirin needed for thrombocythemia and a reactive situation - Follow-up with GI as an outpatient for EGD and colonoscopy for microcytic iron deficiency anemia; however, he does not have insurance which may prohibit this. - Follow CBC daily #Hyponatremia-worsened due to hypervolemia from many days of IV fluids and TPN- with large pleural effusion. Sodium up to 134-135 after diuresis and now improved to normal. - Follow BMP #Pleural effusions/acute respiratory failure with hypoxemia- CTA chest performed on 01/03 due to shortness of breath shows pleural effusions and atelectasis of the lower lobes. He also had a subdiaphragmatic intra-abdominal abscess contributing to splinting. Significantly decreased breath sounds noted on exam in 01/12-CXR shows significantly enlarged left-sided pleural effusion greater than right. Pulse ox normal at 95% on room air. CT CHest on 01/13 with large left loculated pleural effusion and LLL collapse. Was diuresed with IV Lasix without much improvement. Had thoracentesis on 01/14. pH 7.55, chemistries consistent with exudative effusion by lights criteria, cultures pending, cytology negative. Now weaned off supplemental O2. Consulted pulmonology- concern for empyema given loculated effusion. Patient hesitant to have repeat thoracentesis or chest tube due to previous 1 causing severe pain, but now is amenable if necessary if given IV pain medicine prior to procedure - Encouraged incentive spirometry with patient and with nursing - Repeat chest CT with IV contrast at the time of next CT abdomen/pelvis 1 week from the last -Follow pleural fluid cultures, AFB - Pulmonology following - CXR on the a.m. of 01/18 #HERMAN-ongoing, almost daily, but improving - Continue acetaminophen as needed #CORINA/high AG metabolic acidosis/lactic acidosis- resolved. Creatinine 3.4 on arrival and now normal. CORINA secondary to ATN from sepsis. With lactic acidosis with lactate 8 and now normalized. pH 7.1 on arrival with metabolic acidosis. Is now resolved. Received IV fluids, treatment of sepsis. - Follow BMP #Severe hepatic steatosis/ Elevated liver enzymes/prediabetes - Seen on CT. LFTs are now completely normal. Patient reports he only drinks alcohol 2-3 times per month-unclear if this is accurate. Lipids are normal, HgbA1c in prediabetes range at 6.0%. - counseled on alcohol cessation - Recommend follow-up with PCP and/or GI as an outpatient for fatty liver and prediabetes - Recommend low carbohydrate diet after discharge - Follow CMP - Continue po thiamine and p.o. folic acid daily in case of occult alcohol use disorder #Elevated troponin - peaked at 61 on 01.01, myocardial demand in the setting of GI sepsis DVT prophylaxis: SCDs, Lovenox Dispo: Continued stay but can downgrade to medical/surgical unit on 01/17. Hospitalist service will continue to follow along Admission and Anticipated Discharge Date Admission Date: December 31, 2024 Subjective Patient feels well today. Denies shortness of breath or abdominal pain. No nausea or vomiting. He is eating food regularly. He is moving his bowels regularly without diarrhea or constipation. He denies any headache today. He only had a headache for short amount of time last night and it went away quicker than usual. Telemetry with normal sinus rhythm and sinus tachycardia briefly with rates mostly in the 80s to 90s Physical Exam Constitutional: WD/WN, vitals as above Respiratory: Auscultation: + diminished lung sounds (Left lower lung field, improved air movement otherwise); no crackles and no wheezes Cardiovascular: Rate/Rhythm: regular rhythm Heart Sounds: no murmur Extremities: no edema Gastrointestinal (Abdomen): Inspection/Auscultation: normal bowel sounds; + abdomen abnormal to inspection (Multiple laparoscopic surgery sites with Dermabond in place well-healed) and abdomen not distended Percussion/Palpation: abdomen soft; abdomen nontender and no guarding Psychiatric: A+Ox3, euthymic affect Orientation: cooperative Results & Data Results & Data Vital Signs (Past 12 Hours) Vital Signs Temp Pulse Pulse Resp BP Pulse Ox O2 Del Method 01/17/25 15:10 37.2 C 95 H 20 101/67 94 Room Air 01/17/25 10:53 37.3 C 90 19 100/63 96 Room Air 01/17/25 07:24 88 01/17/25 07:23 36.8 C 90 19 102/66 93 Room Air Laboratory Results CBC, BMP, magnesium, LFTs, pleural culture fluid reviewed PG Care Time/CCT Total # of Minutes Spent Total Time Spent with Patient: Total time spent is greater than 50% in coordination of care (as documented) at patient's floor/unit and/or counseling patient: Coding Level of Care Code 28878 SUB INP/OBS CARE 3/50MIN Diagnoses Acute appendicitis K35.201 Acute appendicitis type: with generalized peritonitis Appendicitis abscess presence: unspecified whether abscess present Appendicitis gangrene presence: with gangrene Appendicitis perforation presence: with perforation Pleural effusion J90 Postoperative intra-abdominal abscess T81.43XA; K65.1 Thrombocythemia D75.839 (1) Acute appendicitis Acute appendicitis type: with generalized peritonitis Appendicitis abscess presence: unspecified whether abscess present Appendicitis gangrene presence: with gangrene Appendicitis perforation presence: with perforation Qualified Code(s): K35.201 - Acute appendicitis with generalized peritonitis, with perforation, without abscess
[2025-01-17] MEDS: ACETAMINOPHEN 500 MG TAB PO PRN (19:27)
--- NOTE | 2025-01-18 08:37 | XRay Report ---
EXAM: XR chest 1V portable CLINICAL HISTORY: F/u. TECHNIQUE: An X-ray image of the chest is obtained in AP portable projection. COMPARISON: X-ray 01/14/2025. FINDINGS: Pulmonary Parenchyma: There is a right PICC line with its tip is down in the atrium, stable. Nonhomogeneous opacity is identified in the left upper middle lower zone silhouetting the left heart border, left CP angle and left hemidiaphragm suggestive of pulmonary edema/left-sided pleural effusion/pulmonary infection. Prominent bilateral hilar suggestive of vascular congestion. Heart and Mediastinum: Cardiac size cannot be commented upon due to projection. No mediastinal widening or masses. No hilar or mediastinal lymphadenopathy. Bony Thorax: Bony thorax appears intact without fractures or deformities. Soft Tissues: Soft tissues overlying the chest wall are unremarkable. IMPRESSION: 1. Nonhomogeneous opacity is identified in the left upper middle lower zone silhouetting the left heart border, left CP angle and left hemidiaphragm suggestive of pulmonary edema/left-sided pleural effusion/pulmonary infection. More prominent in the current study. 2. There is a right arm PICC line with its tip is down in the atrium, stable. Electronically signed by Calixto Hudson 01-18-2025 08:36 AM
[2025-01-18 09:10] LABS: Anion Gap 9.0 (3-11); Blood Urea Nitrogen 16.0 mg/dl (6-23); Calcium 9.6 mg/dl (8.6-10.3); Carbon Dioxide 24.0 mmol/L (21-32); Chloride 101.0 mmol/L (98-107); Creatinine Clr Calc Pharmacy 111.2 ml/min; Glucose 143.0 mg/dl (70-99(Fasting)); Magnesium 1.9 mg/dl (1.7-2.4); Potassium 3.8 mmol/L (3.5-5.1); Sodium 134.0 mmol/L (136-145)
[2025-01-18 09:25] LABS: Hematocrit (blood only) 32.2 % (42.0-52.0); Hemoglobin 10.7 g/dL (14.0-18.0); Mean Corpuscular Hemoglobin 26.8 pg (25.0-34.0); Mean Corpuscular Volume 80.5 fL (80.0-100.0); Platelet Count 1267 K/uL (130-400); RDW Standard Deviation 40.3 fL (36.4-46.3); Red Blood Count 4.00 M/uL (4.70-6.10); White Blood Count 12.31 K/ul (4.8-10.8)
[2025-01-18 09:29] LABS: Hypochromasia Present; Immature Granulocytes # (auto) 0.24 K/uL (0.01-0.20); Immature Granulocytes % (auto) 1.9 %; Polychromasia 1+
--- NOTE | 2025-01-18 09:40 | Pulmonology Progress Note ---
Date of Service January 18, 2025 Assessment & Plan (1) Loculated pleural effusion: (2) Postoperative intra-abdominal abscess: (3) Shortness of breath: Plan CT chest 01/13/2025 personally reviewed: Large loculated left-sided pleural effusion with compressive atelectasis of the left lower lobe Small right-sided pleural effusion No significant mediastinal lymphadenopathy --Loculated left-sided pleural effusion S/p IR guided thoracentesis 01/14/2025 with removal of 640 mL of fluid, exudative as per lights criteria, 17% lymphocytes Pleural: LDH 630, protein 5.4, pH 7.55 The effusion is likely sympathetic given the multiple abscesses as well as sub phrenic collection on the left side Given that the abdominal fluid culture was positive for E. coli, there is high probability that the pleural fluid might also bottom turning lathe turner to be positive On the bedside ultrasound 01/15/2025, he does seem to have small pocket of fluid layering around the left lung, he also seems to have subphrenic fluid collection on the left side Plan: The effusion is likely sympathetic given the multiple abscesses as well as sub phrenic collection/abscess on the left side Given that the abdominal fluid culture was positive for E. coli, there is high probability that the pleural fluid might also bottom turning lathe turner to be positive Pleural fluid cultures are negative to date I wanted to get a CT of the chest with contrast to be done today but patient is scared of doing any procedures when it comes to the thorax Chest x-ray from today does not show any significant change from before. Still has small blunting of the left costophrenic angle Leukocytosis is getting worse along with thrombocytosis. Patient is high risk for fungal infection intra-abdominally. Would recommend empiric antifungal treatment and infectious disease consultation Recommend repeating CT chest with contrast, can consider CT abdomen pelvis at the same time Continue with antibiotics to cover for E. coli Case was discussed with primary team Please note the above document was generated using voice recognition software. It may contain grammatical, syntax or spelling errors.Any formal questions or concerns about the content, text or information contained within the body of this dictation should be directly addressed to the provider for clarification. Admission and Anticipated Discharge Date Admission Date: December 31, 2024 Subjective Patient seen and examined at bedside. No acute distress, no adverse events overnight He was saturating 96-97% on room air Denies any abdominal pain Has been tolerating diet. Denies any nausea or vomiting Tmax 37.8 Denied any chest pain, no shortness of breath Review of Systems 2 Review of Systems: All systems reviewed & are unremarkable except as noted in Subjective Physical Exam 2 Physical Exam: Constitutional: No acute distress HEENT: EOMI, PERRLA Respiratory system: Decreased air entry on the left side, no wheeze, no rhonchi, no crackles CVS: S1-S2 positive, no murmurs or gallops Abdomen: Soft, mild right upper quadrant tenderness, no rebound nondistended, positive bowel sounds x4 Extremities: +2 pulses bilaterally radialis/ dorsalis pedis, no cyanosis, no edema Neuro: Awake alert oriented to self and place Psych: Normal mood and affect G/U: No Wayne Skin: no rashes, warm and dry Lymphatic: no cervical or axillary lymphadenopathy Results & Data Results & Data Vital Signs (Past 12 Hours) Vital Signs Temp Pulse Resp BP Pulse Ox O2 Del Method 01/18/25 07:16 36.9 C 86 20 100/64 94 Room Air 01/17/25 23:24 36.8 C 78 18 102/67 95 Room Air Laboratory Results 01/18/25 08:41 01/18/25 08:41 PG Care Time/CCT Total # of Minutes Spent Total Time Spent with Patient: Total time spent is greater than 50% in coordination of care (as documented) at patient's floor/unit and/or counseling patient: Coding Level of Care Code 57379 SUB INP/OBS CARE 2/35MIN Diagnoses Loculated pleural effusion J90 Postoperative intra-abdominal abscess T81.43XA; K65.1 Shortness of breath R06.02
[2025-01-18] MEDS: CASPOFUNGIN 70 MG in SODIUM CHLORIDE 0.9% 250 ML IV ONE (10:37)
--- NOTE | 2025-01-18 10:53 | Surgery Progress Note ---
Date of Service January 18, 2025 Assessment & Plan (1) S/P laparoscopic appendectomy: Plan: - vitals are stable, and patient afebrile - Patient underwent left thoracentesis 01/14, cultures pending and pulmonology team following and did recommend repeat CT imaging of the chest however patient hesitant/scared to undergo any additional procedures of the thorax. -Abdomen soft and patient with no pain on exam, tolerating diet, having bowel function. -Continue IV Zosyn until pleural fluid cultures result, if cultures are negative can consider narrowing IV abx. Patient will tentatively be here at least another week requiring IV abx at which point we may re-image chest/abdomen/pelvis. - Will continue non-operative management for intraabdominal abscesses, currently not amenable to IR drainage, if patient deteriorates he will likely require a wash out however for now will continue to treat with conservatively and patient doing well. -Appreciate social work, hospitalist, and pulmonology with assistance in patient's care. 01/18/25 - white blood cell count continues to rise as well as platelets. CT scan of the chest, abdomen, pelvis with contrast has been ordered. We will await the results for further recommendations. (2) Postoperative intra-abdominal abscess: Admission and Anticipated Discharge Date Admission Date: December 31, 2024 Subjective feeling well; denies any pain or shortness of breath Physical Exam Physical Exam: awake/alert, no distress Abdomen soft, nontender Incisions healing well without erythema or discharge Results & Data Vital Signs (Past 12 Hours) Vital Signs Temp Pulse Resp BP Pulse Ox O2 Del Method 01/18/25 07:16 36.9 C 86 20 100/64 94 Room Air 01/17/25 23:24 36.8 C 78 18 102/67 95 Room Air Laboratory Results 01/18/25 Range/Units 08:41 WBC 12.31 H (4.8-10.8) K/ul RBC 4.00 L (4.70-6.10) M/uL Hgb 10.7 L (14.0-18.0) g/dL Hct 32.2 L (42.0-52.0) % MCV 80.5 (80.0-100.0) fL MCH 26.8 (25.0-34.0) pg MCHC 33.2 (32.0-36.0) g/dL RDW Std Deviation 40.3 (36.4-46.3) fL RDW Coeff of Annika 13.7 (11.5-14.5) % Plt Count 1267 H* (130-400) K/uL MPV 8.2 L (9.4-12.4) fL Immature Gran % (Auto) 1.9 % Neut % (Auto) 71.0 % Lymph % (Auto) 15.1 % [place] % (Auto) 9.1 % Eos % (Auto) 2.3 % Baso % (Auto) 0.6 % Neut # (Auto) 8.74 H (1.40-6.50) K/uL Lymph # (Auto) 1.86 (1.20-3.40) K/uL [place] # (Auto) 1.12 H (0.11-0.59) K/uL Eos # (Auto) 0.28 (0.00-0.50) K/uL Baso # (Auto) 0.07 (0.00-0.20) K/uL Immature Gran # (Auto) 0.24 H (0.01-0.20) K/uL Polychromasia 1+ Hypochromasia Present Sodium 134 L (136-145) mmol/L Potassium 3.8 (3.5-5.1) mmol/L Chloride 101 (98-107) mmol/L Carbon Dioxide 24 (21-32) mmol/L Anion Gap 9 (3-11) BUN 16 (6-23) mg/dl Creatinine 0.82 (0.6-1.4) mg/dl Est Cr Clr Drug Dosing 111.2 ml/min eGFR 116.03 BUN/Creatinine Ratio 19.5 (10-20) Glucose 143 H (70-99(Fasting)) mg/dl Calcium 9.6 (8.6-10.3) mg/dl Magnesium 1.9 (1.7-2.4) mg/dl C-Reactive Protein 19.43 H (0-0.5) mg/dl
[2025-01-18] MEDS: OPTIRAY 320 100ml IV ONE (12:38)
--- NOTE | 2025-01-18 13:17 | CT Scan Report ---
Exam: CT of the chest with contrast. Exam reason: Pleural effusion. Suspected empyema. Comparison: 01/13/2025. Technique: Multiple transaxial images of the chest were obtained following the intravenous administration of contrast. Findings: There has been marked reduction in the sizeOf the left-sided pleural fluid collection When compared to the previous exam. This is overall smaller in size now but does show a split pleural sign. There is bilateral dependent consolidation. There is no pneumothorax. There are no suspicious appearing nodules or masses. It no endobronchial lesions are seen. The heart and great vessels are within normal limits. There are no pathologically enlarged lymph nodes. No acute bony abnormalities are identified. There is redemonstration of and apparent subcapsular fluid collectionSuperior adjacent to the spleen. Impression: 1. Marked reduction in size of left-sided empyema. 2. Persistent probable subcapsular hematoma adjacent to the spleen. 3. Mild bilateral dependent atelectasis. Electronically signed by Kole Fritz 01-18-2025 13:16 PM
--- NOTE | 2025-01-18 13:25 | CT Scan Report ---
Exam: The abdomen pelvis with contrast. Exam reason: Intra-abdominal abscess. Comparison: 01/13/2025. Technique: Multiple transaxial images of the abdomen pelvis were obtained following the intravenous administration of contrast. Findings: No focal abnormalities are noted within the liver. There is redemonstration of a 7.2 x 6.3 cm fluid collection seen superior adjacent to the spleen. This is creating mild mass effect on the spleen and appears to represent a subcapsular hematoma. This is unchanged in size or appearance when compared to the previous exam. Adrenals and pancreas are within normal limits. Gallbladder There is normal enhancement of the kidneys bilaterally. There is no evidence of obstructing stone or hydronephrosis. There is redemonstration of postsurgical changes noted in the ventral midline abdominal wall. There is redemonstration of a small focal fluid collection notedLateral adjacent to the ascending colon. This measures approximately 3.3 x 1.9 cm in size and is unchanged from the previous exam. there is redemonstration of a 3.2 x 3.2 cm focal fluid collection noted in the mid abdomen near the root of the mesentery. There is also a 4.8 x 2.8 cm collection seen anterior inferior to left kidney. there is a 3.0 x 1.3 cm focal fluid collection seen immediately anterior to the left kidney. The bowel loops are of normal caliber. The bladder is unremarkable. There is no free air, free fluid or inflammatory change. The appendix is not definite identified no acute bony adenopathy is identified. Impression: 1. Multiple focal fluid collections noted throughout the abdomen most likely represent residual of the patient's recent ruptured appendicitis. Note that these do have a somewhat encapsulated appearance suggesting that these may represent small abscesses. 2. Focal encapsulated fluid collection seen superior adjacent to the spleen is unchanged from the previous exam. This could represent a subcapsular hematoma however given the appearance of multiple additional fluid collections in the abdomen, this could represent an abscess. Electronically signed by Kole Fritz 01-18-2025 13:25 PM
--- NOTE | 2025-01-18 20:22 | Hospitalist Progress Note ---
Date of Service January 18, 2025 Assessment & Plan (1) Acute appendicitis: (2) Pleural effusion: (3) Postoperative intra-abdominal abscess: (4) Thrombocythemia: Plan This patient is a 39 y/o [place] speaking male with no past medical history who was admitted with perforated appendicitis, peritonitis, sepsis POA, partial SBO, CORINA, severe lactic acidosis, and postoperative intra-abdominal abscesses and pleural effusion with possible empyema. Patient was taken to the OR urgently 12/31 for a laparoscopic appendectomy and abdominal washout. #Sepsis POA 2/2 perforated gangrenous appendicitis/peritonitis/partial SBO/intra-abdominal abscesses-with tachypnea, tachycardia, procalcitonin greater than 100, lactate elevated at 8, CORINA, and metabolic acidosis on admission. Sepsis, CORINA and acidosis resolved after IV fluids, IV Zosyn, surgical washout and appendectomy. He then had an ileus versus partial small bowel obstruction had NG tube replaced. That is now resolved and he is tolerating regular diet. He was then found to have multiple intra-abdominal abscesses-had IR placed drain and left paracolic abscess which has since been removed. He continues to be treated for intra-abdominal abscesses with IV antibiotics. Intra-abd fluid cx with E. coli, pansensitive. Blood cultures negative. Leukocytosis worsening again, low-grade temps on the evening of 01/16 and 01/17, rising CRP, and platelets continue to rise to 1.2 million-all point towards signs of ongoing inflammation/infection. Repeat CT chest/abdomen/pelvis on 01/18 with improved left sided loculated pleural effusion which is likely empyema sympathetic from intra-abdominal abscess, and left sided abscess near spleen remains about the same at 7 cm in size. Discussed care with surgery over the weekend and 01/18 - Postoperative management as per surgery - Continue IV Zosyn and add IV caspofungin for antifungal coverage on 01/18 - Make n.p.o. after midnight in case of need for repeat IR drainage versus surgical washout on 01/19-defer to surgery - Continue Tylenol as needed for pain. - Follow CBC, BMP, magnesium, CRP in the a.m. and keep electrolytes replete #Anemia/Thrombocytosis -Hgb mildly low but stable at 9-10, microcytic, iron panel consistent with chronic disease and iron deficiency mixed early in course of admission. B12, folate, and TSH are normal. Continues to have significant thrombocytosis with platelets worsening to 1267-likely reactive to infection and possibly secondary to iron deficiency. Appreciate Heme consult-recommends against aspirin use or any further workup as this is all reactive to sepsis - Hematology does not give a specific recommendation regarding giving IV iron, but may consider doing this anyway as this may improve his thrombocytosis-hold off for now --No aspirin needed for thrombocythemia and a reactive situation - Follow-up with GI as an outpatient for EGD and colonoscopy for microcytic iron deficiency anemia; however, he does not have insurance which may prohibit this. - Follow CBC daily #Pleural effusions/acute respiratory failure with hypoxemia- CTA chest performed on 01/03 due to shortness of breath shows pleural effusions and atelectasis of the lower lobes. He also had a subdiaphragmatic intra-abdominal abscess contributing to splinting. Significantly decreased breath sounds noted on exam in 01/12-CXR shows significantly enlarged left-sided pleural effusion greater than right. Pulse ox normal at 95% on room air. CT CHest on 01/13 with large left loculated pleural effusion and LLL collapse. Was diuresed with IV Lasix without much improvement. Had thoracentesis on 01/14. pH 7.55, chemistries consistent with exudative effusion by lights criteria, cultures pending, cytology negative. Now weaned off supplemental O2. Consulted pulmonology- concern for empyema given loculated effusion. Patient hesitant to have repeat thoracentesis or chest tube due to previous 1 causing severe pain, but now is amenable if necessary if given IV pain medicine prior to procedure - Encouraged incentive spirometry with patient and with nursing - Repeat chest CT 01/18 with improvement, but remains with fluid there-no point in draining it and less abdominal abscess drained as well as per pulmonology - Follow pleural fluid cultures, AFB - Pulmonology following - Follow chest x-ray - Follow sputum culture-now coughing up brown sputum #Hyponatremia-worsened due to hypervolemia from many days of IV fluids and TPN- with large pleural effusion. Sodium up to 134-135 after diuresis and now improved to normal. - Follow BMP #HERMAN-ongoing, almost daily, but improving - Continue acetaminophen as needed #CORINA/high AG metabolic acidosis/lactic acidosis- resolved. Creatinine 3.4 on arrival and now normal. CORINA secondary to ATN from sepsis. With lactic acidosis with lactate 8 and now normalized. pH 7.1 on arrival with metabolic acidosis. Is now resolved. Received IV fluids, treatment of sepsis. - Follow BMP #Severe hepatic steatosis/ Elevated liver enzymes/prediabetes - Seen on CT. LFTs are now completely normal. Patient reports he only drinks alcohol 2-3 times per month-unclear if this is accurate. Lipids are normal, HgbA1c in prediabetes range at 6.0%. - counseled on alcohol cessation - Recommend follow-up with PCP and/or GI as an outpatient for fatty liver and prediabetes - Recommend low carbohydrate diet after discharge - Follow CMP - Continue po thiamine and p.o. folic acid daily in case of occult alcohol use disorder #Elevated troponin - peaked at 61 on 11.6, myocardial demand in the setting of GI sepsis DVT prophylaxis: Chago Rojas Dispo: Continued stay on medical/surgical unit. Hospitalist service will continue to follow along Admission and Anticipated Discharge Date Admission Date: December 31, 2024 Subjective Patient reports he feels well today. He has no shortness of breath or abdominal pains. He is eating and moving his bowels. The nurse reports that the patient is starting to cough up some brownish sputum I discussed his care with pulmonology and general surgery. I discussed the patient's CT abdomen/pelvis results with him. He had a low-grade fever the last 2 nights. Physical Exam Constitutional: WD/WN, vitals as above Eyes: + anicteric sclerae Respiratory: Auscultation: + diminished lung sounds (Left lower lung field, improved air movement otherwise); no crackles and no wheezes Cardiovascular: Rate/Rhythm: regular rhythm Heart Sounds: no murmur Extremities: no edema Gastrointestinal (Abdomen): Inspection/Auscultation: normal bowel sounds; + abdomen abnormal to inspection (Multiple laparoscopic surgery sites with Dermabond in place well-healed) and abdomen not distended Percussion/Palpation: abdomen soft; abdomen nontender and no guarding Psychiatric: A+Ox3, euthymic affect Orientation: cooperative Results & Data Results & Data Vital Signs (Past 12 Hours) Vital Signs Temp Pulse Pulse Resp BP Pulse Ox O2 Del Method 01/18/25 18:16 37.2 C 105 H 18 105/68 93 Room Air 01/18/25 15:32 37.4 C 83 20 106/68 94 Room Air 01/18/25 11:07 36.7 C 79 20 107/69 97 Room Air Laboratory Results CBC, BMP, magnesium, CRP reviewed PG Care Time/CCT Total # of Minutes Spent Total Time Spent with Patient: Total time spent is greater than 50% in coordination of care (as documented) at patient's floor/unit and/or counseling patient: Coding Level of Care Code 67373 SUB INP/OBS CARE 3/50MIN Diagnoses Acute appendicitis K35.201 Acute appendicitis type: with generalized peritonitis Appendicitis abscess presence: unspecified whether abscess present Appendicitis gangrene presence: with gangrene Appendicitis perforation presence: with perforation Pleural effusion J90 Postoperative intra-abdominal abscess T81.43XA; K65.1 Thrombocythemia D75.839 (1) Acute appendicitis Acute appendicitis type: with generalized peritonitis Appendicitis abscess presence: unspecified whether abscess present Appendicitis gangrene presence: with gangrene Appendicitis perforation presence: with perforation Qualified Code(s): K35.201 - Acute appendicitis with generalized peritonitis, with perforation, without abscess
[2025-01-19 08:11] LABS: Hematocrit (blood only) 28.5 % (42.0-52.0); Hemoglobin 9.3 g/dL (14.0-18.0); Mean Corpuscular Hemoglobin 26.3 pg (25.0-34.0); Mean Corpuscular Volume 80.5 fL (80.0-100.0); Platelet Count 1185 K/uL (130-400); RDW Standard Deviation 40.5 fL (36.4-46.3); Red Blood Count 3.54 M/uL (4.70-6.10); White Blood Count 10.16 K/ul (4.8-10.8)
[2025-01-19 08:26] LABS: Anion Gap 8.0 (3-11); Blood Urea Nitrogen 12.0 mg/dl (6-23); Calcium 9.2 mg/dl (8.6-10.3); Carbon Dioxide 25.0 mmol/L (21-32); Chloride 104.0 mmol/L (98-107); Creatinine Clr Calc Pharmacy 132.1 ml/min; Glucose 97.0 mg/dl (70-99(Fasting)); Potassium 3.4 mmol/L (3.5-5.1); Sodium 137.0 mmol/L (136-145)
--- NOTE | 2025-01-19 08:26 | Surgery Progress Note ---
Date of Service January 19, 2025 Assessment & Plan (1) Postoperative intra-abdominal abscess: (2) Acute appendicitis: (3) S/P laparoscopic appendectomy: (4) Ileus: (5) Sepsis: Plan Patient is postop day #19 after a diagnostic laparoscopy and appendectomy secondary to gangrenous and perforated appendicitis. Postop course complicated by a postop ileus, seems resolved, also with persistent intra-abdominal fluid collections as well as a pleural effusion that is status post IR drainage and thoracentesis. Overall, seems to be recovering well, afebrile for the last 24 hours, but blood cell count down today compared to yesterday, 10.1 down from 12.3, but had a repeat CAT scan yesterday which shows a persistent fluid collection above the spleen. We reached out to interventional radiology for their assessment for possible CT-guided drainage of this fluid collection, but they feel that it is not amenable to drainage. Will advance to a regular diet and continue to monitor on IV zosyn, will plan to transition to oral augmentin prior to discharge to continue to monitor WBC. No clear indication for caspofungin from a surgical standpoint, cultures have been positive for E. coli, but negative for yeast or any fungal cultures. Will discuss with case management regarding possible discharge in the next day or so if he continues to improve. Admission and Anticipated Discharge Date Admission Date: December 31, 2024 Supervising Physician Co-Signing Physician Notes Discussed with MARIANN, labs and imaging reviewed, agree with above. Status post laparoscopic appendectomy and washout for perforated appendicitis status post thoracentesis for effusion as well as IR drainage of intra-abdominal abscess, being treated with IV antibiotics for multiple small intra-abdominal fluid collections. Over the weekend he had slight rise in his white blood cell count and repeat imaging was ordered which showed mild improvement in the fluid collections, nothing amenable to drainage. WBC normalized again today, afebrile, will continue with regular diet, IV antibiotics. Discussed with case management but given social situation unclear whether he will be able to be discharged on IV antibiotics, may need to continue with current management for another week and repeat a CT scan next week. At that point we may be able to transition to oral antibiotics with outpatient follow-up. Subjective Patient was seen and examined with the aid of a project analyst, patient currently without complaints, states that he feels much better compared to over the weekend, denies any abdominal pain, has been tolerating a regular diet without any nausea or vomiting, passing flatus and admits to having a bowel movement over the weekend. Patient had an increasing white blood cell count yesterday, had a CAT scan of the abdomen pelvis as well as the chest which identified persistent fluid collections within the intra-abdominal cavity, largest around the spleen. Today, white blood cell count is down to 10.1, down from 12.3 yesterday, afebrile, continues on Zosyn and was also started on caspofungin yesterday by the hospitalist team. Physical Exam Physical Exam: Gen: Awake and alert, resting comfortably in bed in NAD CV: RRR PULM: non-labored breathing Abd: Abdomen non-distended, soft, non-tender to palpation. The lower laparoscopic incision is open with packing and scant purulent material, but no appreciable tracking and no erythema, swelling, warmth or increased tenderness to palpation, unable to express any drainage from the wound. Otherwise other laparoscopic incisions are well-approximated with skin glue in place, no surrounding erythema, warmth, swelling, or increased tenderness to palpation. ext: no edema to bilateral lower ext, SCDs in place, non-tender, feet warm and well perfused Results & Data Vital Signs (Past 12 Hours) Vital Signs Temp Pulse Resp BP Pulse Ox O2 Del Method 01/19/25 07:16 36.6 C 79 16 104/66 94 Room Air 01/18/25 23:05 37 C 78 16 98/84 L 95 Room Air PG Care Time/CCT Total # of Minutes Spent Total Time Spent with Patient: Total time spent is greater than 50% in coordination of care (as documented) at patient's floor/unit and/or counseling patient: Coding [place] [address] Post Operative Follow-Up Patient Type Established Medical Decision Making Moderate Complexity Diagnoses Postoperative intra-abdominal abscess T81.43XA; K65.1 Acute appendicitis K35.201 Acute appendicitis type: with generalized peritonitis Appendicitis abscess presence: unspecified whether abscess present Appendicitis gangrene presence: with gangrene Appendicitis perforation presence: with perforation S/P laparoscopic appendectomy Z90.49 Ileus K56.7 Sepsis with acute renal failure and tubular necrosis without septic shock, due to unspecified organism A41.9; R65.20; N17.0 Acute renal failure type: with acute tubular necrosis Sepsis acute organ dysfunction status: with acute organ dysfunction Sepsis type: sepsis due to unspecified organism Severe sepsis acute organ dysfunction type: acute renal failure Severe sepsis shock status: without septic shock (2) Acute appendicitis Acute appendicitis type: with generalized peritonitis Appendicitis abscess presence: unspecified whether abscess present Appendicitis gangrene presence: with gangrene Appendicitis perforation presence: with perforation Qualified Code(s): K35.201 - Acute appendicitis with generalized peritonitis, with perforation, without abscess (5) Sepsis Acute renal failure type: with acute tubular necrosis Sepsis acute organ dysfunction status: with acute organ dysfunction Sepsis type: sepsis due to un specified organism Severe sepsis acute organ dysfunction type: acute renal failure Severe sepsis shock status: without septic shock Qualified Code(s): A41.9 - Sepsis, unspecified organism; R65.20 - Severe sepsis without septic shock; N17.0 - Acute kidney failure with tubular necrosis
[2025-01-19 08:28] LABS: Immature Granulocytes # (auto) 0.20 K/uL (0.01-0.20); Immature Granulocytes % (auto) 2.0 %; Polychromasia 1+
[2025-01-19] MEDS: CASPOFUNGIN 50 MG in SODIUM CHLORIDE 0.9% 250 ML IV SCH (09:17)
--- NOTE | 2025-01-19 13:25 | Pulmonology Progress Note ---
Date of Service January 19, 2025 Assessment & Plan (1) Loculated pleural effusion: (2) Postoperative intra-abdominal abscess: (3) Shortness of breath: Plan Impression: 39-year-old male with perforated appendicitis status post appendectomy with abdominal washout. He has multiple small abscesses in the abdomen which are not amenable to percutaneous drainage. He had a pleural effusion which was sympathetic and drained. Recommendations: 1. Pleural effusion: There is a small area of residual pleural fluid on the left. This is not amenable to percutaneous drainage currently. If it is sterile, it should resolve over time. No indication for additional pulmonary imaging or pleural procedures in the absence of clinical symptoms at this point in time. 2. Defer antibiotics and management of the patient's intra-abdominal process to general surgery as well as the medicine team. At this point in time pulmonary will sign off. Feel free to contact us with questions or concerns Admission and Anticipated Discharge Date Admission Date: December 31, 2024 Subjective Patient seen and examined. EMR reviewed. Discussed with off going pulmonolo gist. The patient offers no new pulmonary complaints today Review of Systems Review of Systems: All systems reviewed & are unremarkable except as noted in HPI & below Physical Exam Constitutional: WD/WN, vitals as above Neck: trachea midline, no thyromegaly Respiratory: normal respiratory effort, lungs clear to auscultation Cardiovascular: RRR, no murmur, no edema Gastrointestinal (Abdomen): normal bowel sounds, soft, nontender, no hepatosplenomegaly Musculoskeletal: Extremities: extremities normal to inspection Skin: no rashes, warm and dry Neurologic: Nonfocal exam Lymphatic: no cervical lymphadenopathy Results & Data Results & Data Vital Signs (Past 12 Hours) Vital Signs Temp Pulse Resp BP Pulse Ox O2 Del Method 01/19/25 09:00 Room Air 01/19/25 07:16 36.6 C 79 16 104/66 94 Room Air Critical Care Results & Data Vital Signs (Past 12 Hours) Vital Signs Temp Pulse Resp BP Pulse Ox O2 Del Method 01/19/25 09:00 Room Air 01/19/25 07:16 36.6 C 79 16 104/66 94 Room Air Lab & Micro Results (Past 24 Hours) RBC 3.54 M/uL (4.70-6.10) L 01/19/25 WBC 10.16 K/ul (4.8-10.8) 01/19/25 Hgb 9.3 g/dL (14.0-18.0) L 01/19/25 Hct 28.5 % (42.0-52.0) L 01/19/25 MCV 80.5 fL (80.0-100.0) 01/19/25 MCH 26.3 pg (25.0-34.0) 01/19/25 MCHC 32.6 g/dL (32.0-36.0) 01/19/25 RDW Standard Deviation 40.5 fL (36.4-46.3) 01/19/25 RDW Coefficient of Variation 13.9 % (11.5-14.5) 01/19/25 Plt Count 1185 K/uL (130-400) H* 01/19/25 MPV 8.3 fL (9.4-12.4) L 01/19/25 Neutrophils (%) (Auto) 71.7 % 01/19/25 Lymphocytes (%) (Auto) 12.7 % 01/19/25 Monocytes # (Auto) 1.01 K/uL (0.11-0.59) H 01/19/25 Eosinophils # (Auto) 0.33 K/uL (0.00-0.50) 01/19/25 Immature Granulocyte % (Auto) 2.0 % 01/19/25 Neutrophils # (Auto) 7.28 K/uL (1.40-6.50) H 01/19/25 Lymphocytes # (Auto) 1.29 K/uL (1.20-3.40) 01/19/25 Monocytes # (Auto) 1.01 K/uL (0.11-0.59) H 01/19/25 Eosinophils # (Auto) 0.33 K/uL (0.00-0.50) 01/19/25 Basophils # (Auto) 0.05 K/uL (0.00-0.20) 01/19/25 Immature Granulocyte # (Auto) 0.20 K/uL (0.01-0.20) 5 Polychromasia 1+ 01/19/25 Na 137 mmol/L (136-145) 01/19/25 K 3.4 mmol/L (3.5-5.1) L 01/19/25 Cl 104 mmol/L (98-107) 01/19/25 CO2 25 mmol/L (21-32) 01/19/25 Anion Gap 8 (3-11) 01/19/25 BUN 12 mg/dl (6-23) 01/19/25 Creatinine 0.69 mg/dl (0.6-1.4) 01/19/25 BUN/Creatinine Ratio 17.4 (10-20) 01/19/25 Glu 97 mg/dl (70-99(Fasting)) 01/19/25 Ca 9.2 mg/dl (8.6-10.3) 01/19/25 Calcium Level 9.2 mg/dl (8.6-10.3) 01/19/25 07:33 Microbiology 01/14/25 Unknown Gram Stain - Final Pleural Fluid Aerobic and Anaerobic Culture - Preliminary No growth to date. Diagnostic Findings (Past 24 Hours) Abdomen/Pelvis CT 01/18/25 09:56 Exam: The abdomen pelvis with contrast. Exam reason: Intra-abdominal abscess. Comparison: 01/13/2025. Technique: Multiple transaxial images of the abdomen pelvis were obtained following the intravenous administration of contrast. Findings: No focal abnormalities are noted within the liver. There is redemonstration of a 7.2 x 6.3 cm fluid collection seen superior adjacent to the spleen. This is creating mild mass effect on the spleen and appears to represent a subcapsular hematoma. This is unchanged in size or appearance when compared to the previous exam. Adrenals and pancreas are within normal limits. Gallbladder There is normal enhancement of the kidneys bilaterally. There is no evidence of obstructing stone or hydronephrosis. There is redemonstration of postsurgical changes noted in the ventral midline abdominal wall. There is redemonstration of a small focal fluid collection notedLateral adjacent to the ascending colon. This measures approximately 3.3 x 1.9 cm in size and is unchanged from the previous exam. there is redemonstration of a 3.2 x 3.2 cm focal fluid collection noted in the mid abdomen near the root of the mesentery. There is also a 4.8 x 2.8 cm collection seen anterior inferior to left kidney. there is a 3.0 x 1.3 cm focal fluid collection seen immediately anterior to the left kidney. The bowel loops are of normal caliber. The bladder is unremarkable. There is no free air, free fluid or inflammatory change. The appendix is not definite identified no acute bony adenopathy is identified. Impression: 1. Multiple focal fluid collections noted throughout the abdomen most likely represent residual of the patient's recent ruptured appendicitis. Note that these do have a somewhat encapsulated appearance suggesting that these may represent small abscesses. 2. Focal encapsulated fluid collection seen superior adjacent to the spleen is unchanged from the previous exam. This could represent a subcapsular hematoma however given the appearance of multiple additional fluid collections in the abdomen, this could represent an abscess. Electronically signed by Kole Fritz 01-18-2025 13:25 PM Exam: CT of the chest with contrast. Exam reason: Pleural effusion. Suspected empyema. Comparison: 01/13/2025. Technique: Multiple transaxial images of the chest were obtained following the intravenous administration of contrast. Findings: There has been marked reduction in the sizeOf the left-sided pleural fluid collection When compared to the previous exam. This is overall smaller in size now but does show a split pleural sign. There is bilateral dependent consolidation. There is no pneumothorax. There are no suspicious appearing nodules or masses. It no endobronchial lesions are seen. The heart and great vessels are within normal limits. There are no pathologically enlarged lymph nodes. No acute bony abnormalities are identified. There is redemonstration of and apparent subcapsular fluid collectionSuperior adjacent to the spleen. Impression: 1. Marked reduction in size of left-sided empyema. 2. Persistent probable subcapsular hematoma adjacent to the spleen. 3. Mild bilateral dependent atelectasis. Electronically signed by Kole Fritz 01-18-2025 13:16 PM I & O Totals 24 Hours 01/18/25 01/19/25 01/20/25 06:59 06:59 06:59 Intake Total 1200 / 1200 1600 / 1600 360 / 360 Balance 1200 / 1200 1600 / 1600 360 / 360 Cumulative 12/31/24 07:56 thru 01/19/25 10:40 Intake Total 25860.876 Output Total 41020 Balance 12371.876 RT Ventilator Mngmt (Last Documented) Ventilator Ordered Settings Respiratory Rate 16 01/19/25 07:16 Ventilator - PT Measurements Respiratory Rate 16 PG Care Time/CCT Total # of Minutes Spent Total Time Spent with Patient: Total time spent is greater than 50% in coordination of care (as documented) at patient's floor/unit and/or counseling patient: Coding Level of Care Code 07451 SUB INP/OBS CARE 235MIN Diagnoses Loculated pleural effusion J90 Postoperative intra-abdominal abscess T81.43XA; K65.1 Shortness of breath R06.02
--- NOTE | 2025-01-19 14:03 | Hospitalist Progress Note ---
Date of Service January 19, 2025 Assessment & Plan (1) Acute appendicitis: (2) Pleural effusion: (3) Postoperative intra-abdominal abscess: (4) Thrombocythemia: Plan This patient is a 39 y/o Estonian speaking male with no past medical history who was admitted with perforated appendicitis, peritonitis, sepsis POA, partial SBO, CORINA, severe lactic acidosis, and postoperative intra-abdominal abscesses and pleural effusion with possible empyema. Patient was taken to the OR urgently 12/31 for a laparoscopic appendectomy and abdominal washout. #Sepsis POA 2/2 perforated gangrenous appendicitis/peritonitis/partial SBO/intra-abdominal abscesses-with tachypnea, tachycardia, procalcitonin greater than 100, lactate elevated at 8, CORINA, and metabolic acidosis on admission. Sepsis, CORINA and acidosis resolved after IV fluids, IV Zosyn, surgical washout and appendectomy. He then had an ileus versus partial small bowel obstruction had NG tube replaced. That is now resolved and he is tolerating regular diet. He was then found to have multiple intra-abdominal abscesses-had IR placed drain and left paracolic abscess which has since been removed. He continues to be treated for intra-abdominal abscesses with IV antibiotics. Intra-abd fluid cx with E. coli, pansensitive. Blood cultures negative. Leukocytosis worsening again, low-grade temps on the evening of 01/16 and 01/17, rising CRP, and platelets continue to rise to 1.2 million-all point towards signs of ongoing inflammation/infection. Repeat CT chest/abdomen/pelvis on 01/18 with improved left sided loculated pleural effusion which is likely empyema sympathetic from intra-abdominal abscess, and left sided abscess near spleen remains about the same at 7 cm in size. Discussed care with surgery over the weekend and 01/18 - Postoperative management as per surgery - Continue IV Zosyn and add IV caspofungin for antifungal coverage on 01/18 - Make n.p.o. after midnight in case of need for repeat IR drainage versus surgical washout on 01/19-defer to surgery - Continue Tylenol as needed for pain. - Clinically stable to improving. Pain is resolving. Interested in food present. CV surgery consultation. No further indication for interventional or surgical procedure at this time. Postop day #19, Appropriate for transition to Augmentin and potential discharge pending availability of per case management. - Continue to trend a.m. labs #Anemia/Thrombocytosis -Hgb mildly low but stable at 9-10, microcytic, iron panel consistent with chronic disease and iron deficiency mixed early in course of admission. B12, folate, and TSH are normal. Continues to have significant thrombocytosis with platelets worsening to 1267-likely reactive to infection and possibly secondary to iron deficiency. Appreciate Heme consult-recommends against aspirin use or any further workup as this is all reactive to sepsis - Hematology does not give a specific recommendation regarding giving IV iron, but may consider doing this anyway as this may improve his thrombocytosis-hold off for now --No aspirin needed for thrombocythemia and a reactive situation - Follow-up with GI as an outpatient for EGD and colonoscopy for microcytic iron deficiency anemia; however, he does not have insurance which may prohibit this. - Follow CBC, weekly on discharge. Thrombocytosis likely reactive #Pleural effusions/acute respiratory failure with hypoxemia- CTA chest performed on 01/03 due to shortness of breath shows pleural effusions and atelectasis of the lower lobes. He also had a subdiaphragmatic intra-abdominal abscess contrib uting to splinting. Significantly decreased breath sounds noted on exam in 01/12-CXR shows significantly enlarged left-sided pleural effusion greater than right. Pulse ox normal at 95% on room air. CT CHest on 01/13 with large left loculated pleural effusion and LLL collapse. Was diuresed with IV Lasix without much improvement. Had thoracentesis on 01/14. pH 7.55, chemistries consistent with exudative effusion by lights criteria, cultures pending, cytology negative. Now weaned off supplemental O2. Consulted pulmonology-concern for empyema given loculated effusion. Patient hesitant to have repeat thoracentesis or chest tube due to previous 1 causing severe pain, but now is amenable if necessary if given IV pain medicine prior to procedure - Encouraged incentive spirometry with patient and with nursing - Repeat chest CT 01/18 with improvement, but remains with fluid there-no point in draining it and less abdominal abscess drained as well as per pulmonology - Follow pleural fluid cultures, AFB - Pulmonology following - Follow chest x-ray - See pulmonology notes. Not amenable to drainage. Likely to resolve during course with antibiotics as above. #Hyponatremia-worsened due to hypervolemia from many days of IV fluids and TPN- with large pleural effusion. Sodium up to 134-135 after diuresis and now improved to normal. - Follow BMP daily as oral intake resumes and improves #Hypokalemia - mild, likely due to limited PO intake, daily BMP, no supplement at this time #HERMAN-ongoing, almost daily, but improving - Continue acetaminophen as needed, resolved over last 7 days, #CORINA/high AG metabolic acidosis/lactic acidosis- resolved. Creatinine 3.4 on arrival and now normal. CORINA secondary to ATN from sepsis. With lactic acidosis with lactate 8 and now normalized. pH 7.1 on arrival with metabolic acidosis. Is now resolved. Received IV fluids, treatment of sepsis. - Follow BMP stable to resolved, #Severe hepatic steatosis/ Elevated liver enzymes/prediabetes - Seen on CT. LFTs are now completely normal. Patient reports he only drinks alcohol 2-3 times per month-unclear if this is accurate. Lipids are normal, HgbA1c in prediabetes range at 6.0%. - counseled on alcohol cessation - Recommend follow-up with PCP and/or GI as an outpatient for fatty liver and prediabetes - Recommend low carbohydrate diet after discharge - Follow CMP - Continue po thiamine and p.o. folic acid daily in case of occult alcohol use disorder #Elevated troponin - peaked at 61 on 11.6, myocardial demand in the setting of GI sepsis - no further testing indicated at this time and DVT prophylaxis: SCDs, Lovenox Dispo: Continued stay on medical/surgical unit. Hospitalist service will continue to follow along Admission and Anticipated Discharge Date Admission Date: December 31, 2024 Subjective Doing okay this morning. He has not eaten anything as he has been n.p.o. because no interest in food. Pain is largely resolved. Reports passing some gas. No other new complaints or concerns. Breathing is at his baseline. He has not been up and about with therapy much as of this time. No new events or concerns per nursing staff. No new concerns or issues per patient. Physical Exam Constitutional: WD/WN, vitals as above Eyes: + anicteric sclerae Respiratory: Auscultation: + diminished lung sounds (Left lower lung field, improved air movement otherwise); no crackles and no wheezes Cardiovascular: Rate/Rhythm: regular rhythm Heart Sounds: no murmur Extremities: no edema Gastrointestinal (Abdomen): Inspection/Auscultation: normal bowel sounds; + abdomen abnormal to inspection (Multiple laparoscopic surgery sites with Dermabond in place well-healed) and abdomen not distended Percussion/Palpation: abdomen soft; abdomen nontender and no guarding Psychiatric: A+Ox3, euthymic affect Orientation: cooperative Results & Data Results & Data Vital Signs (Past 12 Hours) Vital Signs Temp Pulse Resp BP Pulse Ox O2 Del Method 01/19/25 09:00 Room Air 01/19/25 07:16 36.6 C 79 16 104/66 94 Room Air Laboratory Results 01/14/25 Unknown Gram Stain - Final Pleural Fluid Aerobic and Anaerobic Culture - Final No growth 01/19/25 07:33 WBC 10.16 RBC 3.54 L Hgb 9.3 L Hct 28.5 L MCV 80.5 MCH 26.3 MCHC 32.6 RDW Std Deviation 40.5 RDW Coeff of Annika 13.9 Plt Count 1185 H* MPV 8.3 L Immature Gran % (Auto) 2.0 Neut % (Auto) 71.7 Lymph % (Auto) 12.7 Hemphill % (Auto) 9.9 Eos % (Auto) 3.2 Baso % (Auto) 0.5 Neut # (Auto) 7.28 H Lymph # (Auto) 1.29 Hemphill # (Auto) 1.01 H Eos # (Auto) 0.33 Baso # (Auto) 0.05 Immature Gran # (Auto) 0.20 Polychromasia 1+ Sodium 137 Potassium 3.4 L Chloride 104 Carbon Dioxide 25 Anion Gap 8 BUN 12 Creatinine 0.69 Est Cr Clr Drug Dosing 132.1 eGFR 122.24 BUN/Creatinine Ratio 17.4 Glucose 97 Calcium 9.2 C-Reactive Protein 13.45 H PG Care Time/CCT Total # of Minutes Spent Total Time Spent with Patient: Total time spent is greater than 50% in coordination of care (as documented) at patient's floor/unit and/or counseling patient: Coding Level of Care Code 82994 SUB INP/OBS CARE 2/35MIN Diagnoses Acute appendicitis K35.201 Acute appendicitis type: with generalized peritonitis Appendicitis abscess presence: unspecified whether abscess present Appendicitis gangrene presence: with gangrene Appendicitis perforation presence: with perforation Pleural effusion J90 Postoperative intra-abdominal abscess T81.43XA; K65.1 Thrombocythemia D75.839 (1) Acute appendicitis Acute appendicitis type: with generalized peritonitis Appendicitis abscess presence: unspecified whether abscess present Appendicitis gangrene presence: with gangrene Appendicitis perforation presence: with perforation Qualified Code(s): K35.201 - Acute appendicitis with generalized peritonitis, with perforation, without abscess
[2025-01-20 06:32] LABS: Hematocrit (blood only) 28.6 % (42.0-52.0); Hemoglobin 9.6 g/dL (14.0-18.0); Mean Corpuscular Hemoglobin 26.7 pg (25.0-34.0); Mean Corpuscular Volume 79.4 fL (80.0-100.0); Platelet Count 1191 K/uL (130-400); RDW Standard Deviation 39.2 fL (36.4-46.3); Red Blood Count 3.60 M/uL (4.70-6.10); White Blood Count 10.79 K/ul (4.8-10.8)
[2025-01-20 06:44] LABS: Immature Granulocytes # (auto) 0.19 K/uL (0.01-0.20); Immature Granulocytes % (auto) 1.8 %; Polychromasia 1+
[2025-01-20 06:58] LABS: Alanine Aminotransferase 46.0 U/L (7-52); Albumin Globulin Ratio 0.7 (0.9-2); Albumin Level 3.2 gm/dl (3.4-5.0); Alkaline Phosphatase 89.0 U/L (34-104); Anion Gap 8.0 (3-11); Bilirubin,Total 0.3 mg/dl (0.2-1.0); Blood Urea Nitrogen 13.0 mg/dl (6-23); Calcium 9.2 mg/dl (8.6-10.3); Carbon Dioxide 24.0 mmol/L (21-32); Chloride 105.0 mmol/L (98-107); Creatinine Clr Calc Pharmacy 149.7 ml/min; Globulin 4.7 gm/dl (2.5-4.0); Glucose 94.0 mg/dl (70-99(Fasting)); Magnesium 1.9 mg/dl (1.7-2.4); Potassium 3.4 mmol/L (3.5-5.1); Sodium 137.0 mmol/L (136-145); Total Protein 7.9 gm/dl (6.0-8.3)
[2025-01-20] MEDS: POTASSIUM CHLORIDE CRTAB 20 MEQ TABCR PO STA (10:41)
--- NOTE | 2025-01-20 14:47 | Surgery Progress Note ---
Date of Service January 20, 2025 Assessment & Plan (1) Postoperative intra-abdominal abscess: Plan: WBC 10.7Hbg 9.6 plt 1119. vitals are stable -pt clinically feeling well. abdominal pain not present on exam, no n/v. + bowel function -abdomen soft, non tender, incisions c/d/i -his medical assistance application is pending and awaiting to be processed -may need to continue IV abx this week for his intra abdominal collections (not amenable to IR drainage) and consider oral abx next week if continues to progress well -We appreciate social work and hospitalist assistance with his case (2) Sepsis: Admission and Anticipated Discharge Date Admission Date: December 31, 2024 Subjective Patient feels well. denies any abdominal pain. tolerating diet. no nausea/vomiting. + bowel function. Been ambulating Physical Exam Physical Exam: awake/alert, no distress Respiratory: normal respiratory effort Gastrointestinal (Abdomen): Inspection/Auscultation: + abdominal surgical incision; abdomen not distended (much improved) and no abdominal surgical drain present Percussion/Palpation: abdomen soft; abdomen nontender Results & Data Vital Signs (Past 12 Hours) Vital Signs Temp Pulse Resp BP Pulse Ox O2 Del Method 01/20/25 07:09 98.1 F 77 16 99/62 L 94 Room Air PG Care Time/CCT Total # of Minutes Spent Total Time Spent with Patient: Total time spent is greater than 50% in coordination of care (as documented) at patient's floor/unit and/or counseling patient: Coding Level of Care Code 98257 Post Operative Follow-Up Diagnoses Postoperative intra-abdominal abscess T81.43XA; K65.1 Sepsis with acute renal failure and tubular necrosis without septic shock, due to unspecified organism A41.9; R65.20; N17.0 Sepsis type: sepsis due to unspecified organism Sepsis acute organ dysfunction status: with acute organ dysfunction Severe sepsis acute organ dysfunction type: acute renal failure Acute renal failure type: with acute tubular necrosis Severe sepsis shock status: without septic shock (2) Sepsis Sepsis type: sepsis due to unspecified organism Sepsis acute organ dysfunction status: with acute organ dysfunction Severe sepsis acute organ dysfunction type: acute renal failure Acute renal failure type: with acute tubular necrosis Severe sepsis shock status: without septic shock Qualified Code(s): A41.9 - Sepsis, unspecified organism; R65.20 - Severe sepsis without septic shock; N17.0 - Acute kidney failure with tubular necrosis
--- NOTE | 2025-01-20 16:20 | Hospitalist Progress Note ---
Date of Service January 20, 2025 Assessment & Plan (1) Acute appendicitis: (2) Pleural effusion: (3) Postoperative intra-abdominal abscess: (4) Thrombocythemia: Plan This patient is a 39 y/o Pashto speaking male with no past medical history who was admitted with perforated appendicitis, peritonitis, sepsis POA, partial SBO, CORINA, severe lactic acidosis, and postoperative intra-abdominal abscesses and pleural effusion with possible empyema. Patient was taken to the OR urgently 12/31 for a laparoscopic appendectomy and abdominal washout. #Sepsis POA 2/2 perforated gangrenous appendicitis/peritonitis/partial SBO/intra-abdominal abscesses-with tachypnea, tachycardia, procalcitonin greater than 100, lactate elevated at 8, CORINA, and metabolic acidosis on admission. Sepsis, CORINA and acidosis resolved after IV fluids, IV Zosyn, surgical washout and appendectomy. He then had an ileus versus partial small bowel obstruction had NG tube replaced. That is now resolved and he is tolerating regular diet. He was then found to have multiple intra-abdominal abscesses-had IR placed drain and left paracolic abscess which has since been removed. He continues to be treated for intra-abdominal abscesses with IV antibiotics. Intra-abd fluid cx with E. coli, pansensitive. Blood cultures negative. Leukocytosis worsening again, low-grade temps on the evening of 01/16 and 01/17, rising CRP, and platelets continue to rise to 1.2 million-all point towards signs of ongoing inflammation/infection. Repeat CT chest/abdomen/pelvis on 01/18 with improved left sided loculated pleural effusion which is likely empyema sympathetic from intra-abdominal abscess, and left sided abscess near spleen remains about the same at 7 cm in size. Discussed care with surgery over the weekend and 01/18 - Postoperative management as per surgery - Continue IV Zosyn and add IV caspofungin for antifungal coverage on 01/18 - Make n.p.o. after midnight in case of need for repeat IR drainage versus surgical washout on 01/19-defer to surgery - Continue Tylenol as needed for pain. - Clinically stable to improving. Pain is resolving. Interested in food present. CV surgery consultation. No further indication for interventional or surgical procedure at this time. Postop day #20, Appropriate for transition to Augmentin after 01/26 and potential discharge pending availability of per case management. - Continue to trend a.m. labs #Anemia/Thrombocytosis -Hgb mildly low but stable at 9-10, microcytic, iron panel consistent with chronic disease and iron deficiency mixed early in course of admission. B12, folate, and TSH are normal. Continues to have significant thrombocytosis with platelets worsening to 1267-likely reactive to infection and possibly secondary to iron deficiency. Appreciate Heme consult-recommends against aspirin use or any further workup as this is all reactive to sepsis - Hematology does not give a specific recommendation regarding giving IV iron, but may consider doing this anyway as this may improve his thrombocytosis-hold off for now --No aspirin needed for thrombocythemia and a reactive situation - Follow-up with GI as an outpatient for EGD and colonoscopy for microcytic iron deficiency anemia; however, he does not have insurance which may prohibit this. - Follow CBC, weekly on discharge. Thrombocytosis likely reactive, stable to slightly improving #Pleural effusions/acute respiratory failure with hypoxemia- CTA chest performed on 01/03 due to shortness of breath shows pleural effusions and atelectasis of the lower lobes. He also had a subdiaphragmatic intra-abdominal abscess contributing to splinting. Significantly decreased breath sounds noted on exam in 01/12-CXR shows significantly enlarged left-sided pleural effusion greater than right. Pulse ox normal at 95% on room air. CT CHest on 01/13 with large left loculated pleural effusion and LLL collapse. Was diuresed with IV Lasix without much improvement. Had thoracentesis on 01/14. pH 7.55, chemistries consistent with exudative effusion by lights criteria, cultures pending, cytology negative. Now weaned off supplemental O2. Consulted pulmonology- concern for empyema given loculated effusion. Patient hesitant to have repeat thoracentesis or chest tube due to previous 1 causing severe pain, but now is amenable if necessary if given IV pain medicine prior to procedure - Encouraged incentive spirometry with patient and with nursing - Repeat chest CT 01/18 with improvement, but remains with fluid there-no point in draining it and less abdominal abscess drained as well as per pulmonology - Follow pleural fluid cultures, AFB - Pulmonology following - Follow chest x-ray - See pulmonology notes. Not amenable to drainage. Likely to resolve during course with antibiotics as above. - Clinically improving with ambulation, control of infection as above. No further imaging indicated at this time #Hyponatremia-worsened due to hypervolemia from many days of IV fluids and TPN- with large pleural effusion. Sodium up to 134-135 after diuresis and now improved to normal. - Follow BMP daily as oral intake resumes and improves - Stable #Hypokalemia - mild, likely due to limited PO intake, daily BMP, no supplement at this time Daily BMP as above - Daily BMP #HERMAN-ongoing, almost daily, but improving - Continue acetaminophen as needed, self-limited #CORINA/high AG metabolic acidosis/lactic acidosis- resolved. Creatinine 3.4 on arrival and now normal. CORINA secondary to ATN from sepsis. With lactic acidosis with lactate 8 and now normalized. pH 7.1 on arrival with metabolic acidosis. Is now resolved. Received IV fluids, treatment of sepsis. - Follow BMP stable to resolved, #Severe hepatic steatosis/ Elevated liver enzymes/prediabetes - Seen on CT. LFTs are now completely normal. Patient reports he only drinks alcohol 2-3 times per month-unclear if this is accurate. Lipids are normal, HgbA1c in prediabetes range at 6.0%. - counseled on alcohol cessation - Recommend follow-up with PCP and/or GI as an outpatient for fatty liver and prediabetes - Recommend low carbohydrate diet after discharge - Follow CMP - Continue po thiamine and p.o. folic acid daily in case of occult alcohol use disorder #Elevated troponin - peaked at 61 on 11.6, myocardial demand in the setting of GI sepsis - no further testing indicated at this time and DVT prophylaxis: SCDs, Lovenox Dispo: Continued stay on medical/surgical unit. Hospitalist service will continue to follow along Admission and Anticipated Discharge Date Admission Date: December 31, 2024 Subjective Doing okay this morning. Ate a reasonable breakfast. No difficulty. Pain is largely improved almost resolved. Occasional headache but self-limited. Ambulating in the room at least. No other new complaints or concerns per patient. Commercial Front Load Driver services used throughout the visit today via video Physical Exam Constitutional: WD/WN, vitals as above Eyes: + anicteric sclerae Respiratory: Auscultation: + diminished lung sounds (Left lower lung field, improved air movement otherwise); no crackles and no wheezes Cardiovascular: Rate/Rhythm: regular rhythm Heart Sounds: no murmur Ex tremities: no edema Gastrointestinal (Abdomen): Inspection/Auscultation: normal bowel sounds; + abdomen abnormal to inspection (Multiple laparoscopic surgery sites with Dermabond in place well-healed) and abdomen not distended Percussion/Palpation: abdomen soft; abdomen nontender and no guarding Psychiatric: A+Ox3, euthymic affect Orientation: cooperative Results & Data Results & Data Vital Signs (Past 12 Hours) Vital Signs Temp Pulse Resp BP Pulse Ox O2 Del Method 01/20/25 15:22 37.3 C 87 18 96/61 L 94 Room Air 01/20/25 07:09 36.7 C 77 16 99/62 L 94 Room Air Laboratory Results 01/14/25 Unknown Gram Stain - Final Pleural Fluid Aerobic and Anaerobic Culture - Final No growth 01/20/25 01/14/25 06:05 Unknown WBC 10.79 RBC 3.60 L Hgb 9.6 L Hct 28.6 L MCV 79.4 L MCH 26.7 MCHC 33.6 RDW Std Deviation 39.2 RDW Coeff of Annika 13.6 Plt Count 1191 H* MPV 8.1 L Immature Gran % (Auto) 1.8 Neut % (Auto) 71.7 Lymph % (Auto) 13.4 [place] % (Auto) 9.2 Eos % (Auto) 3.4 Baso % (Auto) 0.5 Neut # (Auto) 7.74 H Lymph # (Auto) 1.45 [place] # (Auto) 0.99 H Eos # (Auto) 0.37 Baso # (Auto) 0.05 Immature Gran # (Auto) 0.19 Polychromasia 1+ Sodium 137 Potassium 3.4 L Chloride 105 Carbon Dioxide 24 Anion Gap 8 BUN 13 Creatinine 0.60 Est Cr Clr Drug Dosing 149.7 eGFR 127.51 BUN/Creatinine Ratio 21.7 H Glucose 94 Calcium 9.2 Magnesium 1.9 Total Bilirubin 0.3 AST 35 ALT 46 Alkaline Phosphatase 89 C-Reactive Protein 12.19 H Total Protein 7.9 Albumin 3.2 L Globulin 4.7 H Albumin/Globulin Ratio 0.7 L Pleural Cholesterol 78 PG Care Time/CCT Total # of Minutes Spent Total Time Spent with Patient: Total time spent is greater than 50% in coordination of care (as documented) at patient's floor/unit and/or counseling patient: Coding Level of Care Code 01328 SUB INP/OBS CARE 2/35MIN Diagnoses Acute appendicitis K35.201 Acute appendicitis type: with generalized peritonitis Appendicitis abscess presence: unspecified whether abscess present Appendicitis gangrene presence: with gangrene Appendicitis perforation presence: with perforation Pleural effusion J90 Postoperative intra-abdominal abscess T81.43XA; K65.1 Thrombocythemia D75.839 (1) Acute appendicitis Acute appendicitis type: with generalized peritonitis Appendicitis abscess presence: unspecified whether abscess present Appendicitis gangrene presence: with gangrene Appendicitis perforation presence: with perforation Qualified Code(s): K35.201 - Acute appendicitis with generalized peritonitis, with perforation, without abscess
[2025-01-21 08:34] LABS: Alanine Aminotransferase 45.0 U/L (7-52); Albumin Globulin Ratio 0.7 (0.9-2); Albumin Level 3.2 gm/dl (3.4-5.0); Alkaline Phosphatase 82.0 U/L (34-104); Anion Gap 8.0 (3-11); Bilirubin,Total 0.3 mg/dl (0.2-1.0); Blood Urea Nitrogen 12.0 mg/dl (6-23); Calcium 9.1 mg/dl (8.6-10.3); Carbon Dioxide 25.0 mmol/L (21-32); Chloride 105.0 mmol/L (98-107); Creatinine Clr Calc Pharmacy 134.0 ml/min; Globulin 4.5 gm/dl (2.5-4.0); Glucose 93.0 mg/dl (70-99(Fasting)); Magnesium 1.8 mg/dl (1.7-2.4); Potassium 3.5 mmol/L (3.5-5.1); Sodium 138.0 mmol/L (136-145); Total Protein 7.7 gm/dl (6.0-8.3)
[2025-01-21 08:52] LABS: Hematocrit (blood only) 28.4 % (42.0-52.0); Hemoglobin 9.5 g/dL (14.0-18.0); Immature Granulocytes # (auto) 0.21 K/uL (0.01-0.20); Immature Granulocytes % (auto) 2.1 %; Mean Corpuscular Hemoglobin 26.8 pg (25.0-34.0); Mean Corpuscular Volume 80.2 fL (80.0-100.0); RDW Standard Deviation 40.5 fL (36.4-46.3); Red Blood Count 3.54 M/uL (4.70-6.10); White Blood Count 10.22 K/ul (4.8-10.8)
[2025-01-21 08:53] LABS: Platelet Count 1158 K/uL (130-400)
--- NOTE | 2025-01-21 09:31 | Surgery Progress Note ---
Date of Service January 21, 2025 Assessment & Plan (1) History of laparoscopic appendectomy: Plan: Status post laparoscopic appendectomy for perforated appendicitis with sepsis. Overall continues to improve. Can change to every other day labs Surgery will continue to follow intermittently Continue diet, continue IV antibiotics Will plan for repeat imaging early next week, with plan to transition to orals and discharge to home at that time Can remove wick from inferior incision Dr. 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 Status post laparoscopic appendectomy for perforated appendicitis with sepsis, status post IR drainage for intra-abdominal abscess, status post thoracentesis for pleural effusion. Overall continues to do well. No pain, tolerating diet, normal bowel movements. Has not had a fever in several days. Physical Exam Constitutional: WD/WN, vitals as above Respiratory: normal respiratory effort, lungs clear to auscultation Cardiovascular: RRR, no murmur, no edema Gastrointestinal (Abdomen): normal bowel sounds, soft, nontender, no hepatosplenomegaly Inspection/Auscultation: + abdominal surgical incision (Healing well. Inferior incision with wick.) Results & Data Vital Signs (Past 12 Hours) Vital Signs Temp Pulse Resp BP BP Pulse Ox O2 Del Method 01/21/25 07:32 36.9 C 90 18 89/57 L 93 Room Air 01/21/25 00:17 36.5 C 82 16 94/60 L 96 Room Air Laboratory Results Laboratory Results - last 24 hr 01/21/25 07:33 WBC 10.22 RBC 3.54 L Hgb 9.5 L Hct 28.4 L MCV 80.2 MCH 26.8 MCHC 33.5 RDW Std Deviation 40.5 RDW Coeff of Annika 13.9 Plt Count 1158 H* MPV 8.2 L Immature Gran % (Auto) 2.1 Neut % (Auto) 73.8 Lymph % (Auto) 12.3 [place] % (Auto) 8.3 Eos % (Auto) 3.0 Baso % (Auto) 0.5 Neut # (Auto) 7.54 H Lymph # (Auto) 1.26 [place] # (Auto) 0.85 H Eos # (Auto) 0.31 Baso # (Auto) 0.05 Immature Gran # (Auto) 0.21 H Absolute Nucleated RBC 0.02 Nucleated RBC % (auto) 0.2 Sodium 138 Potassium 3.5 Chloride 105 Carbon Dioxide 25 Anion Gap 8 BUN 12 Creatinine 0.67 Est Cr Clr Drug Dosing 134.0 eGFR 123.33 BUN/Creatinine Ratio 17.9 Glucose 93 Calcium 9.1 Magnesium 1.8 Total Bilirubin 0.3 AST 35 ALT 45 Alkaline Phosphatase 82 C-Reactive Protein 9.18 H Total Protein 7.7 Albumin 3.2 L Globulin 4.5 H Albumin/Globulin Ratio 0.7 L PG Care Time/CCT Total # of Minutes Spent Total Time Spent with Patient: Total time spent is greater than 50% in coordination of care (as documented) at patient's floor/unit and/or counseling patient: Coding Level of Care Code 44837 Post Operative Follow-Up Diagnoses History of laparoscopic appendectomy Z90.49 Sepsis with acute renal failure and tubular necrosis without septic shock, due to unspecified organism A41.9; R65.20; N17.0 Sepsis type: sepsis due to unspecified organism Sepsis acute organ dysfunction status: with acute organ dysfunction Severe sepsis acute organ dysfunction type: acute renal failure Acute renal failure type: with acute tubular necrosis Severe sepsis shock status: without septic shock Postoperative intra-abdominal abscess T81.43XA; K65.1 Pleural effusion J90 (2) Sepsis Sepsis type: sepsis due to unspecified organism Sepsis acute organ dysfunction status: with acute organ dysfunction Severe sepsis acute organ dysf unction type: acute renal failure Acute renal failure type: with acute tubular necrosis Severe sepsis shock status: without septic shock Qualified Code(s): A41.9 - Sepsis, unspecified organism; R65.20 - Severe sepsis without septic shock; N17.0 - Acute kidney failure with tubular necrosis
[2025-01-21] MEDS: POTASSIUM CHLORIDE CRTAB 20 MEQ TABCR PO STA (10:55)
--- NOTE | 2025-01-21 14:22 | Hospitalist Progress Note ---
Date of Service January 21, 2025 Assessment & Plan (1) Acute appendicitis: (2) Pleural effusion: (3) Postoperative intra-abdominal abscess: (4) Thrombocythemia: Plan This patient is a 39 y/o Vietnamese speaking male with no past medical history who was admitted with perforated appendicitis, peritonitis, sepsis POA, partial SBO, CORINA, severe lactic acidosis, and postoperative intra-abdominal abscesses and pleural effusion with possible empyema. Patient was taken to the OR urgently 12/31 for a laparoscopic appendectomy and abdominal washout. #Sepsis POA 2/2 perforated gangrenous appendicitis/peritonitis/partial SBO/intra-abdominal abscesses-with tachypnea, tachycardia, procalcitonin greater than 100, lactate elevated at 8, CORINA, and metabolic acidosis on admission. Sepsis, CORINA and acidosis resolved after IV fluids, IV Zosyn, surgical washout and appendectomy. He then had an ileus versus partial small bowel obstruction had NG tube replaced. That is now resolved and he is tolerating regular diet. He was then found to have multiple intra-abdominal abscesses-had IR placed drain and left paracolic abscess which has since been removed. He continues to be treated for intra-abdominal abscesses with IV antibiotics. Intra-abd fluid cx with E. coli, pansensitive. Blood cultures negative. Leukocytosis worsening again, low-grade temps on the evening of 01/16 and 01/17, rising CRP, and platelets continue to rise to 1.2 million-all point towards signs of ongoing inflammation/infection. Repeat CT chest/abdomen/pelvis on 01/18 with improved left sided loculated pleural effusion which is likely empyema sympathetic from intra-abdominal abscess, and left sided abscess near spleen remains about the same at 7 cm in size. Discussed care with surgery over the weekend and 01/18 - Postoperative management as per surgery - Continue IV Zosyn and add IV caspofungin for antifungal coverage on 01/18 - Make n.p.o. after midnight in case of need for repeat IR drainage versus surgical washout on 01/19-defer to surgery - Continue Tylenol as needed for pain. - Clinically stable to improving. Pain is resolving. Interested in food present. CV surgery consultation. No further indication for interventional or surgical procedure at this time. Postop day #20, Appropriate for transition to Augmentin after 01/26 and potential discharge pending availability of per case management. - Continue to trend a.m. labs - Stable to improving, no changes per above #Dietary Concerns -RD consult placed per patient request, he will need instructions in qatari #Anemia/Thrombocytosis -Hgb mildly low but stable at 9-10, microcytic, iron panel consistent with chronic disease and iron deficiency mixed early in course of admission. B12, folate, and TSH are normal. Continues to have significant thrombocytosis with platelets worsening to 1267-likely reactive to infection and possibly secondary to iron deficiency. Appreciate Heme consult-recommends against aspirin use or any further workup as this is all reactive to sepsis - Hematology does not give a specific recommendation regarding giving IV iron, but may consider doing this anyway as this may improve his thrombocytosis-hold off for now --No aspirin needed for thrombocythemia and a reactive situation - Follow-up with GI as an outpatient for EGD and colonoscopy for microcytic iron deficiency anemia; however, he does not have insurance which may prohibit this. - Follow CBC, weekly on discharge. Thrombocytosis likely reactive, stable to slightly improving - Stable, improving #Pleural effusions/acute respiratory failure with hypoxemia- CTA chest performed on 01/03 due to shortness of breath shows pleural effusions and atelectasis of the lower lobes. He also had a subdiaphragmatic intra-abdominal abscess contributing to splinting. Significantly decreased breath sounds noted on exam in 01/12-CXR shows significantly enlarged left-sided pleural effusion greater than right. Pulse ox normal at 95% on room air. CT CHest on 01/13 with large left loculated pleural effusion and LLL collapse. Was diuresed with IV Lasix without much improvement. Had thoracentesis on 01/14. pH 7.55, chemistries consistent with exudative effusion by lights criteria, cultures pending, cytology negative. Now weaned off supplemental O2. Consulted pulmonology- concern for empyema given loculated effusion. Patient hesitant to have repeat thoracentesis or chest tube due to previous 1 causing severe pain, but now is amenable if necessary if given IV pain medicine prior to procedure - Encouraged incentive spirometry with patient and with nursing - Repeat chest CT 01/18 with improvement, but remains with fluid there-no point in draining it and less abdominal abscess drained as well as per pulmonology - Follow pleural fluid cultures, AFB - Pulmonology following - Follow chest x-ray - See pulmonology notes. Not amenable to drainage. Likely to resolve during course with antibiotics as above. - Clinically improving with ambulation, control of infection as above. No further imaging indicated at this time #Hyponatremia-worsened due to hypervolemia from many days of IV fluids and TPN- with large pleural effusion. Sodium up to 134-135 after diuresis and now improved to normal. - Follow BMP daily as oral intake resumes and improves - Stable #Hypokalemia - mild, likely due to limited PO intake, daily BMP, no supplement at this time Daily BMP as above - Daily BMP #HERMAN-ongoing, almost daily, but improving - Continue acetaminophen as needed, self-limited #CORINA/high AG metabolic acidosis/lactic acidosis- resolved. Creatinine 3.4 on arrival and now normal. CORINA secondary to ATN from sepsis. With lactic acidosis with lactate 8 and now normalized. pH 7.1 on arrival with metabolic acidosis. Is now resolved. Received IV fluids, treatment of sepsis. - Follow BMP stable to resolved, #Severe hepatic steatosis/ Elevated liver enzymes/prediabetes - Seen on CT. LFTs are now completely normal. Patient reports he only drinks alcohol 2-3 times per month-unclear if this is accurate. Lipids are normal, HgbA1c in prediabetes range at 6.0%. - counseled on alcohol cessation - Recommend follow-up with PCP and/or GI as an outpatient for fatty liver and prediabetes - Recommend low carbohydrate diet after discharge - Follow CMP - Continue po thiamine and p.o. folic acid daily in case of occult alcohol use disorder #Elevated troponin - peaked at 61 on 11.6, myocardial demand in the setting of GI sepsis - no further testing indicated at this time and DVT prophylaxis: SCDs, Lovenox Dispo: Continued stay on medical/surgical unit. Hospitalist service will continue to follow along Admission and Anticipated Discharge Date Admission Date: December 31, 2024 Subjective Video ship boat or barge mate services used throughout visit today. Doing well. States he feels as good as he had during his entire hospitalization. No dizziness or orthostasis. Appetite has been good. No problems with bowel or bladder function. No events or concerns per nursing. I will the IV antibiotic parameter early next week and discharged home or facility based on case management arrangements. He will transition from plan. Answered all questions appropriately. 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 Physical Exam Constitutional: WD/WN, vitals as above Eyes: + anicteric sclerae Respiratory: Auscultation: + diminished lung sounds (Left lower lung field, improved air movement otherwise); no crackles and no wheezes Cardiovascular: Rate/Rhythm: regular rhythm Heart Sounds: no murmur Extremities: no edema Gastrointestinal (Abdomen): Inspection/Auscultation: normal bowel sounds; + abdomen abnormal to inspection (Multiple laparoscopic surgery sites with Dermabond in place well-healed) and abdomen not distended Percussion/Palpation: abdomen soft; abdomen nontender and no guarding Psychiatric: A+Ox3, euthymic affect Orientation: cooperative Results & Data Results & Data Vital Signs (Past 12 Hours) Vital Signs Temp Pulse Resp BP Pulse Ox O2 Del Method 01/21/25 07:32 36.9 C 90 18 89/57 L 93 Room Air Laboratory Results 01/21/25 07:33 WBC 10.22 RBC 3.54 L Hgb 9.5 L Hct 28.4 L MCV 80.2 MCH 26.8 MCHC 33.5 RDW Std Deviation 40.5 RDW Coeff of Annika 13.9 Plt Count 1158 H* MPV 8.2 L Immature Gran % (Auto) 2.1 Neut % (Auto) 73.8 Lymph % (Auto) 12.3 [place] % (Auto) 8.3 Eos % (Auto) 3.0 Baso % (Auto) 0.5 Neut # (Auto) 7.54 H Lymph # (Auto) 1.26 [place] # (Auto) 0.85 H Eos # (Auto) 0.31 Baso # (Auto) 0.05 Immature Gran # (Auto) 0.21 H Absolute Nucleated RBC 0.02 Nucleated RBC % (auto) 0.2 Sodium 138 Potassium 3.5 Chloride 105 Carbon Dioxide 25 Anion Gap 8 BUN 12 Creatinine 0.67 Est Cr Clr Drug Dosing 134.0 eGFR 123.33 BUN/Creatinine Ratio 17.9 Glucose 93 Calcium 9.1 Magnesium 1.8 Total Bilirubin 0.3 AST 35 ALT 45 Alkaline Phosphatase 82 C-Reactive Protein 9.18 H Total Protein 7.7 Albumin 3.2 L Globulin 4.5 H Albumin/Globulin Ratio 0.7 L PG Care Time/CCT Total # of Minutes Spent Total Time Spent with Patient: Total time spent is greater than 50% in coordination of care (as documented) at patient's floor/unit and/or counseling patient: Coding Level of Care Code 67076 SUB INP/OBS CARE Diagnoses Acute appendicitis K35.201 Acute appendicitis type: with generalized peritonitis Appendicitis abscess presence: unspecified whether abscess present Appendicitis gangrene presence: with gangrene Appendicitis perforation presence: with perforation Pleural effusion J90 Postoperative intra-abdominal abscess T81.43XA; K65.1 Thrombocythemia D75.839 (1) Acute appendicitis Acute appendicitis type: with generalized peritonitis Appendicitis abscess presence: unspecified whether abscess present Appendicitis gangrene presence: with gangrene Appendicitis perforation presence: with perforation Qualified Code(s): K35.201 - Acute appendicitis with generalized peritonitis, with perforation, without abscess
--- NOTE | 2025-01-22 15:51 | Hospitalist Progress Note ---
Date of Service January 22, 2025 Assessment & Plan (1) Acute appendicitis: (2) Pleural effusion: (3) Postoperative intra-abdominal abscess: (4) Thrombocythemia: Plan This patient is a 39 y/o Georgian speaking male with no past medical history who was admitted with perforated appendicitis, peritonitis, sepsis POA, partial SBO, CORINA, severe lactic acidosis, and postoperative intra-abdominal abscesses and pleural effusion with possible empyema. Patient was taken to the OR urgently 12/31 for a laparoscopic appendectomy and abdominal washout. #Sepsis POA 2/2 perforated gangrenous appendicitis/peritonitis/partial SBO/intra-abdominal abscesses-with tachypnea, tachycardia, procalcitonin greater than 100, lactate elevated at 8, CORINA, and metabolic acidosis on admission. Sepsis, CORINA and acidosis resolved after IV fluids, IV Zosyn, surgical washout and appendectomy. He then had an ileus versus partial small bowel obstruction had NG tube replaced. That is now resolved and he is tolerating regular diet. He was then found to have multiple intra-abdominal abscesses-had IR placed drain and left paracolic abscess which has since been removed. He continues to be treated for intra-abdominal abscesses with IV antibiotics. Intra-abd fluid cx with E. coli, pansensitive. Blood cultures negative. Leukocytosis worsening again, low-grade temps on the evening of 01/16 and 01/17, rising CRP, and platelets continue to rise to 1.2 million-all point towards signs of ongoing inflammation/infection. Repeat CT chest/abdomen/pelvis on 01/18 with improved left sided loculated pleural effusion which is likely empyema sympathetic from intra-abdominal abscess, and left sided abscess near spleen remains about the same at 7 cm in size. Discussed care with surgery over the weekend and 01/18 - Postoperative management as per surgery - Continue IV Zosyn and add IV caspofungin for antifungal coverage on 01/18 - Make n.p.o. after midnight in case of need for repeat IR drainage versus surgical washout on 01/19-defer to surgery - Continue Tylenol as needed for pain. - Clinically stable to improving. Pain is resolving. Interested in food present. CV surgery consultation. No further indication for interventional or surgical procedure at this time. Postop day #20, Appropriate for transition to Augmentin after 01/26 and potential discharge pending availability of per case management. - Continue to trend a.m. labs - Stable to improving, no changes per above #Dietary Concerns -RD consult placed per patient request, he will need instructions in r[place] #Anemia/Thrombocytosis -Hgb mildly low but stable at 9-10, microcytic, iron panel consistent with chronic disease and iron deficiency mixed early in course of admission. B12, folate, and TSH are normal. Continues to have significant thrombocytosis with platelets worsening to 1267-likely reactive to infection and possibly secondary to iron deficiency. Appreciate Heme consult-recommends against aspirin use or any further workup as this is all reactive to sepsis - Hematology does not give a specific recommendation regarding giving IV iron, but may consider doing this anyway as this may improve his thrombocytosis-hold off for now --No aspirin needed for thrombocythemia and a reactive situation - Follow-up with GI as an outpatient for EGD and colonoscopy for microcytic iron deficiency anemia; however, he does not have insurance which may prohibit this. - Follow CBC, weekly on discharge. Thrombocytosis likely reactive, stable to slightly improving - Stable, improving, AM labs #Pleural effusions/acute respiratory failure with hypoxemia- CTA chest performed on 01/03 due to shortness of breath shows pleural effusions and atelectasis of the lower lobes. He also had a subdiaphragmatic intra-abdominal abscess contributing to splinting. Significantly decreased breath sounds noted on exam in 01/12-CXR shows significantly enlarged left-sided pleural effusion greater than right. Pulse ox normal at 95% on room air. CT CHest on 01/13 with large left loculated pleural effusion and LLL collapse. Was diuresed with IV Lasix without much improvement. Had thoracentesis on 01/14. pH 7.55, chemistries consistent with exudative effusion by lights criteria, cultures pending, cytology negative. Now weaned off supplemental O2. Consulted pulmonology- concern for empyema given loculated effusion. Patient hesitant to have repeat thoracentesis or chest tube due to previous 1 causing severe pain, but now is amenable if necessary if given IV pain medicine prior to procedure - Encouraged incentive spirometry with patient and with nursing - Repeat chest CT 01/18 with improvement, but remains with fluid there-no point in draining it and less abdominal abscess drained as well as per pulmonology - Follow pleural fluid cultures, AFB - Pulmonology following - Follow chest x-ray - See pulmonology notes. Not amenable to drainage. Likely to resolve during course with antibiotics as above. - Clinically improving with ambulation, control of infection as above. No further imaging indicated at this time #Hyponatremia-worsened due to hypervolemia from many days of IV fluids and TPN- with large pleural effusion. Sodium up to 134-135 after diuresis and now improved to normal. - Follow BMP daily as oral intake resumes and improves - Stable #Hypokalemia - mild, likely due to limited PO intake, daily BMP, no supplement at this time Daily BMP as above - Daily BMP #HERMAN-ongoing, almost daily, but improving - Continue acetaminophen as needed, self-limited #CORINA/high AG metabolic acidosis/lactic acidosis- resolved. Creatinine 3.4 on arrival and now normal. CORINA secondary to ATN from sepsis. With lactic acidosis with lactate 8 and now normalized. pH 7.1 on arrival with metabolic acidosis. Is now resolved. Received IV fluids, treatment of sepsis. - Follow BMP stable to resolved, #Severe hepatic steatosis/ Elevated liver enzymes/prediabetes - Seen on CT. LFTs are now completely normal. Patient reports he only drinks alcohol 2-3 times per month-unclear if this is accurate. Lipids are normal, HgbA1c in prediabetes range at 6.0%. - counseled on alcohol cessation - Recommend follow-up with PCP and/or GI as an outpatient for fatty liver and prediabetes - Recommend low carbohydrate diet after discharge - Follow CMP - Continue po thiamine and p.o. folic acid daily in case of occult alcohol use disorder #Elevated troponin - peaked at 61 on 11.6, myocardial demand in the setting of GI sepsis - no further testing indicated at this time and DVT prophylaxis: SCDs, Lovenox Dispo: Continued stay on medical/surgical unit. Hospitalist service will continue to follow along Admission and Anticipated Discharge Date Admission Date: December 31, 2024 Subjective Doing well. Pain at baseline with no recurrence. Oral intake good. No problems with bowel or bladder function. No change in the plan with antibiotic therapy. Still awaiting nutrition and therapy recommendations for discharge management Physical Exam Constitutional: WD/WN, vitals as above Eyes: + anicteric sclerae Respiratory: Auscultation: no diminished lung sounds (CTAB), no crackles and no wheezes Cardiovascular: Rate/Rhythm: regular rhythm Heart Sounds: no murmur Extremities: no edema Gastrointestinal (Abdomen): Inspection/Auscultation: normal bowel sounds; + abdomen abnormal to inspection (Multiple laparoscopic surgery well-healed) and abdomen not distended Percussion/Palpation: abdomen soft; abdomen nontender and no guarding Psychiatric: A+Ox3, euthymic affect Orientation: cooperative Results & Data Results & Data Vital Signs (Past 12 Hours) Vital Signs Temp Pulse Resp BP Pulse Ox O2 Del Method 01/22/25 15:31 37 C 74 16 96/63 L 95 Room Air 01/22/25 09:05 91/59 L 01/22/25 07:11 37.3 C 74 18 88/56 L 95 Room Air PG Care Time/CCT Total # of Minutes Spent Total Time Spent with Patient: Total time spent is greater than 50% in coordination of care (as documented) at patient's floor/unit and/or counseling patient: Coding Level of Care Code 51578 SUB INP/OBS CARE 03/22MIN Diagnoses Acute appendicitis K35.201 Acute appendicitis type: with generalized peritonitis Appendicitis abscess presence: unspecified whether abscess present Appendicitis gangrene presence: with gangrene Appendicitis perforation presence: with perforation Pleural effusion J90 Postoperative intra-abdominal abscess T81.43XA; K65.1 Thrombocythemia D75.839 (1) Acute appendicitis Acute appendicitis type: with generalized peritonitis Appendicitis abscess pr esence: unspecified whether abscess present Appendicitis gangrene presence: with gangrene Appendicitis perforation presence: with perforation Qualified Code(s): K35.201 - Acute appendicitis with generalized peritonitis, with p erforation, without abscess
[2025-01-23 07:21] LABS: Hematocrit (blood only) 28.4 % (42.0-52.0); Hemoglobin 9.4 g/dL (14.0-18.0); Mean Corpuscular Hemoglobin 26.5 pg (25.0-34.0); Mean Corpuscular Volume 80.0 fL (80.0-100.0); Platelet Count 1129 K/uL (130-400); RDW Standard Deviation 40.7 fL (36.4-46.3); Red Blood Count 3.55 M/uL (4.70-6.10); White Blood Count 9.58 K/ul (4.8-10.8)
[2025-01-23 07:26] LABS: Anion Gap 10.0 (3-11); Blood Urea Nitrogen 13.0 mg/dl (6-23); Calcium 9.3 mg/dl (8.6-10.3); Carbon Dioxide 25.0 mmol/L (21-32); Chloride 104.0 mmol/L (98-107); Creatinine Clr Calc Pharmacy 136.1 ml/min; Glucose 92.0 mg/dl (70-99(Fasting)); Potassium 3.6 mmol/L (3.5-5.1); Sodium 139.0 mmol/L (136-145)
[2025-01-23 07:27] LABS: Immature Granulocytes # (auto) 0.14 K/uL (0.01-0.20); Immature Granulocytes % (auto) 1.5 %
[2025-01-23] MEDS: LACTATED RINGER'S 500 ML IV ONE (08:34)
--- NOTE | 2025-01-23 12:15 | Surgery Progress Note ---
Date of Service January 23, 2025 Assessment & Plan (1) Acute appendicitis: Plan Patient appears to be recovering well after laparoscopic appendectomy and abdominal washout on December 31, 2024, his prolonged hospital course has been related to postop ileus, but also with multiple intra-abdominal abscesses that have required IR drainage and a prolonged course of IV antibiotics, as well as pleural effusion that required, as well as a pleural effusion that required thoracentesis. Overall, he appears to be improving, we appreciate the recommendations and management from our hospitalist colleagues. Patient does have a complicated discharge disposition due to lack of insurance and need for IV antibiotics, however these will hopefully be transition to oral antibiotics on January 26. Our plan would be to obtain a CAT scan of the abdomen pelvis on Sunday, January 26, 2025, prior to discharge to reassess these intra-abdominal fluid collections and hopefully they are resolving. The surgery team will follow in the periphery, but are available 18/09 with any questions or concerns. Admission and Anticipated Discharge Date Admission Date: December 31, 2024 Subjective Patient was seen and examined with the aid of a historic interpreter, he currently states that he feels well, much better than in previous days, denies any abdominal pain. He states that he has been tolerating a regular diet without any nausea or vomiting, passing flatus and has had normal bowel movements. White blood cell count has remained normal, platelets are still markedly elevated, but appear to have plateaued. Blood pressure has been mildly soft, but is otherwise remained hemodynamically stable. Physical Exam 2 Physical Exam: Gen: Awake and alert, resting comfortably in bed in NAD CV: RRR PULM: non-labored breathing Abd: Abdomen non-distended, soft, non-tender to palpation. The lower laparoscopic incision is slightly open with scant serous drainage noted on gauze, but no appreciable tracking and no erythema, swelling, warmth or increased tenderness to palpation, unable to express any drainage from the wound. Otherwise other laparoscopic incisions are well-approximated with skin glue in place, no surrounding erythema, warmth, swelling, or increased tendernes s to palpation. ext: no edema to bilateral lower ext, SCDs in place, non-tender, feet warm and well perfused Results & Data Vital Signs (Past 12 Hours) Vital Signs Temp Pulse Resp BP Pulse Ox O2 Del Method 01/23/25 09:42 98/60 L 01/23/25 07:29 36.8 C 69 16 98/64 L 94 Room Air PG Care Time/CCT Total # of Minutes Spent Total Time Spent with Patient: Total time spent is greater than 50% in coordination of care (as documented) at patient's floor/unit and/or counseling patient: Coding [place] [address] Post Operative Follow-Up Patient Type Established History Problem Focused Exam Problem Focused Medical Decision Making Low Complexity Diagnoses Acute appendicitis K35.201 Acute appendicitis type: with generalized peritonitis Appendicitis abscess presence: unspecified whether abscess present Appendicitis gangrene presence: with gangrene Appendicitis perforation presence: with perforation (1) Acute appendicitis Acute appendicitis type: with generalized peritonitis Appendicitis abscess presence: unspecified whether abscess present Appendicitis gangrene presence: with gangrene Appendicitis perforation presence: with perforation Qualified Code(s): K35.201 - Acute appendicitis with generalized peritonitis, with perforation, without abscess
--- NOTE | 2025-01-23 14:27 | Hospitalist Progress Note ---
Date of Service January 23, 2025 Assessment & Plan (1) Acute appendicitis: (2) Pleural effusion: (3) Postoperative intra-abdominal abscess: (4) Thrombocythemia: Plan This patient is a 39 y/o Syriac speaking male with no past medical history who was admitted with perforated appendicitis, peritonitis, sepsis POA, partial SBO, CORINA, severe lactic acidosis, and postoperative intra-abdominal abscesses and pleural effusion with possible empyema. Patient was taken to the OR urgently 12/31 for a laparoscopic appendectomy and abdominal washout. #Sepsis POA 2/2 perforated gangrenous appendicitis/peritonitis/partial SBO/intra-abdominal abscesses-with tachypnea, tachycardia, procalcitonin greater than 100, lactate elevated at 8, CORINA, and metabolic acidosis on admission. Sepsis, CORINA and acidosis resolved after IV fluids, IV Zosyn, surgical washout and appendectomy. He then had an ileus versus partial small bowel obstruction had NG tube replaced. That is now resolved and he is tolerating regular diet. He was then found to have multiple intra-abdominal abscesses-had IR placed drain and left paracolic abscess which has since been removed. He continues to be treated for intra-abdominal abscesses with IV antibiotics. Intra-abd fluid cx with E. coli, pansensitive. Blood cultures negative. Leukocytosis worsening again, low-grade temps on the evening of 01/16 and 01/17, rising CRP, and platelets continue to rise to 1.2 million-all point towards signs of ongoing inflammation/infection. Repeat CT chest/abdomen/pelvis on 01/18 with improved left sided loculated pleural effusion which is likely empyema sympathetic from intra-abdominal abscess, and left sided abscess near spleen remains about the same at 7 cm in size. Discussed care with surgery over the weekend and 01/18 - Postoperative management as per surgery - Continue IV Zosyn and add IV caspofungin for antifungal coverage on 01/18 - Make n.p.o. after midnight in case of need for repeat IR drainage versus surgical washout on 01/19-defer to surgery - Continue Tylenol as needed for pain. - Clinically stable to improving. Pain is resolving. Interested in food present. CV surgery consultation. No further indication for interventional or surgical procedure at this time. Postop day #20, Appropriate for transition to Augmentin after 01/26 and potential discharge pending availability of per case management. - IV antibiotics through Sunday, CT scan to assess for stability and discharge decision making as results return - Clinically stable to improving steadily with no relapses or recurrences over the last several days. #Dietary Concerns -RD consult placed per patient request, he will need instructions in [place]yr[place] - See RD notes, information given to the patient and at the bedside during this morning #Anemia/Thrombocytosis -Hgb mildly low but stable at 9-10, microcytic, iron panel consistent with chronic disease and iron deficiency mixed early in course of admission. B12, folate, and TSH are normal. Continues to have significant thrombocytosis with platelets worsening to 1267-likely reactive to infection and possibly secondary to iron deficiency. Appreciate Heme consult-recommends against aspirin use or any further workup as this is all reactive to sepsis - Hematology does not give a specific recommendation regarding giving IV iron, but may consider doing this anyway as this may improve his thrombocytosis-hold off for now --No aspirin needed for thrombocythemia and a reactive situation - Follow-up with GI as an outpatient for EGD and colonoscopy for microcytic iron deficiency anemia; however, he does not have insurance which may prohibit this. - Follow CBC, weekly on discharge. Thrombocytosis likely reactive, stable to slightly improving - Stable, improving, AM labs - Persistent but slow improvement, reactive to underlying condition #Pleural effusions/acute respiratory failure with hypoxemia- CTA chest performed on 01/03 due to shortness of breath shows pleural effusions and atelectasis of the lower lobes. He also had a subdiaphragmatic intra-abdominal abscess contributing to splinting. Significantly decreased breath sounds noted on exam in 01/12-CXR shows significantly enlarged left-sided pleural effusion greater than right. Pulse ox normal at 95% on room air. CT CHest on 01/13 with large left loculated pleural effusion and LLL collapse. Was diuresed with IV Lasix without much improvement. Had thoracentesis on 01/14. pH 7.55, chemistries consistent with exudative effusion by lights criteria, cultures pending, cytology negative. Now weaned off supplemental O2. Consulted pulmonology- concern for empyema given loculated effusion. Patient hesitant to have repeat thoracentesis or chest tube due to previous 1 causing severe pain, but now is amenable if necessary if given IV pain medicine prior to procedure - Encouraged incentive spirometry with patient and with nursing - Repeat chest CT 01/18 with improvement, but remains with fluid there-no point in draining it and less abdominal abscess drained as well as per pulmonology - Follow pleural fluid cultures, AFB - Pulmonology following - Follow chest x-ray - See pulmonology notes. Not amenable to drainage. Likely to resolve during course with antibiotics as above. - Clinically improving with ambulation, control of infection as above. No further imaging indicated at this time - Pulmonary exams gradually clearing. No acute issues or concerns #Hyponatremia-worsened due to hypervolemia from many days of IV fluids and TPN- with large pleural effusion. Sodium up to 134-135 after diuresis and now improved to normal. - Follow BMP daily as oral intake resumes and improves - Stable #Hypokalemia - mild, likely due to limited PO intake, daily BMP, no supplement at this time Daily BMP as above - Daily BMP #HERMAN-ongoing, almost daily, but improving - Resolved #CORINA/high AG metabolic acidosis/lactic acidosis- resolved. Creatinine 3.4 on arrival and now normal. CORINA secondary to ATN from sepsis. With lactic acidosis with lactate 8 and now normalized. pH 7.1 on arrival with metabolic acidosis. Is now resolved. Received IV fluids, treatment of sepsis. - Follow BMP stable to resolved, #Severe hepatic steatosis/ Elevated liver enzymes/prediabetes - Seen on CT. LFTs are now completely normal. Patient reports he only drinks alcohol 2-3 times per month-unclear if this is accurate. Lipids are normal, HgbA1c in prediabetes range at 6.0%. - counseled on alcohol cessation - Recommend follow-up with PCP and/or GI as an outpatient for fatty liver and prediabetes - Recommend low carbohydrate diet after discharge - Follow CMP - Continue po thiamine and p.o. folic acid daily in case of occult alcohol use disorder #Elevated troponin - peaked at 61 on 11.6, myocardial demand in the setting of GI sepsis - no further testing indicated at this time and DVT prophylaxis: SCDs, Lovenox Dispo: Continued stay on medical/surgical unit. Hospitalist service will continue to follow along Admission and Anticipated Discharge Date Admission Date: December 31, 2024 Subjective Note video public housing manager services were used throughout the visit doing well, no change compared to yesterday. No recurrence of pain. Eating okay. No issues with bowel or bladder function. He was able to meet with nutrition staff and get good recommendations for appropriate diet after discharge. Otherwise no new or different concerns per patient or nursing staff Physical Exam Constitutional: WD/WN, vitals as above Eyes: + anicteric sclerae Respiratory: Auscultation: no diminished lung sounds (CTAB), no crackles and no wheezes Cardiovascular: Rate/Rhythm: regular rhythm Heart Sounds: no murmur Extremities: no edema Gastrointestinal (Abdomen): Inspection/Auscultation: normal bowel sounds; + abdomen abnormal to inspection (Multiple laparoscopic surgery well-healed) and abdomen not distended Percussion/Palpation: abdomen soft; abdomen nontender and no guarding Psychiatric: A+Ox3, euthymic affect Orientation: cooperative Results & Data Results & Data Vital Signs (Past 12 Hours) Vital Signs Temp Pulse Resp BP Pulse Ox O2 Del Method 01/23/25 14:21 36.8 C 81 16 109/73 94 Room Air 01/23/25 09:42 98/60 L 01/23/25 07:29 36.8 C 69 16 98/64 L 94 Room Air Laboratory Results 01/23/25 06:35 WBC 9.58 RBC 3.55 L Hgb 9.4 L Hct 28.4 L MCV 80.0 MCH 26.5 MCHC 33.1 RDW Std Deviation 40.7 RDW Coeff of Annika 13.9 Plt Count 1129 H* MPV 8.1 L Immature Gran % (Auto) 1.5 Neut % (Auto) 73.9 Lymph % (Auto) 12.2 [place] % (Auto) 9.0 Eos % (Auto) 3.0 Baso % (Auto) 0.4 Neut # (Auto) 7.08 H Lymph # (Auto) 1.17 L [place] # (Auto) 0.86 H Eos # (Auto) 0.29 Baso # (Auto) 0.04 Immature Gran # (Auto) 0.14 Sodium 139 Potassium 3.6 Chloride 104 Carbon Dioxide 25 Anion Gap 10 BUN 13 Creatinine 0.66 Est Cr Clr Drug Dosing 136.1 eGFR 123.89 BUN/Creatinine Ratio 19.7 Glucose 92 Calcium 9.3 PG Care Time/CCT Total # of Minutes Spent Total Time Spent with Patient: Total time spent is greater than 50% in coordination of care (as documented) at patient's floor/unit and/or counseling patient: Coding Level of Care Code 92839 SUB INP/OBS CARE 1/25MIN Diagnoses Acute appendicitis K35.201 Acute appendicitis type: with generalized peritonitis Appendicitis abscess presence: unspecified whether abscess present Appendicitis gangrene presence: with gangrene Appendicitis perforation presence: with perforation Pleural effusion J90 Postoperative intra-abdominal abscess T81.43XA; K65.1 Thrombocythemia D75.839 (1) Acute appendicitis Acute appendicitis type: with generalized peritonitis Appendicitis abscess presence: unspecified whether abscess present Appendicitis gangrene presence: with gangrene Appendicitis perforation presence: with perforation Qualified Code(s): K35.201 - Acute appendicitis with generalized peritonitis, with perforation, without abscess
[2025-01-23] MEDS: COUGH DROP (SUGAR FREE) LOZ 24 LOZ/1 BOX BUCCAL PRN (20:45)
[2025-01-24 06:51] LABS: Hematocrit (blood only) 28.9 % (42.0-52.0); Hemoglobin 9.5 g/dL (14.0-18.0); Mean Corpuscular Hemoglobin 26.2 pg (25.0-34.0); Mean Corpuscular Volume 79.6 fL (80.0-100.0); Platelet Count 1094 K/uL (130-400); RDW Standard Deviation 40.1 fL (36.4-46.3); Red Blood Count 3.63 M/uL (4.70-6.10); White Blood Count 9.25 K/ul (4.8-10.8)
[2025-01-24 07:23] LABS: Anion Gap 8.0 (3-11); Blood Urea Nitrogen 12.0 mg/dl (6-23); Calcium 9.3 mg/dl (8.6-10.3); Carbon Dioxide 27.0 mmol/L (21-32); Chloride 104.0 mmol/L (98-107); Creatinine Clr Calc Pharmacy 124.9 ml/min; Glucose 87.0 mg/dl (70-99(Fasting)); Potassium 3.4 mmol/L (3.5-5.1); Sodium 139.0 mmol/L (136-145)
[2025-01-24 07:36] LABS: Anisocytosis Present; Immature Granulocytes # (auto) 0.12 K/uL (0.01-0.20); Immature Granulocytes % (auto) 1.3 %; Polychromasia 1+
--- NOTE | 2025-01-24 09:28 | Hospitalist Progress Note ---
Date of Service January 24, 2025 Assessment & Plan (1) Acute appendicitis: (2) Pleural effusion: (3) Postoperative intra-abdominal abscess: (4) Thrombocythemia: Plan This patient is a 39 y/o Turkmen speaking male with no past medical history who was admitted with perforated appendicitis, peritonitis, sepsis POA, partial SBO, CORINA, severe lactic acidosis, and postoperative intra-abdominal abscesses and pleural effusion with possible empyema. Patient was taken to the OR urgently 12/31 for a laparoscopic appendectomy and abdominal washout. #Sepsis POA 2/2 perforated gangrenous appendicitis/peritonitis/partial SBO/intra-abdominal abscesses-with tachypnea, tachycardia, procalcitonin greater than 100, lactate elevated at 8, CORINA, and metabolic acidosis on admission. Sepsis, CORINA and acidosis resolved after IV fluids, IV Zosyn, surgical washout and appendectomy. He then had an ileus versus partial small bowel obstruction had NG tube replaced. That is now resolved and he is tolerating regular diet. He was then found to have multiple intra-abdominal abscesses-had IR placed drain and left paracolic abscess which has since been removed. He continues to be treated for intra-abdominal abscesses with IV antibiotics. Intra-abd fluid cx with E. coli, pansensitive. Blood cultures negative. Leukocytosis worsening again, low-grade temps on the evening of 01/16 and 01/17, rising CRP, and platelets continue to rise to 1.2 million-all point towards signs of ongoing inflammation/infection. Repeat CT chest/abdomen/pelvis on 01/18 with improved left sided loculated pleural effusion which is likely empyema sympathetic from intra-abdominal abscess, and left sided abscess near spleen remains about the same at 7 cm in size. Discussed care with surgery over the weekend and 01/18 - Postoperative management as per surgery - Continue IV Zosyn and add IV caspofungin for antifungal coverage on 01/18 - Make n.p.o. after midnight in case of need for repeat IR drainage versus surgical washout on 01/19-defer to surgery - Continue Tylenol as needed for pain. - Clinically stable to improving. Pain is resolving. Interested in food present. CV surgery consultation. No further indication for interventional or surgical procedure at this time. Postop day #20, Appropriate for transition to Augmentin after 01/26 and potential discharge pending availability of per case management. - IV antibiotics through Friday 01/26 to, CT scan to assess for stability and discharge decision making as results return - Clinically stable to improving steadily with no relapses or recurrences over the last several days. #Dietary Concerns -RD consult placed per patient request, he will need instructions in [place] - See RD notes, information given to the patient and at the bedside during this morning #Anemia/Thrombocytosis -Hgb mildly low but stable at 9-10, microcytic, iron panel consistent with chronic disease and iron deficiency mixed early in course of admission. B12, folate, and TSH are normal. Continues to have significant thrombocytosis with platelets worsening to 1267-likely reactive to infection and possibly secondary to iron deficiency. Appreciate Heme consult-recommends against aspirin use or any further workup as this is all reactive to sepsis - Hematology does not give a specific recommendation regarding giving IV iron, but may consider doing this anyway as this may improve his thrombocytosis-hold off for now --No aspirin needed for thrombocythemia and a reactive situation - Follow-up with GI as an outpatient for EGD and colonoscopy for microcytic iron deficiency anemia; however, he does not have insurance which may prohibit this. - Follow CBC, weekly on discharge. Thrombocytosis likely reactive, stable to slightly improving - Stable, improving, AM labs - Persistent but slow improvement, reactive to underlying condition #Hypokalemia -Mild, good PO intake, recheck in 1-2 days #Hypotension -aymptomatic, interval improvement in with small fluid bolus, repeat NS bolus PRN #Pleural effusions/acute respiratory failure with hypoxemia- CTA chest performed on 01/03 due to shortness of breath shows pleural effusions and atelectasis of the lower lobes. He also had a subdiaphragmatic intra-abdominal abscess contributing to splinting. Significantly decreased breath sounds noted on exam in 01/12-CXR shows significantly enlarged left-sided pleural effusion greater than right. Pulse ox normal at 95% on room air. CT CHest on 01/13 with large left loculated pleural effusion and LLL collapse. Was diuresed with IV Lasix without much improvement. Had thoracentesis on 01/14. pH 7.55, chemistries consistent with exudative effusion by lights criteria, cultures pending, cytology negative. Now weaned off supplemental O2. Consulted pulmonology- concern for empyema given loculated effusion. Patient hesitant to have repeat thoracentesis or chest tube due to previous 1 causing severe pain, but now is amenable if necessary if given IV pain medicine prior to procedure - Encouraged incentive spirometry with patient and with nursing - Repeat chest CT 01/18 with improvement, but remains with fluid there-no point in draining it and less abdominal abscess drained as well as per pulmonology - Follow pleural fluid cultures, AFB - Pulmonology following - Follow chest x-ray - See pulmonology notes. Not amenable to drainage. Likely to resolve during course with antibiotics as above. - Clinically improving with ambulation, control of infection as above. No further imaging indicated at this time - Pulmonary exams gradually clearing. No acute issues or concerns #Hyponatremia-worsened due to hypervolemia from many days of IV fluids and TPN-w ith large pleural effusion. Sodium up to 134-135 after diuresis and now improved to normal. - Follow BMP daily as oral intake resumes and improves - Stable #HERMAN-ongoing, almost daily, but improving - Resolved #CORINA/high AG metabolic acidosis/lactic acidosis- resolved. Creatinine 3.4 on arrival and now normal. CORINA secondary to ATN from sepsis. With lactic acidosis with lactate 8 and now normalized. pH 7.1 on arrival with metabolic acidosis. Is now resolved. Received IV fluids, treatment of sepsis. - Follow BMP stable to resolved, #Severe hepatic steatosis/ Elevated liver enzymes/prediabetes - Seen on CT. LFTs are now completely normal. Patient reports he only drinks alcohol 2-3 times per month-unclear if this is accurate. Lipids are normal, HgbA1c in prediabetes range at 6.0%. - counseled on alcohol cessation - Recommend follow-up with PCP and/or GI as an outpatient for fatty liver and prediabetes - Recommend low carbohydrate diet after discharge - Follow CMP - Continue po thiamine and p.o. folic acid daily in case of occult alcohol use disorder #Elevated troponin - peaked at 61 on .6, myocardial demand in the setting of GI sepsis - no further testing indicated at this time DVT prophylaxis: SCDs, Lovenox Dispo: Continued stay on medical/surgical unit. Hospitalist service will continue to follow along Admission and Anticipated Discharge Date Admission Date: December 31, 2024 Subjective Doing well, up showering before my visit, no dizziness, orthostasis or shortness of breath. Tolerating activity very well. Sleeping well eating well. Normal bowel movements. Repeat imaging on Sunday with potential discharge. Patient was very excited about possibly going home states the first thing is going through his walk outside a few laps where he lives and works otherwise no new complaints or concerns this morning. Physical Exam Constitutional: WD/WN, vitals as above Eyes: + anicteric sclerae Respiratory: Auscultation: no diminished lung sounds (CTAB), no crackles and no wheezes Cardiovascular: Rate/Rhythm: regular rhythm Heart Sounds: no murmur Extremities: no edema Gastrointestinal (Abdomen): Inspection/Auscultation: normal bowel sounds; + abdomen abnormal to inspection (Multiple laparoscopic surgery well-healed) and abdomen not distended Percussion/Palpation: abdomen soft; abdomen nontender and no guarding Psychiatric: A+Ox3, euthymic affect Orientation: cooperative Results & Data Results & Data Vital Signs (Past 12 Hours) Vital Signs Temp Pulse Resp BP Pulse Ox O2 Del Method 01/24/25 07:05 36.7 C 73 16 97/62 L 95 Room Air 01/23/25 22:24 37.1 C 67 16 94/59 L 95 Room Air Laboratory Results 01/14/25 Unknown Acid Fast Bacilli Smear - Final Pleural Fluid Acid Fast Bacilli Culture - Preliminary No Acid-Fast Bacilli Isolated - Report 1, Additional Report to Follow. 01/24/25 06:13 WBC 9.25 RBC 3.63 L Hgb 9.5 L Hct 28.9 L MCV 79.6 L MCH 26.2 MCHC 32.9 RDW Std Deviation 40.1 RDW Coeff of Annika 13.8 Plt Count 1094 H* MPV 8.1 L Immature Gran % (Auto) 1.3 Neut % (Auto) 69.6 Lymph % (Auto) 15.2 [place] % (Auto) 9.6 Eos % (Auto) 3.9 Baso % (Auto) 0.4 Neut # (Auto) 6.43 Lymph # (Auto) 1.41 [place] # (Auto) 0.89 H Eos # (Auto) 0.36 Baso # (Auto) 0.04 Immature Gran # (Auto) 0.12 Polychromasia 1+ Anisocytosis Present Sodium 139 Potassium 3.4 L Chloride 104 Carbon Dioxide 27 Anion Gap 8 BUN 12 Creatinine 0.73 Est Cr Clr Drug Dosing 124.9 eGFR 120.17 BUN/Creatinine Ratio 16.4 Glucose 87 Calcium 9.3 PG Care Time/CCT Total # of Minutes Spent Total Time Spent with Patient: Total time spent is greater than 50% in coordination of care (as documented) at patient's floor/unit and/or counseling patient: Coding Level of Care Code 79289 SUB INP/OBS CARE 03/22MIN Diagnoses Acute appendicitis K35.201 Acute appendicitis type: with generalized peritonitis Appendicitis abscess presence: unspecified whether abscess present Appendicitis gangrene presence: with gangrene Appendicitis perforation presence: with perforation Pleural effusion J90 Postoperative intra-abdominal abscess T81.43XA; K65.1 Thrombocythemia D75.839 (1) Acute appendicitis Acute appendicitis type: with generalized peritonitis Appendicitis abscess presence: unspecified whether abscess present Appendicitis gangrene presence: with gangrene Appendicitis perforation presence: with perforation Qualified Code(s): K35.201 - Acute appendicitis with generalized peritonitis, with perforation, without abscess
--- NOTE | 2025-01-25 11:26 | Hospitalist Progress Note ---
Date of Service January 25, 2025 Assessment & Plan (1) Acute appendicitis: (2) Pleural effusion: (3) Postoperative intra-abdominal abscess: (4) Thrombocythemia: Plan This patient is a 39 y/o Chinese speaking male with no past medical history who was admitted with perforated appendicitis, peritonitis, sepsis POA, partial SBO, CORINA, severe lactic acidosis, and postoperative intra-abdominal abscesses and pleural effusion with possible empyema. Patient was taken to the OR urgently 12/31 for a laparoscopic appendectomy and abdominal washout. #Sepsis POA 2/2 perforated gangrenous appendicitis/peritonitis/partial SBO/intra-abdominal abscesses-with tachypnea, tachycardia, procalcitonin greater than 100, lactate elevated at 8, CORINA, and metabolic acidosis on admission. Sepsis, CORINA and acidosis resolved after IV fluids, IV Zosyn, surgical washout and appendectomy. He then had an ileus versus partial small bowel obstruction had NG tube replaced. That is now resolved and he is tolerating regular diet. He was then found to have multiple intra-abdominal abscesses-had IR placed drain and left paracolic abscess which has since been removed. He continues to be treated for intra-abdominal abscesses with IV antibiotics. Intra-abd fluid cx with E. coli, pansensitive. Blood cultures negative. Leukocytosis worsening again, low-grade temps on the evening of 01/16 and 01/17, rising CRP, and platelets continue to rise to 1.2 million-all point towards signs of ongoing inflammation/infection. Repeat CT chest/abdomen/pelvis on 01/18 with improved left sided loculated pleural effusion which is likely empyema sympathetic from intra-abdominal abscess, and left sided abscess near spleen remains about the same at 7 cm in size. Discussed care with surgery over the weekend and 01/18 - Postoperative management as per surgery - Continue IV Zosyn and add IV caspofungin for antifungal coverage on 01/18 - Make n.p.o. after midnight in case of need for repeat IR drainage versus surgical washout on 01/19-defer to surgery - Continue Tylenol as needed for pain. - Clinically stable to improving. Pain is resolving. Interested in food present. CV surgery consultation. No further indication for interventional or surgical procedure at this time. Postop day #20, Appropriate for transition to Augmentin after 01/26 and potential discharge pending availability of per case management. - IV antibiotics through Friday 01/26 ongoing per ID, CT scan 01/26 to assess for stability and discharge decision making as results return - Clinically stable to improving steadily with no relapses or recurrences over the last several days. #Dietary Concerns -RD consult placed per patient request, he will need instructions in [place] - See RD notes, information given to the patient and at the bedside during this morning #Anemia/Thrombocytosis -Hgb mildly low but stable at 9-10, microcytic, iron panel consistent with chronic disease and iron deficiency mixed early in course of admission. B12, folate, and TSH are normal. Continues to have significant thrombocytosis with platelets worsening to 1267-likely reactive to infection and possibly secondary to iron deficiency. Appreciate Heme consult-recommends against aspirin use or any further workup as this is all reactive to sepsis - Hematology does not give a specific recommendation regarding giving IV iron, but may consider doing this anyway as this may improve his thrombocytosis-hold off for now --No aspirin needed for thrombocythemia and a reactive situation - Follow-up with GI as an outpatient for EGD and colonoscopy for microcytic iron deficiency anemia; however, he does not have insurance which may prohibit this. - Follow CBC, weekly on discharge. Thrombocytosis likely reactive, stable to slightly improving - Stable, improving, AM labs - Persistent but slow improvement, reactive to underlying condition #Hypokalemia -Mild, good PO intake, recheck tomorrow AM #Hypotension -asymptomatic, interval improvement in with small fluid bolus, orhtostatic VS negative 01/24, repeat NS bolus PRN #Pleural effusions/acute respiratory failure with hypoxemia- CTA chest performed on 01/03 due to shortness of breath shows pleural effusions and atelectasis of the lower lobes. He also had a subdiaphragmatic intra-abdominal abscess contributing to splinting. Significantly decreased breath sounds noted on exam in 01/12-CXR shows significantly enlarged left-sided pleural effusion greater than right. Pulse ox normal at 95% on room air. CT CHest on 01/13 with large left loculated pleural effusion and LLL collapse. Was diuresed with IV Lasix without much improvement. Had thoracentesis on 01/14. pH 7.55, chemistries consistent with exudative effusion by lights criteria, cultures pending, cytology negative. Now weaned off supplemental O2. Consulted pulmonology- concern for empyema given loculated effusion. Patient hesitant to have repeat thoracentesis or chest tube due to previous 1 causing severe pain, but now is amenable if necessary if given IV pain medicine prior to procedure - Encouraged incentive spirometry with patient and with nursing - Repeat chest CT 01/18 with improvement, but remains with fluid there-no point in draining it and less abdominal abscess drained as well as per pulmonology - Follow pleural fluid cultures, AFB - Pulmonology following - Follow chest x-ray - See pulmonology notes. Not amenable to drainage. Likely to resolve during course with antibiotics as above. - Clinically improving with ambulation, control of infection as above. No further imaging indicated at this time - Pulmonary exams gradually clearing. No acute issues or concerns #Hyponatremia-worsened due to hypervolemia from many days of IV fluids and TPN- with large pleural effusion. Sodium up to 134-135 after diuresis and now improved to normal. - Follow BMP daily as oral intake resumes and improves - Stable, AM labs #HERMAN-ongoing, almost daily, but improving - Resolved #CORINA/high AG metabolic acidosis/lactic acidosis- resolved. Creatinine 3.4 on arrival and now normal. CORINA secondary to ATN from sepsis. With lactic acidosis with lactate 8 and now normalized. pH 7.1 on arrival with metabolic acidosis. Is now resolved. Received IV fluids, treatment of sepsis. - Follow BMP stable to resolved #Severe hepatic steatosis/ Elevated liver enzymes/prediabetes - Seen on CT. LFTs are now completely normal. Patient reports he only drinks alcohol 2-3 times per month-unclear if this is accurate. Lipids are normal, HgbA1c in prediabetes range at 6.0%. - counseled on alcohol cessation - Recommend follow-up with PCP and/or GI as an outpatient for fatty liver and prediabetes - Recommend low carbohydrate diet after discharge - Follow CMP - Continue po thiamine and p.o. folic acid daily in case of occult alcohol use disorder #Elevated troponin - peaked at 61 on .6, myocardial demand in the setting of GI sepsis - no further testing indicated at this time DVT prophylaxis: SCDs, Lovenox Dispo: Continued stay on medical/surgical unit. Hospitalist service will continue to follow along Admission and Anticipated Discharge Date Admission Date: December 31, 2024 Subjective Note: Video aerial photograph interpreter services used throughout the visit today Doing well this morning. Pretty much independent within the room. Eating okay. No problems with bowel or bladder function. No new symptoms or concerns per patient. We discussed imaging tomorrow and the decision making on his antibiotics for the potential discharge in the next 1 to 2 days. He reports his breathing is steadily improving. He does want some additional medicine for cough on discharge but that seems to be improving as well. Physical Exam Constitutional: WD/WN, vitals as above Eyes: + anicteric sclerae Respiratory: Auscultation: no diminished lung sounds (CTAB), no crackles and no wheezes Cardiovascular: Rate/Rhythm: regular rhythm Heart Sounds: no murmur Extremities: no edema Gastrointestinal (Abdomen): Inspection/Auscultation: normal bowel sounds; + abdomen abnormal to inspection (Multiple laparoscopic surgery well-healed) and abdomen not distended Percussion/Palpation: abdomen soft; abdomen nontender and no guarding Psychiatric: A+Ox3, euthymic affect Orientation: cooperative Results & Data Results & Data Vital Signs (Past 12 Hours) Vital Signs Temp Pulse Resp BP Pulse Ox O2 Del Method 01/25/25 07:22 36.6 C 67 16 100/63 95 Room Air Laboratory Results 01/14/25 Unknown Acid Fast Bacilli Smear - Final Pleural Fluid Acid Fast Bacilli Culture - Preliminary No Acid-Fast Bacilli Isolated - Report 1, Additional Report to Follow. PG Care Time/CCT Total # of Minutes Spent Total Time Spent with Patient: Total time spent is greater than 50% in coordination of care (as documented) at patient's floor/unit and/or counseling patient: Coding Level of Care Code 60905 SUB INP/OBS CARE 2/35MIN Diagnoses Acute appendicitis K35.201 Acute appendicitis type: with generalized peritonitis Appendicitis abscess presence: unspecified whether abscess present Appendicitis gangrene presence: with gangrene Appendicitis perforation presence: with perforation Pleural effusion J90 Postoperative intra-abdominal abscess T81.43XA; K65.1 Thrombocythemia D75.839 (1) Acute appendicitis Acute appendicitis type: with generalized peritonitis Appendicitis abscess presence: unspecified whether abscess present Appendicitis gangrene presence: with gangrene Appendicitis perforation presence: with perforation Qualified Code(s): K35.201 - Acute appendicitis with generalized peritonitis, with perforation, without abscess
[2025-01-26 08:53] LABS: Hematocrit (blood only) 30.3 % (42.0-52.0); Hemoglobin 9.9 g/dL (14.0-18.0); Immature Granulocytes # (auto) 0.08 K/uL (0.01-0.20); Immature Granulocytes % (auto) 0.9 %; Mean Corpuscular Hemoglobin 26.1 pg (25.0-34.0); Mean Corpuscular Volume 79.7 fL (80.0-100.0); Platelet Count 1002 K/uL (130-400); RDW Standard Deviation 41.2 fL (36.4-46.3); Red Blood Count 3.80 M/uL (4.70-6.10); White Blood Count 8.84 K/ul (4.8-10.8)
[2025-01-26 09:08] LABS: Alanine Aminotransferase 30.0 U/L (7-52); Albumin Globulin Ratio 0.8 (0.9-2); Albumin Level 3.4 gm/dl (3.4-5.0); Alkaline Phosphatase 67.0 U/L (34-104); Anion Gap 8.0 (3-11); Bilirubin,Total 0.3 mg/dl (0.2-1.0); Blood Urea Nitrogen 12.0 mg/dl (6-23); Calcium 9.3 mg/dl (8.6-10.3); Carbon Dioxide 26.0 mmol/L (21-32); Chloride 105.0 mmol/L (98-107); Creatinine Clr Calc Pharmacy 134.1 ml/min; Globulin 4.3 gm/dl (2.5-4.0); Glucose 106.0 mg/dl (70-99(Fasting)); Magnesium 1.8 mg/dl (1.7-2.4); Potassium 3.4 mmol/L (3.5-5.1); Sodium 139.0 mmol/L (136-145); Total Protein 7.7 gm/dl (6.0-8.3)
[2025-01-26] MEDS: OPTIRAY 320 100ml IV ONE (10:01)
--- NOTE | 2025-01-26 11:45 | Hospitalist Progress Note ---
Date of Service January 26, 2025 Assessment & Plan (1) Acute appendicitis: (2) Pleural effusion: (3) Postoperative intra-abdominal abscess: (4) Thrombocythemia: Plan This patient is a 39 y/o Persian speaking male with no past medical history who was admitted with perforated appendicitis, peritonitis, sepsis POA, partial SBO, CORINA, severe lactic acidosis, and postoperative intra-abdominal abscesses and pleural effusion with possible empyema. Patient was taken to the OR urgently 1 03/02 for a laparoscopic appendectomy and abdominal washout. #Sepsis POA 2/2 perforated gangrenous appendicitis/peritonitis/partial SBO/intra-abdominal abscesses-with tachypnea, tachycardia, procalcitonin greater than 100, lactate elevated at 8, CORINA, and metabolic acidosis on admission. Sepsis, CORINA and acidosis resolved after IV fluids, IV Zosyn, surgical washout and appendectomy. He then had an ileus versus partial small bowel obstruction had NG tube replaced. That is now resolved and he is tolerating regular diet. He was then found to have multiple intra-abdominal abscesses-had IR placed drain and left paracolic abscess which has since been removed. He continues to be treated for intra-abdominal abscesses with IV antibiotics. Intra-abd fluid cx with E. coli, pansensitive. Blood cultures negative. Leukocytosis worsening again, low-grade temps on the evening of 01/16 and 01/17, rising CRP, and platelets continue to rise to 1.2 million-all point towards signs of ongoing inflammation/infection. Repeat CT chest/abdomen/pelvis on 01/18 with improved left sided loculated pleural effusion which is likely empyema sympathetic from intra-abdominal abscess, and left sided abscess near spleen remains about the same at 7 cm in size. Discussed care with surgery over the weekend and 01/18 - Postoperative management as per surgery - Continue IV Zosyn and add IV caspofungin for antifungal coverage on 01/18 - Make n.p.o. after midnight in case of need for repeat IR drainage versus surgical washout on 01/19-defer to surgery - Continue Tylenol as needed for pain. - Clinically stable to improving. Pain is resolving. Interested in food present. CV surgery consultation. No further indication for interventional or surgical procedure at this time. Postop day #20, Appropriate for transition to Augmentin after 01/26 and potential discharge pending availability of per case management. - IV antibiotics through Friday 01/26 ongoing per ID Remains on IV antibiotics Repeat CT scan on 01/26 pending to reevaluate fluid collections Follow surgery further input Challenging disposition as has no insurance #Dietary Concerns -RD consult placed per patient request, he will need instructions in uzbek - See RD notes, information given to the patient and at the bedside during this morning #Anemia/Thrombocytosis -Hgb mildly low but stable at 9-10, microcytic, iron panel consistent with chronic disease and iron deficiency mixed early in course of admission. B12, folate, and TSH are normal. Continues to have significant thrombocytosis with platelets worsening to 1267-likely reactive to infection and possibly secondary to iron deficiency. Appreciate Heme consult-recommends against aspirin use or any further workup as this is all reactive to sepsis - Hematology does not give a specific recommendation regarding giving IV iron, but may consider doing this anyway as this may improve his thrombocytosis-hold off for now --No aspirin needed for thrombocythemia and a reactive situation - Follow-up with GI as an outpatient for EGD and colonoscopy for microcytic iron deficiency anemia; however, he does not have insurance which may prohibit this. - Follow CBC, weekly on discharge. Thrombocytosis likely reactive, stable to slightly improving - Stable, improving, AM labs - Persistent but slow improvement, reactive to underlying condition. Monitor closely #Hypokalemia -Mild, good PO intake, recheck tomorrow AM #Hypotension -asymptomatic, interval improvement in with small fluid bolus, orhtostatic VS negative 01/24, repeat NS bolus PRN #Pleural effusions/acute respiratory failure with hypoxemia- CTA chest performed on 01/03 due to shortness of breath shows pleural effusions and atelectasis of the lower lobes. He also had a subdiaphragmatic intra-abdominal abscess contributing to splinting. Significantly decreased breath sounds noted on exam in 01/12-CXR shows significantly enlarged left-sided pleural effusion greater than right. Pulse ox normal at 95% on room air. CT CHest on 01/13 with large left loculated pleural effusion and LLL collapse. Was diuresed with IV Lasix without much improvement. Had thoracentesis on 01/14. pH 7.55, chemistries consistent with exudative effusion by lights criteria, cultures pending, cytology negative. Now weaned off supplemental O2. Consulted pulmonology- concern for empyema given loculated effusion. Patient hesitant to have repeat thoracentesis or chest tube due to previous 1 causing severe pain, but now is amenable if necessary if given IV pain medicine prior to procedure - Encouraged incentive spirometry with patient and with nursing - Repeat chest CT 01/18 with improvement, but remains with fluid there-no point in draining it and less abdominal abscess drained as well as per pulmonology - Follow pleural fluid cultures, AFB - Pulmonology following - Follow chest x-ray - See pulmonology notes. Not amenable to drainage. Likely to resolve during course with antibiotics as above. - Clinically improving with ambulation, control of infection as above. No further imaging indicated at this time - Pulmonary exams gradually clearing. No acute issues or concerns #Hyponatremia-worsened due to hypervolemia from many days of IV fluids and TPN- with large pleural effusion. Sodium up to 134-135 after diuresis and now improved to normal. - Follow BMP daily as oral intake resumes and improves - Stable, AM labs #HERMAN-ongoing, almost daily, but improving - Resolved #CORINA/high AG metabolic acidosis/lactic acidosis- resolved. Creatinine 3.4 on arrival and now normal. CORINA secondary to ATN from sepsis. With lactic acidosis with lactate 8 and now normalized. pH 7.1 on arrival with metabolic acidosis. Is now resolved. Received IV fluids, treatment of sepsis. - Follow BMP stable to resolved #Severe hepatic steatosis/ Elevated liver enzymes/prediabetes - Seen on CT. LFTs are now completely normal. Patient reports he only drinks alcohol 2-3 times per month-unclear if this is accurate. Lipids are normal, HgbA1c in prediabetes range at 6.0%. - counseled on alcohol cessation - Recommend follow-up with PCP and/or GI as an outpatient for fatty liver and prediabetes - Recommend low carbohydrate diet after discharge - Follow CMP - Continue po thiamine and p.o. folic acid daily in case of occult alcohol use disorder #Elevated troponin - peaked at 61 on .6, myocardial demand in the setting of GI sepsis - no further testing indicated at this time DVT prophylaxis: SCDs, Lovenox Dispo: Continued stay on medical/surgical unit. Hospitalist service will continue to follow along Admission and Anticipated Discharge Date Admission Date: December 31, 2024 Subjective Doing fairly well no abdominal pain nausea fevers chills or other GI symptoms. In good spirits tolerating diet. RN at bedside Review of Systems Review of Systems: Negative except as in HPI Physical Exam Physical Exam: General: A&Ox3. NAD. Cooperative. HEENT: Atraumatic, normocephalic. Vision and hearing grossly intact. Pupils equal and reactive to light, sclera clear and anicteric Pulm: diminished at the left base otherwise clear bilaterally A&P. -wheezes, - rales, -rhonchi. No increased work of breathing. No respiratory distress. Cardiac: RRR. -mrg. Radial pulses intact and symmetrical. Abdominal: Slightly reduced bowel sounds, no distention, no localized tenderness, no signs of peritonitis, no rigidity Ext: No Edema, Moves all extremities equally NEURO: A&O as above, no focal deficits Skin: warm, moist. Constitutional: WD/WN, vitals as above not diaphoretic Eyes: + anicteric sclerae Respiratory: normal respiratory effort, lungs clear to auscultation + labored breathing (Mild tachypnea) and + tachypneic (Mild at rest and with minimal exertion) Auscultation: + rhonchi (Left middle lung field); no diminished lung sounds (CTAB), no crackles and no wheezes Cardiovascular: Rate/Rhythm: regular rate, regular rhythm and + tachycardic Heart Sounds: no murmur Extremities: no edema Gastrointestinal (Abdomen): Inspection/Auscultation: normal bowel sounds, + abdominal surgical incision (Laparoscopic incisions clean dry and intact) and + hypoactive bowel sounds; + abdomen abnormal to inspection (Multiple laparoscopic surgery well-healed) and abdomen not distended Percussion/Palpation: abdomen soft; abdomen nontender, no guarding and abdomen not rigid Musculoskeletal: Extremities: extremities normal to inspection Skin: no rashes Neurologic: awake Psychiatric: A+Ox3, euthymic affect Orientation: alert, oriented x 3 and cooperative Results & Data Results & Data Vital Signs (Past 12 Hours) Vital Signs Temp Pulse Resp BP Pulse Ox O2 Del Method 01/26/25 07:21 36.9 C 70 16 92/57 L 93 Room Air PG Care Time/CCT Total # of Minutes Spent Total Time Spent with Patient: Total time spent is greater than 50% in coordination of care (as documented) at patient's floor/unit and/or counseling patient: Coding Level of Care Code 37170 SUB INP/OBS CARE 2/35MIN Diagnoses Acute appendicitis K35.201 Acute appendicitis type: with generalized peritonitis Appendicitis abscess presence: unspecified whether abscess present Appendicitis gangrene presence: with gangrene Appendicitis perforation presence: with perforation Pleural effusion J90 Postoperative intra-abdominal abscess T81.43XA; K65.1 Thrombocythemia D75.839 (1) Acute appendicitis Acute appendicitis type: with generalized peritonitis Appendicitis abscess presence: unspecified whether abscess present Appendicitis gangrene presence: with gangrene Appendicitis perforation presence: with perforation Qualified Code(s): K35.201 - Acute appendicitis with generalized peritonitis, with perforation, without abscess
--- NOTE | 2025-01-26 12:32 | Surgery Progress Note ---
Date of Service January 26, 2025 Assessment & Plan (1) Postoperative intra-abdominal abscess: Plan: Status post laparoscopic appendectomy for perforated appendicitis, post op course complicated by intra-adbominal abscess (1 was amenable to IR drainage), remains on IV abx. Did also have L pleural effusion tapped by IR WBC 8.8, Hbg 9.9, Plt 1002. Vitals are stable Pt continues to feel well. Some LUQ pain with coughing, but otherwise feels stable and improved CT chest/abd/pelvis obtained today, results pending. Will f/u on report. If overall improvement will plan to transition to oral abx Possible d/c to home in next day or two if CT results are improved and patient does well on oral abx Appreciate social work and hospitalists assistance (2) Loculated pleural effusion: Admission and Anticipated Discharge Date Admission Date: December 31, 2024 Supervising Physician Co-Signing Physician Notes Discussed with MARIANN, labs and imaging reviewed, agree with above. Status post laparoscopic appendectomy for perforated acute appendicitis with sepsis, status post IR drainage of intra-abdominal abscess, status post thoracentesis for left reactive effusion. Doing well, afebrile stable vitals, symptoms significantly improved. WBC normal. CT scan personally reviewed and interpreted and agree with the assessment of improvement in the fluid collections. Will touch base with pulmonology regarding lung findings. Plan to transition to oral antibiotics if they are okay with it later today. Potential discharge with 2 more weeks of oral antibiotics on Sunday. Subjective Patient feels well. Does complain of a cough that exacerbates some LUQ pain, otherwise reports no issues at rest/baseline. No nausea/vomiting. Tolerating diet. + bowel function. Denies respiratory complaints Physical Exam Physical Exam: awake, alert, no distress Respiratory: on room air Gastrointestinal (Abdomen): Percussion/Palpation: + abdomen tender (mild discomfort in LUQ) and abdomen soft incisions c/d/i Results & Data Vital Signs (Past 12 Hours) Vital Signs Temp Pulse Resp BP Pulse Ox O2 Del Method 01/26/25 07:21 98.4 F 70 16 92/57 L 93 Room Air PG Care Time/CCT Total # of Minutes Spent Total Time Spent with Patient: Total time spent is greater than 50% in coordination of care (as documented) at patient's floor/unit and/or counseling patient: Coding Level of Care Code 19811 Post Operative Follow-Up Diagnoses Postoperative intra-abdominal abscess T81.43XA; K65.1 Loculated pleural effusion J90
--- NOTE | 2025-01-26 13:45 | CT Scan Report ---
CHEST CT WITH CONTRAST; CT ABDOMEN AND PELVIS WITH IV AND ORAL CONTRAST. HISTORY: Acute chest and abdominal pain in a patient with history of acute appendicitis h/o perf'd a ppy and pleural effusion TECHNIQUE: Multiaxial CT images of the chest, abdomen and pelvis were performed following the IV admi nistration of 94 cc of Optiray. Oral contrast also administered. A dose lowering technique was utili zed adhering to the principles of ALARA. COMPARISON: CT chest, abdomen and pelvis 01/18/2025, 01/13/2025, CTA chest 01/03/2025, CT-guided cath eter placement 01/07/2025 FINDINGS: CT CHEST: No dominant thyroid nodule or lymphadenopathy identified. Subcentimeter subcarinal lymph no filemon are unchanged and likely reactive. Heart is normal in size. A right-sided PICC is noted with dist al tip terminating within the right atrium. No thoracic aortic aneurysm. Small right pleural effusion has increased in size from 01/18/2025. Unchanged size of the small locul ated left pleural effusion with near bibasilar consolidation, most pronounced in the left lower lobe is generally unchanged along with left lower lobe volume loss. Trace left-sided pneumothorax with ple ural air adjacent to the superior segment left lower lobe on image 55 series 4. This is unchanged fro m 01/18/2025. Unremarkable soft tissues. No acute fracture. CT ABDOMEN/PELVIS: No pneumatosis or pneumoperitoneum. There is no portal venous gas. The peripherall y enhancing perisplenic fluid collection continues to decrease in size now measuring 5.6 x 4.2 cm on image 59 series 6. This measured up to approximately 11 x 7 cm on the 01/13/2025 study. Additional pe ripheral enhancing fluid collections within the abdomen and pelvis are again noted including a 3.5 cm collection within the left mid abdomen on image 185, previously 4.5 cm. Several 3 cm collection with in the mid mesentery on image 175. The small collection within the right hemipelvis seen on 5 has resolved. No new or progressive fluid collections. Areas of peritoneal thickening and enhanceme nt are again noted with areas of trace ascites and mesenteric edema. Unchanged mesenteric lymphadenop athy. Otherwise unremarkable spleen, pancreas, gallbladder, adrenal glands and liver. Patent portal vein. N o hydronephrosis. Urinary bladder wall thickening with partial distention. Aorta and IVC are unremark able. No lymphadenopathy. Areas of small bowel wall thickening again noted, predominantly involving t he jejunum. No obstruction. Prior appendectomy. No drainable fluid collections. No acute fracture augustus ntified. IMPRESSION: 1. Small right pleural effusion has increased in size from 01/18/2025. 2. Unchanged loculated left-sided hydropneumothorax with pleural thickening and left basilar consolid ation. 3.Prior appendectomy with multiple intra-abdominal fluid collections/abscesses redemonstrated, most o f which have decreased in size. No new, progressive or drainable fluid collections. 4. Trace ascites with peritoneal thickening and areas of small bowel wall thickening redemonstrated. 5. No bowel obstruction or pneumoperitoneum. ACT 112: Negative or not required by law. Electronically signed by: Brian Land M.D. 01/26/2025 1:42 PM
[2025-01-26] MEDS: AMOXICILLIN/CLAVULANATE 875 MG TAB PO SCH (17:05)
[2025-01-27 07:19] LABS: Hematocrit (blood only) 30.9 % (42.0-52.0); Hemoglobin 9.9 g/dL (14.0-18.0); Mean Corpuscular Hemoglobin 25.8 pg (25.0-34.0); Mean Corpuscular Volume 80.5 fL (80.0-100.0); Platelet Count 975 K/uL (130-400); RDW Standard Deviation 41.3 fL (36.4-46.3); Red Blood Count 3.84 M/uL (4.70-6.10); White Blood Count 9.35 K/ul (4.8-10.8)
[2025-01-27 08:01] LABS: Alanine Aminotransferase 29.0 U/L (7-52); Albumin Globulin Ratio 0.8 (0.9-2); Albumin Level 3.4 gm/dl (3.4-5.0); Alkaline Phosphatase 65.0 U/L (34-104); Anion Gap 8.0 (3-11); Bilirubin,Total 0.3 mg/dl (0.2-1.0); Blood Urea Nitrogen 12.0 mg/dl (6-23); Calcium 9.4 mg/dl (8.6-10.3); Carbon Dioxide 25.0 mmol/L (21-32); Chloride 107.0 mmol/L (98-107); Creatinine Clr Calc Pharmacy 151.9 ml/min; Globulin 4.1 gm/dl (2.5-4.0); Glucose 83.0 mg/dl (70-99(Fasting)); Potassium 3.5 mmol/L (3.5-5.1); Sodium 140.0 mmol/L (136-145); Total Protein 7.5 gm/dl (6.0-8.3)
--- NOTE | 2025-01-27 11:09 | Hospitalist Progress Note ---
Date of Service January 27, 2025 Assessment & Plan (1) Acute appendicitis: (2) Pleural effusion: (3) Postoperative intra-abdominal abscess: (4) Thrombocythemia: Plan This patient is a 39 y/o Kazakh speaking male with no past medical history who was admitted with perforated appendicitis, peritonitis, sepsis POA, partial SBO, CORINA, severe lactic acidosis, and postoperative intra-abdominal abscesses and pleural effusion with possible empyema. Patient was taken to the OR urgently 1 03/02 for a laparoscopic appendectomy and abdominal washout. #Sepsis POA 2/2 perforated gangrenous appendicitis/peritonitis/partial SBO/intra-abdominal abscesses-with tachypnea, tachycardia, procalcitonin greater than 100, lactate elevated at 8, CORINA, and metabolic acidosis on admission. Sepsis, CORINA and acidosis resolved after IV fluids, IV Zosyn, surgical washout and appendectomy. He then had an ileus versus partial small bowel obstruction had NG tube replaced. That is now resolved and he is tolerating regular diet. He was then found to have multiple intra-abdominal abscesses-had IR placed drain and left paracolic abscess which has since been removed. He continues to be treated for intra-abdominal abscesses with IV antibiotics. Intra-abd fluid cx with E. coli, pansensitive. Blood cultures negative. Leukocytosis worsening again, low-grade temps on the evening of 01/16 and 01/17, rising CRP, and platelets continue to rise to 1.2 million-all point towards signs of ongoing inflammation/infection. Repeat CT chest/abdomen/pelvis on 01/18 with improved left sided loculated pleural effusion which is likely empyema sympathetic from intra-abdominal abscess, and left sided abscess near spleen remains about the same at 7 cm in size. Discussed care with surgery over the weekend and 01/18 - Postoperative management as per surgery - Continue IV Zosyn and add IV caspofungin for antifungal coverage on 01/18 - Make n.p.o. after midnight in case of need for repeat IR drainage versus surgical washout on 01/19-defer to surgery - Continue Tylenol as needed for pain. - Clinically stable to improving. Pain is resolving. Interested in food present. CV surgery consultation. No further indication for interventional or surgical procedure at this time. Postop day #20, Appropriate for transition to Augmentin after 01/26 and potential discharge pending availability of per case management. - IV antibiotics through Friday 01/26 ongoing per ID Remains on IV antibiotics Repeat CT scan on 01/26 pending to reevaluate fluid collections Follow surgery further input Challenging disposition as has no insurance #Dietary Concerns -RD consult placed per patient request, he will need instructions in hungarian - See RD notes, information given to the patient and at the bedside during this morning #Anemia/Thrombocytosis -Hgb mildly low but stable at 9-10, microcytic, iron panel consistent with chronic disease and iron deficiency mixed early in course of admission. B12, folate, and TSH are normal. Continues to have significant thrombocytosis with platelets worsening to 1267-likely reactive to infection and possibly secondary to iron deficiency. Appreciate Heme consult-recommends against aspirin use or any further workup as this is all reactive to sepsis - Hematology does not give a specific recommendation regarding giving IV iron, but may consider doing this anyway as this may improve his thrombocytosis-hold off for now --No aspirin needed for thrombocythemia and a reactive situation - Follow-up with GI as an outpatient for EGD and colonoscopy for microcytic iron deficiency anemia; however, he does not have insurance which may prohibit this. - Follow CBC, weekly on discharge. Thrombocytosis likely reactive, stable to slightly improving - Stable, improving, AM labs - Persistent but slow improvement, reactive to underlying condition. Monitor closely #Hypokalemia -Mild, good PO intake, recheck tomorrow AM #Hypotension -asymptomatic, interval improvement in with small fluid bolus, orhtostatic VS negative 01/24, repeat NS bolus PRN #Pleural effusions/acute respiratory failure with hypoxemia- CTA chest performed on 01/03 due to shortness of breath shows pleural effusions and atelectasis of the lower lobes. He also had a subdiaphragmatic intra-abdominal abscess contributing to splinting. Significantly decreased breath sounds noted on exam in 01/12-CXR shows significantly enlarged left-sided pleural effusion greater than right. Pulse ox normal at 95% on room air. CT CHest on 01/13 with large left loculated pleural effusion and LLL collapse. Was diuresed with IV Lasix without much improvement. Had thoracentesis on 01/14. pH 7.55, chemistries consistent with exudative effusion by lights criteria, cultures pending, cytology negative. Now weaned off supplemental O2. Consulted pulmonology- concern for empyema given loculated effusion. Patient hesitant to have repeat thoracentesis or chest tube due to previous 1 causing severe pain, but now is amenable if necessary if given IV pain medicine prior to procedure - Encouraged incentive spirometry with patient and with nursing - Repeat chest CT 01/18 with improvement, but remains with fluid there-no point in draining it and less abdominal abscess drained as well as per pulmonology - Follow pleural fluid cultures, AFB - Pulmonology following - Follow chest x-ray - See pulmonology notes. Not amenable to drainage. Likely to resolve during course with antibiotics as above. - Clinically improving with ambulation, control of infection as above. No further imaging indicated at this time - Pulmonary exams gradually clearing. No acute issues or concerns #Hyponatremia-worsened due to hypervolemia from many days of IV fluids and TPN- with large pleural effusion. Sodium up to 134-135 after diuresis and now improved to normal. - Follow BMP daily as oral intake resumes and improves - Stable, AM labs #HERMAN-ongoing, almost daily, but improving - Resolved #CORINA/high AG metabolic acidosis/lactic acidosis- resolved. Creatinine 3.4 on arrival and now normal. CORINA secondary to ATN from sepsis. With lactic acidosis with lactate 8 and now normalized. pH 7.1 on arrival with metabolic acidosis. Is now resolved. Received IV fluids, treatment of sepsis. - Follow BMP stable to resolved #Severe hepatic steatosis/ Elevated liver enzymes/prediabetes - Seen on CT. LFTs are now completely normal. Patient reports he only drinks alcohol 2-3 times per month-unclear if this is accurate. Lipids are normal, HgbA1c in prediabetes range at 6.0%. - counseled on alcohol cessation - Recommend follow-up with PCP and/or GI as an outpatient for fatty liver and prediabetes - Recommend low carbohydrate diet after discharge - Follow CMP - Continue po thiamine and p.o. folic acid daily in case of occult alcohol use disorder #Elevated troponin - peaked at 61 on .6, myocardial demand in the setting of GI sepsis - no further testing indicated at this time DVT prophylaxis: SCDs, Lovenox Dispo: Continued stay on medical/surgical unit. Hospitalist service will continue to follow along Admission and Anticipated Discharge Date Admission Date: December 31, 2024 Subjective Remains in good spirits. Denies any abdominal pain nausea fevers chills Chest pain shortness of breath or any other symptoms. Review of Systems Review of Systems: Negative except as in HPI Physical Exam Physical Exam: General: A&Ox3. NAD. Cooperative. HEENT: Atraumatic, normocephalic. Vision and hearing grossly intact. Pupils equal and reactive to light, sclera clear and anicteric Pulm: diminished at the left base otherwise clear bilaterally A&P. -wheezes, - rales, -rhonchi. No increased work of breathing. No respiratory distress. Cardiac: RRR. -mrg. Radial pulses intact and symmetrical. Abdominal: Slightly reduced bowel sounds, no distention, no localized tenderness, no signs of peritonitis, no rigidity Ext: No Edema, Moves all extremities equally NEURO: A&O as above, no focal deficits Skin: warm, moist. Constitutional: WD/WN, vitals as above not diaphoretic Eyes: + anicteric sclerae Respiratory: normal respiratory effort, lungs clear to auscultation + labored breathing (Mild tachypnea) and + tachypneic (Mild at rest and with minimal exertion) Auscultation: + rhonchi (Left middle lung field); no diminished lung sounds (CTAB), no crackles and no wheezes Cardiovascular: Rate/Rhythm: regular rate, regular rhythm and + tachycardic Heart Sounds: no murmur Extremities: no edema Gastrointestinal (Abdomen): Inspection/Auscultation: normal bowel sounds, + abdominal surgical incision (Laparoscopic incisions clean dry and intact) and + hypoactive bowel sounds; + abdomen abnormal to inspection (Multiple laparoscopic surgery well-healed) and abdomen not distended Percussion/Palpation: abdomen soft; abdomen nontender, no guarding and abdomen not rigid Musculoskeletal: Extremities: extremities normal to inspection Skin: no rashes Neurologic: awake Psychiatric: A+Ox3, euthymic affect Orientation: alert, oriented x 3 and cooperative Results & Data Results & Data Vital Signs (Past 12 Hours) Vital Signs Temp Pulse Resp BP Pulse Ox O2 Del Method 01/27/25 07:45 Room Air 01/27/25 07:17 36.8 C 70 17 117/64 95 Room Air PG Care Time/CCT Total # of Minutes Spent Total Time Spent with Patient: Total time spent is greater than 50% in coordination of care (as documented) at patient's floor/unit and/or counseling patient: Coding Level of Care Code 85083 SUB INP/OBS CARE MIN Diagnoses Acute appendicitis K35.201 Acute appendicitis type: with generalized peritonitis Appendicitis abscess presence: unspecified whether abscess present Appendicitis gangrene presence: with gangrene Appendicitis perforation presence: with perforation Pleural effusion J90 Postoperative intra-abdominal abscess T81.43XA; K65.1 Thrombocythemia D75.839 (1) Acute appendicitis Acute appendicitis type: with generalized peritonitis Appendicitis abscess presence: unspecified whether abscess present Appendicitis gangrene presence: with gangrene Appendicitis perforation presence: with perforation Qualified Code(s): K35.201 - Acute appendicitis with generalized peritonitis, with perforation, without abscess
--- NOTE | 2025-01-27 17:47 | Surgery Progress Note ---
Date of Service January 27, 2025 Assessment & Plan (1) Postoperative intra-abdominal abscess: Plan: Status post laparoscopic appendectomy for perforated appendicitis, post op course complicated by intra-adbominal abscess (1 was amenable to IR drainage), remains on IV abx. Did also have L pleural effusion tapped by IR WBC 9.3. Hbg 9.9. Vitals stable Pt continues to feel well, tolerating diet CT results reviewed, all is improving. d/c'd caspo and IV zosyn and started po augmentin If all remains stable will plan on discharge to home tomorrow on 2 week course augmentin with close follow up Appreciate social work and hospitalists assistance (2) S/P laparoscopic appendectomy: Admission and Anticipated Discharge Date Admission Date: December 31, 2024 Subjective Patient feels well. No pains. Tolerating food. No complaints Physical Exam Physical Exam: awake/alert, no distress Gastrointestinal (Abdomen): Percussion/Palpation: abdomen soft; abdomen nontender Results & Data Vital Signs (Past 12 Hours) Vital Signs Temp Pulse Resp BP Pulse Ox O2 Del Method 01/27/25 15:45 98.4 F 73 16 100/65 93 Room Air 01/27/25 07:45 Room Air 01/27/25 07:17 98.2 F 70 17 117/64 95 Room Air PG Care Time/CCT Total # of Minutes Spent Total Time Spent with Patient: Total time spent is greater than 50% in coordination of care (as documented) at patient's floor/unit and/or counseling patient: Coding Level of Care Code 22816 Post Operative Follow-Up Diagnoses Postoperative intra-abdominal abscess T81.43XA; K65.1 S/P laparoscopic appendectomy Z90.49
[2025-01-27] MEDS: BENZONATATE 100 MG CAPSULE PO PRN (21:08)
[2025-01-28 07:51] LABS: Hematocrit (blood only) 30.3 % (42.0-52.0); Hemoglobin 9.9 g/dL (14.0-18.0); Mean Corpuscular Hemoglobin 26.3 pg (25.0-34.0); Mean Corpuscular Volume 80.6 fL (80.0-100.0); Platelet Count 949 K/uL (130-400); RDW Standard Deviation 41.5 fL (36.4-46.3); Red Blood Count 3.76 M/uL (4.70-6.10); White Blood Count 8.51 K/ul (4.8-10.8)
[2025-01-28 08:23] LABS: Alanine Aminotransferase 29.0 U/L (7-52); Albumin Globulin Ratio 0.8 (0.9-2); Albumin Level 3.5 gm/dl (3.4-5.0); Alkaline Phosphatase 65.0 U/L (34-104); Anion Gap 7.0 (3-11); Bilirubin,Total 0.3 mg/dl (0.2-1.0); Blood Urea Nitrogen 15.0 mg/dl (6-23); Calcium 9.4 mg/dl (8.6-10.3); Carbon Dioxide 26.0 mmol/L (21-32); Chloride 107.0 mmol/L (98-107); Creatinine Clr Calc Pharmacy 149.5 ml/min; Globulin 4.2 gm/dl (2.5-4.0); Glucose 90.0 mg/dl (70-99(Fasting)); Potassium 3.5 mmol/L (3.5-5.1); Sodium 140.0 mmol/L (136-145); Total Protein 7.7 gm/dl (6.0-8.3)
--- NOTE | 2025-01-28 09:59 | Surgery Progress Note ---
Date of Service January 28, 2025 Assessment & Plan (1) History of laparoscopic appendectomy: Plan: Status post laparoscopic appendectomy for perforated appendicitis with sepsis, status post IR drainage of intra-abdominal abscess with removal of drain, status post thoracentesis of pleural effusion. Continues to clinically improve, his imaging is improved as well. He has tolerated transition to oral antibiotics without any significant change in his status. Plan to discharge to home today Prescription for 2 weeks oral antibiotics given Follow-up with me in general surgery clinic in 3 to 4 weeks May resume normal activity without restriction Wound care instructions and activity restrictions reviewed Acetaminophen and ibuprofen as needed for pain Return precautions given Will need repeat CT scan of the chest abdomen and pelvis in 8 weeks (2) Sepsis: (3) Postoperative intra-abdominal abscess: (4) Pleural effusion: Admission and Anticipated Discharge Date Admission Date: December 31, 2024 Subjective materials scheduler system used. Status post laparoscopic appendectomy for perforated appendicitis with sepsis status post IR drainage of intra-abdominal abscess, status post thoracentesis for pleural effusion. CT scan from Sunday showed improvement in fluid collections, transition to oral antibiotics which he has tolerated and his white count remains normal. Minimal pain. Tolerating diet and having normal bowel movements. Physical Exam Constitutional: WD/WN, vitals as above Respiratory: normal respiratory effort, lungs clear to auscultation Cardiovascular: RRR, no murmur, no edema Gastrointestinal (Abdomen): normal bowel sounds, soft, nontender, no hepatosplenomegaly Inspection/Auscultation: + abdominal surgical incision (Healing well) Results & Data Vital Signs (Past 12 Hours) Vital Signs Temp Pulse Resp BP Pulse Ox O2 Del Method 01/28/25 07:52 36.9 C 63 21 97/62 L 93 Room Air 01/27/25 22:15 36.9 C 77 16 93/63 L 94 Room Air Laboratory Results Laboratory Results - last 24 hr 01/28/25 07:22 WBC 8.51 RBC 3.76 L Hgb 9.9 L Hct 30.3 L MCV 80.6 MCH 26.3 MCHC 32.7 RDW Std Deviation 41.5 RDW Coeff of Annika 14.2 Plt Count 949 H MPV 8.3 L Sodium 140 Potassium 3.5 Chloride 107 Carbon Dioxide 26 Anion Gap 7 BUN 15 Creatinine 0.61 Est Cr Clr Drug Dosing 149.5 eGFR 126.87 BUN/Creatinine Ratio 24.6 H Glucose 90 Calcium 9.4 Total Bilirubin 0.3 AST 29 ALT 29 Alkaline Phosphatase 65 Total Protein 7.7 Albumin 3.5 Globulin 4.2 H Albumin/Globulin Ratio 0.8 L PG Care Time/CCT Total # of Minutes Spent Total Time Spent with Patient: Total time spent is greater than 50% in coordination of care (as documented) at patient's floor/unit and/or counseling patient: Coding Level of Care Code 14817 Post Operative Follow-Up Diagnoses History of laparoscopic appendectomy Z90.49 Sepsis with acute renal failure and tubular necrosis without septic shock, due to unspecified organism A41.9; R65.20; N17.0 Sepsis type: sepsis due to unspecified organism Sepsis acute organ dysfunction status: with acute organ dysfunction Severe sepsis acute organ dysfunction type: acute renal failure Acute renal failure type: with acute tubular necrosis Severe sepsis shock status: without septic shock Postoperative intra-abdominal abscess T81.43XA; K65.1 Pleural effusion J90 (2) Sepsis Sepsis type: sepsis due to unspecified organism Sepsis acute organ dysfunction status: with acute organ dysfunction Severe sepsis acute organ dysfunction type: acute renal failure Acute renal failure type: with acute tubular necrosis Severe sepsis shock status: without septic shock Qualified Code(s): A41.9 - Sepsis, unspecified organism; R65.20 - Severe sepsis without septic shock; N17.0 - Acute kidney failure with tubular necrosis
--- NOTE | 2025-01-28 11:42 | Discharge Summary ---
Discharge Summary Date of Service January 28, 2025 Principal Dx & Hospital Course #1 = Principal Diagnosis (1) Acute appendicitis: (2) Pleural effusion: (3) Postoperative intra-abdominal abscess: (4) Thrombocythemia: Plan This patient is a 39 y/o Hungarian speaking male with no past medical history who was admitted with perforated appendicitis, peritonitis, sepsis POA, partial SBO, CORINA, severe lactic acidosis, and postoperative intra-abdominal abscesses and pleural effusion with possible empyema. Patient was taken to the OR urgently 12/31 for a laparoscopic appendectomy and abdominal washout. #Sepsis POA 2/2 perforated gangrenous appendicitis/peritonitis/partial SBO/intra-abdominal abscesses-with tachypnea, tachycardia, procalcitonin greater than 100, lactate elevated at 8, CORINA, and metabolic acidosis on admission. Sepsis, CORINA and acidosis resolved after IV fluids, IV Zosyn, surgical washout and appendectomy. He then had an ileus versus partial small bowel obstruction had NG tube replaced. That is now resolved and he is tolerating regular diet. He was then found to have multiple intra-abdominal abscesses-had IR placed drain and left paracolic abscess which has since been removed. He continues to be treated for intra-abdominal abscesses with IV antibiotics. Intra-abd fluid cx with E. coli, pansensitive. Blood cultures negative. Leukocytosis worsening again, low-grade temps on the evening of 01/16 and 01/17, rising CRP, and platelets continue to rise to 1.2 million-all point towards signs of ongoing inflammation/infection. Repeat CT chest/abdomen/pelvis on 01/18 with improved left sided loculated pleural effusion which is likely empyema sympathetic from intra-abdominal abscess, and left sided abscess near spleen remains about the same at 7 cm in size. Discussed care with surgery over the weekend and 01/18 - Postoperative management as per surgery - Continue IV Zosyn and add IV caspofungin for antifungal coverage on 01/18 - Make n.p.o. after midnight in case of need for repeat IR drainage versus surgical washout on 01/19-defer to surgery - Continue Tylenol as needed for pain. - Clinically stable to improving. Pain is resolving. Interested in food present. CV surgery consultation. No further indication for interventional or surgical procedure at this time. Postop day #20, Appropriate for transition to Augmentin after 01/26 and potential discharge pending availability of per case management. - IV antibiotics through Friday 01/26 ongoing per ID Remains on IV antibiotics Repeat CT scan on 01/26 With improved fluid collections. Surgery transition to p.o. antibiotics and cleared for discharge close outpatient follow-up Case management following to ensure affordability of antibiotics and any other needs postdischarge #Dietary Concerns -RD consult placed per patient request, he will need instructions in persian - See RD notes, information given to the patient and at the bedside during this morning #Anemia/Thrombocytosis -Hgb mildly low but stable at 9-10, microcytic, iron panel consistent with chronic disease and iron deficiency mixed early in course of admission. B12, folate, and TSH are normal. Continues to have significant thrombocytosis with platelets worsening to 1267-likely reactive to infection and possibly secondary to iron deficiency. Appreciate Heme consult-recommends aga inst aspirin use or any further workup as this is all reactive to sepsis - Hematology does not give a specific recommendation regarding giving IV iron, but may consider doing this anyway as this may improve his thrombocytosis-hold off for now --No aspirin needed for thrombocythemia and a reactive situation - Follow-up with GI as an outpatient for EGD and colonoscopy for microcytic iron deficiency anemia; however, he does not have insurance which may prohibit this. - Follow CBC, weekly on discharge. Thrombocytosis likely reactive, stable to slightly improving - Stable, improving, AM labs - Persistent but slow improvement, reactive to underlying condition. Monitor closely #Hypokalemia -Mild, good PO intake, monitor #Hypotension resolved -asymptomatic, interval improvement in with small fluid bolus, orhtostatic VS negative 01/24, repeat NS bolus PRN #Pleural effusions/acute respiratory failure with hypoxemia- CTA chest performed on 01/03 due to shortness of breath shows pleural effusions and atelectasis of the lower lobes. He also had a subdiaphragmatic intra-abdominal abscess con tributing to splinting. Significantly decreased breath sounds noted on exam in 01/12-CXR shows significantly enlarged left-sided pleural effusion greater than right. Pulse ox normal at 95% on room air. CT CHest on 01/13 with large left loculated pleural effusion and LLL collapse. Was diuresed with IV Lasix without much improvement. Had thoracentesis on 01/14. pH 7.55, chemistries consistent with exudative effusion by lights criteria, cultures pending, cytology negative. Now weaned off supplemental O2. Consulted pulmonology-concern for empyema given loculated effusion. Patient hesitant to have repeat thoracentesis or chest tube due to previous 1 causing severe pain, but now is amenable if necessary if given IV pain medicine prior to procedure - Encouraged incentive spirometry with patient and with nursing - Repeat chest CT 01/18 with improvement, but remains with fluid there-no point in draining it and less abdominal abscess drained as well as per pulmonology - Follow pleural fluid cultures, AFB - Pulmonology following - Follow chest x-ray - See pulmonology notes. Not amenable to drainage. Likely to resolve during course with antibiotics as above. - Clinically improving with ambulation, control of infection as above. No further imaging indicated at this time - Pulmonary exams gradually clearing. No acute issues or concerns #Hyponatremia-worsened due to hypervolemia from many days of IV fluids and TPN- with large pleural effusion. Sodium up to 134-135 after diuresis and now improved to normal. - Follow BMP daily as oral intake resumes and improves - Stable, AM labs #HERMAN-ongoing, almost daily, but improving - Resolved #CORINA/high AG metabolic acidosis/lactic acidosis- resolved. Creatinine 3.4 on arrival and now normal. CORINA secondary to ATN from sepsis. With lactic acidosis with lactate 8 and now normalized. pH 7.1 on arrival with metabolic acidosis. Is now resolved. Received IV fluids, treatment of sepsis. - Follow BMP stable to resolved #Severe hepatic steatosis/ Elevated liver enzymes/prediabetes - Seen on CT. LFTs are now completely normal. Patient reports he only drinks alcohol 2-3 times per month-unclear if this is accurate. Lipids are normal, HgbA1c in prediabetes range at 6.0%. - counseled on alcohol cessation - Recommend follow-up with PCP and/or GI as an outpatient for fatty liver and prediabetes - Recommend low carbohydrate diet after discharge - Follow CMP - Continue po thiamine and p.o. folic acid daily in case of occult alcohol use disorder #Elevated troponin - peaked at 61 on 01.01, myocardial demand in the setting of GI sepsis - no further testing indicated at this time DVT prophylaxis: SCDs, Lovenox Dispo: Home Notes For Next Care Provider Subjective Doing very well in good spirits no abdominal pain nausea fevers chills diarrhea or any other symptoms or complaints. Eager for discharge. Discussed with case management earlier who was provided affordability options. Discussed with RN she tells me patient confirms he can afford the antibiotics. Case management will set up home health if needed. RN confirms shortly after Via secure chatpatient is independent completelyNo home needs. Discussed with surgery PA via secure chat they cleared for discharge and have provided instructions and set up for follow-up Admission HPI Per Admitting Provider Patient is a 39-year-old male who is Hungarian-speaking only and has no reported past medical history who presents to the emergency department complaining of severe abdominal pain x 2 days. Patient was seen and examined with the assistance of the telemetry translator interpreter. Patient states his abdominal pain began 2 days ago and was described as diffuse but mild at that time. His abdominal pain progressed over the last 2 days and became very severe with associated nausea and vomiting as well as chest pain. He also complained of difficulty urinating and has not voided for 2 days, but denies any constipation or diarrhea, denies fevers or chills. Patient was evaluated in the emergency department and was tachycardic with heart rate in the 120s, sinus tachycardia, but blood pressure was stable. His exam was significant for a distended abdomen that was diffusely tender to palpation and firm with peritoneal signs. His labs were significant for a normal white blood cell count of 7.3, but elevated BUN and creatinine of 55 and 3.84 consistent with acute kidney injury. No previous labs are available. He had a CAT scan of the abdomen pelvis that showed findings of pneumoperitoneum and inflammatory changes around the appendix concerning for perforated appendicitis, so general surgery was consulted. Discharge Exam General: A&Ox3. NAD. Cooperative. HEENT: Atraumatic, normocephalic. Vision and hearing grossly intact. Pupils equal and reactive to light, sclera clear and anicteric Pulm: diminished at the left base otherwise clear bilaterally A&P. -wheezes, - rales, -rhonchi. No increased work of breathing. No respiratory distress. Cardiac: RRR. -mrg. Radial pulses intact and symmetrical. Abdominal: Slightly reduced bowel sounds, no distention, no localized tenderness, no signs of peritonitis, no rigidity Ext: No Edema, Moves all extremities equally NEURO: A&O as above, no focal deficits Skin: warm, moist. Constitutional WD/WN, vitals as above not diaphoretic Eyes + anicteric sclerae Respiratory normal respiratory effort, lungs clear to auscultation + labored breathing (Mild tachypnea) and + tachypneic (Mild at rest and with minimal exertion) Auscultation: + rhonchi (Left middle lung field); no diminished lung sounds (CTAB), no crackles and no wheezes Cardiovascular Rate/Rhythm: regular rate, regular rhythm and + tachycardic Heart Sounds: no murmur Extremities: no edema Gastrointestinal (Abdomen) Inspection/Auscultation: normal bowel sounds, + abdominal surgical incision (Laparoscopic incisions clean dry and intact) and + hypoactive bowel sounds; + abdomen abnormal to inspection (Multiple laparoscopic surgery well-healed) and abdomen not distended Percussion/Palpation: abdomen soft; abdomen nontender, no guarding and abdomen not rigid Musculoskeletal Extremities: extremities normal to inspection Skin no rashes Neurologic awake Psychiatric A+Ox3, euthymic affect Orientation: alert, oriented x 3 and cooperative Discharge Plan Discharge Items Patient Disposition: Home - Home Health Services Reason For Visit: ABDOMINAL PAIN Discharge Diagnosis: diagnostic laparoscopy abdominal washout appendectomy pleural effusion Condition on Discharge: Good Activity: Per Instructions section Lifting: Gradually increase as tolerated Bathing Comment: may shower Sexual Activity: When tolerated Exercise/Sports: Gradually increase as tolerated Driving/Machine Use: Resume 1 day after discharge Weightbearing: Full weightbearing Non-emergency contact: Primary Care Provider, Surgeon and Wharf Labourer Call non-emergency contact if: you have any medication questions, your symptoms worsen, your pain is not controlled, you have a fever, your temperature is above 101.5, your wound has increased redness, your wound has increased drainage and your wound pain has increased Follow-up/Referrals: Brandon Bullard DO, FACS [Physician] - 02/17/25 9:00 am (Please call to schedule follow up in the office in 3-4 weeks. You will need a check up to see how you are doing and possibly require repeat CT scan imaging) PCPNO [Primary Care Provider] - Diet: Regular Addtl Attending Provider Instructions: SPECIAL CARE INSTRUCTIONS: * You have skin glue over your incisions called dermabond. you may shower with this on. It will tend to dissolve and fall off within a couple weeks. Do not p ick at the skin glue * Please complete the full course of antibiotic prescribed to you * You may shower * You may return to normal activity as you tolerate * No driving while taking narcotic pain medication * No drinking alcohol while taking narcotic pain medication; otherwise you may resume driving one day after discharge * May use Ibuprofen/Tylenol over the counter for pain as tolerated. Do not exceed 3grams of Tylenol per 24 hours * Expect some swelling and bruising. * Diet- you may resume your regular diet Call your doctor if: * Temperature above 101 degrees, nausea/vomiting, fever/chills * Pain not relieved by pain medicine ordered * There is increased drainage or redness from any incision * You have any unanswered questions or concerns [phone]. FOLLOW UP VISIT: If not already scheduled, please call the office for a follow-up visit in 3-4 weeks. Office Pending Studies at Discharge: Yes Studies:: surgical pathology Stand-Alone Forms: [facility] [employer], Smoking Cessation Medications and DC Order Prescriptions: New folic acid 1 mg Tablet 1 mg PO QAM 30 Days Qty: 30 0RF multivitamin with folic acid [Daily-Jesus Manuel (with folic acid)] 400 mcg Tablet 1 tab PO QAM 30 Days Qty: 30 0RF thiamine HCl (vitamin B1) 100 mg Tablet 100 mg PO QAM 30 Days Qty: 30 0RF acetaminophen [Tylenol Extra Strength] 500 mg Tablet 1,000 mg PO Q8 PRN (Reason: pain) 30 Days Qty: 60 0RF amoxicillin-pot clavulanate 875-125 mg Tablet 1 tab PO BIDM 14 Days Qty: 28 0RF Discharge Orders: Discharge Order (Routine); Ordered 01/28/25 Ordered By: Benton Ferris/Other Patient Handouts: Prediabetes, 5 Steps for Eating Healthier Admission Data Admit Date/Time: 12/31/24 14:04 Attending Provider: Benton Barone Admit Provider: Brandon Bullard Primary Care Provider: PCP,NO Other Providers: Brandon Bullard; Tee Hardin; Joni Cody; Julio Faustin Other Interventions: Discharge Summary Assessment (RN) Last Done: 01/28/25 10:30 Hospital Stay Data Consultations 12/31/24 10:35 ED Decision to Admit Stat 12/31/24 18:34 Consult Hospitalist Routine 01/12/25 12:52 Consult Hematology Routine 01/15/25 12:41 Consult Pulmonology Routine Procedures Performed Operation Date: 12/31/24 09:05 Actual Procedures p Diagnostic Laparoscopy, Appendectomy(Not Applicable) - Brandon Bullard DO, RISHI Diagnostic Imagining Performed 12/31/24 08:26 CT abd pelvis wo con Stat CT chest diagnostic wo con Stat 01/03/25 14:51 CT abd pelvis IV con only Stat 01/03/25 14:53 CT angio chest PE protocol Stat 01/06/25 07:57 CT abd pelvis oral and IV con Urgent 01/07/25 13:[address] periton/retro w/gdnce Routine 01/13/25 07:00 CT abd pelvis oral and IV con Routine CT chest diagnostic wo con Routine 01/14/25 10:58 IR thoracentesis wo tube US Routine 01/15/25 12:46 US point of care ultrasound Urgent 01/18/25 09:56 CT Abd and Pelvis [CT abd pelvis oral and IV con] Routine CT chest diagnostic w con Routine 01/26/25 07:14 CT abd pelvis oral and IV con Routine CT chest diagnostic w con Routine Pending Results Patient Have Any Pending Studies at Discharge: Yes Discharge Instructions Given to Patient (Per Discharging Provider) SPECIAL CARE INSTRUCTIONS: * You have skin glue over your incisions called dermabond. you may shower with this on. It will tend to dissolve and fall off within a couple weeks. Do not pick at the skin glue * Please complete the full course of antibiotic prescribed to you * You may shower * You may return to normal activity as you tolerate * No driving while taking narcotic pain medication * No drinking alcohol while taking narcotic pain medication; otherwise you may resume driving one day after discharge * May use Ibuprofen/Tylenol over the counter for pain as tolerated. Do not exceed 3grams of Tylenol per 24 hours * Expect some swelling and bruising. * Diet- you may resume your regular diet Call your doctor if: * Temperature above 101 degrees, nausea/vomiting, fever/chills * Pain not relieved by pain medicine ordered * There is increased drainage or redness from any incision * You have any unanswered questions or concerns [phone]. FOLLOW UP VISIT: If not already scheduled, please call the office for a follow-up visit in 3-4 weeks. Office Total Time Total Time Spent Total Time Spent (In Minutes): 35 Coding Level of Care Code 45821 INP/OBS DISCH >30 MIN Diagnoses Acute appendicitis K35.201 Acute appendicitis type: with generalized peritonitis Appendicitis abscess presence: unspecified whether abscess present Appendicitis gangrene presence: with gangrene Appendicitis perforation presence: with perforation Pleural effusion J90 Postoperative intra-abdominal abscess T81.43XA; K65.1 Thrombocythemia D75.839
[2025-01-28] MEDS: INFLUENZA VACC TS2025-26(6m+)/PF (IIV3) 0.5mL Syr IM ONE (12:44)
== END 2025-01-28 17:06 | disposition home health service (06) | DRG 853 ==
LOC: EDBD → ED 07:56 → 2S 10:19 → OR 10:19 → 2S 14:04 → SUATTDRO 14:04 → 3W 01-18 18:14